=== PATIENT | male | born 1945 | race Caucasian/White ===

== ENCOUNTER 2016-06-15 10:40 | Inpatient (IN) | payer OTHER, MEDICARE ==
[~2016-06-15] VITALS: Ht 170.2 cm; Wt 95.6 kg
[~2016-06-15 10:40] MED LIST: ASPI81TA17 PO; IBUP600 PO; METO50 PO; OXYC5 PO; PROT40TA PO; SILD20TA PO
[2016-06-15 10:44] VITALS: BP 162/74; PULSE 88; RESP 20; TEMP 97.7; O2SAT 96
[2016-06-15 10:52] VITALS: BP 162/74; PULSE 88; RESP 20; TEMP 97.7; O2SAT 96
[2016-06-15] MEDS ORDERED: CEFEPIME INJ 2,000 MG in SODIUM CHLORIDE 0.9% INJ 100 ML IV STA (10:53)
[2016-06-15] MEDS ORDERED: VANCOMYCIN INJ 1,000 MG in SODIUM CHLOR 0.9% 250 ML INJ 250 ML IV STA (10:53)
[2016-06-15] MEDS ORDERED: FLUCONAZOLE 400 MG PREMIX BAG 200 ML IV ONE (11:00)
--- NOTE | 2016-06-15 11:08 | PD ---
HPI Chief Complaint: Fever Time Seen by Provider: 10:53 Travel History International Travel<30 days: No Contact w/Intl Traveler<30days: No Traveled to known affect area: No History of Present Illness HPI Patient is a unfortunate 71-year-old male who presents the emergency department for fever. Patient had a fairly recent diagnosis of myelodysplastic syndrome and has been neutropenic, severely with essentially 0 neutrophils for the better part of 6 weeks. He was seen at [facility] for potential bone marrow transplant, but because he has decompensated he "fell off the transplant list" per patient. Patient has been prophylaxed with Cipro, fluconazole given his severe neutropenia but states that over the last week he has felt poorly. Describes generalized body aches, feeling weak. Nausea but no vomiting. This morning he spiked a temp to 100.5. He was seen by Dr. Collins who sent him here for further workup and management of neutropenic fever. PFSH Past Medical History Depression: Yes Cardiac Catheterization: Yes (NO STENTS) High Cholesterol: Yes Chemotherapy: Yes Chest Pain: Yes Diminished Hearing: No Diverticulitis: Yes GERD: Yes Herniated Disk: Yes (L4-5) Hypertension: Yes Kidney Stones: Yes Psychiatric: Yes (PTSD) Past Surgical History Cholecystectomy: Yes Ear Surgery: Yes Social History Alcohol Use: Yes (RARE) Tobacco Use: No Substance Use: No Allergies-Medications (Allergen,Severity, Reaction): Coded Allergies: No Known Allergies (Unverified , 11/20/12) Reported Meds & Prescriptions Reported Meds & Active Scripts Active Reported Aspirin EC (Aspirin) 81 Mg Tabdr 81 Mg PO HS Percocet (Oxycodone-Acetaminophen) 5-325 mg Tab 1-2 Tab PO Q6-8HR PRN Pantoprazole (Pantoprazole Sodium) 40 Mg Tab 40 Mg PO BID Tamsulosin (Tamsulosin HCl) 0.4 Mg Cap 0.4 Mg PO HS Losartan (Losartan Potassium) 50 Mg Tab 50 Mg PO HS Wellbutrin Xl 24 HR (Bupropion HCl) 150 Mg Tab 150 Mg PO HS Questran (Cholestyramine) 4 Gm/Dose Powd 4 Gm PO BID PRN 1 level scoopful of powder contains 4 grams of cholestyramine. Cipro (Ciprofloxacin HCl) 250 Mg Tab 250 Mg PO DAILY Sucralfate 1 Gm Tab 1 Gm PO HS PRN on empty stomach Viagra (Sildenafil Citrate) 50 Mg Tab 50 Mg PO DAILY PRN Review of Systems Except as stated in HPI: all other systems reviewed are Neg Physical Exam Narrative GENERAL: obese male in no acute distress SKIN: Warm and dry. HEAD: Normocephalic. EYES: No scleral icterus. No injection or drainage. ENT: Mucous membranes pink and moist. NECK: Trsupple CARDIOVASCULAR: Regular rate and rhythm. No murmur appreciated. RESPIRATORY: No accessory muscle use. Clear to auscultation. Breath sounds equal bilaterally. GASTROINTESTINAL: Abdomen soft, non-tender, nondistended. MUSCULOSKELETAL: ecchymosis in the left antecubital from recent IV. No palpable cords. No erythema. Remainder the extremities unremarkable. NEUROLOGICAL: Awake and alert. Motor grossly within normal limits. Normal speech. PSYCHIATRIC: Appropriate mood and affect; insight and judgment normal. Data Data Last Documented VS Vital Signs Date Time Temp Pulse Resp B/P Pulse Ox O2 Delivery O2 Flow Rate FiO2 06/15/16 12:04 78 18 127/61 96 Room Air 06/15/16 10:52 97.7 Orders Electrocardiogram (06/15/16 10:53) Complete Blood Count With Diff (06/15/16 10:53) Comprehensive Metabolic Panel (06/15/16 10:53) Prothrombin Time / Inr (Pt) (06/15/16 10:53) Act Partial Throm Time (Ptt) (06/15/16 10:53) Lactic Acid Sepsis Protocol (06/15/16 10:53) Lipase (06/15/16 10:53) Urinalysis - C+S If Indicated (06/15/16 10:53) Influenzae A/B Antigen (06/15/16 10:53) Blood Culture (06/15/16 10:53) Chest, Single Ap (06/15/16 10:53) Ecg Monitoring (06/15/16 10:53) Iv Access Insert/Monitor (06/15/16 10:53) Oximetry (06/15/16 10:53) Cefepime Inj (Maxipime Inj) (06/15/16 10:53) Vancomycin Inj (Vancomycin Inj) (06/15/16 10:53) Fluconazole 400 Mg Premix Bag (Diflucan (06/15/16 11:00) Consult Infectious Disease (06/15/16 ) Consult Medical Oncology (06/15/16 ) Us Arm Venous Doppler (06/15/16 ) (Hub Use Only)Inp Phy Cons/Ref (06/15/16 ) (Hub Use Only)Inp Phy Cons/Ref (06/15/16 ) Admit Order (Ed Use Only) (06/15/16 13:14) Labs Laboratory Tests Test 06/15/16 06/15/16 11:50 11:54 Lactic Acid Level 1.3 mmol/L White Blood Count 2.8 TH/MM3 Red Blood Count 4.13 MIL/MM3 Hemoglobin 9.4 GM/DL Hematocrit 30.2 % Mean Corpuscular Volume 73.2 FL Mean Corpuscular Hemoglobin 22.8 PG Mean Corpuscular Hemoglobin 31.1 % Concent Red Cell Distribution Width 17.2 % Platelet Count 219 TH/MM3 Mean Platelet Volume 9.6 FL Neutrophils (%) (Auto) % Lymphocytes (%) (Auto) % Monocytes (%) (Auto) % Eosinophils (%) (Auto) % Basophils (%) (Auto) % Neutrophils # (Auto) TH/MM3 Lymphocytes # (Auto) TH/MM3 Monocytes # (Auto) TH/MM3 Eosinophils # (Auto) TH/MM3 Basophils # (Auto) TH/MM3 CBC Comment AUTO DIFF Prothrombin Time 12.1 SEC Prothromb Time International 1.1 RATIO Ratio Activated Partial 20.6 SEC Thromboplast Time Sodium Level 141 MEQ/L Potassium Level 4.1 MEQ/L Chloride Level 107 MEQ/L Carbon Dioxide Level 25.7 MEQ/L Anion Gap 8 MEQ/L Blood Urea Nitrogen 13 MG/DL Creatinine 1.04 MG/DL Estimat Glomerular Filtration 70 ML/MIN Rate Random Glucose 99 MG/DL Calcium Level 8.8 MG/DL Total Bilirubin 0.6 MG/DL Aspartate Amino Transf 19 U/L (AST/SGOT) Alanine Aminotransferase 24 U/L (ALT/SGPT) Alkaline Phosphatase 86 U/L Total Protein 7.3 GM/DL Albumin 3.9 GM/DL Lipase 81 U/L MDM Medical Decision Making Medical Screen Exam Complete: Yes Emergency Medical Condition: Yes Medical Record Reviewed: Yes Differential Diagnosis 71-year-old male with history of myelodysplastic syndrome here for neutropenic fever. Differential includes bacteremia, influenza, pneumonia, UTI, abdominal source, neutropenic fever, fungemia, left upper extremity superficial thrombophlebitis versus DVT. Narrative Course Patient placed on monitor, IV established and blood obtained. twelve-lead EKG shows sinus rhythm without notable ST abnormality is, normal intervals. Portal chest x-ray obtained that by my read is unremarkable.Patient was empirically treated with cefepime, vancomycin and fluconazole. CBC, CMP, lipase, lactate, coags, influenza, blood cultures were obtained and unremarkable. UA pending. Duplex ultrasound of the left upper extremity showed no evidence of DVT. Medical oncology and infectious disease were consulted and patient will be admitted for further management. Critical Care Narrative Aggregate critical care time was 35 minutes. Time to perform other separately billable procedures was not included in the critical care time. My time did not include minutes spent treating any other patients simultaneously or on activities that did not directly contribute to the patient's treatment. The services I provided to this patient were to treat and/or prevent clinically significant deterioration that could result in: cardiopulmonary decompensation , infectious decompensation,, disability I provided critical care services requiring my management, as noted below: Chart data review, documentation time, medication orders and management, vital sign assessments/reviewing monitor data, ordering and reviewing lab tests, ordering and interpreting/reviewing x-rays and diagnostic studies, care of the patient and discussion of the patient with the admitting physicians. Diagnosis Primary Impression: Neutropenic fever Admitting Information Admitting Physician Requests: Admit Angela Arrieta MD Jun 15, 2016 11:08
--- NOTE | 2016-06-15 11:36 | RADRPT ---
EXAM DATE/TIME: 06/15/2016 11:11 [facility] COMPARISON: No previous studies available for comparison. INDICATIONS : Fever, congestion. MEDICAL HISTORY : Leukemia. SURGICAL HISTORY : None. ENCOUNTER: Initial ACUITY: 1 day PAIN SCORE: 0/10 LOCATION: Bilateral chest FINDINGS: A single view of the chest demonstrates the lungs to be symmetrically aerated without evidence of mas s, infiltrate or effusion. The cardiomediastinal contours are unremarkable. Osseous structures are intact. CONCLUSION: No acute disease. Mejia Butler MD FACR on June 15, 2016 at 11:34 Board Certified Radiologist. This report was verified electronically.
[2016-06-15] MEDS ORDERED: SUCR1TAB PO (11:43)
[2016-06-15] MEDS ORDERED: VIAG50TA PO (11:43)
[2016-06-15] MEDS ORDERED: CIPR250T52 PO (11:46)
[2016-06-15] MEDS ORDERED: QUES4POW2 PO (11:46)
[2016-06-15] MEDS ORDERED: BUPR150XL PO (11:48)
[2016-06-15] MEDS ORDERED: LOSA50TA PO (11:50)
[2016-06-15] MEDS ORDERED: PANT40TA3 PO (11:50)
[2016-06-15] MEDS ORDERED: PERC5TAB12 PO (11:50)
[2016-06-15] MEDS ORDERED: ASPI81TA11 PO (11:50)
[2016-06-15] MEDS ORDERED: TAMS0.4C4 PO (11:50)
[2016-06-15 12:04] VITALS: BP 127/61; PULSE 78; RESP 18; O2SAT 96
[2016-06-15 12:31] LABS: HEMATOCRIT 30.2 % (39.0-51.0); MEAN CELL VOLUME 73.2 FL (80.0-100.0); MEAN CORPUSCULAR HEMOGLOBIN 22.8 PG (27.0-34.0); MEAN CORPUSCULAR HGB CONC 31.1 % (32.0-36.0); PLATELET COUNT 219 TH/MM3 (150-450); RED BLOOD COUNT 4.13 MIL/MM3 (4.50-5.90); RED CELL DISTRIBUTION WIDTH 17.2 % (11.6-17.2); WHITE BLOOD COUNT 2.8 TH/MM3 (4.0-11.0)
[2016-06-15 12:32] LABS: HEMO FLAGS AUTO DIFF
[2016-06-15 12:40] LABS: APTT (PATIENT) 20.6 SEC (24.3-30.1); INTERNATIONAL NORMALIZED RATIO 1.1 RATIO; PROTHROMBIN TIME - PATIENT 12.1 SEC (9.8-11.6)
[2016-06-15 12:41] LABS: ALT (GPT) 24 U/L (12-78); ANION GAP 8 MEQ/L (5-15); AST (GOT) 19 U/L (15-37); BICARBONATE 25.7 MEQ/L (21.0-32.0); BLOOD UREA NITROGEN 13 MG/DL (7-18); CHLORIDE 107 MEQ/L (98-107); GLOMERULAR FILTRATION RATE 70 ML/MIN (>89); POTASSIUM 4.1 MEQ/L (3.5-5.1); SODIUM (NA) 141 MEQ/L (136-145)
[2016-06-15 12:44] LABS: ALKALINE PHOSPHATASE 86 U/L (45-117); TOTAL BILIRUBIN ADULT 0.6 MG/DL (0.2-1.0)
--- NOTE | 2016-06-15 12:48 | RADRPT ---
EXAM DATE/TIME: 06/15/2016 12:12 [facility] COMPARISON: No previous studies available for comparison. INDICATIONS : Left arm pain. MEDICAL HISTORY : Hypertension. Gastroesophageal reflux disease. Diverticulitis. Kidney stones. SURGICAL HISTORY : Cholecystectomy. Ear surgery. Cardiac catheterization. Right elbow fracture repair. ENCOUNTER: Initial ACUITY: 1 day PAIN SCORE: 2/10 LOCATION: Left arm. FINDINGS: There is spontaneous flow documented in the brachial, basilic, cephalic, axillary, and subclavian vei ns. The vessels are compressible and augmentation response is documented. No filling defects are se en. The flow is phasic with respiration. Direction of flow in the jugular vein is caudal. CONCLUSION: No evidence of deep venous thrombosis within the left upper extremity. Luis Whitehead MD on June 15, 2016 at 12:46 Board Certified Radiologist. This report was verified electronically.
[2016-06-15 13:30] VITALS: BP 127/71; PULSE 80; RESP 18; O2SAT 96
[2016-06-15 13:39] LABS: POLYS (SEG NEUTROPHILS) 12 % (16-70); WBC DIFF SAMPLE 100
[2016-06-15 13:43] LABS: NEUTROPHIL # MANUAL DIFF 0.3 TH/MM3 (1.8-7.7); PLATELET ESTIMATE SMEAR NORMAL (NORMAL); SCAN/DIFF FINAL DIFF MANUAL
[2016-06-15 13:44] LABS: PLATELET MORPHOLOGY CLUMPED (NORMAL)
[2016-06-15 13:45] LABS: ACANTHOCYTES OCC (NORMAL); KERATOCYTES OCC (NORMAL); OVALOCYTES 1+ (NORMAL)
[2016-06-15] MEDS ORDERED: ONDANSETRON HCL 4 MG/2 ML VIAL IVP PRN (13:45)
[2016-06-15] MEDS ORDERED: MAGNESIUM HYDROXIDE SUSP 30 ML CUP PO PRN (13:45)
[2016-06-15] MEDS ORDERED: SODIUM CHLORIDE 0.9% FLUSH 5 ML FLUSH FLUSH PRN (13:45)
[2016-06-15] MEDS ORDERED: RESP: ALBUTEROL 2.5 MG/IPRATROPIUM 0.5 MG NEB (PRN) NEB (13:45)
[2016-06-15] MEDS ORDERED: ACETAMINOPHEN 325 MG TAB PO PRN ×2 (13:45)
[2016-06-15] MEDS ORDERED: ACETAMINOPHEN/HYDROcodone 325 MG/5 MG TAB PO PRN (13:45)
[2016-06-15] MEDS ORDERED: NALOXONE HCL 0.4 MG/ML AMP IV PRN (13:45)
[2016-06-15] MEDS ORDERED: ACETAMINOPHEN/HYDROcodone 325 MG/7.5 MG TAB PO PRN (13:45)
--- NOTE | 2016-06-15 13:47 | HHI.HP ---
[facility] Service [facility] Primary Care Physician Non-Staff Admission Diagnosis neutropenic fever Diagnoses: (1) Neutropenic fever Chief Complaint: febrile episode Travel History International Travel<30 Days: No Contact w/Intl Traveler <30 Da: No Traveled to Known Affected Are: No History of Present Illness 71-year-old male with recent diagnosis of acute leukemia/myelodysplastic syndrome with a history of neutropenic with essentially 0 neutrophils for the past 6 weeks came to the ED today for evaluation of febrile episode with a temp of 100.5 this morning and a one-week history of chills, generalized weakness and a feeling of tiredness however without any fever. Patient states for the past two and half months he has been taking a daily prophylactic dose of Cipro and was recently prescribed fluconazole daily 1 month. Patient has been followed by Dr. Collins medical oncology. He was recently seen at [facility] for potential bone marrow transplant however was not retained on a chest x-ray secondary to decompensation. Currently denies any GI bleed, bladder or bowel dysfunction. Review of Systems Other Other 12 systems reviewed and are negative except for the one mentioned in the history of present illness Past Family Social History Past Medical History Depression: Yes Cardiac Catheterization: Yes (NO STENTS) High Cholesterol: Yes Chemotherapy: Yes Chest Pain: Yes Diverticulitis: Yes GERD: Yes Herniated Disk: Yes (L4-5) Hypertension: Yes Kidney Stones: Yes Psychiatric: Yes (PTSD) Past Surgical History Cholecystectomy: Yes Ear Surgery: Yes Reported Medications Aspirin EC (Aspirin) 81 Mg Tabdr 81 Mg PO HS Percocet (Oxycodone-Acetaminophen) 5-325 mg Tab 1-2 Tab PO Q6-8HR PRN Pantoprazole (Pantoprazole Sodium) 40 Mg Tab 40 Mg PO BID Tamsulosin (Tamsulosin HCl) 0.4 Mg Cap 0.4 Mg PO HS Losartan (Losartan Potassium) 50 Mg Tab 50 Mg PO HS Wellbutrin Xl 24 HR (Bupropion HCl) 150 Mg Tab 150 Mg PO HS Questran (Cholestyramine) 4 Gm/Dose Powd 4 Gm PO BID PRN 1 level scoopful of powder contains 4 grams of cholestyramine. Cipro (Ciprofloxacin HCl) 250 Mg Tab 250 Mg PO DAILY Sucralfate 1 Gm Tab 1 Gm PO HS PRN on empty stomach Viagra (Sildenafil Citrate) 50 Mg Tab 50 Mg PO DAILY PRN Allergies: Coded Allergies: No Known Allergies (Unverified , 11/20/12) Family History Family history positive on his dad's side with lung cancer, throat cancer On his mom's side family history is positive for heart disease Social History Alcohol Use: Yes (RARE) Tobacco Use: No Substance Use: No Physical Exam Vital Signs Vital Signs Date Time Temp Pulse Resp B/P Pulse Ox O2 Delivery O2 Flow Rate FiO2 06/15/16 12:04 78 18 127/61 96 Room Air 06/15/16 10:55 88 20 96 Room Air 06/15/16 10:52 97.7 88 20 162/74 96 06/15/16 10:44 97.7 88 20 162/74 96 Room Air Physical Exam GENERAL: This is a well-nourished, well-developed patient, in no apparent distress. SKIN: No rashes, ecchymoses or lesions. Cool and dry. HEAD: Atraumatic. Normocephalic. No temporal or scalp tenderness. EYES: Pupils equal round and reactive. Extraocular motions intact. No scleral icterus. No injection or drainage. ENT: Nose without bleeding, purulent drainage or septal hematoma. Throat without erythema, tonsillar hypertrophy or exudate. Uvula midline. Airway patent. NECK: Trachea midline. No JVD or lymphadenopathy. Supple, nontender, no meningeal signs. CARDIOVASCULAR: Regular rate and rhythm without murmurs, gallops, or rubs. RESPIRATORY: Clear to auscultation. Breath sounds equal bilaterally. No wheezes , rales, or rhonchi. GASTROINTESTINAL: Abdomen soft, non-tender, nondistended. No hepato-splenomegaly , or palpable masses. No guarding. MUSCULOSKELETAL: Extremities without clubbing, cyanosis, or edema. No joint tenderness, effusion, or edema noted. No calf tenderness. Negative Homans sign bilaterally. NEUROLOGICAL: Awake and alert. Cranial nerves II through XII intact. Motor and sensory grossly within normal limits. Five out of 5 muscle strength in all muscle groups. Normal speech. Laboratory Laboratory Tests Test 06/15/16 06/15/16 11:50 11:54 Lactic Acid Level 1.3 White Blood Count 2.8 Red Blood Count 4.13 Hemoglobin 9.4 Hematocrit 30.2 Mean Corpuscular Volume 73.2 Mean Corpuscular Hemoglobin 22.8 Mean Corpuscular Hemoglobin 31.1 Concent Red Cell Distribution Width 17.2 Platelet Count 219 Mean Platelet Volume 9.6 Neutrophils (%) (Auto) Lymphocytes (%) (Auto) Monocytes (%) (Auto) Eosinophils (%) (Auto) Basophils (%) (Auto) Neutrophils # (Auto) Lymphocytes # (Auto) Monocytes # (Auto) Eosinophils # (Auto) Basophils # (Auto) CBC Comment AUTO DIFF Prothrombin Time 12.1 Prothromb Time International 1.1 Ratio Activated Partial 20.6 Thromboplast Time Sodium Level 141 Potassium Level 4.1 Chloride Level 107 Carbon Dioxide Level 25.7 Anion Gap 8 Blood Urea Nitrogen 13 Creatinine 1.04 Estimat Glomerular Filtration 70 Rate Random Glucose 99 Calcium Level 8.8 Total Bilirubin 0.6 Aspartate Amino Transf 19 (AST/SGOT) Alanine Aminotransferase 24 (ALT/SGPT) Alkaline Phosphatase 86 Total Protein 7.3 Albumin 3.9 Lipase 81 Date/Time Procedure Status Source Growth 06/15/16 12:10 Influenza Types A,B Antigen (KELLI) - Final Complete Nasal Washing NEGATIVE FOR FLU A AND B ANTIGEN.... 06/15/16 12:00 Aerobic Blood Culture Received Blood Peripheral Pending 06/15/16 12:00 Anaerobic Blood Culture Received Blood Peripheral Pending Result Diagram: 06/15/16 1154 06/15/16 1154 Imaging Last Impressions Chest X-Ray 06/15/16 1053 Signed Impressions: Service Date/Time: Wednesday, June 15, 2016 11:11 - CONCLUSION: No acute disease. Mejia Butler MD FACR Upper Extremity Ultrasound 06/15/16 0000 Signed Impressions: Service Date/Time: Wednesday, June 15, 2016 12:12 - CONCLUSION: No evidence of deep venous thrombosis within the left upper extremity. Luis Whitehead MD Assessment and Plan Problem List: (1) Neutropenic fever ICD Code: D70.9 Status: Acute Assessment and Plan 71-year-old male with 1-Neutropenic fever: Status post cefepime, vancomycin, fluconazole IV 1 in ED; continue cefepime 2 g IV every 8H, vancomycin IV as well as fluconazole daily pending further evaluation from infectious disease's consultation. Place neutropenic precaution Monitor cultures as UA pending. Negative flu A and B antigen 2-History of myelodysplastic syndrome/acute leukemia; medical oncology consultation pending 3-History of hypertension: Currently normotensive, resume outpatient medications 4-Left arm pain: Doppler upper left extremity noted and reviewed by me and negative for DVT, continue conservative treatments 5-Other chronic medical conditions: Resume outpatient medications DVT prophylaxis: Bilateral SCDs/Lovenox Code Status Full code Discussed Condition With Patient, partner, ED physician Physician Certification 2 Midnight Certification Type: Admission for Inpatient Services Order for Inpatient Services The services are ordered in accordance with Medicare regulations or non- Medicare payer requirements, as applicable. In the case of services not specified as inpatient-only, they are appropriately provided as inpatient services in accordance with the 2-midnight benchmark. Estimated LOS (days): 2 days is the estimated time the patient will need to remain in the hospital, assuming treatment plan goals are met and no additional complications. Post-Hospital Plan: Not yet determined Jn Hoyos MD Jun 15, 2016 13:47
[2016-06-15 13:52] LABS: BLOOD, URINE NEG (NEG); GLUCOSE,URINE NEG (NEG); KETONE, URINE NEG (NEG); NITRITE,URINE NEG (NEG); URINE COLOR YELLOW (YELLW/STRAW)
[2016-06-15 13:58] LABS: COMMENT (UR) CATH-CULT NOT IND; CULTURE IF INDICATED CATH CULTURE NOT IND
[2016-06-15] MEDS ORDERED: Vancomycin Consult Pharmacy 1 EA OTHER SCH (14:00)
[2016-06-15 18:56] VITALS: BP 128/64; PULSE 76; RESP 20; TEMP 97.2; O2SAT 98
[2016-06-15] MEDS: CEFEPIME INJ 2,000 MG in SODIUM CHLORIDE 0.9% INJ 100 ML IV SCH (19:00)
[2016-06-15] MEDS: SODIUM CHLORIDE 0.9% FLUSH 5 ML FLUSH FLUSH SCH (21:09)
[2016-06-15] MEDS: TAMSULOSIN HCL 0.4 MG CAP PO SCH (21:09)
[2016-06-15] MEDS: buPROPion HCL 150 MG SUSTAINED RELEASE TAB PO SCH (21:09)
[2016-06-15] MEDS: PANTOPRAZOLE SOD 40 MG DELAYED RELEASE TAB PO SCH (21:09)
[2016-06-15] MEDS: ASPIRIN EC 81 MG TABEC PO SCH (21:09)
[2016-06-15] MEDS: LOSARTAN 50 MG TAB PO SCH (21:09)
[2016-06-15 21:44] VITALS: BP 127/57; PULSE 85; RESP 16; TEMP 99.1; O2SAT 98
--- NOTE | 2016-06-15 22:10 | MB ---
cc: NICOLE MERCEDES MD,MARY Monet MD DATE OF CONSULTATION: 06/15/[address] Arrieta REASON FOR CONSULTATION Neutropenic fever. HISTORY OF PRESENT ILLNESS This is a 71-year-old white male who presented to the emergency department because of fever. The patient has myelodysplastic syndrome and he has been neutropenic for weeks. He has been on p.o. antibiotic treatment with ciprofloxacin and fluconazole. The patient noted that approximately a week ago he started feeling weak and was using his walker and then he started getting dizzy and he had an elevated temperature of 100.5 degrees and was told to come to the emergency department for evaluation. The patient reports that he had chemotherapy approximately [id number]-half weeks ago. He states that he has had some nausea but he denies abdominal pain, cough, shortness of breath. He has had a mild headache. No difficulty with vision. He has had no back pain. He states that he often gets some dysuria because he has a history of kidney stones and had multiple kidney stones in the past. His temperature in the emergency department is normal and the white blood cell count is 2.8. Blood cultures have been taken. Influenza test is negative. Chest x-ray has no acute disease. The patient had some bleeding from his left antecubital area after he had blood draws taken during the past week. He underwent ultrasound and there was no evidence of deep venous thrombosis of the left upper extremity. Urinalysis was unremarkable. The patient states that his appetite has been poor for the past week. He is due for followup at [facility] in [place] for additional chemotherapy and possibly bone marrow transplantation in the future. No exposure to unusual pets and no recent travel outside of [place]. The patient is originally from [place] PAST MEDICAL HISTORY 1. Hypertension. 2. Gastroesophageal reflux disease. 3. Diverticulitis. 4. Hypercholesteremia. 5. Depression. 6. History of herniated disc. 7. Post-traumatic stress disorder. 8. Cholecystectomy. 9. Myelodysplastic syndrome. ALLERGIES NO KNOWN DRUG ALLERGIES. MEDICATIONS 1. Vancomycin. 2. Cefepime. 3. Aspirin. 4. Wellbutrin. 5. Geraldine 7.5 p.r.n. SOCIAL HISTORY No tobacco. Rare alcohol. No illicit drugs. FAMILY HISTORY Significant for cancer on his dad's side and heart disease on his mom's side. REVIEW OF SYSTEMS Pertinents mentioned in the History of Present Illness. Otherwise negative. PHYSICAL EXAMINATION GENERAL: This is a well-developed slender male who is in no acute distress. He is awake and alert and oriented. VITAL SIGNS: Temperature 95.7, BP 127/71, respirations 18, heart rate 80. HEENT: Head atraumatic. Extraocular movements grossly intact. Pupils are reactive to light. No icterus. No conjunctival erythema. Oropharynx - no visible lesions. NECK: Supple without adenopathy. No neck swelling. LUNGS: Clear breath sounds. HEART: Regular rate and rhythm. ABDOMEN: Bowel sounds present, distended, soft, tympanic to percussion. No palpable mass. RECTAL: Not performed. EXTREMITIES: No clubbing or cyanosis or edema. No calf tenderness. No splinter hemorrhages of the nail beds. SKIN: No rash. NEUROLOGIC: Nonfocal. PSYCHIATRIC: The patient calm and cooperative. LABORATORY DATA WBC 2.8, platelet count 219, hemoglobin 9.4. Differential: 12% neutrophils and 87% lymphocytes. Creatinine 1.04, BUN 13, estimated GFR 70, sodium 141. Liver function tests normal. IMPRESSION Neutropenic fever in a patient with myelodysplastic syndrome who is status post chemotherapy and has had prolonged neutropenia. At this point there is no clear evidence of foci of infection in this patient. RECOMMENDATIONS 1. Continue Vancomycin. 2. Continue cefepime. 3. Monitor the temperature. 4. Monitor blood counts. 5. Monitor blood cultures. 6. Additional studies depending on the patient's clinical status and blood culture results. 7. Close monitoring for foci of infection. Thank you for this consultation. The patient's progress will be monitored and further recommendations will be made on followup if necessary. Nicole Mercedes MD FD/SHEILA /5:01 PM /9:41 PM
[2016-06-16] VITALS: BP 118/58; PULSE 74; RESP 16; TEMP 98.1; O2SAT 96
[2016-06-16] MEDS: VANCOMYCIN 1,500 MG/NS 500 ML IV SCH ×4 (01:04→18:03)
[2016-06-16] MEDS: TEMAZEPAM 15 MG CAP PO PRN ×2 (01:04→22:59)
[2016-06-16] MEDS: CEFEPIME INJ 2,000 MG in SODIUM CHLORIDE 0.9% INJ 100 ML IV SCH ×3 (03:00→21:13)
[2016-06-16 04:00] VITALS: BP 109/52; PULSE 72; RESP 16; TEMP 98.3; O2SAT 97
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
[2016-06-16 06:38] LABS: HEMATOCRIT 26.7 % (39.0-51.0); MEAN CELL VOLUME 73.5 FL (80.0-100.0); MEAN CORPUSCULAR HEMOGLOBIN 22.5 PG (27.0-34.0); MEAN CORPUSCULAR HGB CONC 30.6 % (32.0-36.0); PLATELET COUNT 162 TH/MM3 (150-450); RED BLOOD COUNT 3.63 MIL/MM3 (4.50-5.90); RED CELL DISTRIBUTION WIDTH 17.4 % (11.6-17.2)
[2016-06-16 07:10] LABS: ALKALINE PHOSPHATASE 75 U/L (45-117); ALT (GPT) 20 U/L (12-78); ANION GAP 8 MEQ/L (5-15); AST (GOT) 14 U/L (15-37); BICARBONATE 26.4 MEQ/L (21.0-32.0); BLOOD UREA NITROGEN 14 MG/DL (7-18); CHLORIDE 107 MEQ/L (98-107); GLOMERULAR FILTRATION RATE 67 ML/MIN (>89); POTASSIUM 4.2 MEQ/L (3.5-5.1); SODIUM (NA) 141 MEQ/L (136-145); TOTAL BILIRUBIN ADULT 0.9 MG/DL (0.2-1.0)
[2016-06-16 07:14] LABS: HEMO FLAGS AUTO DIFF
[2016-06-16] MEDS: SODIUM CHLORIDE 0.9% FLUSH 5 ML FLUSH FLUSH SCH ×2 (07:31→19:48)
[2016-06-16] MEDS: PANTOPRAZOLE SOD 40 MG DELAYED RELEASE TAB PO SCH ×2 (07:32→19:47)
[2016-06-16 08:00] VITALS: BP 116/56; PULSE 79; RESP 18; TEMP 97.6; O2SAT 96
[2016-06-16] MEDS ORDERED: VANCOMYCIN INJ 1,000 MG in SODIUM CHLOR 0.9% 250 ML INJ 250 ML IV SCH (09:00)
[2016-06-16 09:52] LABS: BANDS 3 % (0-6); CORRECTED NUCLEATED RBC 1 /100 WBC (0-0); NEUTROPHIL # MANUAL DIFF 0.1 TH/MM3 (1.8-7.7); OVALOCYTES 1+ (NORMAL); PLATELET ESTIMATE SMEAR NORMAL (NORMAL); POLYS (SEG NEUTROPHILS) 2 % (16-70); SCAN/DIFF FINAL DIFF MANUAL; WBC DIFF SAMPLE 100
[2016-06-16 09:53] LABS: KERATOCYTES OCC (NORMAL); PLATELET MORPHOLOGY CLUMPED (NORMAL)
[2016-06-16 12:00] VITALS: BP 107/56; PULSE 74; RESP 16; TEMP 97.5; O2SAT 96
--- NOTE | 2016-06-16 12:03 | PD.ONC.PN ---
Subjective Subjective Remarks Afebrile overnight. Patient feeling well today. He denies any rash or bleeding. Objective Data Date Time Temp Pulse Resp B/P Pulse Ox O2 Delivery O2 Flow Rate FiO2 06/16/16 08:00 97.6 79 18 116/56 96 06/16/16 04:00 98.3 72 16 109/52 97 06/16/16 00:00 98.1 74 16 118/58 96 06/15/16 21:44 99.1 85 16 127/57 98 06/15/16 18:56 97.2 76 20 128/64 98 06/15/16 13:30 80 18 127/71 96 Room Air 06/15/16 12:04 78 18 127/61 96 Room Air Result Diagram: 06/16/16 0554 06/16/16 0554 Laboratory Results Laboratory Tests Test 06/15/16 06/16/16 13:25 05:54 Urine Color YELLOW Urine Turbidity CLEAR Urine pH 6.0 Urine Specific Crane 1.016 Urine Protein NEG mg/dL Urine Glucose (UA) NEG mg/dL Urine Ketones NEG mg/dL Urine Occult Blood NEG Urine Nitrite NEG Urine Bilirubin NEG Urine Urobilinogen LESS THAN 2.0 MG/DL Urine Leukocyte Esterase NEG Urine RBC LESS THAN 1 /hpf Urine WBC 1 /hpf Microscopic Urinalysis Comment CATH-CULT NOT IND White Blood Count 1.0 TH/MM3 Red Blood Count 3.63 MIL/MM3 Hemoglobin 8.2 GM/DL Hematocrit 26.7 % Mean Corpuscular Volume 73.5 FL Mean Corpuscular Hemoglobin 22.5 PG Mean Corpuscular Hemoglobin 30.6 % Concent Red Cell Distribution Width 17.4 % Platelet Count 162 TH/MM3 Mean Platelet Volume 9.8 FL Neutrophils (%) (Auto) % Lymphocytes (%) (Auto) % Monocytes (%) (Auto) % Eosinophils (%) (Auto) % Basophils (%) (Auto) % Neutrophils # (Auto) TH/MM3 Lymphocytes # (Auto) TH/MM3 Monocytes # (Auto) TH/MM3 Eosinophils # (Auto) TH/MM3 Basophils # (Auto) TH/MM3 CBC Comment AUTO DIFF Differential Total Cells 100 Counted Neutrophils % (Manual) 2 % Band Neutrophils % 3 % Lymphocytes % 94 % Monocytes % 1 % Neutrophils # (Manual) 0.1 TH/MM3 Nucleated Red Blood Cells 1 /100 WBC Differential Comment FINAL DIFF MANUAL Platelet Estimate NORMAL Platelet Morphology Comment CLUMPED Ovalocytes 1+ Keratocytes OCC Sodium Level 141 MEQ/L Potassium Level 4.2 MEQ/L Chloride Level 107 MEQ/L Carbon Dioxide Level 26.4 MEQ/L Anion Gap 8 MEQ/L Blood Urea Nitrogen 14 MG/DL Creatinine 1.08 MG/DL Estimat Glomerular Filtration 67 ML/MIN Rate Random Glucose 92 MG/DL Calcium Level 8.1 MG/DL Total Bilirubin 0.9 MG/DL Aspartate Amino Transf 14 U/L (AST/SGOT) Alanine Aminotransferase 20 U/L (ALT/SGPT) Alkaline Phosphatase 75 U/L Total Protein 6.3 GM/DL Albumin 3.3 GM/DL Culture Results Microbiology Date/Time Procedure Status Source Growth 06/15/16 11:50 Aerobic Blood Culture - Preliminary Resulted Blood Peripheral Gram Positive Cocci 06/15/16 11:50 Anaerobic Blood Culture - Preliminary Resulted Gram Positive Cocci 06/15/16 12:00 Aerobic Blood Culture - Preliminary Resulted Blood Peripheral Gram Positive Cocci 06/15/16 12:00 Anaerobic Blood Culture - Preliminary Resulted Gram Positive Cocci 06/15/16 12:10 Influenza Types A,B Antigen (KELLI) - Final Complete Nasal Washing NEGATIVE FOR FLU A AND B ANTIGEN.... Administered Medications Medications (Trade) Dose Ordered Sig/Gene Route PRN Reason Start Time Stop Time Status Last Admin Dose Admin Aspirin (Ecotrin Ec) 81 mg HS PO 06/15/16 21:00 06/15/16 21:09 Bupropion HCl (Wellbutrin Sr) 150 mg HS PO 06/15/16 21:00 06/15/16 21:09 Losartan Potassium (Cozaar) 50 mg HS PO 06/15/16 21:00 06/15/16 21:09 Pantoprazole Sodium (Protonix) 40 mg BID PO 06/15/16 21:00 06/16/16 07:32 Tamsulosin HCl 0.4 mg 0.4 mg HS PO 06/15/16 21:00 06/15/16 21:09 Cefepime HCl/ Sodium Chloride (Maxipime Inj/NS Inj) 100 ml @ 200 mls/hr Q8H IV 06/15/16 19:00 06/16/16 11:15 IV Flush (NS Flush) 2 ml BID FLUSH 06/15/16 21:00 06/16/16 07:31 Temazepam 15 mg 15 mg HS PRN PO INSOMNIA 06/15/16 13:45 06/16/16 01:04 Vancomycin HCl/ Sodium Chloride (Vancomycin Inj/ NS 500 ml Inj) 515 ml @ 257.5 mls/ hr Q18H IV 06/16/16 00:00 06/16/16 01:04 Objective Remarks GENERAL: Elderly male, sitting up in chair next to window. He appears well and in nad. SKIN: Warm and dry. HEAD: Normocephalic. EYES: No injection or drainage. NECK: Supple, trachea midline. CARDIOVASCULAR: Regular rate and rhythm RESPIRATORY: Breath sounds equal bilaterally. No accessory muscle use. GASTROINTESTINAL: Abdomen soft, non-tender, nondistended. EXTREMITIES: No cyanosis NEUROLOGICAL: No obvious focal deficit. Awake, alert, and oriented x3. 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 Now BC +GPC Plan 1. Continue Cefepime + Vancomycin. Await specificities from blood cultures 2. monitor CBC. continue Haley Miranda Jun 16, 2016 12:03
--- NOTE | 2016-06-16 12:21 | HHI.PR ---
Subjective Remarks Follow-up neutropenic fever 06/16/16-patient seen and examined; currently afebrile and denies any chest pain or shortness of breath. Blood culture + GPC Objective Vitals Vital Signs Date Time Temp Pulse Resp B/P Pulse Ox O2 Delivery O2 Flow Rate FiO2 06/16/16 08:00 97.6 79 18 116/56 96 06/16/16 04:00 98.3 72 16 109/52 97 06/16/16 00:00 98.1 74 16 118/58 96 06/15/16 21:44 99.1 85 16 127/57 98 06/15/16 18:56 97.2 76 20 128/64 98 06/15/16 13:30 80 18 127/71 96 Room Air I/O 06/15/16 06/15/16 06/15/16 06/16/16 06/16/16 06/16/16 07:00 15:00 23:00 07:00 15:00 23:00 Intake Total 240 ml 480 ml Balance 240 ml 480 ml Intake Oral 240 ml 480 ml # Voids 2 Result Diagram: 06/16/16 0554 06/16/16 0554 Imaging Last Impressions Chest X-Ray 06/15/16 1053 Signed Impressions: Service Date/Time: Wednesday, June 15, 2016 11:11 - CONCLUSION: No acute disease. Mejia Butler MD FACR Upper Extremity Ultrasound 06/15/16 0000 Signed Impressions: Service Date/Time: Wednesday, June 15, 2016 12:12 - CONCLUSION: No evidence of deep venous thrombosis within the left upper extremity. Luis Whitehead MD Objective Remarks GENERAL: NAD SKIN: Warm and dry. HEAD: Normocephalic. EYES: No scleral icterus. No injection or drainage. NECK: Supple, trachea midline. No JVD or lymphadenopathy. CARDIOVASCULAR: Regular rate and rhythm without murmurs, gallops, or rubs. RESPIRATORY: Breath sounds equal bilaterally. No accessory muscle use. GASTROINTESTINAL: Abdomen soft, non-tender, nondistended. MUSCULOSKELETAL: No cyanosis, or edema. BACK: Nontender without obvious deformity. No CVA tenderness. A/P Problem List: (1) Neutropenic fever ICD Code: D70.9 Status: Acute Assessment and Plan 71-year-old male with 1-Neutropenic fever: Status post cefepime, vancomycin, fluconazole IV 1 in ED; continue cefepime 2 g IV every 8H, vancomycin IV per infectious disease specialist. Blood culture positive for GPC therefore will repeat BC today 06/16. Continue neutropenic precautions. Negative flu A and B antigen 2-History of myelodysplastic syndrome/acute leukemia; medical oncology consultation appreciated, continue with Neupogen. Daily CBC monitoring 3-History of hypertension: Currently normotensive, continue outpatient medications 4-Left arm pain: Doppler upper left extremity noted and reviewed by me and negative for DVT, continue conservative treatments 5-Other chronic medical conditions: Continue outpatient medications DVT prophylaxis: Bilateral SCDs/Lovelex Jn Hoyos MD Jun 16, 2016 12:21
[2016-06-16] MEDS: FILGRASTIM 300 MCG/ML VIAL SQ SCH (12:58)
--- NOTE | 2016-06-16 14:11 | EKG ---
Date Performed: 06/15/2016 Time Performed: 11:17:25 PTAGE: 71 years EKG: Sinus rhythm NORMAL ECG NO PREVIOUS TRACING DOCTOR: Meek Pickard Interpretating Date/Time 06/16/2016 14:10:01
[2016-06-16 16:00] VITALS: BP 111/58; PULSE 76; RESP 16; TEMP 98.3; O2SAT 97
[2016-06-16] MEDS: LOSARTAN 50 MG TAB PO SCH (19:47)
[2016-06-16] MEDS: buPROPion HCL 150 MG SUSTAINED RELEASE TAB PO SCH (19:47)
[2016-06-16] MEDS: TAMSULOSIN HCL 0.4 MG CAP PO SCH (19:47)
[2016-06-16] MEDS: ASPIRIN EC 81 MG TABEC PO SCH (19:47)
[2016-06-16 20:00] VITALS: BP 124/58; PULSE 78; RESP 18; TEMP 99; O2SAT 94
[2016-06-17] VITALS: BP 120/58; PULSE 80; RESP 16; TEMP 98.5; O2SAT 95
[2016-06-17] MEDS: CEFEPIME INJ 2,000 MG in SODIUM CHLORIDE 0.9% INJ 100 ML IV SCH ×3 (03:10→18:10)
[2016-06-17 04:08] VITALS: BP 100/54; PULSE 85; RESP 16; TEMP 97.1; O2SAT 94
[2016-06-17] MEDS: SODIUM CHLORIDE 0.9% FLUSH 5 ML FLUSH FLUSH SCH ×2 (07:36→19:27)
[2016-06-17] MEDS: PANTOPRAZOLE SOD 40 MG DELAYED RELEASE TAB PO SCH ×2 (07:36→19:27)
[2016-06-17 08:00] VITALS: BP 118/58; PULSE 80; RESP 20; TEMP 97.6; O2SAT 97
[2016-06-17 10:04] LABS: MEAN CORPUSCULAR HEMOGLOBIN 22.9 PG (27.0-34.0); MEAN CORPUSCULAR HGB CONC 31.4 % (32.0-36.0); PLATELET COUNT 202 TH/MM3 (150-450); RED BLOOD COUNT 3.56 MIL/MM3 (4.50-5.90); RED CELL DISTRIBUTION WIDTH 17.2 % (11.6-17.2); WHITE BLOOD COUNT 0.9 TH/MM3 (4.0-11.0)
[2016-06-17 10:06] LABS: HEMO FLAGS AUTO DIFF
[2016-06-17 10:35] LABS: BANDS 4 % (0-6); NEUTROPHIL # MANUAL DIFF 0.2 TH/MM3 (1.8-7.7); POLYS (SEG NEUTROPHILS) 13 % (16-70); WBC DIFF SAMPLE 100
[2016-06-17 10:36] LABS: OVALOCYTES 1+ (NORMAL); PLATELET ESTIMATE SMEAR NORMAL (NORMAL); PLATELET MORPHOLOGY NORMAL (NORMAL); SCAN/DIFF FINAL DIFF MANUAL
--- NOTE | 2016-06-17 11:30 | HHI.PR ---
Subjective Remarks Follow-up neutropenic fever 06/16/16-patient seen and examined; currently afebrile and denies any chest pain or shortness of breath. Blood culture + GPC 06/17/16-patient seen and examined. No acute event overnight. Repeat blood culture negative 1 day. Objective Vitals Vital Signs Date Time Temp Pulse Resp B/P Pulse Ox O2 Delivery O2 Flow Rate FiO2 06/17/16 08:00 97.6 80 20 118/58 97 06/17/16 04:08 97.1 85 16 100/54 94 06/17/16 00:00 98.5 80 16 120/58 95 06/16/16 20:00 99.0 78 18 124/58 94 06/16/16 16:00 98.3 76 16 111/58 97 06/16/16 12:00 97.5 74 16 107/56 96 I/O 06/16/16 06/16/16 06/16/16 06/17/16 06/17/16 06/17/16 07:00 15:00 23:00 07:00 15:00 23:00 Intake Total 480 ml 960 ml 1101 ml 133 ml Balance 480 ml 960 ml 1101 ml 133 ml Intake Oral 480 ml 960 ml 480 ml IV Total 621 ml 133 ml # Voids 2 1 # Bowel Movements 2 3 Result Diagram: 06/17/16 0949 06/16/16 0554 Objective Remarks GENERAL: NAD SKIN: Warm and dry. HEAD: Normocephalic. EYES: No scleral icterus. No injection or drainage. NECK: Supple, trachea midline. No JVD or lymphadenopathy. CARDIOVASCULAR: Regular rate and rhythm without murmurs, gallops, or rubs. RESPIRATORY: Breath sounds equal bilaterally. No accessory muscle use. GASTROINTESTINAL: Abdomen soft, non-tender, nondistended. MUSCULOSKELETAL: No cyanosis, or edema. BACK: Nontender without obvious deformity. No CVA tenderness. A/P Problem List: (1) Neutropenic fever ICD Code: D70.9 Status: Acute (2) Bacteremia ICD Code: R78.81 Status: Acute Assessment and Plan 71-year-old male with 1-Neutropenic fever: Status post cefepime, vancomycin, fluconazole IV 1 in ED; continue cefepime 2 g IV every 8H, vancomycin IV per infectious disease specialist. Continue neutropenic precautions. Negative flu A and B antigen 2-Bacteremia: Blood cultures on admission positive x 4 for Viridian strep; Repeat blood culture negative preliminary 1 day. Continue with current vancomycin and cefepime 3-History of myelodysplastic syndrome/acute leukemia; medical oncology consultation appreciated, continue with Neupogen. Daily CBC monitoring 4-History of hypertension: Currently normotensive, continue outpatient medications 5-Left arm pain: Doppler upper left extremity noted and reviewed by me and negative for DVT, continue conservative treatments 6-Other chronic medical conditions: Continue outpatient medications DVT prophylaxis: Bilateral SCDs/Jn Hurley MD Jun 17, 2016 11:30
--- NOTE | 2016-06-17 11:38 | PD.ONC.PN ---
Subjective Subjective Remarks Afebrile overnight. Patient feels well with no complaints, except that he is tired of being in the hospital. Tolerating antibiotics, eating meals okay. Objective Data Date Time Temp Pulse Resp B/P Pulse Ox O2 Delivery O2 Flow Rate FiO2 06/17/16 08:00 97.6 80 20 118/58 97 06/17/16 04:08 97.1 85 16 100/54 94 06/17/16 00:00 98.5 80 16 120/58 95 06/16/16 20:00 99.0 78 18 124/58 94 06/16/16 16:00 98.3 76 16 111/58 97 06/16/16 12:00 97.5 74 16 107/56 96 06/17/16 06/17/16 06/17/16 07:00 15:00 23:00 Intake Total 133 ml Balance 133 ml Result Diagram: 06/17/16 0949 06/16/16 0554 Laboratory Results Laboratory Tests Test 06/17/16 09:49 White Blood Count 0.9 TH/MM3 Red Blood Count 3.56 MIL/MM3 Hemoglobin 8.2 GM/DL Hematocrit 26.0 % Mean Corpuscular Volume 73.0 FL Mean Corpuscular Hemoglobin 22.9 PG Mean Corpuscular Hemoglobin 31.4 % Concent Red Cell Distribution Width 17.2 % Platelet Count 202 TH/MM3 Mean Platelet Volume 9.8 FL Neutrophils (%) (Auto) % Lymphocytes (%) (Auto) % Monocytes (%) (Auto) % Eosinophils (%) (Auto) % Basophils (%) (Auto) % Neutrophils # (Auto) TH/MM3 Lymphocytes # (Auto) TH/MM3 Monocytes # (Auto) TH/MM3 Eosinophils # (Auto) TH/MM3 Basophils # (Auto) TH/MM3 CBC Comment AUTO DIFF Differential Total Cells 100 Counted Neutrophils % (Manual) 13 % Band Neutrophils % 4 % Lymphocytes % 75 % Monocytes % 8 % Neutrophils # (Manual) 0.2 TH/MM3 Differential Comment FINAL DIFF MANUAL Platelet Estimate NORMAL Platelet Morphology Comment NORMAL Polychromasia 2.0 % Ovalocytes 1+ Culture Results Microbiology Date/Time Procedure Status Source Growth 06/15/16 11:50 Aerobic Blood Culture - Preliminary Resulted Blood Peripheral Viridans Streptococcus Grp 06/15/16 11:50 Anaerobic Blood Culture - Preliminary Resulted Viridans Streptococcus Grp 06/15/16 12:00 Aerobic Blood Culture - Preliminary Resulted Blood Peripheral Viridans Streptococcus Grp 06/15/16 12:00 Anaerobic Blood Culture - Preliminary Resulted Viridans Streptococcus Grp 06/15/16 12:10 Influenza Types A,B Antigen (KELLI) - Final Complete Nasal Washing NEGATIVE FOR FLU A AND B ANTIGEN.... 06/16/16 13:50 Aerobic Blood Culture - Preliminary Resulted Blood Peripheral NO GROWTH IN 1 DAY 06/16/16 13:50 Anaerobic Blood Culture - Preliminary Resulted Blood Peripheral NO GROWTH IN 1 DAY 06/16/16 14:02 Aerobic Blood Culture - Preliminary Resulted Blood Peripheral NO GROWTH IN 1 DAY 06/16/16 14:02 Anaerobic Blood Culture - Preliminary Resulted Blood Peripheral NO GROWTH IN 1 DAY Administered Medications Medications (Trade) Dose Ordered Sig/Gene Route PRN Reason Start Time Stop Time Status Last Admin Dose Admin Aspirin (Ecotrin Ec) 81 mg HS PO 06/15/16 21:00 06/16/16 19:47 Bupropion HCl (Wellbutrin Sr) 150 mg HS PO 06/15/16 21:00 06/16/16 19:47 Losartan Potassium (Cozaar) 50 mg HS PO 06/15/16 21:00 06/16/16 19:47 Pantoprazole Sodium (Protonix) 40 mg BID PO 06/15/16 21:00 06/17/16 07:36 Tamsulosin HCl 0.4 mg 0.4 mg HS PO 06/15/16 21:00 06/16/16 19:47 Cefepime HCl/ Sodium Chloride (Maxipime Inj/NS Inj) 100 ml @ 200 mls/hr Q8H IV 06/15/16 19:00 06/17/16 03:10 IV Flush (NS Flush) 2 ml BID FLUSH 06/15/16 21:00 06/17/16 07:36 Temazepam 15 mg 15 mg HS PRN PO INSOMNIA 06/15/16 13:45 06/16/16 22:59 Vancomycin HCl/ Sodium Chloride (Vancomycin Inj/ NS 500 ml Inj) 515 ml @ 257.5 mls/ hr Q18H IV 06/16/16 00:00 06/16/16 18:03 Filgrastim (Neupogen Inj) 300 mcg DAILY@14 SQ 06/16/16 14:00 06/16/16 12:58 Objective Remarks GENERAL: Elderly male, sitting up in bed in nad. SKIN: Warm and dry. HEAD: Normocephalic. EYES: No injection or drainage. NECK: Supple, trachea midline. CARDIOVASCULAR: Regular rate and rhythm RESPIRATORY: Breath sounds equal bilaterally. No accessory muscle use. GASTROINTESTINAL: Abdomen soft, non-tender, nondistended. EXTREMITIES: No cyanosis, no edema. NEUROLOGICAL: No obvious focal deficit. Awake, alert, and oriented x3. 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 Now BC +Viridans Strep. Plan 1. Await specificities from blood cultures. continue antibiotics. 2. monitor CBC. continue Elizabethpogen Haley Aldrich Jun 17, 2016 11:38
[2016-06-17 12:00] VITALS: BP 111/56; PULSE 77; RESP 20; TEMP 97.8; O2SAT 94
[2016-06-17] MEDS: FILGRASTIM 300 MCG/ML VIAL SQ SCH (13:00)
[2016-06-17] MEDS: VANCOMYCIN 1,500 MG/NS 500 ML IV SCH ×2 (13:01)
[2016-06-17] MEDS: ASPIRIN EC 81 MG TABEC PO SCH (19:27)
[2016-06-17] MEDS: buPROPion HCL 150 MG SUSTAINED RELEASE TAB PO SCH (19:27)
[2016-06-17] MEDS: TAMSULOSIN HCL 0.4 MG CAP PO SCH (19:27)
[2016-06-17] MEDS: LOSARTAN 50 MG TAB PO SCH (19:27)
[2016-06-17 19:30] VITALS: BP 112/55; PULSE 82; RESP 20; TEMP 97.7; O2SAT 95
[2016-06-17 20:00] VITALS: BP 109/63; PULSE 82; RESP 18; TEMP 97.3; O2SAT 95
[2016-06-18] VITALS: BP 127/61; PULSE 73; RESP 18; TEMP 97.3; O2SAT 95
[2016-06-18] MEDS: TEMAZEPAM 15 MG CAP PO PRN (00:59)
[2016-06-18] MEDS: CEFEPIME INJ 2,000 MG in SODIUM CHLORIDE 0.9% INJ 100 ML IV SCH ×3 (03:36→18:30)
[2016-06-18 04:00] VITALS: BP 103/68; PULSE 67; RESP 16; TEMP 97.1; O2SAT 96
[2016-06-18] MEDS: VANCOMYCIN 1,500 MG/NS 500 ML IV SCH ×2 (05:20)
[2016-06-18 07:13] LABS: AUTOMATED NEUTROPHIL # 0.3 TH/MM3 (1.8-7.7); BASOPHIL % 0.5 % (0.0-2.0); EOSINOPHIL % 0.1 % (0.0-4.0); HEMATOCRIT 27.2 % (39.0-51.0); LYMPH % 81.2 % (9.0-44.0); LYMPHOCYTE # 1.2 TH/MM3 (1.0-4.8); MEAN CELL VOLUME 73.5 FL (80.0-100.0); MEAN CORPUSCULAR HEMOGLOBIN 22.3 PG (27.0-34.0); MEAN CORPUSCULAR HGB CONC 30.3 % (32.0-36.0); MONO % 0.8 % (0.0-8.0); NEUT % 17.4 % (16.0-70.0); PLATELET COUNT 254 TH/MM3 (150-450); RED CELL DISTRIBUTION WIDTH 17.2 % (11.6-17.2); WHITE BLOOD COUNT 1.5 TH/MM3 (4.0-11.0)
[2016-06-18 07:28] LABS: BICARBONATE 24.8 MEQ/L (21.0-32.0); POTASSIUM 3.6 MEQ/L (3.5-5.1)
[2016-06-18 08:00] VITALS: BP 118/63; PULSE 76; RESP 20; TEMP 97; O2SAT 94
[2016-06-18 08:11] LABS: HEMO FLAGS AUTO DIFF
[2016-06-18 08:23] LABS: BANDS 4 % (0-6); NEUTROPHIL # MANUAL DIFF 0.2 TH/MM3 (1.8-7.7); PLATELET ESTIMATE SMEAR NORMAL (NORMAL); PLATELET MORPHOLOGY CLUMPED (NORMAL); POLYS (SEG NEUTROPHILS) 10 % (16-70); SCAN/DIFF FINAL DIFF MANUAL; WBC DIFF SAMPLE 100
[2016-06-18 08:24] LABS: KERATOCYTES OCC (NORMAL); OVALOCYTES 1+ (NORMAL)
[2016-06-18] MEDS: PANTOPRAZOLE SOD 40 MG DELAYED RELEASE TAB PO SCH ×2 (08:30→21:31)
[2016-06-18] MEDS: SODIUM CHLORIDE 0.9% FLUSH 5 ML FLUSH FLUSH SCH ×2 (08:31→21:31)
[2016-06-18 12:00] VITALS: BP 121/73; PULSE 89; RESP 20; TEMP 96.4; O2SAT 96
[2016-06-18] MEDS: FILGRASTIM 300 MCG/ML VIAL SQ SCH (12:41)
--- NOTE | 2016-06-18 12:51 | HHI.PR ---
Subjective Remarks Follow-up neutropenic fever 06/16/16-patient seen and examined; currently afebrile and denies any chest pain or shortness of breath. Blood culture + GPC 06/17/16-patient seen and examined. No acute event overnight. Repeat blood culture negative 1 day. 06/18/16-patient seen and examined. Afebrile and no complaint. Blood culture repeat, negative 2 days Objective Vitals Vital Signs Date Time Temp Pulse Resp B/P Pulse Ox O2 Delivery O2 Flow Rate FiO2 06/18/16 08:00 97.0 76 20 118/63 94 06/18/16 04:00 97.1 67 16 103/68 96 06/18/16 00:00 97.3 73 18 127/61 95 06/17/16 20:00 97.3 82 18 109/63 95 06/17/16 19:30 97.7 82 20 112/55 95 I/O 06/17/16 06/17/16 06/17/16 06/18/16 06/18/16 06/18/16 07:00 15:00 23:00 07:00 15:00 23:00 Intake Total 133 ml 942 ml 720 ml 960 ml 480 ml Balance 133 ml 942 ml 720 ml 960 ml 480 ml Intake Oral 942 ml 720 ml 960 ml 480 ml IV Total 133 ml # Voids 3 2 3 1 # Bowel Movements 3 1 Result Diagram: 06/18/16 0611 06/18/16 0611 Objective Remarks GENERAL: NAD SKIN: Warm and dry. HEAD: Normocephalic. EYES: No scleral icterus. No injection or drainage. NECK: Supple, trachea midline. No JVD or lymphadenopathy. CARDIOVASCULAR: Regular rate and rhythm without murmurs, gallops, or rubs. RESPIRATORY: Breath sounds equal bilaterally. No accessory muscle use. GASTROINTESTINAL: Abdomen soft, non-tender, nondistended. MUSCULOSKELETAL: No cyanosis, or edema. BACK: Nontender without obvious deformity. No CVA tenderness. A/P Problem List: (1) Neutropenic fever ICD Code: D70.9 Status: Acute (2) Bacteremia ICD Code: R78.81 Status: Acute Assessment and Plan 71-year-old male with 1-Neutropenic fever: Status post cefepime, vancomycin, fluconazole IV 1 in ED; continue cefepime 2 g IV every 8H, vancomycin IV per infectious disease specialist. Continue neutropenic precautions. Negative flu A and B antigen 2-Bacteremia: Blood cultures on admission positive x 4 for Viridian strep; Repeat blood culture negative preliminary 2 days. Continue with current vancomycin and cefepime also may de-escalate antibiotics if blood culture remained negative 3-History of myelodysplastic syndrome/acute leukemia; medical oncology consultation appreciated, continue with Neupogen. Daily CBC monitoring 4-History of hypertension: Currently normotensive, continue outpatient medications 5-Left arm pain: Doppler upper left extremity noted and reviewed by me and negative for DVT, continue conservative treatments 6-Other chronic medical conditions: Continue outpatient medications DVT prophylaxis: Bilateral SCDs/Lovelex Jn Hoyos MD Jun 18, 2016 12:51
--- NOTE | 2016-06-18 13:22 | PD.ONC.PN ---
Subjective Subjective Remarks feels well Objective Data Date Time Temp Pulse Resp B/P Pulse Ox O2 Delivery O2 Flow Rate FiO2 06/18/16 08:00 97.0 76 20 118/63 94 06/18/16 04:00 97.1 67 16 103/68 96 06/18/16 00:00 97.3 73 18 127/61 95 06/17/16 20:00 97.3 82 18 109/63 95 06/17/16 19:30 97.7 82 20 112/55 95 06/18/16 06/18/16 06/18/16 07:00 15:00 23:00 Intake Total 960 ml 480 ml Balance 960 ml 480 ml Result Diagram: 06/18/16 0611 06/18/16 0611 Laboratory Results Laboratory Tests Test 06/18/16 06:11 White Blood Count 1.5 TH/MM3 Red Blood Count 3.70 MIL/MM3 Hemoglobin 8.2 GM/DL Hematocrit 27.2 % Mean Corpuscular Volume 73.5 FL Mean Corpuscular Hemoglobin 22.3 PG Mean Corpuscular Hemoglobin 30.3 % Concent Red Cell Distribution Width 17.2 % Platelet Count 254 TH/MM3 Mean Platelet Volume 9.1 FL Neutrophils (%) (Auto) 17.4 % Lymphocytes (%) (Auto) 81.2 % Monocytes (%) (Auto) 0.8 % Eosinophils (%) (Auto) 0.1 % Basophils (%) (Auto) 0.5 % Neutrophils # (Auto) 0.3 TH/MM3 Lymphocytes # (Auto) 1.2 TH/MM3 Monocytes # (Auto) 0.0 TH/MM3 Eosinophils # (Auto) 0.0 TH/MM3 Basophils # (Auto) 0.0 TH/MM3 CBC Comment AUTO DIFF Differential Total Cells 100 Counted Neutrophils % (Manual) 10 % Band Neutrophils % 4 % Lymphocytes % 84 % Monocytes % 2 % Neutrophils # (Manual) 0.2 TH/MM3 Differential Comment FINAL DIFF MANUAL Platelet Estimate NORMAL Platelet Morphology Comment CLUMPED Basophilic Stippling FAINT Ovalocytes 1+ Keratocytes OCC Sodium Level 143 MEQ/L Potassium Level 3.6 MEQ/L Chloride Level 110 MEQ/L Carbon Dioxide Level 24.8 MEQ/L Anion Gap 8 MEQ/L Blood Urea Nitrogen 11 MG/DL Creatinine 0.99 MG/DL Estimat Glomerular Filtration 74 ML/MIN Rate Random Glucose 88 MG/DL Calcium Level 8.2 MG/DL Culture Results Microbiology Date/Time Procedure Status Source Growth 06/16/16 13:50 Aerobic Blood Culture - Preliminary Resulted Blood Peripheral NO GROWTH IN 2 DAYS 06/16/16 13:50 Anaerobic Blood Culture - Preliminary Resulted Blood Peripheral NO GROWTH IN 2 DAYS 06/16/16 14:02 Aerobic Blood Culture - Preliminary Resulted Blood Peripheral NO GROWTH IN 2 DAYS 06/16/16 14:02 Anaerobic Blood Culture - Preliminary Resulted Blood Peripheral NO GROWTH IN 2 DAYS Administered Medications Medications (Trade) Dose Ordered Sig/Gene Route PRN Reason Start Time Stop Time Status Last Admin Dose Admin Aspirin (Ecotrin Ec) 81 mg HS PO 06/15/16 21:00 06/17/16 19:27 Bupropion HCl (Wellbutrin Sr) 150 mg HS PO 06/15/16 21:00 06/17/16 19:27 Losartan Potassium (Cozaar) 50 mg HS PO 06/15/16 21:00 06/17/16 19:27 Pantoprazole Sodium (Protonix) 40 mg BID PO 06/15/16 21:00 06/18/16 08:30 Tamsulosin HCl 0.4 mg 0.4 mg HS PO 06/15/16 21:00 06/17/16 19:27 Cefepime HCl/ Sodium Chloride (Maxipime Inj/NS Inj) 100 ml @ 200 mls/hr Q8H IV 06/15/16 19:00 06/18/16 12:07 IV Flush (NS Flush) 2 ml BID FLUSH 06/15/16 21:00 06/17/16 19:27 Temazepam 15 mg 15 mg HS PRN PO INSOMNIA 06/15/16 13:45 06/18/16 00:59 Vancomycin HCl/ Sodium Chloride (Vancomycin Inj/ NS 500 ml Inj) 515 ml @ 257.5 mls/ hr Q18H IV 06/16/16 00:00 06/18/16 05:20 Filgrastim (Neupogen Inj) 300 mcg DAILY@14 SQ 06/16/16 14:00 06/18/16 12:41 Objective Remarks GENERAL: Well-nourished, well-developed patient. SKIN: Warm and dry. HEAD: Normocephalic. EYES: No scleral icterus. No injection or drainage. NECK: Supple, trachea midline. No JVD or lymphadenopathy. LYMPHATIC: No adenopathy. CARDIOVASCULAR: Regular rate and rhythm without murmurs. RESPIRATORY: Breath sounds equal bilaterally. No accessory muscle use. GASTROINTESTINAL: Abdomen soft, non-tender, nondistended. EXTREMITIES: No cyanosis, or edema. MUSCULOSKELETAL: Adequate muscle tone. NEUROLOGICAL: No obvious focal deficit. Awake, alert, and oriented x3. PSYCHIATRIC: Appropriate mood and affect; insight and judgment normal. 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 Now BC +Viridans Strep. He is afebrile and neutrophil count ranges from 100-300. I am hopeful that we can transition him to an outpatient regimen either oral or IV (?rocephin) which will allow for discharge in the next several days. This would also allow him to visit with Dr. Hernandez at [facility] regarding future plans for the tx of his RAEB or AML. I will ask ID to see as we are dealing with a complicated situation where his neutrophil count may never be above 500 and if this is the case it will complicate the duration of tx and possibly the choice of antibiotics both to tx his current sepsis and if possible to delay or prevent future episodes which are very likely. Prior to coming here he was taking Cipro and Diflucan with success until the current episode of sepsis. Plan 1. Await specificities from blood cultures. continue antibiotics. 2. monitor CBC. continue Jarrell Cruz MD Jun 18, 2016 13:22
--- NOTE | 2016-06-18 14:52 | HHI.IDPN ---
Note Infectious Disease Note Patient feels better. No complaints. No chills. feels stronger. Afebrile. Blood culture has strep viridans. Denies dental problems. Noted that he was noted to have heart murmur 3 months ago and 2D ECHO was done. This is a 71-year-old white male who presented to the emergency department because of fever. The patient has myelodysplastic syndrome and he has been neutropenic for weeks. He has been on p.o. antibiotic treatment with ciprofloxacin and fluconazole. The patient noted that approximately a week ago he started feeling weak and was using his walker and then he started getting dizzy and he had an elevated temperature of 100.5 degrees and presented for evaluation. PAST MEDICAL HISTORY 1. Hypertension. 2. Gastroesophageal reflux disease. 3. Diverticulitis. 4. Hypercholesteremia. 5. Depression. 6. History of herniated disc. 7. Post-traumatic stress disorder. 8. Cholecystectomy. 9. Myelodysplastic syndrome. ALLERGIES NO KNOWN DRUG ALLERGIES. MEDICATIONS Current Medications Medications (Trade) Dose Ordered Sig/Gene Route PRN Reason Start Time Stop Time Status Last Admin Dose Admin Aspirin (Ecotrin Ec) 81 mg HS PO 06/15/16 21:00 06/17/16 19:27 Bupropion HCl (Wellbutrin Sr) 150 mg HS PO 06/15/16 21:00 06/17/16 19:27 Losartan Potassium (Cozaar) 50 mg HS PO 06/15/16 21:00 06/17/16 19:27 Pantoprazole Sodium (Protonix) 40 mg BID PO 06/15/16 21:00 06/18/16 08:30 Tamsulosin HCl 0.4 mg 0.4 mg HS PO 06/15/16 21:00 06/17/16 19:27 Cefepime HCl/ Sodium Chloride (Maxipime Inj/NS Inj) 100 ml @ 200 mls/hr Q8H IV 06/15/16 19:00 06/18/16 12:07 IV Flush (NS Flush) 2 ml UNSCH PRN FLUSH FLUSH AFTER USING IV ACCESS 06/15/16 13:45 IV Flush (NS Flush) 2 ml BID FLUSH 06/15/16 21:00 06/17/16 19:27 Acetaminophen (Tylenol) 650 mg Q4H PRN PO TEMP > 100.4 06/15/16 13:45 Ondansetron HCl (Zofran Inj) 4 mg Q6H PRN IVP NAUSEA OR VOMITING 06/15/16 13:45 Magnesium Hydroxide (Milk Of Prateek Liq) 30 ml Q12H PRN PO CONSTIPATION 06/15/16 13:45 Temazepam (Restoril) 15 mg HS PRN PO INSOMNIA 06/15/16 13:45 06/18/16 00:59 Acetaminophen (Tylenol) 650 mg Q6H PRN PO PAIN SCALE 1 TO 2 06/15/16 13:45 Acetaminophen/ Hydrocodone Bitart ([place] 5-325 Mg) 1 tab Q4H PRN PO PAIN SCALE 3 TO 5 06/15/16 13:45 Acetaminophen/ Hydrocodone Bitart ([place] 7.5-325 Mg) 1 tab Q4H PRN PO PAIN SCALE 6 TO 10 06/15/16 13:45 Naloxone HCl 0.4 mg 0.4 mg UNSCH PRN IV SEE LABEL COMMENTS 06/15/16 13:45 Pharmacy Profile Note 0 ml @ 0 mls/hr UNSCH OTHER 06/15/16 14:00 Vancomycin HCl/ Sodium Chloride (Vancomycin Inj/ NS 500 ml Inj) 515 ml @ 257.5 mls/ hr Q18H IV 06/16/16 00:00 06/18/16 05:20 Miscellaneous Information SPECIFIC LAB TO BE DRAWN:VANCOMYCIN TROUGH DATE TO... ONCE ONCE XX 06/18/16 23:45 06/18/16 23:46 Filgrastim (Neupogen Inj) 300 mcg DAILY@14 SQ 06/16/16 14:00 06/18/16 12:41 SOCIAL HISTORY No tobacco. Rare alcohol. No illicit drugs. FAMILY HISTORY Significant for cancer on his dad's side and heart disease on his mom's side. OBJECTIVE: Vital Signs Date Time Temp Pulse Resp B/P Pulse Ox O2 Delivery O2 Flow Rate FiO2 06/18/16 12:00 96.4 89 20 121/73 96 06/18/16 08:00 97.0 76 20 118/63 94 06/18/16 04:00 97.1 67 16 103/68 96 06/18/16 00:00 97.3 73 18 127/61 95 06/17/16 20:00 97.3 82 18 109/63 95 06/17/16 19:30 97.7 82 20 112/55 95 06/17/16 06/17/16 06/18/16 15:00 23:00 07:00 Intake Total 942 ml 720 ml 960 ml Balance 942 ml 720 ml 960 ml Intake Oral 942 ml 720 ml 960 ml # Voids 3 2 3 # Bowel Movements 3 1 Laboratory Tests Test 06/17/16 06/18/16 09:49 06:11 White Blood Count 0.9 TH/MM3 1.5 TH/MM3 Red Blood Count 3.56 MIL/MM3 3.70 MIL/MM3 Hemoglobin 8.2 GM/DL 8.2 GM/DL Hematocrit 26.0 % 27.2 % Mean Corpuscular Volume 73.0 FL 73.5 FL Mean Corpuscular Hemoglobin 22.9 PG 22.3 PG Mean Corpuscular Hemoglobin 31.4 % 30.3 % Concent Red Cell Distribution Width 17.2 % 17.2 % Platelet Count 202 TH/MM3 254 TH/MM3 Mean Platelet Volume 9.8 FL 9.1 FL Neutrophils (%) (Auto) % 17.4 % Lymphocytes (%) (Auto) % 81.2 % Monocytes (%) (Auto) % 0.8 % Eosinophils (%) (Auto) % 0.1 % Basophils (%) (Auto) % 0.5 % Neutrophils # (Auto) TH/MM3 0.3 TH/MM3 Lymphocytes # (Auto) TH/MM3 1.2 TH/MM3 Monocytes # (Auto) TH/MM3 0.0 TH/MM3 Eosinophils # (Auto) TH/MM3 0.0 TH/MM3 Basophils # (Auto) TH/MM3 0.0 TH/MM3 CBC Comment AUTO DIFF AUTO DIFF Differential Total Cells 100 100 Counted Neutrophils % (Manual) 13 % 10 % Band Neutrophils % 4 % 4 % Lymphocytes % 75 % 84 % Monocytes % 8 % 2 % Neutrophils # (Manual) 0.2 TH/MM3 0.2 TH/MM3 Differential Comment FINAL DIFF FINAL DIFF MANUAL MANUAL Platelet Estimate NORMAL NORMAL Platelet Morphology Comment NORMAL CLUMPED Polychromasia 2.0 % Ovalocytes 1+ 1+ Basophilic Stippling FAINT Keratocytes OCC Laboratory Tests Test 06/18/16 06:11 Sodium Level 143 MEQ/L Potassium Level 3.6 MEQ/L Chloride Level 110 MEQ/L Carbon Dioxide Level 24.8 MEQ/L Anion Gap 8 MEQ/L Blood Urea Nitrogen 11 MG/DL Creatinine 0.99 MG/DL Estimat Glomerular Filtration 74 ML/MIN Rate Random Glucose 88 MG/DL Calcium Level 8.2 MG/DL Microbiology Date/Time Procedure Status Source Growth 06/16/16 13:50 Aerobic Blood Culture - Preliminary Resulted Blood Peripheral NO GROWTH IN 2 DAYS 06/16/16 13:50 Anaerobic Blood Culture - Preliminary Resulted Blood Peripheral NO GROWTH IN 2 DAYS 06/16/16 14:02 Aerobic Blood Culture - Preliminary Resulted Blood Peripheral NO GROWTH IN 2 DAYS 06/16/16 14:02 Anaerobic Blood Culture - Preliminary Resulted Blood Peripheral NO GROWTH IN 2 DAYS PHYSICAL EXAMINATION GENERAL: No acute distress. He is awake and alert and oriented. HEENT: Head atraumatic. Extraocular movements grossly intact. Pupils are reactive to light. No icterus. No conjunctival erythema. Oropharynx - no visible lesions. NECK: Supple without adenopathy. No neck swelling. LUNGS: Clear breath sounds. HEART: Regular rate and rhythm. ABDOMEN: Bowel sounds present, distended, soft, tympanic to percussion. No palpable mass. EXTREMITIES: No clubbing or cyanosis or edema. No calf tenderness. No splinter hemorrhages of the nail beds. SKIN: No rash. NEUROLOGIC: Nonfocal. PSYCHIATRIC: The patient calm and cooperative. IMPRESSION Sepsis - strep viridans. Fever in patient with myelodysplastic syndrome who is status post chemotherapy. Neutropenia. RECOMMENDATIONS 1. Start Ceftriaxone IV. 2. Stop Vancomycin. 2. Stop Cefepime. 3. Monitor the temperature. 4. Monitor blood counts. 5. 2D ECHO to evaluate the heart valves for vegetation. Plan on 10 days of IV Ceftriaxone. However will await the 2D ECHO and if it is positive he will need longer course of IV antibiotic and possibly CRYSTAL. After the 2D ECHO is read decision can be made about outpatient IV treatment. Luke Celaya MD Jun 18, 2016 14:52
[2016-06-18 16:00] VITALS: BP 107/62; PULSE 86; RESP 20; TEMP 97.1; O2SAT 97
[2016-06-18] MEDS: cefTRIAXone INJ 2,000 MG in SODIUM CHLORIDE 0.9% INJ 100 ML IV SCH (17:03)
[2016-06-18 20:00] VITALS: BP 126/59; PULSE 88; RESP 16; TEMP 97.5; O2SAT 98
[2016-06-18 21:09] LABS: MEAN CORPUSCULAR HGB CONC 29.7 % (32.0-36.0)
[2016-06-18] MEDS: buPROPion HCL 150 MG SUSTAINED RELEASE TAB PO SCH (21:31)
[2016-06-18] MEDS: TAMSULOSIN HCL 0.4 MG CAP PO SCH (21:31)
[2016-06-18] MEDS: ASPIRIN EC 81 MG TABEC PO SCH (21:31)
[2016-06-18] MEDS: LOSARTAN 50 MG TAB PO SCH (21:31)
[2016-06-18] MEDS ORDERED: PHARMACY ORDERED LAB XX ONE (23:45)
[2016-06-19] VITALS: BP 117/88; PULSE 82; RESP 16; TEMP 98.7; O2SAT 96
[2016-06-19] MEDS: VANCOMYCIN 1,500 MG/NS 500 ML IV SCH ×2 (01:01)
[2016-06-19] MEDS: TEMAZEPAM 15 MG CAP PO PRN ×2 (01:01→22:19)
[2016-06-19] MEDS: CEFEPIME INJ 2,000 MG in SODIUM CHLORIDE 0.9% INJ 100 ML IV SCH (03:00)
[2016-06-19 03:57] LABS: HEMATOCRIT 28.8 % (39.0-51.0); MEAN CELL VOLUME 73.3 FL (80.0-100.0); MEAN CORPUSCULAR HEMOGLOBIN 21.8 PG (27.0-34.0); PLATELET COUNT 328 TH/MM3 (150-450); RED BLOOD COUNT 3.93 MIL/MM3 (4.50-5.90); RED CELL DISTRIBUTION WIDTH 17.2 % (11.6-17.2)
[2016-06-19 04:40] LABS: HEMO FLAGS AUTO DIFF
[2016-06-19 05:00] VITALS: BP 102/54; PULSE 71; RESP 16; TEMP 97.1; O2SAT 96
[2016-06-19 05:46] LABS: BANDS 6 % (0-6); BLASTS 1 % (0-0); CORRECTED NUCLEATED RBC 2 /100 WBC (0-0); METAMYELOCYTES 2 % (0-1); MYELOCYTES 1 % (0-0); NEUTROPHIL # MANUAL DIFF 0.2 TH/MM3 (1.8-7.7); POLYS (SEG NEUTROPHILS) 3 % (16-70); WBC DIFF SAMPLE 100
[2016-06-19 05:47] LABS: SCAN/DIFF FINAL DIFF MANUAL
[2016-06-19 05:48] LABS: OVALOCYTES 1+ (NORMAL); PLATELET MORPHOLOGY CLUMPED (NORMAL)
[2016-06-19 05:49] LABS: ACANTHOCYTES OCC (NORMAL)
[2016-06-19 05:50] LABS: POLYCHROMASIA 3.7 % (0.0-1.9)
[2016-06-19 05:51] LABS: PLATELET ESTIMATE SMEAR NORMAL (NORMAL)
[2016-06-19 08:15] VITALS: BP 130/69; PULSE 76; RESP 18; TEMP 96.8; O2SAT 97
--- NOTE | 2016-06-19 09:24 | HHI.PR ---
Subjective Remarks Follow-up neutropenic fever 06/16/16-patient seen and examined; currently afebrile and denies any chest pain or shortness of breath. Blood culture + GPC 06/17/16-patient seen and examined. No acute event overnight. Repeat blood culture negative 1 day. 06/18/16-patient seen and examined. Afebrile and no complaint. Blood culture repeat, negative 2 days 06/19/16-patient seen and examined; afebrile and currently on Rocephin per ID. Plan for 2-D echo today . no acute event overnight. Objective Vitals Vital Signs Date Time Temp Pulse Resp B/P Pulse Ox O2 Delivery O2 Flow Rate FiO2 06/19/16 08:15 96.8 76 18 130/69 97 06/19/16 05:00 97.1 71 16 102/54 96 06/19/16 00:00 98.7 82 16 117/88 96 06/18/16 20:00 97.5 88 16 126/59 98 06/18/16 16:00 97.1 86 20 107/62 97 06/18/16 12:00 96.4 89 20 121/73 96 I/O 06/18/16 06/18/16 06/18/16 06/19/16 06/19/16 06/19/16 07:00 15:00 23:00 07:00 15:00 23:00 Intake Total 960 ml 1440 ml 720 ml Balance 960 ml 1440 ml 720 ml Intake Oral 960 ml 1440 ml 720 ml # Voids 3 2 3 # Bowel Movements 1 Result Diagram: 06/19/16 0035 06/18/16 0611 Imaging Last Impressions Chest X-Ray 06/15/16 1053 Signed Impressions: Service Date/Time: Wednesday, June 15, 2016 11:11 - CONCLUSION: No acute disease. Mejia Butler MD FACR Upper Extremity Ultrasound 06/15/16 0000 Signed Impressions: Service Date/Time: Wednesday, June 15, 2016 12:12 - CONCLUSION: No evidence of deep venous thrombosis within the left upper extremity. Luis Whitehead MD Objective Remarks GENERAL: NAD SKIN: Warm and dry. HEAD: Normocephalic. EYES: No scleral icterus. No injection or drainage. NECK: Supple, trachea midline. No JVD or lymphadenopathy. CARDIOVASCULAR: Regular rate and rhythm without murmurs, gallops, or rubs. RESPIRATORY: Breath sounds equal bilaterally. No accessory muscle use. GASTROINTESTINAL: Abdomen soft, non-tender, nondistended. MUSCULOSKELETAL: No cyanosis, or edema. BACK: Nontender without obvious deformity. No CVA tenderness. A/P Problem List: (1) Neutropenic fever ICD Code: D70.9 Status: Acute (2) Bacteremia ICD Code: R78.81 Status: Acute (3) Sepsis ICD Code: A41.9 Status: Acute Assessment and Plan 71-year-old male with 1-Neutropenic fever: Status post cefepime, vancomycin, fluconazole IV 1 in ED; s/p cefepime 2 g IV every 8H, vancomycin IV and now on Rocephin as of 06/18/16 per infectious disease specialist. Continue neutropenic precautions. Negative flu A and B antigen 2-Bacteremia: Blood cultures on admission positive x 4 for Viridian strep; Repeat blood culture negative preliminary 23 days. s/p vancomycin and cefepime ; currently on Rocephin IV pending 2-D echo. If abnormal, consider consult dictation to cardiology for CRYSTAL 3-Sepsis: From above infectious processes, currently on Rocephin pending 2-D echo today 4-History of myelodysplastic syndrome/acute leukemia; medical oncology consultation appreciated, continue with Neupogen. Daily CBC monitoring 5-History of hypertension: Currently normotensive, continue outpatient medications 6-Left arm pain: Doppler upper left extremity noted and reviewed by me and negative for DVT, continue conservative treatments 7-Other chronic medical conditions: Continue outpatient medications DVT prophylaxis: Bilateral SCDs/Jn Hurley MD Jun 19, 2016 09:24
[2016-06-19] MEDS: SODIUM CHLORIDE 0.9% FLUSH 5 ML FLUSH FLUSH SCH ×2 (10:41→22:11)
[2016-06-19] MEDS: PANTOPRAZOLE SOD 40 MG DELAYED RELEASE TAB PO SCH ×2 (10:41→22:12)
[2016-06-19 12:00] VITALS: BP 117/62; PULSE 78; RESP 20; TEMP 96.3; O2SAT 97
[2016-06-19] MEDS: FILGRASTIM 300 MCG/ML VIAL SQ SCH (14:20)
[2016-06-19 16:00] VITALS: BP 117/79; PULSE 80; RESP 18; TEMP 96.7; O2SAT 96
--- NOTE | 2016-06-19 16:36 | HHI.IDPN ---
Note Infectious Disease Note Patient feels better. No complaints. No chills. Afebrile. Noted that he was noted to have heart murmur 3 months ago and 2D ECHO was done. This is a 71-year-old white male who presented to the emergency department because of fever. The patient has myelodysplastic syndrome and he has been neutropenic for weeks. He has been on p.o. antibiotic treatment with ciprofloxacin and fluconazole. The patient noted that approximately a week ago he started feeling weak and was using his walker and then he started getting dizzy and he had an elevated temperature of 100.5 degrees and presented for evaluation. PAST MEDICAL HISTORY 1. Hypertension. 2. Gastroesophageal reflux disease. 3. Diverticulitis. 4. Hypercholesteremia. 5. Depression. 6. History of herniated disc. 7. Post-traumatic stress disorder. 8. Cholecystectomy. 9. Myelodysplastic syndrome. ALLERGIES NO KNOWN DRUG ALLERGIES. MEDICATIONS Current Medications Medications (Trade) Dose Ordered Sig/Gene Route PRN Reason Start Time Stop Time Status Last Admin Dose Admin Aspirin (Ecotrin Ec) 81 mg HS PO 06/15/16 21:00 06/18/16 21:31 Bupropion HCl (Wellbutrin Sr) 150 mg HS PO 06/15/16 21:00 06/18/16 21:31 Losartan Potassium (Cozaar) 50 mg HS PO 06/15/16 21:00 06/18/16 21:31 Pantoprazole Sodium (Protonix) 40 mg BID PO 06/15/16 21:00 06/19/16 10:41 Tamsulosin HCl (Flomax) 0.4 mg HS PO 06/15/16 21:00 06/18/16 21:31 IV Flush (NS Flush) 2 ml UNSCH PRN FLUSH FLUSH AFTER USING IV ACCESS 06/15/16 13:45 IV Flush (NS Flush) 2 ml BID FLUSH 06/15/16 21:00 06/19/16 10:41 Acetaminophen (Tylenol) 650 mg Q4H PRN PO TEMP > 100.4 06/15/16 13:45 Ondansetron HCl (Zofran Inj) 4 mg Q6H PRN IVP NAUSEA OR VOMITING 06/15/16 13:45 Magnesium Hydroxide (Milk Of Magnesia Liq) 30 ml Q12H PRN PO CONSTIPATION 06/15/16 13:45 Temazepam (Restoril) 15 mg HS PRN PO INSOMNIA 06/15/16 13:45 06/19/16 01:01 Acetaminophen (Tylenol) 650 mg Q6H PRN PO PAIN SCALE 1 TO 2 06/15/16 13:45 Acetaminophen/ Hydrocodone Bitart ([place] 5-325 Mg) 1 tab Q4H PRN PO PAIN SCALE 3 TO 5 06/15/16 13:45 Acetaminophen/ Hydrocodone Bitart ([place] 7.5-325 Mg) 1 tab Q4H PRN PO PAIN SCALE 6 TO 10 06/15/16 13:45 Naloxone HCl (Narcan Inj) 0.4 mg UNSCH PRN IV SEE LABEL COMMENTS 06/15/16 13:45 Filgrastim 300 mcg 300 mcg DAILY@14 SQ 06/16/16 14:00 06/19/16 14:20 Ceftriaxone Sodium/Sodium Chloride (Rocephin Inj/NS Inj) 100 ml @ 200 mls/hr Q24H IV 06/18/16 16:00 06/18/16 17:03 SOCIAL HISTORY No tobacco. Rare alcohol. No illicit drugs. FAMILY HISTORY Significant for cancer on his dad's side and heart disease on his mom's side. OBJECTIVE: Vital Signs Date Time Temp Pulse Resp B/P Pulse Ox O2 Delivery O2 Flow Rate FiO2 06/19/16 12:00 96.3 78 20 117/62 97 06/19/16 08:15 96.8 76 18 130/69 97 06/19/16 05:00 97.1 71 16 102/54 96 06/19/16 00:00 98.7 82 16 117/88 96 06/18/16 20:00 97.5 88 16 126/59 98 06/18/16 06/18/16 06/19/16 15:00 23:00 07:00 Intake Total 1440 ml 720 ml Balance 1440 ml 720 ml Intake Oral 1440 ml 720 ml # Voids 2 3 # Bowel Movements 1 Laboratory Tests Test 06/18/16 06/19/16 06:11 00:35 White Blood Count 1.5 TH/MM3 2.0 TH/MM3 Red Blood Count 3.70 MIL/MM3 3.93 MIL/MM3 Hemoglobin 8.2 GM/DL 8.6 GM/DL Hematocrit 27.2 % 28.8 % Mean Corpuscular Volume 73.5 FL 73.3 FL Mean Corpuscular Hemoglobin 22.3 PG 21.8 PG Mean Corpuscular Hemoglobin 30.3 % 29.7 % Concent Red Cell Distribution Width 17.2 % 17.2 % Platelet Count 254 TH/MM3 328 TH/MM3 Mean Platelet Volume 9.1 FL 10.3 FL Neutrophils (%) (Auto) 17.4 % % Lymphocytes (%) (Auto) 81.2 % % Monocytes (%) (Auto) 0.8 % % Eosinophils (%) (Auto) 0.1 % % Basophils (%) (Auto) 0.5 % % Neutrophils # (Auto) 0.3 TH/MM3 TH/MM3 Lymphocytes # (Auto) 1.2 TH/MM3 TH/MM3 Monocytes # (Auto) 0.0 TH/MM3 TH/MM3 Eosinophils # (Auto) 0.0 TH/MM3 TH/MM3 Basophils # (Auto) 0.0 TH/MM3 TH/MM3 CBC Comment AUTO DIFF AUTO DIFF Differential Total Cells 100 100 Counted Neutrophils % (Manual) 10 % 3 % Band Neutrophils % 4 % 6 % Lymphocytes % 84 % 82 % Monocytes % 2 % 5 % Neutrophils # (Manual) 0.2 TH/MM3 0.2 TH/MM3 Differential Comment FINAL DIFF FINAL DIFF MANUAL MANUAL Platelet Estimate NORMAL NORMAL Platelet Morphology Comment CLUMPED CLUMPED Basophilic Stippling [place]INT FAINT Ovalocytes 1+ 1+ Keratocytes OCC Metamyelocytes 2 % Myelocytes 1 % Nucleated Red Blood Cells 2 /100 WBC Blastocytes 1 % Polychromasia 3.7 % Acanthocytes OCC Laboratory Tests Test 06/18/16 06:11 Sodium Level 143 MEQ/L Potassium Level 3.6 MEQ/L Chloride Level 110 MEQ/L Carbon Dioxide Level 24.8 MEQ/L Anion Gap 8 MEQ/L Blood Urea Nitrogen 11 MG/DL Creatinine 0.99 MG/DL Estimat Glomerular Filtration 74 ML/MIN Rate Random Glucose 88 MG/DL Calcium Level 8.2 MG/DL Microbiology Date/Time Procedure Status Source Growth 06/16/16 13:50 Aerobic Blood Culture - Preliminary Resulted Blood Peripheral NO GROWTH IN 2 DAYS 06/16/16 13:50 Anaerobic Blood Culture - Preliminary Resulted Blood Peripheral NO GROWTH IN 2 DAYS 06/16/16 14:02 Aerobic Blood Culture - Preliminary Resulted Blood Peripheral NO GROWTH IN 2 DAYS 06/16/16 14:02 Anaerobic Blood Culture - Preliminary Resulted Blood Peripheral NO GROWTH IN 2 DAYS PHYSICAL EXAMINATION GENERAL: No acute distress. Awake and alert and oriented. HEENT: Head atraumatic. Extraocular movements grossly intact. Pupils are reactive to light. No icterus. No conjunctival erythema. Oropharynx - no visible lesions. NECK: Supple without adenopathy. No neck swelling. LUNGS: Clear breath sounds. HEART: Regular rate and rhythm. ABDOMEN: Bowel sounds present, distended, soft, non tender. EXTREMITIES: No clubbing or cyanosis or edema. No calf tenderness. No splinter hemorrhages of the nail beds. SKIN: No rash. NEUROLOGIC: Nonfocal. PSYCHIATRIC: The patient calm and cooperative. IMPRESSION Sepsis - strep viridans. Fever in patient with myelodysplastic syndrome who is status post chemotherapy. temp improved. Neutropenia. RECOMMENDATIONS 1. Continue Ceftriaxone IV. 2. Awaiting 2D ECHO to determine length of therapy. Luke Celaya MD Jun 19, 2016 16:36
--- NOTE | 2016-06-19 16:37 | HHI.FF ---
Infusion Therapy Location of Infusion Therapy: Home [facility] Care IV Infusion Order Patient Information Patient Weight 95.3 kg Diagnosis: (1) Sepsis (2) Bacteremia (3) Neutropenic fever Coded Allergies: No Known Allergies (Unverified , 11/20/12) Administer Medication Ceftriaxone 2 grams IV q 24 hours Stop Treatment: Jul 01, 2016 Additional Information Venous access: Other Additional Instructions [x] Peripheral flush and dressing changes per protocol [x] Implanted port and central portable track line marker: * Implanted port: 10 ml Normal Saline followed by 5 ml Heparin 100 units/ml Heparin flush after each use and monthly to maintain. [] May leave port accessed during therapy. [] May leave peripheral site accessed for duration of therapy. [x] If patient has SOB or respiratory distress, check oxygen saturation. If less than 90% or clinical signs of respiratory distress, administer oxygen at 2 L/min. via nasal cannula and notify physician. [x] Anaphylaxis/Reaction orders: * Stop infusion. * Keep IV line open with saline flush. * Notify physician. * Monitor vital signs every 15 minutes until symptoms resolve. * Check Oxygen saturation; Oxygen at 2 L/min. via nasal cannula if less than 90% or clinical signs of respiratory distress. * Administer diphenhydramine (Benadryl) 25 mg IV STAT, (unless patient has received as pre-med). May repeat once, if necessary. * Solu-Cortef 250 mg IVP over 30-60 seconds, use 100 mg vials for each dissolution. * Epinephrine (1mg/1 ml) 0.3 mg subcutaneously or IVP now with any signs of respiratory distress. * Check with physician for new additional pre-med orders if patient is re- challenged or re-treated. [x] May remove PICC line when treatment complete, after confirming with Physician. [x] If the patient is admitted to the hospital, the ED, or transferred via [facility] , complete transfer form including medication reconciliation order sheet. Luke Celaya MD Jun 19, 2016 16:37
[2016-06-19] MEDS: cefTRIAXone INJ 2,000 MG in SODIUM CHLORIDE 0.9% INJ 100 ML IV SCH (17:19)
--- NOTE | 2016-06-19 19:03 | EC ---
Study Study Date:06/19/2016 STUDY CONCLUSIONS SUMMARY - Left ventricle: The cavity size was normal. Wall thickness was normal. Systolic function was normal. The estimated ejection fraction was in the range of 60% to 65%. Wall motion was normal; there were no regional wall motion abnormalities. - Aortic valve: Valve area: 1.96cm^2(VTI). Valve area: 1.94cm^2 (Vmax). - Mitral valve: Mild regurgitation. - Tricuspid valve: Mild regurgitation. - Pulmonary arteries: PA peak pressure: 40mm Hg (S). Impressions: No evidence of endocarditis. If LV function is below 40, please consider prescribing an ACEI or ARB or document rationale for non-use. PROCEDURE DATA STUDY STATUS: Elective. Procedure: Transthoracic echocardiography. Image quality was good. Scanning was performed from the parasternal, apical, and subcostal acoustic windows. Study completion: The patient tolerated the procedure well. Transthoracic echocardiography. M-mode, complete 2D, complete spectral Doppler, and color Doppler. Patient status: Inpatient. CARDIAC ANATOMY LEFT VENTRICLE: The cavity size was normal. Wall thickness was normal. Systolic function was normal. The estimated ejection fraction was in the range of 60% to 65%. Wall motion was normal; there were no regional wall motion abnormalities. AORTIC VALVE: Trileaflet; normal thickness leaflets. Doppler: Transvalvular velocity was within the normal range. There was no stenosis. No regurgitation. Valve area: 1.96cm^2(VTI). Valve area: 1.94cm^2 (Vmax). Mean gradient: 7mm Hg (S). Peak gradient: 15mm Hg (S). AORTA: Aortic root: The aortic root was normal in size. MITRAL VALVE: Structurally normal valve. Doppler: Transvalvular velocity was within the normal range. There was no evidence for stenosis. Mild regurgitation. LEFT ATRIUM: The atrium was normal in size. RIGHT VENTRICLE: The cavity size was normal. Wall thickness was normal. PULMONIC VALVE: Doppler: Transvalvular velocity was within the normal range. There was no evidence for stenosis. No regurgitation. TRICUSPID VALVE: Structurally normal valve. Doppler: Transvalvular velocity was within the normal range. Mild regurgitation. PULMONARY ARTERY: The main pulmonary artery was normal-sized. Systolic pressure was within the normal range. RIGHT ATRIUM: The atrium was normal in size. PERICARDIUM: There was no pericardial effusion. SYSTEMIC VEINS: Inferior vena cava: The vessel was normal in size. BASIC MEASUREMENTS ADULT NORMAL Left ventricle LV internal dimension, ED, chordal level, 51.4 mm 43-52 PLAX LV internal dimension, ES, chordal level, 37.3 mm 23-38 PLAX Fractional shortening, chordal level, PLAX *27 % >29 LV posterior wall thickness, ED 9.3 mm IVS/LVPW ratio, ED 0.88 <1.3 Ventricular septum Septal thickness, ED 8.18 mm Aortic valve Leaflet separation 19 mm 15-26 Right ventricle RV internal dimension, ED, PLAX 35.8 mm 19-38 BASIC MEASUREMENTS ADULT NORMAL Aortic valve Leaflet separation 19 mm 15-26 Aorta Root diameter, ED 30 mm 20-37 Left atrium Anterior-posterior dimension, ES 33 mm 19-40 LA/aortic root ratio 1.1 DOPPLER MEASUREMENTS ADULT NORMAL Main pulmonary artery Pressure, S *40 mm Hg =30 Aortic valve Peak velocity, S 192 cm/s Mean velocity, S 116 cm/s VTI, S 40.8 cm Mean gradient, S 7 mm Hg Peak gradient, S 15 mm Hg Valve area, VTI 1.96 cm^2 Valve area, Vmax 1.94 cm^2 Tricuspid valve Regurgitant peak velocity 272 cm/s Peak RV-RA gradient, S 30 mm Hg Systemic veins Estimated CVP 10 mm Hg Right ventricle RV pressure, S *40 mm Hg <30 LEGEND: Mean values are shown as u=mean value. Asterisk (*) pettit values outside specified normal range. Prepared and signed by Aakash Day [id number]
[2016-06-19 20:00] VITALS: BP 160/77; PULSE 91; RESP 18; TEMP 97.2; O2SAT 97
[2016-06-19 21:08] LABS: MEAN CORPUSCULAR HGB CONC 29.9 % (32.0-36.0)
[2016-06-19] MEDS: buPROPion HCL 150 MG SUSTAINED RELEASE TAB PO SCH (22:11)
[2016-06-19] MEDS: TAMSULOSIN HCL 0.4 MG CAP PO SCH (22:11)
[2016-06-19] MEDS: ASPIRIN EC 81 MG TABEC PO SCH (22:11)
[2016-06-19] MEDS: LOSARTAN 50 MG TAB PO SCH (22:11)
--- NOTE | 2016-06-19 22:37 | PD.ONC.PN ---
Subjective Subjective Remarks feeling well Objective Data Date Time Temp Pulse Resp B/P Pulse Ox O2 Delivery O2 Flow Rate FiO2 06/19/16 20:00 97.2 91 18 160/77 97 06/19/16 16:00 96.7 80 18 117/79 96 06/19/16 12:00 96.3 78 20 117/62 97 06/19/16 08:15 96.8 76 18 130/69 97 06/19/16 05:00 97.1 71 16 102/54 96 06/19/16 00:00 98.7 82 16 117/88 96 06/19/16 06/19/16 06/19/16 07:00 15:00 23:00 Intake Total 720 ml 600 ml Balance 720 ml 600 ml Result Diagram: 06/19/16 0035 06/18/16 0611 Laboratory Results Laboratory Tests Test 06/19/16 00:35 White Blood Count 2.0 TH/MM3 Red Blood Count 3.93 MIL/MM3 Hemoglobin 8.6 GM/DL Hematocrit 28.8 % Mean Corpuscular Volume 73.3 FL Mean Corpuscular Hemoglobin 21.8 PG Mean Corpuscular Hemoglobin 29.7 % Concent Red Cell Distribution Width 17.2 % Platelet Count 328 TH/MM3 Mean Platelet Volume 10.3 FL Neutrophils (%) (Auto) % Lymphocytes (%) (Auto) % Monocytes (%) (Auto) % Eosinophils (%) (Auto) % Basophils (%) (Auto) % Neutrophils # (Auto) TH/MM3 Lymphocytes # (Auto) TH/MM3 Monocytes # (Auto) TH/MM3 Eosinophils # (Auto) TH/MM3 Basophils # (Auto) TH/MM3 CBC Comment AUTO DIFF Differential Total Cells 100 Counted Neutrophils % (Manual) 3 % Band Neutrophils % 6 % Lymphocytes % 82 % Monocytes % 5 % Neutrophils # (Manual) 0.2 TH/MM3 Metamyelocytes 2 % Myelocytes 1 % Nucleated Red Blood Cells 2 /100 WBC Differential Comment FINAL DIFF MANUAL Blastocytes 1 % Platelet Estimate NORMAL Platelet Morphology Comment CLUMPED Polychromasia 3.7 % Basophilic Stippling FAINT Ovalocytes 1+ Acanthocytes OCC Administered Medications Medications (Trade) Dose Ordered Sig/Gene Route PRN Reason Start Time Stop Time Status Last Admin Dose Admin Aspirin (Ecotrin Ec) 81 mg HS PO 06/15/16 21:00 06/19/16 22:11 Bupropion HCl (Wellbutrin Sr) 150 mg HS PO 06/15/16 21:00 06/19/16 22:11 Losartan Potassium (Cozaar) 50 mg HS PO 06/15/16 21:00 06/19/16 22:11 Pantoprazole Sodium (Protonix) 40 mg BID PO 06/15/16 21:00 06/19/16 22:12 Tamsulosin HCl (Flomax) 0.4 mg HS PO 06/15/16 21:00 06/19/16 22:11 IV Flush (NS Flush) 2 ml BID FLUSH 06/15/16 21:00 06/19/16 22:11 Temazepam (Restoril) 15 mg HS PRN PO INSOMNIA 06/15/16 13:45 06/19/16 22:19 Filgrastim 300 mcg 300 mcg DAILY@14 SQ 06/16/16 14:00 06/19/16 14:20 Ceftriaxone Sodium/Sodium Chloride (Rocephin Inj/NS Inj) 100 ml @ 200 mls/hr Q24H IV 06/18/16 16:00 06/19/16 17:19 Objective Remarks GENERAL: Well-nourished, well-developed patient. SKIN: Warm and dry. HEAD: Normocephalic. EYES: No scleral icterus. No injection or drainage. NECK: Supple, trachea midline. No JVD or lymphadenopathy. LYMPHATIC: No adenopathy. CARDIOVASCULAR: Regular rate and rhythm without murmurs. RESPIRATORY: Breath sounds equal bilaterally. No accessory muscle use. GASTROINTESTINAL: Abdomen soft, non-tender, nondistended. EXTREMITIES: No cyanosis, or edema. MUSCULOSKELETAL: Adequate muscle tone. NEUROLOGICAL: No obvious focal deficit. Awake, alert, and oriented x3. PSYCHIATRIC: Appropriate mood and affect; insight and judgment normal. 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 Now BC +Viridans Strep. He is afebrile and neutrophil count ranges from 100-300. I am hopeful that we can transition him to an outpatient regimen either oral or IV (?rocephin) which will allow for discharge in the next several days. This would also allow him to visit with Dr. Hernandez at [facility] regarding future plans for the tx of his RAEB or AML. echocardiogram negative and no evidence of bacterial endocarditis. will transition to outpatient rocephin when Dr. Villanueva feels it is appropriate. Will continue neupogen for present time but do not see any progress suggesting there is no maturation of white cells. Plan 1. Await specificities from blood cultures. continue antibiotics. 2. monitor CBC. continue Neupogen Jarrell Collins MD Jun 19, 2016 22:37
[2016-06-20] VITALS: BP 144/67; PULSE 85; RESP 18; TEMP 97.8; O2SAT 97
[2016-06-20 04:45] VITALS: BP 104/54; PULSE 79; RESP 18; TEMP 97; O2SAT 97
[2016-06-20 08:00] VITALS: BP 131/60; PULSE 75; RESP 18; TEMP 96.5; O2SAT 95
[2016-06-20 08:41] LABS: HEMATOCRIT 28.9 % (39.0-51.0); MEAN CELL VOLUME 74.3 FL (80.0-100.0); MEAN CORPUSCULAR HEMOGLOBIN 22.2 PG (27.0-34.0); PLATELET COUNT 383 TH/MM3 (150-450); RED BLOOD COUNT 3.89 MIL/MM3 (4.50-5.90); RED CELL DISTRIBUTION WIDTH 17.9 % (11.6-17.2); WHITE BLOOD COUNT 1.8 TH/MM3 (4.0-11.0)
[2016-06-20 09:00] LABS: HEMO FLAGS AUTO DIFF
[2016-06-20] MEDS: SODIUM CHLORIDE 0.9% FLUSH 5 ML FLUSH FLUSH SCH (09:03)
[2016-06-20] MEDS: PANTOPRAZOLE SOD 40 MG DELAYED RELEASE TAB PO SCH (09:03)
--- NOTE | 2016-06-20 09:16 | HHI.PR ---
Subjective Remarks Follow-up neutropenic fever 06/16/16-patient seen and examined; currently afebrile and denies any chest pain or shortness of breath. Blood culture + GPC 06/17/16-patient seen and examined. No acute event overnight. Repeat blood culture negative 1 day. 06/18/16-patient seen and examined. Afebrile and no complaint. Blood culture repeat, negative 2 days 06/19/16-patient seen and examined; afebrile and currently on Rocephin per ID. Plan for 2-D echo today . no acute event overnight. 06/20/16-patient seen and examined; 2-D echo without any evidence of endocarditis, patient currently afebrile, stable. Objective Vitals Vital Signs Date Time Temp Pulse Resp B/P Pulse Ox O2 Delivery O2 Flow Rate FiO2 06/20/16 04:45 97.0 79 18 104/54 97 06/20/16 00:00 97.8 85 18 144/67 97 06/19/16 20:00 97.2 91 18 160/77 97 06/19/16 16:00 96.7 80 18 117/79 96 06/19/16 12:00 96.3 78 20 117/62 97 I/O 06/19/16 06/19/16 06/19/16 06/20/16 06/20/16 06/20/16 07:00 15:00 23:00 07:00 15:00 23:00 Intake Total 720 ml 600 ml 480 ml 360 ml Balance 720 ml 600 ml 480 ml 360 ml Intake Oral 720 ml 600 ml 480 ml 360 ml # Voids 3 3 1 # Bowel Movements 1 Result Diagram: 06/20/16 0815 06/18/16 0611 Imaging Last Impressions Chest X-Ray 06/15/16 1053 Signed Impressions: Service Date/Time: Wednesday, June 15, 2016 11:11 - CONCLUSION: No acute disease. Mejia Butler MD FACR Upper Extremity Ultrasound 06/15/16 0000 Signed Impressions: Service Date/Time: Wednesday, June 15, 2016 12:12 - CONCLUSION: No evidence of deep venous thrombosis within the left upper extremity. Luis Whitehead MD Objective Remarks GENERAL: NAD SKIN: Warm and dry. HEAD: Normocephalic. EYES: No scleral icterus. No injection or drainage. NECK: Supple, trachea midline. No JVD or lymphadenopathy. CARDIOVASCULAR: Regular rate and rhythm without murmurs, gallops, or rubs. RESPIRATORY: Breath sounds equal bilaterally. No accessory muscle use. GASTROINTESTINAL: Abdomen soft, non-tender, nondistended. MUSCULOSKELETAL: No cyanosis, or edema. BACK: Nontender without obvious deformity. No CVA tenderness. A/P Problem List: (1) Neutropenic fever ICD Code: D70.9 Status: Acute (2) Bacteremia ICD Code: R78.81 Status: Acute (3) Sepsis ICD Code: A41.9 Status: Acute Assessment and Plan 71-year-old male with 1-Neutropenic fever: Status post cefepime, vancomycin, fluconazole IV 1 in ED; s/p cefepime 2 g IV every 8H, vancomycin IV and now on Rocephin as of 06/18/16 per infectious disease specialist. Continue neutropenic precautions. Negative flu A and B antigen 2-Bacteremia: Blood cultures on admission positive x 4 for Viridian strep; Repeat blood culture negative negative. s/p vancomycin and cefepime; currently on Rocephin IV every 24H. 2-D echo without any evidence of endocarditis. Duration of antibiotic to be determined by infectious disease specialist. 3-Sepsis: Resolved. From above infectious processes, currently on Rocephin 2 g IV daily. 2-D echo without any evidence of endocarditis 4-History of myelodysplastic syndrome/acute leukemia; medical oncology consultation appreciated, continue with Neupogen. Daily CBC monitoring 5-History of hypertension: Currently normotensive, continue outpatient medications 6-Left arm pain: Doppler upper left extremity noted and reviewed by me and negative for DVT, continue conservative treatments 7-Other chronic medical conditions: Continue outpatient medications DVT prophylaxis: Bilateral SCDs/Griseldax Jn Hoyos MD Jun 20, 2016 09:16
--- NOTE | 2016-06-20 09:39 | PD.ONC.PN ---
Subjective Subjective Remarks feels well and bored. Objective Data Date Time Temp Pulse Resp B/P Pulse Ox O2 Delivery O2 Flow Rate FiO2 06/20/16 04:45 97.0 79 18 104/54 97 06/20/16 00:00 97.8 85 18 144/67 97 06/19/16 20:00 97.2 91 18 160/77 97 06/19/16 16:00 96.7 80 18 117/79 96 06/19/16 12:00 96.3 78 20 117/62 97 06/20/16 06/20/16 06/20/16 07:00 15:00 23:00 Intake Total 360 ml Balance 360 ml Result Diagram: 06/20/16 0815 06/18/16 0611 Laboratory Results Laboratory Tests Test 06/20/16 08:15 White Blood Count 1.8 TH/MM3 Red Blood Count 3.89 MIL/MM3 Hemoglobin 8.6 GM/DL Hematocrit 28.9 % Mean Corpuscular Volume 74.3 FL Mean Corpuscular Hemoglobin 22.2 PG Mean Corpuscular Hemoglobin 29.9 % Concent Red Cell Distribution Width 17.9 % Platelet Count 383 TH/MM3 Mean Platelet Volume 8.7 FL Neutrophils (%) (Auto) % Lymphocytes (%) (Auto) % Monocytes (%) (Auto) % Eosinophils (%) (Auto) % Basophils (%) (Auto) % Neutrophils # (Auto) TH/MM3 Lymphocytes # (Auto) TH/MM3 Monocytes # (Auto) TH/MM3 Eosinophils # (Auto) TH/MM3 Basophils # (Auto) TH/MM3 CBC Comment AUTO DIFF Administered Medications Medications (Trade) Dose Ordered Sig/Gene Route PRN Reason Start Time Stop Time Status Last Admin Dose Admin Aspirin (Ecotrin Ec) 81 mg HS PO 06/15/16 21:00 06/19/16 22:11 Bupropion HCl (Wellbutrin Sr) 150 mg HS PO 06/15/16 21:00 06/19/16 22:11 Losartan Potassium (Cozaar) 50 mg HS PO 06/15/16 21:00 06/19/16 22:11 Pantoprazole Sodium (Protonix) 40 mg BID PO 06/15/16 21:00 06/20/16 09:03 Tamsulosin HCl (Flomax) 0.4 mg HS PO 06/15/16 21:00 06/19/16 22:11 IV Flush (NS Flush) 2 ml BID FLUSH 06/15/16 21:00 06/20/16 09:03 Temazepam (Restoril) 15 mg HS PRN PO INSOMNIA 06/15/16 13:45 06/19/16 22:19 Filgrastim 300 mcg 300 mcg DAILY@14 SQ 06/16/16 14:00 06/19/16 14:20 Ceftriaxone Sodium/Sodium Chloride (Rocephin Inj/NS Inj) 100 ml @ 200 mls/hr Q24H IV 06/18/16 16:00 06/19/16 17:19 Objective Remarks GENERAL: Well-nourished, well-developed patient. SKIN: Warm and dry. HEAD: Normocephalic. EYES: No scleral icterus. No injection or drainage. NECK: Supple, trachea midline. No JVD or lymphadenopathy. LYMPHATIC: No adenopathy. CARDIOVASCULAR: Regular rate and rhythm without murmurs. RESPIRATORY: Breath sounds equal bilaterally. No accessory muscle use. GASTROINTESTINAL: Abdomen soft, non-tender, nondistended. EXTREMITIES: No cyanosis, or edema. MUSCULOSKELETAL: Adequate muscle tone. NEUROLOGICAL: No obvious focal deficit. Awake, alert, and oriented x3. PSYCHIATRIC: Appropriate mood and affect; insight and judgment normal. 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 Now BC +Viridans Strep. He is afebrile and neutrophil count ranges from 100-300. I am hopeful that we can transition him to an outpatient regimen with IV rocephin which will allow for discharge. Following discharge he will visit with Dr. Hernandez at [facility] regarding future plans for the tx of his RAEB or AML. Plan 1: discharge home as soon as arrangements can be made for outpatient Rocephin. will not continue Neupogen as outpatient as I am not seeing a response to tx but will continue until discharge. Thanks. Jarrell Collins MD Jun 20, 2016 09:39
[2016-06-20 10:22] LABS: CORRECTED NUCLEATED RBC 1 /100 WBC (0-0); POLYS (SEG NEUTROPHILS) 8 % (16-70); WBC DIFF SAMPLE 100
[2016-06-20 10:24] LABS: NEUTROPHIL # MANUAL DIFF 0.1 TH/MM3 (1.8-7.7); PLATELET ESTIMATE SMEAR NORMAL (NORMAL); SCAN/DIFF FINAL DIFF MANUAL
[2016-06-20 10:25] LABS: KERATOCYTES 1+ (NORMAL); OVALOCYTES 1+ (NORMAL); PLATELET MORPHOLOGY CLUMPED (NORMAL); TEARDROP RBCS 1+ (NORMAL)
[2016-06-20 12:00] VITALS: BP 143/68; PULSE 90; RESP 16; TEMP 97.4; O2SAT 96
--- NOTE | 2016-06-20 12:47 | HHI.IDPN ---
Note Infectious Disease Note Patient feels better. No complaints. No chills. Afebrile. Just had midline placed for IV antibiotics. 2D ECHO without evidence of vegetation. This is a 71-year-old white male who presented to the emergency department because of fever. The patient has myelodysplastic syndrome and he has been neutropenic for weeks. He has been on p.o. antibiotic treatment with ciprofloxacin and fluconazole. The patient noted that approximately a week ago he started feeling weak and was using his walker and then he started getting dizzy and he had an elevated temperature of 100.5 degrees and presented for evaluation. PAST MEDICAL HISTORY 1. Hypertension. 2. Gastroesophageal reflux disease. 3. Diverticulitis. 4. Hypercholesteremia. 5. Depression. 6. History of herniated disc. 7. Post-traumatic stress disorder. 8. Cholecystectomy. 9. Myelodysplastic syndrome. ALLERGIES NO KNOWN DRUG ALLERGIES. MEDICATIONS Current Medications Medications (Trade) Dose Ordered Sig/Gene Route PRN Reason Start Time Stop Time Status Last Admin Dose Admin Aspirin (Ecotrin Ec) 81 mg HS PO 06/15/16 21:00 06/19/16 22:11 Bupropion HCl (Wellbutrin Sr) 150 mg HS PO 06/15/16 21:00 06/19/16 22:11 Losartan Potassium (Cozaar) 50 mg HS PO 06/15/16 21:00 06/19/16 22:11 Pantoprazole Sodium (Protonix) 40 mg BID PO 06/15/16 21:00 06/20/16 09:03 Tamsulosin HCl (Flomax) 0.4 mg HS PO 06/15/16 21:00 06/19/16 22:11 IV Flush (NS Flush) 2 ml UNSCH PRN FLUSH FLUSH AFTER USING IV ACCESS 06/15/16 13:45 IV Flush (NS Flush) 2 ml BID FLUSH 06/15/16 21:00 06/20/16 09:03 Acetaminophen (Tylenol) 650 mg Q4H PRN PO TEMP > 100.4 06/15/16 13:45 Ondansetron HCl (Zofran Inj) 4 mg Q6H PRN IVP NAUSEA OR VOMITING 06/15/16 13:45 Magnesium Hydroxide (Milk Of Magnesia Liq) 30 ml Q12H PRN PO CONSTIPATION 06/15/16 13:45 Temazepam (Restoril) 15 mg HS PRN PO INSOMNIA 06/15/16 13:45 06/19/16 22:19 Acetaminophen (Tylenol) 650 mg Q6H PRN PO PAIN SCALE 1 TO 2 06/15/16 13:45 Acetaminophen/ Hydrocodone Bitart ([place] 5-325 Mg) 1 tab Q4H PRN PO PAIN SCALE 3 TO 5 06/15/16 13:45 Acetaminophen/ Hydrocodone Bitart ([place] 7.5-325 Mg) 1 tab Q4H PRN PO PAIN SCALE 6 TO 10 06/15/16 13:45 Naloxone HCl (Narcan Inj) 0.4 mg UNSCH PRN IV SEE LABEL COMMENTS 06/15/16 13:45 Filgrastim 300 mcg 300 mcg DAILY@14 SQ 06/16/16 14:00 06/19/16 14:20 Ceftriaxone Sodium/Sodium Chloride (Rocephin Inj/NS Inj) 100 ml @ 200 mls/hr Q24H IV 06/18/16 16:00 06/19/16 17:19 SOCIAL HISTORY No tobacco. Rare alcohol. No illicit drugs. FAMILY HISTORY Significant for cancer on his dad's side and heart disease on his mom's side. OBJECTIVE: Vital Signs Date Time Temp Pulse Resp B/P Pulse Ox O2 Delivery O2 Flow Rate FiO2 06/20/16 08:00 96.5 75 18 131/60 95 06/20/16 04:45 97.0 79 18 104/54 97 06/20/16 00:00 97.8 85 18 144/67 97 06/19/16 20:00 97.2 91 18 160/77 97 06/19/16 16:00 96.7 80 18 117/79 96 06/19/16 06/19/16 06/20/16 15:00 23:00 07:00 Intake Total 600 ml 480 ml 360 ml Balance 600 ml 480 ml 360 ml Intake Oral 600 ml 480 ml 360 ml # Voids 3 1 Laboratory Tests Test 06/19/16 06/20/16 00:35 08:15 White Blood Count 2.0 TH/MM3 1.8 TH/MM3 Red Blood Count 3.93 MIL/MM3 3.89 MIL/MM3 Hemoglobin 8.6 GM/DL 8.6 GM/DL Hematocrit 28.8 % 28.9 % Mean Corpuscular Volume 73.3 FL 74.3 FL Mean Corpuscular Hemoglobin 21.8 PG 22.2 PG Mean Corpuscular Hemoglobin 29.7 % 29.9 % Concent Red Cell Distribution Width 17.2 % 17.9 % Platelet Count 328 TH/MM3 383 TH/MM3 Mean Platelet Volume 10.3 FL 8.7 FL Neutrophils (%) (Auto) % % Lymphocytes (%) (Auto) % % Monocytes (%) (Auto) % % Eosinophils (%) (Auto) % % Basophils (%) (Auto) % % Neutrophils # (Auto) TH/MM3 TH/MM3 Lymphocytes # (Auto) TH/MM3 TH/MM3 Monocytes # (Auto) TH/MM3 TH/MM3 Eosinophils # (Auto) TH/MM3 TH/MM3 Basophils # (Auto) TH/MM3 TH/MM3 CBC Comment AUTO DIFF AUTO DIFF Differential Total Cells 100 100 Counted Neutrophils % (Manual) 3 % 8 % Band Neutrophils % 6 % Lymphocytes % 82 % 75 % Monocytes % 5 % 17 % Neutrophils # (Manual) 0.2 TH/MM3 0.1 TH/MM3 Metamyelocytes 2 % Myelocytes 1 % Nucleated Red Blood Cells 2 /100 WBC 1 /100 WBC Differential Comment FINAL DIFF FINAL DIFF MANUAL MANUAL Blastocytes 1 % Platelet Estimate NORMAL NORMAL Platelet Morphology Comment CLUMPED CLUMPED Polychromasia 3.7 % Basophilic Stippling FAINT Ovalocytes 1+ 1+ Acanthocytes OCC Tear Drop Cells 1+ Keratocytes 1+ Microbiology Date/Time Procedure Status Source Growth 06/16/16 13:50 Aerobic Blood Culture - Preliminary Resulted Blood Peripheral NO GROWTH IN 2 DAYS 06/16/16 13:50 Anaerobic Blood Culture - Preliminary Resulted Blood Peripheral NO GROWTH IN 2 DAYS 06/16/16 14:02 Aerobic Blood Culture - Preliminary Resulted Blood Peripheral NO GROWTH IN 2 DAYS 06/16/16 14:02 Anaerobic Blood Culture - Preliminary Resulted Blood Peripheral NO GROWTH IN 2 DAYS PHYSICAL EXAMINATION GENERAL: No acute distress. Awake and alert. HEENT: Head atraumatic. Extraocular movements grossly intact. Pupils are reactive to light. No icterus. No conjunctival erythema. Oropharynx - no visible lesions. NECK: Supple without adenopathy. No neck swelling. LUNGS: Clear breath sounds. HEART: Regular rate and rhythm. ABDOMEN: Bowel sounds present, distended, soft, non tender. EXTREMITIES: No clubbing or cyanosis or edema. No calf tenderness. No splinter hemorrhages of the nail beds. SKIN: No rash. NEUROLOGIC: Nonfocal. PSYCHIATRIC: The patient calm and cooperative. IMPRESSION Sepsis - strep viridans. No vegetation on 2D ECHO. Stable. Fever in patient with myelodysplastic syndrome who is status post chemotherapy. temp improved. Neutropenia. Prolonged. RECOMMENDATIONS Continue Ceftriaxone IV until 07/01/16. Outpatient arrangement to be made by case management. can be discharged when arrangements are made. Luke Celaya MD Jun 20, 2016 12:47
[2016-06-20] MEDS: FILGRASTIM 300 MCG/ML VIAL SQ SCH (15:10)
[2016-06-20] MEDS: cefTRIAXone INJ 2,000 MG in SODIUM CHLORIDE 0.9% INJ 100 ML IV SCH (15:15)
[2016-06-20 16:00] VITALS: BP 122/57; PULSE 85; RESP 18; TEMP 96.6; O2SAT 96
--- NOTE | 2016-06-20 16:40 | HHI.DS ---
Discharge Summary Admission Date Jun 15, 2016 at 13:15 Discharge Date: Jun 20, 2016 Admitting Diagnosis neutropenic fever (1) Neutropenic fever ICD Code: D70.9 (2) Bacteremia ICD Code: R78.81 (3) Sepsis ICD Code: A41.9 Procedures None Brief History - From Admission 71-year-old male with recent diagnosis of acute leukemia/myelodysplastic syndrome with a history of neutropenic with essentially 0 neutrophils for the past 6 weeks came to the ED today for evaluation of febrile episode with a temp of 100.5 this morning and a one-week history of chills, generalized weakness and a feeling of tiredness however without any fever. Patient states for the past two and half months he has been taking a daily prophylactic dose of Cipro and was recently prescribed fluconazole daily 1 month. Patient has been followed by Dr. Collins medical oncology. He was recently seen at [facility] for potential bone marrow transplant however was not retained on a chest x-ray secondary to decompensation. Currently denies any GI bleed, bladder or bowel dysfunction. CBC/BMP: 06/20/16 0815 06/18/16 0611 Significant Findings Laboratory Tests Test 06/18/16 06/19/16 06/20/16 06:11 00:35 08:15 White Blood Count 1.5 TH/MM3 2.0 TH/MM3 1.8 TH/MM3 (4.0-11.0) (4.0-11.0) (4.0-11.0) Red Blood Count 3.70 MIL/MM3 3.93 MIL/MM3 3.89 MIL/MM3 (4.50-5.90) (4.50-5.90) (4.50-5.90) Hemoglobin 8.2 GM/DL 8.6 GM/DL 8.6 GM/DL (13.0-17.0) (13.0-17.0) (13.0-17.0) Hematocrit 27.2 % 28.8 % 28.9 % (39.0-51.0) (39.0-51.0) (39.0-51.0) Mean Corpuscular Volume 73.5 FL 73.3 FL 74.3 FL (80.0-100.0) (80.0-100.0) (80.0-100.0) Mean Corpuscular Hemoglobin 22.3 PG 21.8 PG 22.2 PG (27.0-34.0) (27.0-34.0) (27.0-34.0) Mean Corpuscular Hemoglobin 30.3 % 29.7 % 29.9 % Concent (32.0-36.0) (32.0-36.0) (32.0-36.0) Lymphocytes (%) (Auto) 81.2 % (9.0-44.0) Neutrophils # (Auto) 0.3 TH/MM3 (1.8-7.7) Neutrophils % (Manual) 10 % (16-70) 3 % (16-70) 8 % (16-70) Lymphocytes % 84 % (9-44) 82 % (9-44) 75 % (9-44) Neutrophils # (Manual) 0.2 TH/MM3 0.2 TH/MM3 0.1 TH/MM3 (1.8-7.7) (1.8-7.7) (1.8-7.7) Platelet Morphology Comment CLUMPED CLUMPED CLUMPED (NORMAL) (NORMAL) (NORMAL) Basophilic Stippling FAINT (NORMAL) FAINT (NORMAL) Ovalocytes 1+ (NORMAL) 1+ (NORMAL) 1+ (NORMAL) Chloride Level 110 MEQ/L (98-107) Estimat Glomerular Filtration 74 ML/MIN (>89) Rate Calcium Level 8.2 MG/DL (8.5-10.1) Metamyelocytes 2 % (0-1) Myelocytes 1 % (0-0) Nucleated Red Blood Cells 2 /100 WBC 1 /100 WBC (0-0) (0-0) Blastocytes 1 % (0-0) Polychromasia 3.7 % (0.0-1.9) Red Cell Distribution Width 17.9 % (11.6-17.2) Monocytes % 17 % (0-8) Tear Drop Cells 1+ (NORMAL) Keratocytes 1+ (NORMAL) Imaging Last Impressions Chest X-Ray 06/15/16 1053 Signed Impressions: Service Date/Time: Wednesday, June 15, 2016 11:11 - CONCLUSION: No acute disease. Mejia Butler MD FACR Upper Extremity Ultrasound 06/15/16 0000 Signed Impressions: Service Date/Time: Wednesday, June 15, 2016 12:12 - CONCLUSION: No evidence of deep venous thrombosis within the left upper extremity. Luis Whitehead MD PE at Discharge GENERAL: NAD SKIN: Warm and dry. HEAD: Normocephalic. EYES: No scleral icterus. No injection or drainage. NECK: Supple, trachea midline. No JVD or lymphadenopathy. CARDIOVASCULAR: Regular rate and rhythm without murmurs, gallops, or rubs. RESPIRATORY: Breath sounds equal bilaterally. No accessory muscle use. GASTROINTESTINAL: Abdomen soft, non-tender, nondistended. MUSCULOSKELETAL: No cyanosis, or edema. BACK: Nontender without obvious deformity. No CVA tenderness. Hospital Course He was admitted secondary to neutropenic fever for which he was started on IV antibiotics including cefepime and vancomycin with consultation to infectious disease specialist as well as medical oncology. Blood culture was monitored and patient was subsequently switched to Rocephin IV. He was placed on neutropenic precautions on admission, and his treatment for other chronic medical conditions will resumes. Secondary to a history of MDS patient was started on Neupogen. DVT and GI prophylaxis were provided. All electrolyte abnormalities were corrected accordingly. Vitals were monitor and patient remained afebrile prior to discharge. Pt Condition on Discharge: Stable Discharge Disposition: Discharge Home Discharge Time: <= 30 minutes Discharge Instructions DIET: Follow Instructions for: Heart Healthy Diet Activities you can perform: Regular-No Restrictions Follow up Referrals: Oncology - Next Day PCP Follow-up - 1 Week Continued Medications: Aspirin DR (Aspirin EC) 81 Mg Tabdr 81 MG PO HS Ref 0 TAB Bupropion HCl ER 24 HR (Wellbutrin Xl 24 HR) 150 Mg Tab 150 MG PO HS Control Depression Ref 0 TAB Cholestyramine (Questran) 4 Gm/Dose Powd 4 GM PO BID 1 level scoopful of powder contains 4 grams of cholestyramine. PRN DIARRHEA #1 Ref 0 CAN Losartan (Losartan) 50 Mg Tab 50 MG PO HS Blood Pressure Management #30 Ref 0 TAB Oxycodone-Acetaminophen (Percocet) 5-325 mg Tab 1-2 TAB PO Q6-8HR PRN BACK PAIN Ref 0 TAB Pantoprazole (Pantoprazole) 40 Mg Tab 40 MG PO BID Reflux #30 Ref 0 TAB Sildenafil (Viagra) 50 Mg Tab 50 MG PO DAILY PRN ERECTILE DYSFUNCTION Ref 0 TAB Sucralfate (Sucralfate) 1 Gm Tab 1 GM PO HS on empty stomach PRN DUODENAL ULCER #120 Ref 0 TAB Tamsulosin (Tamsulosin) 0.4 Mg Cap 0.4 MG PO HS Manage Prostate Problems #30 Ref 0 CAP Discontinued Medications: Ciprofloxacin (Cipro) 250 Mg Tab 250 MG PO DAILY PROPHYLAXIS Ref 0 TAB Jn Hoyos MD Jun 20, 2016 16:39
--- NOTE | 2016-06-25 15:22 | PQ ---
Physician Query Response Document PATIENT: DIOGENES ZHAO : 1945 ADMIT DATE: 06/15/2016 1:15 PM DISCH DATE: 06/20/2016 5:42 PM RESPONDING PROVIDER #: Alverto QUERY TEXT: Present On Admission It is unclear whether a diagnosis was present on admission. Your help is needed. Please clarify the POA status OF SEPSIS, Such as: -- Present on admission -- Not present on admission The patient's Clinical Indicators include: PER H ADMITTED WITH NEUTROPENIC FEVER History of Present Illness 71-year-old male with recent diagnosis of acute leukemia/myelodysplastic syndrome with a history of n eutropenic with essentially 0 neutrophils for the past 6 weeks came to the ED today for evaluation of febrile episode with a temp of 100.5 -BLOOD CULTURES ON ADMISSION WERE POSITIVE FOR VIRIDANS STREPTOCOCCUS GRP -THE FIRST DOCUMENTATION OF SEPSIS WAS ON 06/18/16 (DAY 3 OF ADMISSION) Query created by: Jenn Schumacher on 06/20/2016 12:11 PM RESPONSE TEXT: Sepsis not present on admission Electronically signed by: Jn Hoyos MD 06/25/2016 3:18 PM
== END 2016-06-20 17:42 | disposition home or self-care (01) | DRG 808 ==
LOC: NEPE 10:40 → NEDA 13:15 → HOCB 18:21
PROVIDERS: ADMIT Hospitalist; ATTEND Hospitalist
PROC: 05H633Z Insertion of Infusion Device into Left Subclavian Vein, Percutaneous Approach (ICD-10-PCS; principal; 2016-06-20)
PROC: B547ZZA Ultrasonography of Left Subclavian Vein, Guidance (ICD-10-PCS; 2016-06-20)
DX: D70.9 Neutropenia, unspecified (principal); A40.8 Other streptococcal sepsis; R50.81 Fever presenting with conditions classified elsewhere; D46.9 Myelodysplastic syndrome, unspecified; Z92.21 Personal history of antineoplastic chemotherapy; I10 Essential (primary) hypertension; M79.602 Pain in left arm; F32.9 Major depressive disorder, single episode, unspecified; E78.00 Pure hypercholesterolemia, unspecified; K21.9 Gastro-esophageal reflux disease without esophagitis; F43.10 Post-traumatic stress disorder, unspecified; Z87.442 Personal history of urinary calculi; N40.0 Benign prostatic hyperplasia without lower urinary tract symptoms; Z79.82 Long term (current) use of aspirin
CPT/HCPCS: 36569; 71010; 76937; 80048; 80053; 81001; 83605; 83690; 85007; 85027; 85610; 85730; 87040; 87804; 93005; 93306; 93971; 96365; J0692; J0696; J1442; J1450; J3370; J7040; J7050

== ENCOUNTER 2016-08-30 18:30 | Emergency (ER) | payer MEDICARE, OTHER ==
[~2016-08-30] VITALS: Ht 170.2 cm; Wt 90.0 kg
[~2016-08-30 18:30] MED LIST changes: +ASPI81TA11 PO; -ASPI81TA17 PO; +BUPR150XL PO; -IBUP600 PO; +LOSA50TA PO; -METO50 PO; -OXYC5 PO; +PANT40TA3 PO; +PERC5TAB12 PO; -PROT40TA PO; +QUES4POW2 PO; -SILD20TA PO; +SUCR1TAB PO; +TAMS0.4C4 PO; +VIAG50TA PO
[2016-08-30 18:31] VITALS: BP 141/79; PULSE 105; RESP 24; TEMP 98.1; O2SAT 96
[2016-08-30] MEDS ORDERED: SODIUM CHLOR 0.9% 1000 ML INJ 1,000 ML IV SCH (18:59)
--- NOTE | 2016-08-30 19:08 | PD ---
HPI Chief Complaint: GI Complaint Time Seen by Provider: 18:42 Travel History International Travel<30 days: No Contact w/Intl Traveler<30days: No Traveled to known affect area: No History of Present Illness HPI Patient 71-year-old male presents emergency Department with diarrhea some mild weakness as well as some nausea and vomiting for the past few days. Patient states been gradually worsening. Patient has a significant history of an acute leukemia for which she was hospitalized for several months for neutropenia and neutropenic fever. He was at [facility] where he had induction chemotherapy and is doing well with his counselor and. As a consequent to this chemotherapy he did develop a MRSA sore in his lower extremity which does have a wound VAC in place. He has been on extended period anabiotic's which he finished a few days ago. Patient states his been very liquidy diarrhea since then. He states she's also been having some mild epigastric pain particularly after he eats. Denies any fevers denies any easy bruising or easy bleeding denies any blood in the stool melanotic stools. PFSH Past Medical History Depression: Yes Cardiac Catheterization: Yes (NO STENTS) High Cholesterol: Yes Chemotherapy: Yes (HX) Chest Pain: Yes Diminished Hearing: No Diverticulitis: Yes GERD: Yes Herniated Disk: Yes (L4-5) Hypertension: Yes Kidney Stones: Yes Psychiatric: Yes (PTSD) Past Surgical History Cholecystectomy: Yes Ear Surgery: Yes Social History Alcohol Use: Yes (RARE) Tobacco Use: No Substance Use: No Allergies-Medications (Allergen,Severity, Reaction): Coded Allergies: No Known Allergies (Unverified , 09/03/16) Reported Meds & Prescriptions Reported Meds & Active Scripts Active Phenergan (Promethazine HCl) 25 Mg Tab 25 Mg PO Q6H PRN Flagyl (Metronidazole) 500 Mg Tab 500 Mg PO BID 14 Days Reported Trazodone (Trazodone HCl) 50 Mg Tab 50 Mg PO HS Omeprazole 40 Mg Cap 40 Mg PO DAILY Zofran (Ondansetron HCl) 4 Mg Tab 4 Mg PO Q6HR PRN Aspirin EC (Aspirin) 81 Mg Tabdr 81 Mg PO HS Tamsulosin (Tamsulosin HCl) 0.4 Mg Cap 0.4 Mg PO HS Losartan (Losartan Potassium) 50 Mg Tab 50 Mg PO HS Wellbutrin Xl 24 HR (Bupropion HCl) 150 Mg Tab 150 Mg PO HS Review of Systems Except as stated in HPI: all other systems reviewed are Neg Physical Exam Narrative GENERAL: Well-developed well-nourished, quite pleasant in no apparent distress.] SKIN: Focused skin assessment warm/dry. There is a wound VAC placed the left lower extremity, no surrounding cellulitis that I can see. The wound VAC is left in place and has a nurse that changes at daily. HEAD: Atraumatic. Normocephalic. EYES: Pupils equal and round. No scleral icterus. No injection or drainage. ENT: No nasal bleeding or discharge. Mucous membranes pink and moist. NECK: Trachea midline. No JVD. CARDIOVASCULAR: Regular rate and rhythm. No murmur appreciated. RESPIRATORY: No accessory muscle use. Clear to auscultation. Breath sounds equal bilaterally. GASTROINTESTINAL: Abdomen soft, non-tender, nondistended. Hepatic and splenic margins not palpable. MUSCULOSKELETAL: No obvious deformities. No clubbing. No cyanosis. No edema. NEUROLOGICAL: Awake and alert. No obvious cranial nerve deficits. Motor grossly within normal limits. Normal speech. PSYCHIATRIC: Appropriate mood and affect; insight and judgment normal. Data Data Last Documented VS Vital Signs Date Time Temp Pulse Resp B/P Pulse Ox O2 Delivery O2 Flow Rate FiO2 08/30/16 20:25 88 18 136/77 97 Room Air 08/30/16 18:31 98.1 Orders Isolation 08,20 (08/30/16 18:42) Complete Blood Count With Diff (08/30/16 18:59) Comprehensive Metabolic Panel (08/30/16 18:59) Lipase (08/30/16 18:59) Lactic Acid (08/30/16 18:59) Prothrombin Time / Inr (Pt) (08/30/16 18:59) Act Partial Throm Time (Ptt) (08/30/16 18:59) Ct Abd/Pel W Iv Contrast(Rout) (08/30/16 18:59) Iv Access Insert/Monitor (08/30/16 18:59) Ecg Monitoring (08/30/16 18:59) Oximetry (08/30/16 18:59) Sodium Chlor 0.9% 1000 Ml Inj (Ns 1000 M (08/30/16 18:59) Sodium Chloride 0.9% Flush (Ns Flush) (08/30/16 19:00) Electrocardiogram (08/30/16 18:59) C Diff Toxin Pcr (08/30/16 18:59) Vascular Access Team Consult PRN (08/30/16 19:40) Iohexol 350 Inj (Omnipaque 350 Inj) (08/30/16 21:38) Giardia Antigen (Stool) (08/30/16 22:39) Occult Blood (Hemoccult) Stool (08/30/16 22:39) Stool Ova And Parasite Screen (08/30/16 22:39) Enteric Path (Stool) (08/30/16 22:39) Promethazine (Phenergan) (08/30/16 22:45) Metronidazole (Flagyl) (08/30/16 23:00) Labs Laboratory Tests Test 08/30/16 08/30/16 08/30/16 20:35 20:37 22:30 White Blood Count 7.3 TH/MM3 Red Blood Count 3.81 MIL/MM3 Hemoglobin 11.5 GM/DL Hematocrit 34.7 % Mean Corpuscular Volume 91.1 FL Mean Corpuscular Hemoglobin 30.3 PG Mean Corpuscular Hemoglobin 33.2 % Concent Red Cell Distribution Width 23.7 % Platelet Count 70 TH/MM3 Mean Platelet Volume 9.4 FL Neutrophils (%) (Auto) 70.8 % Lymphocytes (%) (Auto) 14.3 % Monocytes (%) (Auto) 14.6 % Eosinophils (%) (Auto) 0.1 % Basophils (%) (Auto) 0.2 % Neutrophils # (Auto) 5.1 TH/MM3 Lymphocytes # (Auto) 1.0 TH/MM3 Monocytes # (Auto) 1.1 TH/MM3 Eosinophils # (Auto) 0.0 TH/MM3 Basophils # (Auto) 0.0 TH/MM3 CBC Comment AUTO DIFF Differential Total Cells 100 Counted Neutrophils % (Manual) 66 % Band Neutrophils % 8 % Lymphocytes % 14 % Monocytes % 11 % Neutrophils # (Manual) 5.5 TH/MM3 Myelocytes 1 % Differential Comment FINAL DIFF MANUAL Platelet Estimate LOW Platelet Morphology Comment NORMAL Prothrombin Time 11.8 SEC Prothromb Time International 1.1 RATIO Ratio Activated Partial 25.8 SEC Thromboplast Time Sodium Level 141 MEQ/L Potassium Level 3.5 MEQ/L Chloride Level 111 MEQ/L Carbon Dioxide Level 18.3 MEQ/L Anion Gap 12 MEQ/L Blood Urea Nitrogen 16 MG/DL Creatinine 1.34 MG/DL Estimat Glomerular Filtration 52 ML/MIN Rate Random Glucose 97 MG/DL Calcium Level 9.1 MG/DL Total Bilirubin 0.6 MG/DL Aspartate Amino Transf 24 U/L (AST/SGOT) Alanine Aminotransferase 24 U/L (ALT/SGPT) Alkaline Phosphatase 114 U/L Total Protein 7.8 GM/DL Albumin 3.9 GM/DL Lipase 80 U/L Lactic Acid Level 1.7 mmol/L Stool C. difficile Toxin (PCR) NEGATIVE Stl C. difficile Toxin PRESUMPTIVE Epiderm 027 NEGATIVE MDM Medical Decision Making Medical Screen Exam Complete: Yes Emergency Medical Condition: Yes Differential Diagnosis Dehydration, electro-light imbalance, neutropenia, femoral cytopenic, anemia, Clostridium difficile infection. Narrative Course Patient is a 71-year-old very pleasant man presents in no apparent distress. High suspicion for C. difficile given his history. His labs are quite reassuring. Patient is an related multiple times in the emergency department vital signs are stable. Discussed with him that we will send multiple stool studies for his primary care provider to follow up with who ordered mostly studies in an ambulatory basis but is daughter was unclear on how much stool needed to go in each sample cup. Patient will be started on him. Flagyl. He will follow with Dr. Azam Collins tomorrow. Discussed return to ED criteria. Last 24 hours Impressions Abdomen/Pelvis CT 08/30/16 9762 Signed Impressions: Service Date/Time: August 21:36 - CONCLUSION: 1. Uncomplicated colonic diverticulosis. 2. Enlarged prostate. 3. Mild diffuse urinary bladder wall thickening with small diverticulum anteriorly. 4. Tiny 2 mm calcified nonobstructing left renal calculi. 5. Small hiatal hernia. 6. Scattered stable bilateral renal cysts. 7. Degenerative changes involving the thoracolumbar spine. Luis Whitehead MD Diagnosis Primary Impression: Diarrhea Qualified Code: A09 - Diarrhea of presumed infectious origin Med/Other Pt SpecificInfo: Prescription(s) given Scripts Promethazine (Phenergan)25 Mg Tab25 Mg PO Q6H PRN (Nausea/Vomiting) #20 TAB Ref 0 Prov:Luis Prado MD 08/30/16 Metronidazole (Flagyl)500 Mg Sgn375 Mg PO BID 14 Days Ref 0 Prov:Luis Prado MD 08/30/16 Disposition: 01 DISCHARGE HOME Condition: Stable Luis Prado MD Aug 30, 2016 19:08
[2016-08-30] MEDS ORDERED: OMEP40CA2 PO (19:47)
[2016-08-30] MEDS ORDERED: TRAZ50TA12 PO (19:47)
[2016-08-30] MEDS ORDERED: ZOFR4TAB PO (19:47)
[2016-08-30 19:59] VITALS: RESP 18; O2SAT 97
[2016-08-30] MEDS: SODIUM CHLORIDE 0.9% FLUSH 10 ML FLUSH IV FLUSH PRN ×2 (20:17→23:00)
[2016-08-30 20:25] VITALS: BP 136/77; PULSE 88; RESP 18; O2SAT 97
[2016-08-30 21:15] LABS: AUTOMATED NEUTROPHIL # 5.1 TH/MM3 (1.8-7.7); BASOPHIL % 0.2 % (0.0-2.0); EOSINOPHIL % 0.1 % (0.0-4.0); HEMATOCRIT 34.7 % (39.0-51.0); LYMPH % 14.3 % (9.0-44.0); MEAN CELL VOLUME 91.1 FL (80.0-100.0); MEAN CORPUSCULAR HEMOGLOBIN 30.3 PG (27.0-34.0); MEAN CORPUSCULAR HGB CONC 33.2 % (32.0-36.0); MONO % 14.6 % (0.0-8.0); NEUT % 70.8 % (16.0-70.0); PLATELET COUNT 70 TH/MM3 (150-450); RED BLOOD COUNT 3.81 MIL/MM3 (4.50-5.90); RED CELL DISTRIBUTION WIDTH 23.7 % (11.6-17.2); WHITE BLOOD COUNT 7.3 TH/MM3 (4.0-11.0)
[2016-08-30 21:18] LABS: APTT (PATIENT) 25.8 SEC (24.3-30.1); INTERNATIONAL NORMALIZED RATIO 1.1 RATIO; PROTHROMBIN TIME - PATIENT 11.8 SEC (9.8-11.6)
[2016-08-30 21:19] LABS: HEMO FLAGS AUTO DIFF
[2016-08-30 21:21] LABS: ANION GAP 12 MEQ/L (5-15); AST (GOT) 24 U/L (15-37); BICARBONATE 18.3 MEQ/L (21.0-32.0); BLOOD UREA NITROGEN 16 MG/DL (7-18); CHLORIDE 111 MEQ/L (98-107); GLOMERULAR FILTRATION RATE 52 ML/MIN (>89); POTASSIUM 3.5 MEQ/L (3.5-5.1); SODIUM (NA) 141 MEQ/L (136-145)
[2016-08-30 21:25] LABS: ALKALINE PHOSPHATASE 114 U/L (45-117); ALT (GPT) 24 U/L (12-78); TOTAL BILIRUBIN ADULT 0.6 MG/DL (0.2-1.0)
[2016-08-30] MEDS ORDERED: IOHEXOL 350 MG/ML 10 ML VIAL (for RAD DIAG) IV ONE (21:38)
[2016-08-30 22:11] LABS: BANDS 8 % (0-6); MYELOCYTES 1 % (0-0); NEUTROPHIL # MANUAL DIFF 5.5 TH/MM3 (1.8-7.7); POLYS (SEG NEUTROPHILS) 66 % (16-70); WBC DIFF SAMPLE 100
--- NOTE | 2016-08-30 22:11 | RADRPT ---
EXAM DATE/TIME: 08/30/2016 21:36 [facility] COMPARISON: CT ABDOMEN & PELVIS W CONTRAST, November 20, 2012, 17:21. INDICATIONS : Abdominal pain with nausea, vomiting and diarrhea. IV CONTRAST: 100 cc Omnipaque 350 (iohexol) IV ORAL CONTRAST: No oral contrast ingested. RADIATION DOSE: 15.24 CTDIvol (mGy) MEDICAL HISTORY : Hypertension. Gastroesophageal reflux disease. Leukemia. SURGICAL HISTORY : Cholecystectomy. ENCOUNTER: Initial ACUITY: 1 day PAIN SCALE: 5/10 LOCATION: Bilateral lower quadrant TECHNIQUE: Volumetric scanning of the abdomen and pelvis was performed. Using automated exposure control and ad justment of the mA and/or kV according to patient size, radiation dose was kept as low as reasonably achievable to obtain optimal diagnostic quality images. FINDINGS: There are tiny 2 mm calcified nonobstructing left renal calculi. There are scattered stable bilatera l renal cysts. There is no acute obstructive uropathy. No solid renal mass is noted. The liver is s table in appearance compared to the previous examination. No focal mass is noted. The gallbladder h as been resected. The spleen is normal. A small hiatal hernia is noted. The pancreas is normal. The adrenal glands are normal bilaterally. The abdominal aorta is calcified but is not aneurysmally dila janay. The inferior vena cava is normal. There is no paraaortic, retroperitoneal or mesenteric lympha denopathy. Uncomplicated colonic diverticulosis is noted. There is no acute diverticulitis. No asc ites is noted. The prostate gland is enlarged. The urinary bladder is nondistended and its wall is diffusely thickened. There is a small urinary bladder wall diverticulum anteriorly. Degenerative ch anges are noted throughout the thoracolumbar spine. The visualized lung bases are clear. CONCLUSION: 1. Uncomplicated colonic diverticulosis. 2. Enlarged prostate. 3. Mild diffuse urinary bladder wall thickening with small diverticulum anteriorly. 4. Tiny 2 mm calcified nonobstructing left renal calculi. 5. Small hiatal hernia. 6. Scattered stable bilateral renal cysts. 7. Degenerative changes involving the thoracolumbar spine. Luis Whitehead MD on August 30, 2016 at 22:00 Board Certified Radiologist. This report was verified electronically.
[2016-08-30 22:12] LABS: PLATELET ESTIMATE SMEAR LOW (NORMAL); PLATELET MORPHOLOGY NORMAL (NORMAL); SCAN/DIFF FINAL DIFF MANUAL
[2016-08-30] MEDS ORDERED: PROM25TA5 PO (22:43)
[2016-08-30] MEDS ORDERED: METR-1 PO (22:43)
[2016-08-30] MEDS ORDERED: PROMETHAZINE HCL 25 MG TAB PO ONE (22:45)
[2016-08-30] MEDS ORDERED: metroNIDAZOLE 500 MG TAB PO ONE (23:00)
[2016-08-31 00:31] LABS: C. DIFF EPI 027 PRESUMPTIVE NEGATIVE (NEGATIVE); C. DIFF TOXIN PCR NEGATIVE (NEGATIVE)
--- NOTE | 2016-08-31 16:45 | EKG ---
Date Performed: 08/30/2016 Time Performed: 19:55:53 PTAGE: 71 years EKG: Sinus rhythm NONSPECIFIC T-WAVE ABNORMALITY BORDERLINE ECG Compared to prior tracing no significant change PREVIOUS TRACING : 06/15/2016 11.17 DOCTOR: Walt Perera Interpretating Date/Time 08/31/2016 16:43:45
== END 2016-08-30 23:36 | disposition home or self-care (01) ==
LOC: NEPA 18:30
DX: R19.7 Diarrhea, unspecified (principal); C92.Z1 Other myeloid leukemia, in remission
CPT/HCPCS: 74177; 80053; 82272; 83605; 83690; 85007; 85027; 85610; 85730; 87328; 87329; 87493; 87506; 93005; 99285; G0463; J7030; Q0169; Q9967; 99212; 99215

== ENCOUNTER 2016-09-03 14:25 | Observation (INO) | payer OTHER ==
[~2016-09-03] VITALS: Ht 170.2 cm; Wt 85.3 kg
[~2016-09-03 14:25] MED LIST changes: +METR-1 PO; +OMEP40CA2 PO; -PANT40TA3 PO; -PERC5TAB12 PO; +PROM25TA5 PO; -QUES4POW2 PO; -SUCR1TAB PO; +TRAZ50TA12 PO; -VIAG50TA PO; +ZOFR4TAB PO
[2016-09-03 14:28] VITALS: BP 161/85; PULSE 100; RESP 20; TEMP 97.2; O2SAT 99
--- NOTE | 2016-09-03 15:59 | PD ---
Physical Exam Date Seen by Provider: Sep 03, 2016 Time Seen by Provider: 15:54 Narrative 71 YOWM N/V/D SINCE SAT. EXTREMELY WEAK . SEEN IN ER ON . H/O AML PT OF DR ZHANG. FINISHED TX 3 WEEKS AGO CELLULITIS R LEG NO ABD PAIN VVS. AWAITING BED PLACEMENT Data Data Last Documented VS Vital Signs Date Time Temp Pulse Resp B/P Pulse Ox O2 Delivery O2 Flow Rate FiO2 09/03/16 14:28 97.2 100 20 161/85 99 Room Air [facility] Medical Record Reviewed: Yes Supervised Visit with EDUARD: Yes Tod Kaur Sep 03, 2016 15:59
[2016-09-03] MEDS ORDERED: SODIUM CHLORIDE 0.9% FLUSH 10 ML FLUSH IV FLUSH PRN ×2 (20:45→23:15)
[2016-09-03] MEDS ORDERED: SODIUM CHLOR 0.9% 1000 ML INJ 1,000 ML IV SCH (20:45)
--- NOTE | 2016-09-03 20:47 | PD ---
HPI Chief Complaint: GI Complaint Time Seen by Provider: 20:45 Travel History International Travel<30 days: No Contact w/Intl Traveler<30days: No Traveled to known affect area: No History of Present Illness HPI Patient is a 71-year-old male presents emergency department for the second time this week for concerns of nausea vomiting and diarrhea. Patient was seen by me approximate 4 days ago. He has a history of acute leukemia and was admitted for approximately 3 months to [facility] when he had chemotherapy which she responded well to. Patient was worked up by me 4 days ago including CAT scan of his abdomen multiple stool studies electrolytes all of which within normal limits. He has been on antibiotics for the wound to his lower extremity and is not currently on antibiotics anymore. Presumed C. difficile was treated with Flagyl as an outpatient as the patient wanted to go home. He returns today with family stating that he is unable to tolerate his by mouth medications at this time he continues to have some mild epigastric pain. She appears in good spirits denies any blood in the stool. States the pain is intermittently and cramping in the epigastric area vertically after he eats. PFSH Past Medical History Depression: Yes Cancer: Yes (leukemia in remission) Cardiac Catheterization: Yes (NO STENTS) High Cholesterol: Yes Chemotherapy: Yes (HX) Chest Pain: Yes Diminished Hearing: No Diverticulitis: Yes GERD: Yes Herniated Disk: Yes (L4-5) Hypertension: Yes Kidney Stones: Yes Psychiatric: Yes (PTSD) Past Surgical History Cholecystectomy: Yes Ear Surgery: Yes Other Surgery: Yes (abscess drainage) Social History Alcohol Use: Yes (RARE) Tobacco Use: No (never) Substance Use: No Allergies-Medications (Allergen,Severity, Reaction): Coded Allergies: No Known Allergies (Unverified , 09/03/16) Reported Meds & Prescriptions Reported Meds & Active Scripts Active Phenergan (Promethazine HCl) 25 Mg Tab 25 Mg PO Q6H PRN Reported Trazodone (Trazodone HCl) 50 Mg Tab 50 Mg PO HS Omeprazole 40 Mg Cap 40 Mg PO DAILY Zofran (Ondansetron HCl) 4 Mg Tab 4 Mg PO Q6HR PRN Aspirin EC (Aspirin) 81 Mg Tabdr 81 Mg PO HS Tamsulosin (Tamsulosin HCl) 0.4 Mg Cap 0.4 Mg PO HS Losartan (Losartan Potassium) 50 Mg Tab 50 Mg PO HS Wellbutrin Xl 24 HR (Bupropion HCl) 150 Mg Tab 150 Mg PO HS Review of Systems Except as stated in HPI: all other systems reviewed are Neg Physical Exam Narrative GENERAL: Well-developed well-nourished, quite pleasant in no apparent distress. SKIN: Focused skin assessment warm/dry. HEAD: Atraumatic. Normocephalic. EYES: Pupils equal and round. No scleral icterus. No injection or drainage. ENT: No nasal bleeding or discharge. Mucous membranes pink and moist. NECK: Trachea midline. No JVD. CARDIOVASCULAR: Regular rate and rhythm. No murmur appreciated. RESPIRATORY: No accessory muscle use. Clear to auscultation. Breath sounds equal bilaterally. GASTROINTESTINAL: Abdomen soft, non-tender, nondistended. Hepatic and splenic margins not palpable. MUSCULOSKELETAL: No obvious deformities. No clubbing. No cyanosis. No edema. NEUROLOGICAL: Awake and alert. No obvious cranial nerve deficits. Motor grossly within normal limits. Normal speech. PSYCHIATRIC: Appropriate mood and affect; insight and judgment normal. Data Data Last Documented VS Vital Signs Date Time Temp Pulse Resp B/P Pulse Ox O2 Delivery O2 Flow Rate FiO2 09/03/16 23:00 78 18 136/61 98 Room Air 09/03/16 14:28 97.2 Orders Complete Blood Count With Diff (09/03/16 20:45) Comprehensive Metabolic Panel (09/03/16 20:45) Lipase (09/03/16 20:45) Lactic Acid (09/03/16 20:45) Urinalysis - C+S If Indicated (09/03/16 20:45) Iv Access Insert/Monitor (09/03/16 20:45) Ecg Monitoring (09/03/16 20:45) Oximetry (09/03/16 20:45) Sodium Chlor 0.9% 1000 Ml Inj (Ns 1000 M (09/03/16 20:45) Sodium Chloride 0.9% Flush (Ns Flush) (09/03/16 20:45) Electrocardiogram (09/03/16 20:45) Consult Vascular Surgery (09/03/16 ) Ondansetron Inj (Zofran Inj) (09/03/16 21:45) (Hub Use Only)Inp Phy Cons/Ref (09/03/16 ) Place In Observation (09/03/16 ) Vital Signs (Adult) Q4H (09/03/16 23:11) Activity Oob With Assistance (09/03/16 23:11) Welder Fitter Helper / Telemetry .CONTINUOUS (09/03/16 23:11) Diet Npo (09/04/16 Breakfast) Sodium Chloride 0.9% Flush (Ns Flush) (09/03/16 23:15) Sodium Chloride 0.9% Flush (Ns Flush) (09/04/16 09:00) Ondansetron Inj (Zofran Inj) (09/03/16 23:15) Metoclopramide Inj (Reglan Inj) (09/03/16 23:15) Basic Metabolic Panel (Bmp) (09/04/16 06:00) Complete Blood Count With Diff (09/04/16 06:00) Pt Request For Service (09/03/16 23:11) Case Management Consult (09/03/16 23:11) Naloxone Inj (Narcan Inj) (09/03/16 23:15) Admit Order (Ed Use Only) (09/03/16 ) Potassium Chlor 20 Meq Premix (Kcl 20 Me (09/04/16 00:00) Labs Laboratory Tests Test 09/03/16 21:10 White Blood Count 6.2 TH/MM3 Red Blood Count 3.80 MIL/MM3 Hemoglobin 11.6 GM/DL Hematocrit 34.3 % Mean Corpuscular Volume 90.2 FL Mean Corpuscular Hemoglobin 30.5 PG Mean Corpuscular Hemoglobin 33.9 % Concent Red Cell Distribution Width 22.7 % Platelet Count 80 TH/MM3 Mean Platelet Volume 9.1 FL Neutrophils (%) (Auto) 49.6 % Lymphocytes (%) (Auto) 36.4 % Monocytes (%) (Auto) 13.7 % Eosinophils (%) (Auto) 0.2 % Basophils (%) (Auto) 0.1 % Neutrophils # (Auto) 3.1 TH/MM3 Lymphocytes # (Auto) 2.3 TH/MM3 Monocytes # (Auto) 0.9 TH/MM3 Eosinophils # (Auto) 0.0 TH/MM3 Basophils # (Auto) 0.0 TH/MM3 CBC Comment AUTO DIFF Differential Comment AUTO DIFF CONFIRMED Platelet Estimate LOW Platelet Morphology Comment NORMAL Sodium Level 143 MEQ/L Potassium Level 3.3 MEQ/L Chloride Level 111 MEQ/L Carbon Dioxide Level 21.1 MEQ/L Anion Gap 11 MEQ/L Blood Urea Nitrogen 14 MG/DL Creatinine 0.93 MG/DL Estimat Glomerular Filtration 80 ML/MIN Rate Random Glucose 96 MG/DL Lactic Acid Level 1.8 mmol/L Calcium Level 8.8 MG/DL Total Bilirubin 0.4 MG/DL Aspartate Amino Transf 42 U/L (AST/SGOT) Alanine Aminotransferase 61 U/L (ALT/SGPT) Alkaline Phosphatase 118 U/L Total Protein 7.0 GM/DL Albumin 3.6 GM/DL Lipase 100 U/L [facility] Medical Decision Making Medical Screen Exam Complete: Yes Emergency Medical Condition: Yes Interpretation(s) EKG shows normal sinus rhythm normal axis normal R-wave progression. No concerning ST-T changes. Intervals within normal limits. This normal EKG. Differential Diagnosis Intractable nausea and vomiting, C. difficile, infectious diarrhea, irritable bowel syndrome, chemotherapy reaction, enteritis. Narrative Course Patient was roomed emergency department, he did have some dry heaving in the emergency department he was given some Zofran by IV as well as a liter of normal saline. Patient did discuss with his oncologist Dr. Azam Collins was recommended that he come in emerged Department to be seen and evaluated and probably admitted. His counts remain within acceptable ranges. He does continue to have some moderate thrombocytopenia with 64,000 today. The blood cell count is within normal limits with a normal differential, mild anemia with hemoglobin 10.1. Chemistry shows no concerning abnormality. Patient was discussed with Dr. Phillips for admission and she is agreeable. Diagnosis Primary Impression: Intractable nausea and vomiting Qualified Code: R11.2 - Intractable vomiting with nausea, unspecified vomiting type Admitting Information Admitting Physician Requests: Observation Condition: Stable Luis Prado MD Sep 03, 2016 20:47
[2016-09-03 21:10] VITALS: BP 155/76; PULSE 86; RESP 18; O2SAT 99
[2016-09-03] MEDS ORDERED: ONDANSETRON HCL 4 MG/2 ML VIAL IV PUSH ONE (21:45)
[2016-09-03 21:51] LABS: AUTOMATED NEUTROPHIL # 3.1 TH/MM3 (1.8-7.7); BASOPHIL % 0.1 % (0.0-2.0); EOSINOPHIL % 0.2 % (0.0-4.0); HEMATOCRIT 34.3 % (39.0-51.0); LYMPH % 36.4 % (9.0-44.0); LYMPHOCYTE # 2.3 TH/MM3 (1.0-4.8); MEAN CELL VOLUME 90.2 FL (80.0-100.0); MEAN CORPUSCULAR HEMOGLOBIN 30.5 PG (27.0-34.0); MEAN CORPUSCULAR HGB CONC 33.9 % (32.0-36.0); MONO % 13.7 % (0.0-8.0); NEUT % 49.6 % (16.0-70.0); PLATELET COUNT 80 TH/MM3 (150-450); RED CELL DISTRIBUTION WIDTH 22.7 % (11.6-17.2); WHITE BLOOD COUNT 6.2 TH/MM3 (4.0-11.0)
[2016-09-03 21:56] LABS: HEMO FLAGS AUTO DIFF
[2016-09-03 22:09] LABS: ANION GAP 11 MEQ/L (5-15); AST (GOT) 42 U/L (15-37); BICARBONATE 21.1 MEQ/L (21.0-32.0); BLOOD UREA NITROGEN 14 MG/DL (7-18); CHLORIDE 111 MEQ/L (98-107); GLOMERULAR FILTRATION RATE 80 ML/MIN (>89); POTASSIUM 3.3 MEQ/L (3.5-5.1); SODIUM (NA) 143 MEQ/L (136-145)
[2016-09-03 22:13] LABS: ALKALINE PHOSPHATASE 118 U/L (45-117); ALT (GPT) 61 U/L (12-78); TOTAL BILIRUBIN ADULT 0.4 MG/DL (0.2-1.0)
[2016-09-03 22:14] LABS: PLATELET ESTIMATE SMEAR LOW (NORMAL); PLATELET MORPHOLOGY NORMAL (NORMAL); SCAN/DIFF AUTO DIFF CONFIRMED
[2016-09-03 23:00] VITALS: BP 136/61; PULSE 78; RESP 18; O2SAT 98
[2016-09-03] MEDS ORDERED: ONDANSETRON HCL 4 MG/2 ML VIAL IVP PRN (23:15)
[2016-09-03] MEDS ORDERED: NALOXONE HCL 0.4 MG/ML AMP IV PRN (23:15)
[2016-09-03] MEDS ORDERED: METOCLOPRAMIDE HCL 10 MG/2 ML VIAL IV PUSH PRN (23:15)
[2016-09-04] VITALS (8 sets, daily range): BP systolic 117–170; BP diastolic 60–79; PULSE 70–78; RESP 14–20; TEMP 97.5–98.1; O2SAT 96–100
[2016-09-04] MEDS: POTASSIUM CHLOR 20 MEQ PREMIX 100 ML IV SCH ×2 (00:17→01:57)
[2016-09-04 05:09] LABS: AUTOMATED NEUTROPHIL # 3.5 TH/MM3 (1.8-7.7); BASOPHIL % 0.2 % (0.0-2.0); EOSINOPHIL % 0.1 % (0.0-4.0); HEMATOCRIT 30.9 % (39.0-51.0); LYMPH % 32.3 % (9.0-44.0); MEAN CORPUSCULAR HEMOGLOBIN 29.7 PG (27.0-34.0); MEAN CORPUSCULAR HGB CONC 32.6 % (32.0-36.0); MONO % 10.2 % (0.0-8.0); NEUT % 57.2 % (16.0-70.0); PLATELET COUNT 64 TH/MM3 (150-450); RED CELL DISTRIBUTION WIDTH 21.9 % (11.6-17.2); WHITE BLOOD COUNT 6.1 TH/MM3 (4.0-11.0)
--- NOTE | 2016-09-04 05:09 | HHI.HP ---
[facility] Non-Staff Admission Diagnosis Intractible Nausea Diagnoses: (1) Intractable nausea and vomiting (2) Hypokalemia (3) Acute myelogenous leukemia Chief Complaint: Nausea, vomiting Travel History International Travel<30 Days: No Contact w/Intl Traveler <30 Da: No Traveled to Known Affected Are: No History of Present Illness Mr. 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 The patient was diagnosed by Dr. Collins, oncologist, with acute myelogenous leukemia in May 2016 and he was referred to the [facility] where he was admitted and underwent induction chemotherapy. According to my review of Dr. Díaz notes, the patient had chemotherapy starting in the first week of July with multiple complications including a right leg wound which required surgical drainage and cultured resulted with Escherichia Coli ESBL. He was treated with a prolonged course of antibiotics at [facility]. A bone marrow aspirate on 08/22/2016 showed no residual leukemia. He is supposed to have a stem cell transplant. He had a follow-up office visit with Dr. Collins on August 30, 2016 and was referred to the emergency room to be evaluated for C. difficile colitis as he was suffering from severe nausea, vomiting, and diarrhea of a 24-48 hour duration. Workup was negative for C. difficile colitis. The patient is seen in the CDU and he states he was at [facility] for 62 days - Acyclovir 7 - 14 days, off x 3-4 week for shingles on left leg Antibiotics for right leg cellulitis and has been off antibiotics for 3 - 4 weeks. Patient has been having some intermittent mild epigastric pain along with nausea and vomiting not relieved by anything. He has been unable to take his medications at home. His potassium level is 3.3. He denies fevers, black or red stools, hematuria, or dysuria. He states that he has been feeling better since being in the hospital and receiving IV hydration and Zofran. He had discussed his symptoms with Dr. Collins and he advised him to come in to the hospital. . Review of Systems Except as stated in HPI: all other systems reviewed are Neg Past Family Social History Past Medical History Refractory anemia with excess blasts diagnosed 02/22/16 received five cycles of Vidaza Acute myelogenous leukemia Right leg wound with ESBL Escherichia coli infection BPH Depression and anxiety since 16 y/o - states is stable Diverticulitis Hypertension Nephrolithiasis Hepatitis A 1979 L4 through 5 herniated disc GERD . Past Surgical History Cholecystectomy Right elbow repair Inner ear surgery Colonoscopy in 2010 Mastectomy 1976 Right leg abscess drainage . Reported Medications Reported Meds & Active Scripts Active Phenergan (Promethazine HCl) 25 Mg Tab 25 Mg PO Q6H PRN Reported Trazodone (Trazodone HCl) 50 Mg Tab 50 Mg PO HS Omeprazole 40 Mg Cap 40 Mg PO DAILY Zofran (Ondansetron HCl) 4 Mg Tab 4 Mg PO Q6HR PRN Aspirin EC (Aspirin) 81 Mg Tabdr 81 Mg PO HS Tamsulosin (Tamsulosin HCl) 0.4 Mg Cap 0.4 Mg PO HS Losartan (Losartan Potassium) 50 Mg Tab 50 Mg PO HS Wellbutrin Xl 24 HR (Bupropion HCl) 150 Mg Tab 150 Mg PO HS . Allergies: Coded Allergies: No Known Allergies (Unverified , 09/03/16) Active Ordered Medications Current Medications Sodium Chloride (NS 1000 ml Inj) 1,000 ml @ 1,000 mls/hr Q1H IV Last administered on 09/03/16 21:22; Start 09/03/16 at 20:45; Stop 09/03/16 at 21:44; Status DC Sodium Chloride (NS Flush) 2 ml UNSCH PRN IV FLUSH FLUSH AFTER USING IV ACCESS ; Start 09/03/16 at 20:45; Stop 09/03/16 at 23:13; Status DC Ondansetron HCl (Zofran Inj) 4 mg ONCE ONCE IV PUSH Last administered on 22:02; Start 09/03/16 at 21:45; Stop 09/03/16 at 21:46; Status DC Sodium Chloride (NS Flush) 2 ml UNSCH PRN IV FLUSH FLUSH AFTER USING IV ACCESS ; Start 09/03/16 at 23:15 Sodium Chloride (NS Flush) 2 ml BID IV FLUSH ; Start 09/04/16 at 09:00 Ondansetron HCl (Zofran Inj) 4 mg Q6H PRN IVP NAUSEA OR VOMITING; Start at 23:15 Metoclopramide HCl (Reglan Inj) 5 mg Q6H PRN IV PUSH NAUSEA OR VOMITING; Start 09/03/16 at 23:15 Naloxone HCl 0.4 mg 0.4 mg UNSCH PRN IV SEE LABEL COMMENTS; Start 09/03/16 at 23 :15 Potassium Chloride (KCl 20 Meq Premix Inj) 100 ml @ 50 mls/hr Q2H IV Last administered on 09/04/16t 01:57; Start 09/04/16 at 00:00; Stop 09/04/16 at 03:59; Status DC . Family History Brother with lung cancer Son with Crohns disease Mother with DE Father from [facility] . Social History Tobacco: Never smoked Alcohol: Rare Lives on his own, still drives . Physical Exam Vital Signs Vital Signs Date Time Temp Pulse Resp B/P Pulse Ox O2 Delivery O2 Flow Rate FiO2 09/04/16 03:54 97.8 70 20 140/64 98 09/04/16 01:29 97.9 75 20 170/79 99 09/04/16 01:00 78 18 125/60 98 Room Air 09/03/16 23:00 78 18 136/61 98 Room Air 09/03/16 21:10 86 18 155/76 99 Room Air 09/03/16 21:10 18 09/03/16 21:10 18 99 Room Air 09/03/16 14:28 97.2 100 20 161/85 99 Room Air Physical Exam GENERAL: This is a well-nourished, well-developed patient, in no apparent distress. SKIN: No rashes, ecchymoses or lesions. Cool and dry. HEAD: Atraumatic. Normocephalic. EYES: No scleral icterus. No injection or drainage. ENT: Nose without bleeding, purulent drainage. NECK: Trachea midline. No JVD or lymphadenopathy. CARDIOVASCULAR: Regular rate and rhythm without murmurs, gallops, or rubs. RESPIRATORY: Clear to auscultation. Breath sounds equal bilaterally. No wheezes , rales, or rhonchi. GASTROINTESTINAL: Abdomen soft, non-tender, nondistended. No guarding. MUSCULOSKELETAL: Extremities without clubbing or cyanosis. No calf tenderness. Right lower extremity with wound vac in place. NEUROLOGICAL: Awake and alert. Motor and sensory grossly within normal limits. Normal speech. . Laboratory Laboratory Tests Test 09/03/16 21:10 White Blood Count 6.2 Red Blood Count 3.80 Hemoglobin 11.6 Hematocrit 34.3 Mean Corpuscular Volume 90.2 Mean Corpuscular Hemoglobin 30.5 Mean Corpuscular Hemoglobin 33.9 Concent Red Cell Distribution Width 22.7 Platelet Count 80 Mean Platelet Volume 9.1 Neutrophils (%) (Auto) 49.6 Lymphocytes (%) (Auto) 36.4 Monocytes (%) (Auto) 13.7 Eosinophils (%) (Auto) 0.2 Basophils (%) (Auto) 0.1 Neutrophils # (Auto) 3.1 Lymphocytes # (Auto) 2.3 Monocytes # (Auto) 0.9 Eosinophils # (Auto) 0.0 Basophils # (Auto) 0.0 CBC Comment AUTO DIFF Differential Comment AUTO DIFF CONFIRMED Platelet Estimate LOW Platelet Morphology Comment NORMAL Sodium Level 143 Potassium Level 3.3 Chloride Level 111 Carbon Dioxide Level 21.1 Anion Gap 11 Blood Urea Nitrogen 14 Creatinine 0.93 Estimat Glomerular Filtration 80 Rate Random Glucose 96 Lactic Acid Level 1.8 Calcium Level 8.8 Total Bilirubin 0.4 Aspartate Amino Transf 42 (AST/SGOT) Alanine Aminotransferase 61 (ALT/SGPT) Alkaline Phosphatase 118 Total Protein 7.0 Albumin 3.6 Lipase 100 Result Diagram: 09/03/16210909/03/162109 Imaging CT of abdomen and pelvis with IV contrast 08/30/2016: Uncomplicated colonic diverticulosis, enlarged prostate, mild diffuse urinary bladder wall thickening with small diverticulum anteriorly, tiny 2 mm calcified nonobstructive left renal calculi, small hiatal hernia, scattered stable bilateral renal cysts, degenerative changes involving the thoracolumbar spine. . Assessment and Plan Problem List: (1) Intractable nausea and vomiting ICD Code: R11.2 Status: Acute (2) Hypokalemia ICD Code: E87.6 Status: Acute (3) Acute myelogenous leukemia ICD Code: C92.00 Status: Chronic Assessment and Plan Mr. 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 Intractable nausea, vomiting - CT of abdomen and pelvis with IV contrast 08/30/2016: Uncomplicated colonic diverticulosis - if symptoms persist, consider repeating study to rule out diverticulitis - Zofran 4 mg IV every 6 hours as needed for nausea and vomiting - Metoclopramide 5 mg IV push every 6 hours as needed for vomiting - Nothing by mouth Hypokalemia secondary to nausea, vomiting, diarrhea - Potassium 3.3 on admission - Potassium replaced IV - Recheck BMP in a.m. - Follow trends and potassium levels and replace as needed - Continuous cardiac telemetry to monitor for arrhythmias AML - consult Dr. Collins Thrombocytopenia - initial platelet count 80,000 - repeat in a.m. and follow trends - appears downward trending compared to previous labs DVT prophylaxis - SCD left lower extremity Written by Kyara Peck, acting as scribe for Dr. Gibson on 09/04/16 at 05:06. All or portions of this note were transcribed by scribe [ Kyara Peck]. I, Dr. Aster Gibson personally performed the history, physical exam, and medical decision making; and confirmed the accuracy of the information in the transcribed note. Authenticated by Dr. Aster Gibson on 09/04/16 at 05:06. Discussed Condition With Patient, ER physician, and RN . Problem Qualifiers (1) Intractable nausea and vomiting: Qualified Code: R11.2 - Intractable vomiting with nausea, unspecified vomiting type Kyara Peck Sep 04, 2016 05:09 Aster Gibson MD Sep 04, 2016 07:30
[2016-09-04 05:18] LABS: HEMO FLAGS AUTO DIFF
[2016-09-04 05:34] LABS: BICARBONATE 19.7 MEQ/L (21.0-32.0); POTASSIUM 3.6 MEQ/L (3.5-5.1)
[2016-09-04 07:41] LABS: BANDS 5 % (0-6); MYELOCYTES 1 % (0-0); POLYS (SEG NEUTROPHILS) 60 % (16-70); TOXIC GRANULATION 1+ (NORMAL); WBC DIFF SAMPLE 100
[2016-09-04 07:42] LABS: KERATOCYTES OCC (NORMAL); OVALOCYTES 1+ (NORMAL); PLATELET ESTIMATE SMEAR LOW (NORMAL)
[2016-09-04 07:43] LABS: PLATELET MORPHOLOGY NORMAL (NORMAL); SCAN/DIFF FINAL DIFF MANUAL
[2016-09-04] MEDS: SODIUM CHLORIDE 0.9% FLUSH 10 ML FLUSH IV FLUSH SCH ×2 (09:00→20:28)
--- NOTE | 2016-09-04 10:37 | EKG ---
Date Performed: 09/03/2016 Time Performed: 20:57:21 PTAGE: 71 years EKG: Sinus rhythm NORMAL ECG Compared to prior tracing no significant change PREVIOUS TRACING : 08/30/2016 19.55 DOCTOR: Charleen Chanel Interpretating Date/Time 09/04/2016 10:32:57
--- NOTE | 2016-09-04 11:32 | PD.CONS ---
HPI History of Present Illness This is a 71 year old male with a hx of acute myelogenous leukemia, s/p induction chemotherapy (Loni-C and Idarubicin) in May of 2016 at [facility]. In July, he developed an abscess (ESBL E Coli) involving his right leg for which he had to undergo surgical drainage and a prolonged course of antibiotics. Of note, he also had a bout of shingles at that time. He then underwent a bone marrow biopsy on 08/22/16 which revealed no residual leukemia. He was seen by Dr. Collins on August 30 for a routine follow up appointment, but was having nausea, vomiting, and diarrhea for the past 24-[address] Collins spoke to Dr. Melgar (oncology/ID) who felt that there was a high likelihood that he could have CDiff and he was referred to the ER for further evaluation. He was seen in the ER on 08/[address] scan abdomen and pelvis at that time revealed uncomplicated colonic diverticulosis, enlarged prostate, mild diffuse urinary bladder wall thickening with small diverticulum anteriorly, tiny 2 mm calcified nonobstructing left renal calculi, small hiatal hernia, scattered stable bilateral renal cysts, degenerative changes involving the thoracolumbar spine. He was started on Flagyl for suspected CDiff and discharged home. His stool came back negative for CDiff. He then returned to the ER on 09/03 for severe generalized weakness. He tells me that he had nausea/vomiting/diarrhea about a year ago and that he had an extensive workup with Dr. Soto- labs, imaging, and egd. He reports that his last colonoscopy was 5 years ago at the [place]. He states in the end, it was thought his symptoms were related to his undiagnosed cancer at the time. He has continued to have nausea/vomiting/ diarrhea sinc August 29. He also has odynophagia and dysphagia. This has been worse for the past week and seems to be in his mid esophageal area. This has progressively been getting worse to the point that he has not been able to take his pills since . He reports that solids and pills are getting caught in his mid esophageal area. Occasionally he'll have issues with liquids as well. He has not had any hematemesis. He takes Prilosec and reports that this controls his heartburn. He is not having any abdominal pain. He typically has 3-4 loose stools per day at his norm. Since his symptoms began he 's been having a 5-7 liquid to loose bowel movements per day with no blood or mucus. He has also lost about 30 pounds since he was diagnosed in May. [facility] Past Medical History Refractory anemia with excess blasts diagnosed 02/22/16 received five cycles of Vidaza Acute myelogenous leukemia Right leg wound with ESBL Escherichia coli infection BPH Depression and anxiety since 16 y/o - states is stable Diverticulitis Hypertension Nephrolithiasis Hepatitis A 1979 L4 through 5 herniated disc GERD Past Surgical History Cholecystectomy Right elbow repair Inner ear surgery Colonoscopy in 2010 Vasectomy Right leg abscess drainage Bone marrow biopsy Coded Allergies: No Known Allergies (Unverified , 09/03/16) Medications Allergies Coded Allergies Type Severity Reaction Last Updated Verified No Known Allergies 09/03/16 No Active Scripts Medications Dose Route/Sig Days Date Category Phenergan (Promethazine HCl) 25 Mg Tab 25 Mg PO Q6H PRN 08/30/16 Rx Trazodone (Trazodone HCl) 50 Mg Tab 50 Mg PO HS 08/30/16 Reported Omeprazole 40 Mg Cap 40 Mg PO DAILY 08/30/16 Reported Zofran (Ondansetron HCl) 4 Mg Tab 4 Mg PO Q6HR PRN 08/30/16 Reported Aspirin EC (Aspirin) 81 Mg Tabdr 81 Mg PO HS 06/15/16 Reported Tamsulosin (Tamsulosin HCl) 0.4 Mg Cap 0.4 Mg PO HS 06/15/16 Reported Losartan (Losartan Potassium) 50 Mg Tab 50 Mg PO HS 06/15/16 Reported Wellbutrin Xl 24 HR (Bupropion HCl) 150 Mg Tab 150 Mg PO HS 06/15/16 Reported Family History Brother with lung cancer Son with Crohns disease Mother with AL Father from [facility] Social History Tobacco: Never smoked Alcohol: Rare Review of Systems Constitutional: COMPLAINS OF: Fatigue, Weight loss, Chills, Change in appetite , DENIES: Diaphoretic episodes, Fever Respiratory: DENIES: Cough Cardiovascular: DENIES: Chest pain Gastrointestinal: COMPLAINS OF: Diarrhea, Nausea, Vomiting, Difficulty Swallowing, Odynophagia, Heartburn, DENIES: Abdominal pain, Black stools, Bloody stools, Constipation, Swelling of Abdomen, Hematemesis Hematologic/lymphatic: COMPLAINS OF: Bruising Psychiatric: DENIES: Confusion GI Exam Vitals I&O Vital Signs Date Time Temp Pulse Resp B/P Pulse Ox O2 Delivery O2 Flow Rate FiO2 09/04/16 07:38 98.0 74 14 117/62 96 09/04/16 03:54 97.8 70 20 140/64 98 09/04/16 03:54 73 09/04/16 01:29 97.9 75 20 170/79 99 09/04/16 01:00 78 18 125/60 98 Room Air 09/03/16 23:00 78 18 136/61 98 Room Air 09/03/16 21:10 86 18 155/76 99 Room Air 09/03/16 21:10 18 09/03/16 21:10 18 99 Room Air 09/03/16 14:28 97.2 100 20 161/85 99 Room Air Laboratory Test 09/03/16 09/04/16 21:10 04:21 White Blood Count 6.2 TH/MM3 6.1 TH/MM3 Red Blood Count 3.80 MIL/MM3 3.40 MIL/MM3 Hemoglobin 11.6 GM/DL 10.1 GM/DL Hematocrit 34.3 % 30.9 % Mean Corpuscular Volume 90.2 FL 91.0 FL Mean Corpuscular Hemoglobin 30.5 PG 29.7 PG Mean Corpuscular Hemoglobin 33.9 % 32.6 % Concent Red Cell Distribution Width 22.7 % 21.9 % Platelet Count 80 TH/MM3 64 TH/MM3 Mean Platelet Volume 9.1 FL 9.1 FL Neutrophils (%) (Auto) 49.6 % 57.2 % Lymphocytes (%) (Auto) 36.4 % 32.3 % Monocytes (%) (Auto) 13.7 % 10.2 % Eosinophils (%) (Auto) 0.2 % 0.1 % Basophils (%) (Auto) 0.1 % 0.2 % Neutrophils # (Auto) 3.1 TH/MM3 3.5 TH/MM3 Lymphocytes # (Auto) 2.3 TH/MM3 2.0 TH/MM3 Monocytes # (Auto) 0.9 TH/MM3 0.6 TH/MM3 Eosinophils # (Auto) 0.0 TH/MM3 0.0 TH/MM3 Basophils # (Auto) 0.0 TH/MM3 0.0 TH/MM3 CBC Comment AUTO DIFF AUTO DIFF Differential Comment AUTO DIFF FINAL DIFF CONFIRMED MANUAL Platelet Estimate LOW LOW Platelet Morphology Comment NORMAL NORMAL Sodium Level 143 MEQ/L 144 MEQ/L Potassium Level 3.3 MEQ/L 3.6 MEQ/L Chloride Level 111 MEQ/L 113 MEQ/L Carbon Dioxide Level 21.1 MEQ/L 19.7 MEQ/L Anion Gap 11 MEQ/L 11 MEQ/L Blood Urea Nitrogen 14 MG/DL 12 MG/DL Creatinine 0.93 MG/DL 0.76 MG/DL Estimat Glomerular Filtration 80 ML/MIN 101 ML/MIN Rate Random Glucose 96 MG/DL 100 MG/DL Lactic Acid Level 1.8 mmol/L Calcium Level 8.8 MG/DL 8.4 MG/DL Total Bilirubin 0.4 MG/DL Aspartate Amino Transf 42 U/L (AST/SGOT) Alanine Aminotransferase 61 U/L (ALT/SGPT) Alkaline Phosphatase 118 U/L Total Protein 7.0 GM/DL Albumin 3.6 GM/DL Lipase 100 U/L Differential Total Cells 100 Counted Neutrophils % (Manual) 60 % Band Neutrophils % 5 % Lymphocytes % 26 % Monocytes % 8 % Neutrophils # (Manual) 4.0 TH/MM3 Myelocytes 1 % Toxic Granulation 1+ Ovalocytes 1+ Keratocytes OCC Physical Examination HEENT: Normocephalic; atraumatic; no jaundice. CHEST: CTA CARDIAC: RRR. ABDOMEN: Soft, nondistended, nontender; no hepatosplenomegaly; bowel sounds are present in all four quadrants. EXTREMITIES: Drsg with wound vac to RLE SKIN: Generalized pallor TIE HACKER: No focal deficits; alert and oriented times three. Generalized weakness Assessment and Plan Plan ASSESSMENT: - N/V/D, since 08/29. Pt had similar symptoms 1 year ago and was worked up by Dr. Soto with EGD/labs/imaging. His last colonoscopy was 5 years ago at [place]. CDiff was suspected by Dr. Collins and Dr. Melgar at [facility] and he was started on Flagyl on 08/30- but did not have any improvement with this. CT scan abdomen and pelvis(08/30) revealed uncomplicated colonic diverticulosis, enlarged prostate, mild diffuse urinary bladder wall thickening with small diverticulum anteriorly, tiny 2 mm calcified nonobstructing left renal calculi, small hiatal hernia, scattered stable bilateral renal cysts, degenerative changes involving the thoracolumbar spine. CDiff was neg. on 08/30. - Dysphagia, Odynophagia. Worse since . Did have shingles following his chemo. ? jayashree vs viral/herpetic infection. - GERD. On Prilosec at home. - Abn. wt. loss 30 lbs since May. - Generalized weakness, ALIZE. IVF. - RLE wound. Wound vac. S/P I&D and prolonged abx for ESBL E. Coli infection. - Recent acute myelogenous leukemia, s/p induction chemotherapy (Loni-C and Idarubicin) in May of 2016 at [facility]. In July, he developed shingles and an abscess (ESBL E Coli) involving his right leg for which he had to undergo surgical drainage and a prolonged course of antibiotics. Rpt. bone marrow biopsy on 08/22/16 which revealed no residual leukemia. According to patient, the plan is for stem cell transplant once he recovers from his current issues. PLAN: - Plan for EGD with sigmoidoscopy in am - Obtain consents - NPO after MN - Stool for CDiff, C/S, O&P, Giardia, Cryptosporidia, Cyclospora - Cont. IVF - Add PPI - Add FLagyl for now - Monitor labs - Supportive care - Obtain records from Dr. Soto - Further recommendations to follow based on results of above - Pt seen and examined by Dr. Castillo and myself and this note is written on his behalf Anali Garcia Sep 04, 2016 11:32
[2016-09-04] MEDS: SODIUM CHLOR 0.9% 1000 ML INJ 1,000 ML IV SCH ×2 (11:53→22:11)
[2016-09-04] MEDS: PANTOPRAZOLE SODIUM 40 MG VIAL IV PUSH SCH (12:33)
[2016-09-04] MEDS: metroNIDAZOLE 500 MG INJ 100 ML IV SCH ×2 (12:34→20:25)
[2016-09-04] MEDS ORDERED: PEG (High)/E-LYTE SOLN 4000 ML BTL PO ONE (19:00)
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
[2016-09-04 23:44] LABS: BLOOD, URINE MOD (NEG); CALCIUM OXALATE CRYSTALS,URINE RARE /hpf; GLUCOSE,URINE NEG (NEG); HYALINE CAST, URINE 2 /lpf (RARE); KETONE, URINE TRACE mg/dL (NEG); MUCUS URINE FEW /lpf (OCC); NITRITE,URINE NEG (NEG); PH, URINE 5.5 (5.0-8.5); RENAL EPITHELIAL CELLS <1 /hpf; TRANSITIONAL EPI CELLS, URINE <1 /hpf; URINE COLOR YELLOW (YELLW/STRAW)
[2016-09-04 23:45] LABS: COMMENT (UR) CULT NOT INDICATED; CULTURE IF INDICATED CULT NOT INDICATED
[2016-09-04] MEDS ORDERED: SODIUM CHLORID 0.9% 500 ML IV PRN (23:45)
[2016-09-04] MEDS ORDERED: POVIDONE IODINE 5% (ANTISEPSIS KIT) 4 APPLICATIONS EACH NARE PRN (23:45)
[2016-09-04] MEDS ORDERED: LACTATED RINGER'S 1000 ML IV PRN (23:45)
[2016-09-04] MEDS ORDERED: CHLORHEXIDINE GLUCONATE 2 % 1 PACK (2 CLOTHS) TOPICAL PRN (23:45)
[2016-09-04] MEDS ORDERED: METOPROLOL TARTRATE 25 MG TAB PO PRN (23:45)
[2016-09-04] MEDS ORDERED: INSULIN HUMAN REGULAR 1,000 UNITS/10 ML VIAL SQ PRN (23:45)
[2016-09-05] VITALS (8 sets, daily range): BP systolic 126–145; BP diastolic 65–78; PULSE 67–81; RESP 16–18; TEMP 96.7–97.8; O2SAT 97–100
[2016-09-05 01:56] LABS: C. DIFF EPI 027 PRESUMPTIVE NEGATIVE (NEGATIVE); C. DIFF TOXIN PCR NEGATIVE (NEGATIVE)
[2016-09-05] MEDS: metroNIDAZOLE 500 MG INJ 100 ML IV SCH ×3 (05:24→21:15)
[2016-09-05 06:09] LABS: INTERNATIONAL NORMALIZED RATIO 1.1 RATIO; PROTHROMBIN TIME - PATIENT 12.4 SEC (9.8-11.6)
[2016-09-05] MEDS: SODIUM CHLORIDE 0.9% FLUSH 10 ML FLUSH IV FLUSH SCH ×2 (09:00→21:00)
[2016-09-05] MEDS ORDERED: PROPOFOL 200 MG/20 ML AMP IV ONE (11:48)
--- NOTE | 2016-09-05 12:12 | GIPROC ---
[facility] [address] [facility]. [facility], [address] COLONOSCOPY PROCEDURE REPORT EXAM DATE: 09/05/2016 PATIENT NAME: Jarrell Suh MR #: [id number] BIRTHDATE: 1945 ENDOSCOPIST: Maryjane Vasquez MD ORDER #: [id number] SURGICAL INSTRUMENT TECHNICIAN: Paty Benito RN STATUS: inpatient INDICATIONS: The patient is a 71 yr old male here for a colonoscopy due to chronic diarrhea PROCEDURE PERFORMED: Colonoscopy with biopsy MEDICATIONS: None and Per Anesthesia. PREP QUALITY: [employer] Bowel Prep Score was Right colon 2, Mid colon 2, and Left colon 2. Total = 6. PREP TYPE:GoLytely ESTIMATED BLOOD LOSS: None CONSENT: The patient understands the risks and benefits of the procedure and understands that these risks include, but are not limited to: sedation, allergic reaction, infection, perforation and/or bleeding. Alternative means of evaluation and treatment include, among others: physical exam, x-rays, and/or surgical intervention. The patient elects to proceed with this endoscopic procedure. medical equipment was checked for proper function. Hand hygiene and appropriate measures for infection prevention was taken. After the risks, benefits and alternatives of the procedure were thoroughly explained, Informed consent was verified, confirmed and timeout was successfully executed by the treatment team. A digital exam revealed external hemorrhoids The Pentax [id number] endoscope was introduced through the anus and advanced to the cecum, which was identified by both the appendix and ileocecal valve. The instrument was then slowly withdrawn as the colon was fully examined. COLON FINDINGS: Moderate diverticulosis was noted in the sigmoid colon. The colon mucosa was otherwise normal. Multiple random biopsies of the area were performed using cold forceps. Retroflexed views revealed internal hemorrhoids and Retroflexed views revealed small internal hemorrhoids The scope was then completely withdrawn from the patient and the procedure terminated. PROCEDURE WITHDRAWAL TIME:6minutes ADVERSE EVENTS: There were no complications. IMPRESSIONS: 1. Moderate diverticulosis was noted in the sigmoid colon 2. The colon mucosa was otherwise normal; multiple random biopsies of the area were performed using cold forceps 3. Retroflexed views revealed internal hemorrhoids 4. Retroflexed views revealed small internal hemorrhoids 5. Revealed external hemorrhoids RECOMMENDATIONS: 1. Await biopsy results. Biopsy results will not be ready for 7-10 days. If you don't hear from us in two weeks, call our office for results. 2. Continue surveillance 3. High fiber diet 4. No seeds, nuts and popcorn in diet 5. High fiber diet RECALL: Return 3 years Colonoscopy, pending biopsy results Maryjane Vasquez MD eSigned: Maryjane Vasquez MD 09/05/2016 12:12 PM cc:
[2016-09-05] MEDS: PANTOPRAZOLE SODIUM 40 MG VIAL IV PUSH SCH (16:00)
--- NOTE | 2016-09-05 16:05 | PD.ONC.PN ---
Subjective Subjective Remarks Afebrile overnight. Patient resting comfortably without complaint. Objective Data Date Time Temp Pulse Resp B/P Pulse Ox O2 Delivery O2 Flow Rate FiO2 09/05/16 12:16 72 16 145/63 97 09/05/16 12:16 71 16 131/69 97 09/05/16 12:06 98.3 69 16 127/59 98 09/05/16 12:00 97.0 71 18 145/72 99 09/05/16 11:23 97.8 74 16 139/78 98 09/05/16 08:00 97.8 74 16 139/78 98 09/05/16 04:06 97.1 67 16 137/65 100 09/05/16 00:00 96.7 67 16 126/70 97 09/04/16 20:26 74 09/04/16 20:00 97.5 78 16 133/69 100 09/05/16 09/05/16 09/05/16 07:00 15:00 23:00 Intake Total 620 ml 300 ml Output Total 250 ml Balance 370 ml 300 ml Result Diagram: 09/04/16 0421 09/04/16 0421 Laboratory Results Laboratory Tests Test 09/04/16 09/04/16 09/05/16 23:00 23:20 05:27 Stool C. difficile Toxin (PCR) NEGATIVE Stl C. difficile Toxin PRESUMPTIVE Epiderm 027 NEGATIVE Urine Color YELLOW Urine Turbidity CLEAR Urine pH 5.5 Urine Specific [place] 1.016 Urine Protein TRACE mg/dL Urine Glucose (UA) NEG mg/dL Urine Ketones TRACE mg/dL Urine Occult Blood MOD Urine Nitrite NEG Urine Bilirubin NEG Urine Urobilinogen LESS THAN 2.0 MG/DL Urine Leukocyte Esterase TRACE Urine RBC 25 /hpf Urine WBC 5 /hpf Urine Transitional Epithelial <1 /hpf Cells Urine Renal Epithelial Cells <1 /hpf Urine Calcium Oxalate Crystals RARE /hpf Urine Amorphous Sediment RARE Urine Hyaline Casts 2 /lpf Urine Mucus FEW /lpf Microscopic Urinalysis Comment CULT NOT INDICATED Prothrombin Time 12.4 SEC Prothromb Time International 1.1 RATIO Ratio Culture Results Microbiology Date/Time Procedure Status Source Growth 09/04/16 23:00 - Final Complete Stool Stool NO ENTERIC PATHOGENS DETECTED BY PCR... 09/04/16 23:00 Cyclospora Exam Resulted Stool Stool Pending 09/04/16 23:00 Cryptosporidium Exam Resulted Stool Stool Pending 09/04/16 23:00 Stool Pus (KELLI) - Final Resulted Stool Stool NO WBC'S SEEN 09/04/16 23:00 Giardia Antigen (KELLI) Resulted Stool Stool Pending 09/04/16 23:00 Rotavirus Antigen - Final Complete Stool Stool NEGATIVE - ROTAVIRUS ANTIGEN IS ABSEN... Administered Medications Medications (Trade) Dose Ordered Sig/Gene Route PRN Reason Start Time Stop Time Status Last Admin Dose Admin Sodium Chloride (NS Flush) 2 ml BID IV FLUSH 09/04/16 09:00 09/04/16 20:28 Ondansetron HCl (Zofran Inj) 4 mg Q6H PRN IVP NAUSEA OR VOMITING 09/03/16 23:15 09/04/16 17:30 Metoclopramide HCl 5 mg 5 mg Q6H PRN IV PUSH NAUSEA OR VOMITING 09/03/16 23:15 09/04/16 22:00 Sodium Chloride (NS 1000 ml Inj) 1,000 ml @ 84 mls/hr [id number] IV 09/04/16 11:15 09/04/16 22:11 Pantoprazole Sodium 40 mg 40 mg Q24H IV PUSH 09/04/16 13:00 09/04/16 12:33 Metronidazole (Flagyl 500 Mg Inj) 100 ml @ 100 mls/hr Q8H IV 09/04/16 13:00 09/05/16 05:24 Objective Remarks GENERAL: Elderly male, sitting up in bed in nad. SKIN: Warm and dry. HEAD: Normocephalic. EYES: No scleral icterus. No injection or drainage. MOUTH: +white coating on tongue NECK: Supple, trachea midline. CARDIOVASCULAR: Regular rate and rhythm RESPIRATORY: Breath sounds equal bilaterally. No accessory muscle use. GASTROINTESTINAL: Abdomen soft, non-tender, nondistended. EXTREMITIES: No cyanosis NEUROLOGICAL: No obvious focal deficit. Awake, alert, and oriented x3. Assessment/Plan Assessment 71y/o male with AML in CR, admitted with nausea vomiting and dysphagia. Plan 1. after EGD okay to resume normal diet 2. will await findings from EGD before starting on diflucan Attending Statement The exam, history, and the medical decision-making described in the above note were completed with the assistance of the mid-level provider. I reviewed and agree with the findings presented. I attest that I had a [id number] encounter with the patient on the same day, and personally performed and documented my assessment and findings in the medical record. he appears well and should resume po after the procedure. AML is currently not his problem and the issue is GI with vomiting and recent diarrhea which appears to have resolved. Haley Aldrich Sep 05, 2016 16:05 Jarrell Collins MD Sep 05, 2016 19:55
--- NOTE | 2016-09-05 16:07 | HHI.PR ---
Subjective Remarks Follow-up for nausea and vomiting, diarrhea. Patient seen after EGD and colonoscopy today. He denies any further nausea or vomiting. Has been tolerating ice chips. Diarrhea seems to have improved as well. Wound care is here dressing his wound VAC and chronic right lower showing the wound s/p recent I&D for abscess. Objective Vitals Vital Signs Date Time Temp Pulse Resp B/P Pulse Ox O2 Delivery O2 Flow Rate FiO2 09/05/16 12:16 72 16 145/63 97 09/05/16 12:16 71 16 131/69 97 09/05/16 12:06 98.3 69 16 127/59 98 09/05/16 12:00 97.0 71 18 145/72 99 09/05/16 11:23 97.8 74 16 139/78 98 09/05/16 08:00 97.8 74 16 139/78 98 09/05/16 04:06 97.1 67 16 137/65 100 09/05/16 00:00 96.7 67 16 126/70 97 09/04/16 20:26 74 09/04/16 20:00 97.5 78 16 133/69 100 I/O 09/04/16 09/04/16 09/04/16 09/05/16 09/05/16 09/05/16 07:00 15:00 23:00 07:00 15:00 23:00 Intake Total 600 ml 620 ml 300 ml Output Total 400 ml 100 ml 250 ml Balance -400 ml 500 ml 370 ml 300 ml Intake IV Total 600 ml 620 ml Other 300 ml Output Urine Total 400 ml 100 ml 250 ml # Bowel Movements 1 4 Result Diagram: 09/04/16 0421 09/04/16 0421 Objective Remarks GENERAL: Well-developed well-nourished. In no acute distress. SKIN: Warm and dry. Lateral right calf with wound with VAC in place and ulcer present. HEENT: Normocephalic. Pupils equal and round. Mucous membranes pink and moist. CARDIOVASCULAR: Regular rate and rhythm. No murmur appreciated. RESPIRATORY: No accessory muscle use. Clear to auscultation. Breath sounds equal bilaterally. GASTROINTESTINAL: Abdomen soft, non-tender, nondistended. Bowel sounds x4. MUSCULOSKELETAL: No obvious deformities. No clubbing or cyanosis. No edema. NEUROLOGICAL: Awake and alert. No focal neurological deficits. Moves upper and lower extremities spontaneously. Normal speech. PSYCHIATRIC: Appropriate mood and affect; insight and judgment normal. 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 Intractable nausea, vomiting - CT of abdomen and pelvis with IV contrast 08/30/2016: Uncomplicated colonic diverticulosis. - Antiemetics as needed - Gastroenterology consulted, performed EGD and colonoscopy - Colonoscopy showed diverticulosis and hemorrhoids - EGD report pending - Diet as tolerated - IVF - Continue PPI Hypokalemia secondary to nausea, vomiting, diarrhea - Potassium 3.3 on admission, replace IV - Repeat BMP shows potassium 3.6 - Follow up labs in the a.m. including magnesium AML - consulted Dr. Collins Thrombocytopenia Platelet count 80, 64 -Monitor CBC Right lower extremity wound, chronic with wound VAC in place - mechanic helper consulted Other chronic medical conditions include HTN, BPH, depression: Stable at this time and will continue home medications as indicated DVT prophylaxis - SCD left lower extremity Written by Cholo Win, acting as scribe for Dr. Mcknight on 09/05/16 at 16:02. All or portions of this note were transcribed by ELMER Huizar . I, Dr. Abdon Mcknight personally performed the history, physical exam, and medical decision making; and confirmed the accuracy of the information in the transcribed note. Authenticated by Dr. Abdon Mcknight on 09/05/16 at 17:08. Discharge Planning Hopefully discharge tomorrow if patient continues to improve. Problem Qualifiers (1) Intractable nausea and vomiting: Qualified Code: R11.2 - Intractable vomiting with nausea, unspecified vomiting type Cholo Win Sep 05, 2016 4:07 pm David Mcknight DO Sep 05, 2016 5:09 pm
[2016-09-05] MEDS: SODIUM CHLOR 0.9% 1000 ML INJ 1,000 ML IV SCH ×2 (18:27→21:18)
[2016-09-05] MEDS ORDERED: buPROPion HCL 150 MG EXTENDED RELEASE TAB PO SCH (21:00)
[2016-09-05] MEDS ORDERED: traZODone HCL 50 MG TAB PO SCH (21:00)
[2016-09-05] MEDS ORDERED: LOSARTAN 50 MG TAB PO SCH (21:00)
[2016-09-05] MEDS ORDERED: TAMSULOSIN HCL 0.4 MG CAP PO SCH (21:00)
[2016-09-05] MEDS ORDERED: buPROPion HCL 150 MG SUSTAINED RELEASE TAB PO SCH (21:00)
[2016-09-06] VITALS: BP 154/85; PULSE 76; RESP 16; TEMP 97.7; O2SAT 97
[2016-09-06 04:00] VITALS: BP 124/64; PULSE 77; RESP 16; TEMP 96.7; O2SAT 95
[2016-09-06 06:21] LABS: BASOPHIL % 0.6 % (0.0-2.0); EOSINOPHIL % 0.3 % (0.0-4.0); HEMATOCRIT 25.3 % (39.0-51.0); LYMPH % 28.5 % (9.0-44.0); MEAN CELL VOLUME 89.1 FL (80.0-100.0); MEAN CORPUSCULAR HGB CONC 34.7 % (32.0-36.0); MONO % 15.6 % (0.0-8.0); PLATELET COUNT 65 TH/MM3 (150-450); RED BLOOD COUNT 2.84 MIL/MM3 (4.50-5.90); RED CELL DISTRIBUTION WIDTH 21.6 % (11.6-17.2); WHITE BLOOD COUNT 3.6 TH/MM3 (4.0-11.0)
[2016-09-06] MEDS: metroNIDAZOLE 500 MG INJ 100 ML IV SCH ×2 (06:24→11:54)
[2016-09-06 06:41] LABS: HEMO FLAGS AUTO DIFF
[2016-09-06 06:52] LABS: ALKALINE PHOSPHATASE 82 U/L (45-117); ALT (GPT) 27 U/L (12-78); ANION GAP 12 MEQ/L (5-15); AST (GOT) 16 U/L (15-37); BICARBONATE 21.3 MEQ/L (21.0-32.0); BLOOD UREA NITROGEN 6 MG/DL (7-18); CHLORIDE 112 MEQ/L (98-107); GLOMERULAR FILTRATION RATE 118 ML/MIN (>89); MAGNESIUM 1.5 MG/DL (1.5-2.5); SODIUM (NA) 145 MEQ/L (136-145); TOTAL BILIRUBIN ADULT 0.4 MG/DL (0.2-1.0)
[2016-09-06 07:11] LABS: POTASSIUM 2.8 MEQ/L (3.5-5.1)
[2016-09-06 07:50] VITALS: BP 120/70; PULSE 67; RESP 20; TEMP 97.3; O2SAT 97
[2016-09-06 08:32] LABS: OVALOCYTES 1+ (NORMAL); PLATELET ESTIMATE SMEAR LOW (NORMAL); PLATELET MORPHOLOGY NORMAL (NORMAL)
[2016-09-06 08:33] LABS: SCAN/DIFF AUTO DIFF CONFIRMED
[2016-09-06] MEDS: SODIUM CHLORIDE 0.9% FLUSH 10 ML FLUSH IV FLUSH SCH (09:00)
[2016-09-06] MEDS: SODIUM CHLOR 0.9% 1000 ML INJ 1,000 ML IV SCH (09:19)
[2016-09-06] MEDS ORDERED: POTASSIUM CHLOR 20 MEQ PREMIX 100 ML IV SCH (09:30)
[2016-09-06] MEDS ORDERED: POTASSIUM CHLORIDE 10 MEQ CONTROLLED RELEASE TAB PO SCH (09:30)
[2016-09-06 11:50] VITALS: BP 137/77; PULSE 72; RESP 20; TEMP 98.2; O2SAT 98
[2016-09-06] MEDS: PANTOPRAZOLE SODIUM 40 MG VIAL IV PUSH SCH (11:52)
[2016-09-06] MEDS: MAGNESIUM SULFATE 1 GM PREMIX 100 ML IV SCH ×2 (12:35→16:40)
[2016-09-06] MEDS ORDERED: MAGNESIUM SULFATE 1 GM PREMIX 100 ML IV ONE (14:00)
--- NOTE | 2016-09-06 14:47 | HHI.GIFU ---
Subjective Remarks Resting in bed. Feeling better. No diarrhea. (Anali Garcia) Objective Vitals I&O Vital Signs Date Time Temp Pulse Resp B/P Pulse Ox O2 Delivery O2 Flow Rate FiO2 09/06/16 11:50 98.2 72 20 137/77 98 09/06/16 07:50 97.3 67 20 120/70 97 09/06/16 04:00 96.7 77 16 124/64 95 09/06/16 00:00 97.7 76 16 154/85 97 09/05/16 20:28 76 09/05/16 20:00 97.7 81 16 142/74 97 09/05/16 16:00 96.8 76 18 143/73 99 I/O 09/05/16 09/05/16 09/05/16 09/06/16 09/06/16 09/06/16 07:00 15:00 23:00 07:00 15:00 23:00 Intake Total 620 ml 900 ml 360 ml 250 ml Output Total 250 ml 300 ml 360 ml Balance 370 ml 900 ml 60 ml -110 ml Intake Oral 600 ml 360 ml 250 ml IV Total 620 ml Other 300 ml Output Urine Total 250 ml 300 ml 360 ml # Voids 4 # Bowel Movements 4 1 1 Laboratory Laboratory Tests Test 09/05/16 09/06/16 20:00 06:06 Nasal Screen MRSA (PCR) NEGATIVE White Blood Count 3.6 Red Blood Count 2.84 Hemoglobin 8.8 Hematocrit 25.3 Mean Corpuscular Volume 89.1 Mean Corpuscular Hemoglobin 31.0 Mean Corpuscular Hemoglobin 34.7 Concent Red Cell Distribution Width 21.6 Platelet Count 65 Mean Platelet Volume 8.8 Neutrophils (%) (Auto) 55.0 Lymphocytes (%) (Auto) 28.5 Monocytes (%) (Auto) 15.6 Eosinophils (%) (Auto) 0.3 Basophils (%) (Auto) 0.6 Neutrophils # (Auto) 2.0 Lymphocytes # (Auto) 1.0 Monocytes # (Auto) 0.6 Eosinophils # (Auto) 0.0 Basophils # (Auto) 0.0 CBC Comment AUTO DIFF Differential Comment AUTO DIFF CONFIRMED Platelet Estimate LOW Platelet Morphology Comment NORMAL Ovalocytes 1+ Sodium Level 145 Potassium Level 2.8 Chloride Level 112 Carbon Dioxide Level 21.3 Anion Gap 12 Blood Urea Nitrogen 6 Creatinine 0.66 Estimat Glomerular Filtration 118 Rate Random Glucose 98 Calcium Level 8.1 Magnesium Level 1.5 Total Bilirubin 0.4 Aspartate Amino Transf 16 (AST/SGOT) Alanine Aminotransferase 27 (ALT/SGPT) Alkaline Phosphatase 82 Total Protein 5.5 Albumin 2.8 Date/Time Procedure Status Source Growth 09/04/16 23:00 Rotavirus Antigen - Final Complete Stool Stool NEGATIVE - ROTAVIRUS ANTIGEN IS ABSEN... 09/04/16 23:00 Cyclospora Exam - Final Resulted Stool Stool NO CYCLOSPORA SEEN 09/04/16 23:00 Cryptosporidium Exam Resulted Stool Stool Pending 09/04/16 23:00 Stool Pus (KELLI) - Final Resulted Stool Stool NO WBC'S SEEN 09/04/16 23:00 Giardia Antigen (KELLI) Resulted Stool Stool Pending 09/04/16 23:00 - Final Complete Stool Stool NO ENTERIC PATHOGENS DETECTED BY PCR... Physical Exam HEENT: Normocephalic; atraumatic; no jaundice. CHEST: CTA CARDIAC: RRR ABDOMEN: Soft, nondistended, nontender; no hepatosplenomegaly; bowel sounds are present in all four quadrants. EXTREMITIES: No clubbing, cyanosis, or edema. SKIN: Normal; no rash; no jaundice. 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 (Anali GarciaP) Assessment and Plan Plan ASSESSMENT: - N/V/D, since 08/29. Pt had similar symptoms 1 year ago and was worked up by Dr. Soto with EGD/labs/imaging. His last colonoscopy was 5 years ago at [facility]. CDiff was suspected by Dr. Collins and Dr. Melgar at [facility] and he was started on Flagyl on 08/30- but did not have any improvement with this. CT scan abdomen and pelvis(08/30) revealed uncomplicated colonic diverticulosis, enlarged prostate, mild diffuse urinary bladder wall thickening with small diverticulum anteriorly, tiny 2 mm calcified nonobstructing left renal calculi, small hiatal hernia, scattered stable bilateral renal cysts, degenerative changes involving the thoracolumbar spine. CDiff was neg. on 08/30. S/P EGD (09/05/16)---> esophagitis, gastritis. Pathology pending. Symptoms have improved. No further diarrhea. CDiff negative. Giardia, cryptosporidium, no wbc, giardia pending. Tolerating diet. - Dysphagia, Odynophagia. Worse since . Did have shingles following his chemo. IMPROVED. - GERD. On Prilosec at home. - Abn. wt. loss 30 lbs since May. - Generalized weakness, ALIZE. IVF. - RLE wound. Wound vac. S/P I&D and prolonged abx for ESBL E. Coli infection. - Recent acute myelogenous leukemia, s/p induction chemotherapy (Loni-C and Idarubicin) in May of 2016 at [facility]. In July, he developed shingles and an abscess (ESBL E Coli) involving his right leg for which he had to undergo surgical drainage and a prolonged course of antibiotics. Rpt. bone marrow biopsy on 08/22/16 which revealed no residual leukemia. According to patient, the plan is for stem cell transplant once he recovers from his current issues. PLAN: - [place] - Await pathology - PPI - Supportive care - FU Dr. Soto as outpatient - Pt seen and examined by Dr. Vasquez and myself and this note is written on his behalf (Anali Garcia) Physician Comments Seen and examined with DEVIKA, feeling better today. Symptoms have resolved. s/p egd/colonoscopy. Fu with gi in 02 weeks upon dc. Will sign off. Thank you ( Maryjane Vasquez MD) Anali Garcia Sep 06, 2016 14:47 Maryjane Vasquez MD Sep 06, 2016 19:25
[2016-09-06] MEDS ORDERED: METR-1 PO (15:03)
--- NOTE | 2016-09-06 15:04 | HHI.DS ---
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 The patient was diagnosed by Dr. Collins, oncologist, with acute myelogenous leukemia in May 2016 and he was referred to the [facility] where he was admitted and underwent induction chemotherapy. According to my review of Dr. Díaz notes, the patient had chemotherapy starting in the first week of July with multiple complications including a right leg wound which required surgical drainage and cultured resulted with Escherichia Coli ESBL. He was treated with a prolonged course of antibiotics at [facility] [place]. A bone marrow aspirate on 08/22/2016 showed no residual leukemia. He is supposed to have a stem cell transplant. He had a follow-up office visit with Dr. Collins on August 30, 2016 and was referred to the emergency room to be evaluated for C. difficile colitis as he was suffering from severe nausea, vomiting, and diarrhea of a 24-48 hour duration. Workup was negative for C. difficile colitis. The patient is seen in the CDU and he states he was at [facility] for 62 days - Acyclovir 7 - 14 days, off x 3-4 week for shingles on left leg Antibiotics for right leg cellulitis and has been off antibiotics for 3 - 4 weeks. Patient has been having some intermittent mild epigastric pain along with nausea and vomiting not relieved by anything. He has been unable to take his medications at home. His potassium level is 3.3. He denies fevers, black or red stools, hematuria, or dysuria. He states that he has been feeling better since being in the hospital and receiving IV hydration and Zofran. He had discussed his symptoms with Dr. Collins and he advised him to come in to the hospital. . CBC/BMP: 09/06/16 0606 09/06/16 0606 Significant Findings Laboratory Tests Test 09/03/16 09/04/16 09/04/16 09/05/16 21:10 04:21 23:20 05:27 Red Blood Count 3.80 MIL/MM3 3.40 MIL/MM3 (4.50-5.90) (4.50-5.90) Hemoglobin 11.6 GM/DL 10.1 GM/DL (13.0-17.0) (13.0-17.0) Hematocrit 34.3 % 30.9 % (39.0-51.0) (39.0-51.0) Red Cell Distribution Width 22.7 % 21.9 % (11.6-17.2) (11.6-17.2) Platelet Count 80 TH/MM3 64 TH/MM3 (150-450) (150-450) Monocytes (%) (Auto) 13.7 % 10.2 % (0.0-8.0) (0.0-8.0) Platelet Estimate LOW (NORMAL) LOW (NORMAL) Potassium Level 3.3 MEQ/L (3.5-5.1) Chloride Level 111 MEQ/L 113 MEQ/L (98-107) (98-107) Estimat Glomerular Filtration 80 ML/MIN (>89) Rate Aspartate Amino Transf 42 U/L (15-37) (AST/SGOT) Alkaline Phosphatase 118 U/L (45-117) Myelocytes 1 % (0-0) Toxic Granulation 1+ (NORMAL) Ovalocytes 1+ (NORMAL) Carbon Dioxide Level 19.7 MEQ/L (21.0-32.0) Calcium Level 8.4 MG/DL (8.5-10.1) Urine Ketones TRACE mg/dL (NEG) Urine Occult Blood MOD (NEG) Urine Leukocyte Esterase TRACE (NEG) Urine RBC 25 /hpf (0-3) Urine Calcium Oxalate Crystals RARE /hpf (NONE) Urine Mucus FEW /lpf (OCC) Prothrombin Time 12.4 SEC (9.8-11.6) Test 09/06/16 06:06 White Blood Count 3.6 TH/MM3 (4.0-11.0) Red Blood Count 2.84 MIL/MM3 (4.50-5.90) Hemoglobin 8.8 GM/DL (13.0-17.0) Hematocrit 25.3 % (39.0-51.0) Red Cell Distribution Width 21.6 % (11.6-17.2) Platelet Count 65 TH/MM3 (150-450) Monocytes (%) (Auto) 15.6 % (0.0-8.0) Platelet Estimate LOW (NORMAL) Ovalocytes 1+ (NORMAL) Potassium Level 2.8 MEQ/L (3.5-5.1) Chloride Level 112 MEQ/L (98-107) Blood Urea Nitrogen 6 MG/DL (7-18) Calcium Level 8.1 MG/DL (8.5-10.1) Total Protein 5.5 GM/DL (6.4-8.2) Albumin 2.8 GM/DL (3.4-5.0) PE at Discharge GENERAL: Well-developed well-nourished. In no acute distress. SKIN: Warm and dry. Lateral right calf with wound with VAC in place and ulcer present. HEENT: Normocephalic. Pupils equal and round. Mucous membranes pink and moist. CARDIOVASCULAR: Regular rate and rhythm. No murmur appreciated. RESPIRATORY: No accessory muscle use. Clear to auscultation. Breath sounds equal bilaterally. GASTROINTESTINAL: Abdomen soft, non-tender, nondistended. Bowel sounds x4. MUSCULOSKELETAL: No obvious deformities. No clubbing or cyanosis. No edema. NEUROLOGICAL: Awake and alert. No focal neurological deficits. Moves upper and lower extremities spontaneously. Normal speech. PSYCHIATRIC: Appropriate mood and affect; insight and judgment normal. Pt update on day of discharge Patient seen with family at bedside. He is doing well today. He states that he tolerated liquid diet and pills overnight. He states he had a salad for lunch. No further nausea or vomiting. He had one soft stool earlier today. He worked with PT today using a walker. He has HHC at home already. He is excited about going home. Hospital Course Mr. 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 Intractable nausea, vomiting Diarrhea - CT of abdomen and pelvis with IV contrast 08/30/2016: Uncomplicated colonic diverticulosis. - Antiemetics as needed - Gastroenterology consulted, performed EGD and colonoscopy - Colonoscopy showed diverticulosis and hemorrhoids - EGD showed esophagitis and gastritis - Diet as tolerated - Continue PPI - Course of Flagyl Hypokalemia/hypomagnesemia - secondary to nausea, vomiting, diarrhea - Potassium was 2.8 earlier today, replaced IV and by mouth - Magnesium 1.5, replace IV AML - Continue outpatient follow-up oncology with Dr. Collins Thrombocytopenia Platelet count 80, 64, 65 -Stable, continue oncology follow-up Right lower extremity wound, chronic with wound VAC in place - consulting utility forester consulted - Continue outpatient [facility] wound care Other chronic medical conditions include HTN, BPH, depression: Stable at this time and will continue home medications as indicated [facility] PT as outpatient. Pt Condition on Discharge: Stable Discharge Disposition: Disch w/ Home Health Serv Discharge Time: > 30 minutes Discharge Instructions DIET: Follow Instructions for: As Tolerated, No Restrictions Activities you can perform: Regular-No Restrictions Follow up Referrals: Oncology - 10 Days with Sea Alas MD PCP Follow-up - 1 Week New Medications: Metronidazole (Flagyl) 500 Mg Tab 500 MG PO TID Infection #15 Ref 0 TAB Continued Medications: Aspirin DR (Aspirin EC) 81 Mg Tabdr 81 MG PO HS Ref 0 TAB Bupropion HCl ER 24 HR (Wellbutrin Xl 24 HR) 150 Mg Tab 150 MG PO HS Control Depression Ref 0 TAB Losartan (Losartan) 50 Mg Tab 50 MG PO HS Blood Pressure Management #30 Ref 0 TAB Omeprazole (Omeprazole) 40 Mg Cap 40 MG PO DAILY #30 Ref 0 CAP Ondansetron (Zofran) 4 Mg Tab 4 MG PO Q6HR PRN NAUSEA OR VOMITING Ref 0 TAB Promethazine (Phenergan) 25 Mg Tab 25 MG PO Q6H PRN Nausea/Vomiting #20 Ref 0 TAB Tamsulosin (Tamsulosin) 0.4 Mg Cap 0.4 MG PO HS Manage Prostate Problems #30 Ref 0 CAP Trazodone (Trazodone) 50 Mg Tab 50 MG PO HS Control Depression #30 Ref 0 TAB Additional Information Written by Cholo Win, acting as scribe for Dr. Mcknight on 09/06/16 at 15:05. All or portions of this note were transcribed by ELMER Huizar. I, Dr. Abdon Mcknight personally performed the history, physical exam, and medical decision making; and confirmed the accuracy of the information in the transcribed note. Authenticated by Dr. Abdon Mcknight on 09/06/16 at 23:47. Cholo Win Sep 06, 2016 15:04 David Mcknight DO Sep 06, 2016 23:47
--- NOTE | 2016-09-06 15:05 | HHI.FF ---
Face to Face Verification Diagnosis: (1) Intractable nausea and vomiting (2) AML (acute myelogenous leukemia) (3) Diarrhea Physical Therapy Order: Evaluate and Treat, Improve ambulation, Strength and gait training Home Health Nursing Order: Medical education Signs/symptoms of disease process Medication education-adverse effect Nursing assessment with vital signs I have seen patient Jarrell Suh on 09/06/16. My clinical findings support the need for the requested home health care services because: Deconditioned w/ increased weakness Limited ability to care for self Need for psychosocial assistance Impaired cognition/judgement High risk of falls Infection w/ risk of complications I certify that my clinical findings support that this patient is homebound because: Impaired cognitive ability/safety Unsteady gait/balance Unsafe to leave home unassisted Need for psychosocial assistance Unable to use public transportation David Mcknight DO Sep 06, 2016 3:05 pm
[2016-09-06 15:50] VITALS: BP 139/72; PULSE 71; RESP 20; TEMP 97.2; O2SAT 98
== END 2016-09-06 18:09 | disposition home or self-care (01) ==
LOC: NEPE 14:25 → NEDA 23:13 → NEPGCP 09-04 01:21 → HOCB 09-04 16:56
PROVIDERS: ADMIT Hospitalist; ATTEND Hospitalist
DX: K29.70 Gastritis, unspecified, without bleeding (principal); K57.30 Diverticulosis of large intestine without perforation or abscess without bleeding; K29.80 Duodenitis without bleeding; K21.0 Gastro-esophageal reflux disease with esophagitis; K52.9 Noninfective gastroenteritis and colitis, unspecified; K64.8 Other hemorrhoids; K64.4 Residual hemorrhoidal skin tags; N40.0 Benign prostatic hyperplasia without lower urinary tract symptoms; F41.9 Anxiety disorder, unspecified; I10 Essential (primary) hypertension; K21.9 Gastro-esophageal reflux disease without esophagitis; E87.6 Hypokalemia; C92.00 Acute myeloblastic leukemia, not having achieved remission; D69.6 Thrombocytopenia, unspecified; E78.00 Pure hypercholesterolemia, unspecified; F43.10 Post-traumatic stress disorder, unspecified; R63.4 Abnormal weight loss; R13.10 Dysphagia, unspecified; N17.9 Acute kidney failure, unspecified; E83.42 Hypomagnesemia; Z90.10 Acquired absence of unspecified breast and nipple; Z79.82 Long term (current) use of aspirin; Z92.21 Personal history of antineoplastic chemotherapy
CPT/HCPCS: 00810; 43239; 45380; 76937; 80048; 80053; 81001; 83605; 83690; 83735; 85007; 85025; 85027; 85610; 87205; 87207; 87328; 87425; 87493; 87506; 87641; 88305; 88312; 93005; 96361; 96374; 97110; 97116; 97162; 99285; C9113; G0378; G8987; G8988; J2405; J2765; J3475; J3480; J7030; 87329

== ENCOUNTER 2017-03-22 06:10 | Day surgery (SDC) | payer OTHER ==
[~2017-03-22] VITALS: Ht 170.2 cm; Wt 102.3 kg
[2017-03-22 06:40] VITALS: BP 156/85; PULSE 75; RESP 20; TEMP 98.5; O2SAT 97
[2017-03-22 07:06] LABS: AUTOMATED NEUTROPHIL # 0.5 TH/MM3 (1.8-7.7); BASOPHIL % 0.1 % (0.0-2.0); EOSINOPHIL % 0.5 % (0.0-4.0); HEMATOCRIT 32.3 % (39.0-51.0); LYMPH % 72.2 % (9.0-44.0); LYMPHOCYTE # 1.4 TH/MM3 (1.0-4.8); MEAN CELL VOLUME 94.4 FL (80.0-100.0); MEAN CORPUSCULAR HEMOGLOBIN 32.1 PG (27.0-34.0); MONO % 0.3 % (0.0-8.0); NEUT % 26.9 % (16.0-70.0); PLATELET COUNT 35 TH/MM3 (150-450); RED BLOOD COUNT 3.43 MIL/MM3 (4.50-5.90); RED CELL DISTRIBUTION WIDTH 16.9 % (11.6-17.2); WHITE BLOOD COUNT 1.9 TH/MM3 (4.0-11.0)
[2017-03-22 07:15] LABS: HEMO FLAGS AUTO DIFF
[2017-03-22 07:17] LABS: APTT (PATIENT) 22.1 SEC (24.3-30.1); PROTHROMBIN TIME - PATIENT 11.1 SEC (9.8-11.6)
[2017-03-22] MEDS ORDERED: CHLORHEXIDINE GLUCONATE 2 % 1 PACK (2 CLOTHS) TOPICAL SCH (07:30)
[2017-03-22] MEDS ORDERED: POVIDONE IODINE 5% (ANTISEPSIS KIT) 4 APPLICATIONS EACH NARE SCH (07:30)
[2017-03-22] MEDS ORDERED: ceFAZolin 2 GM PREMIX 50 ML - implanted port/tunneled catheter insertion IV SCH (07:30)
[2017-03-22] MEDS ORDERED: VANCOMYCIN 1000 MG/NS 250 ML - implanted port/tunneled catheter IV SCH ×2 (07:30)
[2017-03-22] MEDS ORDERED: SODIUM CHLORIDE 0.9% 1000 ML IV SCH (07:30)
[2017-03-22] MEDS ORDERED: ACETAMINOPHEN 325 MG TAB PO ONE (08:00)
[2017-03-22 08:14] LABS: BANDS 3 % (0-6); BLASTS 12 % (0-0); NEUTROPHIL # MANUAL DIFF 0.7 TH/MM3 (1.8-7.7); PLATELET ESTIMATE SMEAR LOW (NORMAL); PLATELET MORPHOLOGY NORMAL (NORMAL); POLYS (SEG NEUTROPHILS) 32 % (16-70); SCAN/DIFF FINAL DIFF MANUAL; WBC DIFF SAMPLE 100
[2017-03-22] MEDS ORDERED: diphenhydrAMINE HCL 50 MG CAP PO ONE (08:15)
[2017-03-22] MEDS ORDERED: MIDAZOLAM HCL 5 MG/5 ML VIAL ONE (09:07)
[2017-03-22] MEDS ORDERED: LIDOCAINE 1%/EPINEPHrine 1:100,000 SOLN 20 ML VIAL I-DERMAL ONE (09:46)
[2017-03-22] MEDS ORDERED: SODIUM CHLORIDE 0.9% FLUSH 10 ML FLUSH IVF PRN (10:15)
--- NOTE | 2017-03-22 10:17 | PD.RAD ---
Post Procedure Progress Note Pre Procedure Diagnosis: (1) Acute myelogenous leukemia (2) AML (acute myelogenous leukemia) Post Procedure Diagnosis: (1) Acute myelogenous leukemia (2) AML (acute myelogenous leukemia) Procedure Date: Mar 22, 2017 Supervising Radiologist: Michael Valadez Proceduralist/Assist: Ian Mccarthy, RT(R), Magdiel Kinney RT(R)() Anesthesia: Local, Analgesia, Conscious Sedation Plan of Activity Patient to Unit: ROPU Patient Condition: Good See PACS Report for procedural detail/treatment Central Venous Access Device Procedure 1 Right Internal Jugular Infusaport Placement single lumen Romansh: 8 Findings: Prominent venous bleeder when creating port pocket. Hemostasis with 2-0 Prolene ligature and cautery. Michael Valadez MD Mar 22, 2017 10:17
[2017-03-22 10:25] VITALS: BP 146/72; PULSE 73; RESP 18; TEMP 97.9; O2SAT 94
[2017-03-22 10:40] VITALS: BP 146/72; PULSE 81; RESP 18; O2SAT 97
[2017-03-22 11:10] VITALS: BP 135/62; PULSE 76; RESP 18; O2SAT 96
[2017-03-22 11:40] VITALS: BP 124/64; PULSE 77; RESP 18; O2SAT 97
[2017-03-22 12:10] VITALS: BP 125/53; PULSE 75; RESP 18; O2SAT 97
--- NOTE | 2017-03-22 13:24 | RADRPT ---
EXAM DATE/TIME: 03/22/2017 09:06 [place] COMPARISON: No previous studies available for comparison. INDICATIONS : Patient with history of acute myelogenous leukemia in need of port placement. MEDICAL HISTORY : 1.Myelogenous leukemia 2.HTN 3.Kidney stones 4.HDL 5.GERD 6.PTSD 7.Diverticulitis 8. SURGICAL HISTORY : 1.Cardiac cath 2.Cholecystectomy 3.Vasectomy ENCOUNTER: Initial ACUITY: 4-6 months PAIN SCORE: 0/10 FLUORO TIME: 0.7 minutes IMAGE SERIES: 1 SEDATION TIME: 60 minutes ACCESS: Right internal jugular vein SEDATION: 1.) 2.5 mg midazolam (Versed) IV 2.) 50 mcg fentanyl (Sublimaze) IV Prophylactic antibiotics were administered with appropriate pre-procedure timing. Vancomycin within 2 hours of procedure, Ancef (or alternative) within 1 hour of procedure. DEVICE: 1. 8 Greek single lumen Angiodynamics smart power port PROCEDURE : 1. Continuous pulse oximetry and EKG monitoring. 2. Intravenous conscious sedation. 3. Ultrasound guidance for venous access. 4. Fluoroscopic guided implantable central venous port placement. The patient was placed supine. The neck was prepped in sterile fashion. Full sterile technique was u sed, including cap, mask, sterile gloves and gown, and a large sterile sheet. Hand hygiene and 2% ch lorhexidine Betadine was utilized per protocol for cutaneous antisepsis with appropriate dry time for site. Sterile gel and sterile probe cover were utilized for ultrasound guidance. The skin and sub cutaneous tissues were infiltrated with local anesthetic solution. Under direct ultrasound guidance, central venous access was accomplished in the targeted vessel. The ultrasound images depicting access guidance were stored and saved to PACS for permanent record. A s ubcutaneous pocket was created using blunt dissection. A brisk bleeding vein was identified during p ort pocket creation. Hemostasis was obtained with a 2-0 Prolene ligature and cautery. The port was in troduced to the pocket. The catheter tubing was fed through a subcutaneous tunnel to the venotomy si te. The catheter tubing was cut to a suitable length and then was introduced through a valved Peel-A way sheath and positioned with catheter tubing tip at the cavo-atrial junction level. The pocket inc ision was closed with subcuticular Vicryl suture. Steri-Strips were applied. The port was flushed a nd locked with heparin solution per protocol. Sterile dressing was applied to the site. The patient tolerated the procedure well. Conscious sedation was performed with the prescribed dosages and duration as above in the presence of an independent trained radiology nurse to assist in the monitoring of the patient. EKG and oximetry remained stable throughout the procedure. The patient tolerated the procedure well and there were no complications. The patient was sent to post anesthesia recovery in stable condition. CONCLUSION: Uncomplicated ultrasound and fluoroscopic guided implanted central venous port catheter placement as described in detail above. An 8 Greek Power port was placed. Michael Valadez MD on March 22, 2017 at 13:21 Board Certified Radiologist. This report was verified electronically.
== END 2017-03-22 12:40 | disposition home or self-care (01) ==
LOC: HROP 06:10 → HRIP 06:11 → HROP 12:40
PROVIDERS: ATTEND Internal Medicine Hematology & Oncology
DX: Z45.2 Encounter for adjustment and management of vascular access device (principal); C92.00 Acute myeloblastic leukemia, not having achieved remission; I10 Essential (primary) hypertension; K21.9 Gastro-esophageal reflux disease without esophagitis; F43.10 Post-traumatic stress disorder, unspecified; Z87.442 Personal history of urinary calculi
CPT/HCPCS: 36430; 36561; 76937; 77001; 85007; 85027; 85610; 85730; 99152; 99153; C1788; J0690; J1642; J2250; J3010; J3370; J7030; J7050; P9035; Q0163

== ENCOUNTER 2017-05-01 12:34 | Inpatient (IN) | payer OTHER, MEDICARE ==
[~2017-05-01] VITALS: Ht 170.2 cm; Wt 104.1 kg
[2017-05-01] VITALS (7 sets, daily range): BP systolic 101–138; BP diastolic 56–66; PULSE 75–105; RESP 17–26; TEMP 98–102; O2SAT 95–98
[~2017-05-01 12:34] MED LIST changes: -ASPI81TA11 PO; -METR-1 PO; -PROM25TA5 PO; -ZOFR4TAB PO
--- NOTE | 2017-05-01 13:07 | PD ---
HPI Chief Complaint: General Weakness Time Seen by Provider: 13:06 Travel History International Travel<30 days: No Contact w/Intl Traveler<30days: No Traveled to known affect area: No History of Present Illness HPI 72-year-old male came to the emergency room with history of chills, difficulty breathing in the middle of transfusion today at his oncologist office. Patient was brought in by EMS. Patient has history of AML and poor prognosis. He has been neutropenic and thrombocytopenic for some time now. His oncologist Dr. Collins has been trying to take care of this as an outpatient with by mouth Levaquin, by mouth fluconazole and platelet and PRBC transfusion. Patient says he hasn't been feeling well and has a cough for past few days. Today especially he was feeling worse and in the middle of the transfusion he started developing shortness of breath. There was also some blood in his mouth that was noticed at the doctor's office. EMS was called and patient was transported here after he received IV Solu-Medrol, IV Benadryl. Patient had received IV cefepime 2 g at the oncologist office. Patient was having some difficulty answering questions and seemed a little confused. His rectal temperature was 102.5. PFSH Past Medical History Narrative Medical List of his past medical, surgical, social and family history is reviewed from the nursing note. Blood Disorders: No Anxiety: No Depression: Yes Heart Rhythm Problems: No Cancer: Yes Cardiac Catheterization: Yes Cardiovascular Problems: Yes High Cholesterol: Yes Chemotherapy: Yes (AML in remission) Chest Pain: No Congestive Heart Failure: No Diabetes: No Diminished Hearing: No Diverticulitis: Yes Endocrine: No GERD: Yes Genitourinary: No Herniated Disk: Yes (L4-5) Hypertension: Yes Immune Disorder: No Kidney Stones: Yes Neurologic: No Psychiatric: Yes (PTSD) Reproductive: No Respiratory: No Radiation Therapy: No Thyroid Disease: No Past Surgical History Cholecystectomy: Yes Ear Surgery: Yes Other Surgery: Yes (abscess drainage) Social History Alcohol Use: Yes Tobacco Use: No Substance Use: No Allergies-Medications (Allergen,Severity, Reaction): Coded Allergies: *MDRO Multi-Drug Resistant Organism (Verified Allergy, Unknown, 09/04/16) Hx of MRSA 08/2016 in [facility] Comments List of his allergies reviewed from the nursing note. Reported Meds & Prescriptions Reported Meds & Active Scripts Active Reported Trazodone (Trazodone HCl) 50 Mg Tab 50 Mg PO HS Omeprazole 40 Mg Cap 40 Mg PO DAILY Tamsulosin (Tamsulosin HCl) 0.4 Mg Cap 0.4 Mg PO HS Losartan (Losartan Potassium) 50 Mg Tab 50 Mg PO HS Wellbutrin Xl 24 HR (Bupropion HCl) 150 Mg Tab 150 Mg PO HS Narrative Medication List of his home medications reviewed from the nursing note. Review of Systems Except as stated in HPI: all other systems reviewed are Neg General / Constitutional: Positive: Chills Respiratory: Positive: Shortness of Breath Physical Exam Narrative GENERAL: Confused, lethargic, moderate distress, rigors SKIN: Focused skin assessment warm/dry. HEAD: Atraumatic. Normocephalic. EYES: Pupils equal and round. No scleral icterus. No injection or drainage. ENT: No nasal bleeding or discharge. Mucous membranes pink and moist. NECK: Trachea midline. No JVD. CARDIOVASCULAR: Regular rate and rhythm. No murmur appreciated. RESPIRATORY: No accessory muscle use. Clear to auscultation. Breath sounds equal bilaterally. GASTROINTESTINAL: Abdomen soft, non-tender, nondistended. Hepatic and splenic margins not palpable. MUSCULOSKELETAL: No obvious deformities. No clubbing. No cyanosis. No edema. NEUROLOGICAL: Lethargic and confused. No obvious cranial nerve deficits. Motor grossly within normal limits. Normal speech. PSYCHIATRIC: Appropriate mood and affect; insight and judgment normal. Data Data Last Documented VS Orders Orders Sepsis Workup Initiated (05/01/17 ) Electrocardiogram (05/01/17 13:17) Complete Blood Count With Diff (05/01/17 13:17) Comprehensive Metabolic Panel (05/01/17 13:17) Lactic Acid Sepsis Protocol (05/01/17 13:17) Troponin I (05/01/17 13:17) Urinalysis - C+S If Indicated (05/01/17 13:17) Blood Culture (05/01/17 13:17) Chest, Single Ap (05/01/17 13:17) Blood Glucose (05/01/17 13:17) Ecg Monitoring (05/01/17 13:17) Iv Access Insert/Monitor (05/01/17 13:17) Oximetry (05/01/17 13:17) Oxygen Administration (05/01/17 13:17) Acetaminophen (Tylenol) (05/01/17 13:30) Vancomycin Inj (Vancomycin Inj) (05/01/17 14:30) Sodium Chlor 0.9% 1000 Ml Inj (Ns 1000 M (05/01/17 14:30) Red Blood Cells (Rbc) (05/01/17 14:20) Blood Product Administration (05/01/17 14:20) Sodium Chlor 0.9% 250 Ml Inj (Ns 250 Ml (05/01/17 14:30) Admit Order (Ed Use Only) (05/01/17 14:36) Red Blood Cells (Rbc) (04/30/17 11:05) Type And Screen (04/30/17 11:05) Labs Laboratory Tests Test 05/01/17 13:30 White Blood Count 0.1 TH/MM3 Red Blood Count 2.79 MIL/MM3 Hemoglobin 8.2 GM/DL Hematocrit 23.7 % Mean Corpuscular Volume 84.9 FL Mean Corpuscular Hemoglobin 29.4 PG Mean Corpuscular Hemoglobin Concent 34.6 % Red Cell Distribution Width 18.2 % Platelet Count 13 TH/MM3 Mean Platelet Volume 13.8 FL CBC Comment AUTO DIFF Differential Total Cells Counted 10 Lymphocytes % 80 % Monocytes % 10 % Neutrophils # (Manual) 0.0 TH/MM3 Differential Comment FINAL DIFF MANUAL Blastocytes 10 % Platelet Estimate RARE Platelet Morphology Comment NORMAL Ovalocytes 1+ Haptoglobin 177 MG/DL Blood Urea Nitrogen 18 MG/DL Creatinine 1.24 MG/DL Random Glucose 117 MG/DL Total Protein 7.3 GM/DL Albumin 3.6 GM/DL Calcium Level 8.7 MG/DL Alkaline Phosphatase 89 U/L Aspartate Amino Transf (AST/SGOT) 13 U/L Alanine Aminotransferase (ALT/SGPT) 20 U/L Total Bilirubin 1.2 MG/DL Sodium Level 136 MEQ/L Potassium Level 3.6 MEQ/L Chloride Level 104 MEQ/L Carbon Dioxide Level 21.1 MEQ/L Anion Gap 11 MEQ/L Estimat Glomerular Filtration Rate 57 ML/MIN Lactic Acid Level 3.1 mmol/L Lactate Dehydrogenase 136 U/L Troponin I 0.24 NG/ML [facility] Medical Decision Making Medical Screen Exam Complete: Yes Emergency Medical Condition: Yes Medical Record Reviewed: Yes Interpretation(s) Twelve-lead EKG was reviewed by me. Normal sinus rhythm, normal axis, nonspecific ST-T wave changes. Heart rate of 95 bpm. Differential Diagnosis Neutropenic fever, sepsis, UTI, pneumonia Narrative Course 2:44 PM most of his past history and recent oncology history was obtained from Dr. Collins when I spoke with him on the phone. He told me that he had given the patient 2 g of cefepime IV at 9 AM. His concern is for sepsis but also concern for possible reaction to the blood transfusion. He wanted to continue cefepime every 8 hourly. He was okay with the vancomycin that I was ordering. He also wanted voriconazole to be added. He also wanted one unit of PRBC transfusion slowly. He is concerned about the patient and things that his condition is guarded with high chance of mortality. He did not want any platelet transfusion at this point unless patient has massive bleeding. I've discussed the case with the hospitalist and conveyed Dr. Collins's recommendations. Patient has been admitted to the oncology floor. Patient's troponin is elevated which is probably from the sepsis. Critical Care Narrative Aggregate critical care time was 45 minutes. Time to perform other separately billable procedures was not included in the critical care time. My time did not include minutes spent treating any other patients simultaneously or on activities that did not directly contribute to the patient's treatment. The services I provided to this patient were to treat and/or prevent clinically significant deterioration that could result in: Neutropenic fever, sepsis, sepsis protocol I provided critical care services requiring my management, as noted below: Chart data review, documentation time, medication orders and management, vital sign assessments/reviewing monitor data, ordering and reviewing lab tests, ordering and interpreting/reviewing x-rays and diagnostic studies, care of the patient and discussion of the patient with the admitting physicians. Procedures EKG Prior to Arrival: No Sepsis Criteria SIRS Criteria (2 or more): Temp > 100.9 or < 96.8, Heart rate over 90, WBC > 52260, < 4000 or > 10% bands Severe Sepsis (+one): Lactate >[address] Physician [address] Collins Diagnosis Primary Impression: Neutropenic fever Additional Impressions: Sepsis Qualified Codes: A41.9 - Sepsis, unspecified organism Thrombocytopenia Elevated troponin I level AML (acute myeloblastic leukemia) Qualified Codes: C92.00 - Acute myeloblastic leukemia, not having achieved remission Admitting Information Admitting Physician Requests: Sigifredo Marino MD May 01, 2017 13:07
[2017-05-01] MEDS ORDERED: ACETAMINOPHEN 325 MG TAB PO ONE (13:30)
[2017-05-01 13:55] LABS: HEMATOCRIT 23.7 % (39.0-51.0); MEAN CELL VOLUME 84.9 FL (80.0-100.0); MEAN CORPUSCULAR HEMOGLOBIN 29.4 PG (27.0-34.0); MEAN CORPUSCULAR HGB CONC 34.6 % (32.0-36.0); RED BLOOD COUNT 2.79 MIL/MM3 (4.50-5.90); RED CELL DISTRIBUTION WIDTH 18.2 % (11.6-17.2); WHITE BLOOD COUNT 0.1 TH/MM3 (4.0-11.0)
[2017-05-01 14:01] LABS: HEMO FLAGS AUTO DIFF; PLATELET COUNT 13 TH/MM3 (150-450)
[2017-05-01 14:11] LABS: ALT (GPT) 20 U/L (12-78); ANION GAP 11 MEQ/L (5-15); AST (GOT) 13 U/L (15-37); BICARBONATE 21.1 MEQ/L (21.0-32.0); BLOOD UREA NITROGEN 18 MG/DL (7-18); CHLORIDE 104 MEQ/L (98-107); GLOMERULAR FILTRATION RATE 57 ML/MIN (>89); POTASSIUM 3.6 MEQ/L (3.5-5.1); SODIUM (NA) 136 MEQ/L (136-145)
[2017-05-01 14:16] LABS: ALKALINE PHOSPHATASE 89 U/L (45-117); TOTAL BILIRUBIN ADULT 1.2 MG/DL (0.2-1.0)
[2017-05-01] MEDS ORDERED: SODIUM CHLOR 0.9% IV ONE (14:30)
[2017-05-01] MEDS ORDERED: VANCOMYCIN INJ 1,000 MG in SODIUM CHLOR 0.9% 250 ML INJ 250 ML IV ONE (14:30)
[2017-05-01] MEDS ORDERED: VORICONAZOLE IV ONE (14:30)
[2017-05-01] MEDS ORDERED: SODIUM CHLOR 0.9% 1000 ML INJ 1,000 ML IV ONE (14:30)
[2017-05-01] MEDS ORDERED: SODIUM CHLOR 0.9% 250 ML INJ 250 ML IV ONE (14:30)
--- NOTE | 2017-05-01 14:30 | RADRPT ---
EXAM DATE/TIME: 05/01/2017 13:31 [place] COMPARISON: CHEST SINGLE AP, June 15, 2016, 11:11. INDICATIONS : Short of breath. Patient complains of weakness and vomiting after his blood transfusion. Patient also states he has had a recent cough. MEDICAL HISTORY : Leukemia. Hypertension. Gastroesophageal reflux disease SURGICAL HISTORY : Cholecystectomy. Port. ENCOUNTER: Initial ACUITY: 1 day PAIN SCORE: 0/10 LOCATION: Bilateral chest FINDINGS: The lungs are clear. The heart is minimally enlarged. The pulmonary vascularity is normal. There is n o evidence for infiltrate or failure. [id number] in good position The portion of the bony skeleton visualized is unremarkable. CONCLUSION: Compensated cardiomegaly otherwise negative . Mejia Butler MD FACR on May 01, 2017 at 14:27 Board Certified Radiologist. This report was verified electronically.
[2017-05-01 14:53] LABS: BLASTS 10 % (0-0); PLATELET ESTIMATE SMEAR RARE (NORMAL); WBC DIFF SAMPLE 10
[2017-05-01 14:54] LABS: OVALOCYTES 1+ (NORMAL); PLATELET MORPHOLOGY NORMAL (NORMAL); SCAN/DIFF FINAL DIFF MANUAL
[2017-05-01 14:59] LABS: BLOOD, URINE MOD (NEG); GLUCOSE,URINE NEG (NEG); KETONE, URINE NEG (NEG); MUCUS URINE FEW /lpf (OCC); NITRITE,URINE NEG (NEG); SQUAMOUS EPITHELIAL CELL URINE <1 /hpf (0-5); URINE COLOR LIGHT-YELLOW (YELLW/STRAW)
[2017-05-01 15:01] LABS: COMMENT (UR) CATH-CULT NOT IND; CULTURE IF INDICATED CATH CULTURE NOT IND
[2017-05-01 15:46] LABS: LACTIC ACID GHOST NOT REPORTABLE
--- NOTE | 2017-05-01 16:54 | HHI.HP ---
[facility] Service [facility] [place] [facility] Primary Care Physician Unknown Admission Diagnosis sepsis, neutropenic fever, AML, thrombocytopenia Diagnoses: (1) Neutropenic fever Diagnosis: Principal Chief Complaint: ' I was shaking while I was receiving blood'. Travel History International Travel<30 Days: No Contact w/Intl Traveler <30 Da: No Traveled to Known Affected Are: No History of Present Illness patient is a 72 y/o male with history of AML,under ' care, on chemotherapy who was sent from the clinic. he says that he was receiving blood transfusion earlier today when he started to feel shaky, with some sob and noticed that he had ' some blood in his mouth'. he says that he had some on and off low grade fever over the past couple of days. he was started on diflucan and levaquin by . he has some occasional cough. he denies any abdominal pain, nausea, vomiting, abdominal pain or urinary complaints.he wasn't in acute distress at the time of my evaluation. Review of Systems Constitutional: COMPLAINS OF: Fever, DENIES: Weight loss, Chills, Night Sweats Eyes: DENIES: Blurred vision, Diplopia, Vision loss, Double Vision Ears, nose, mouth, throat: DENIES: Tinnitus, Vertigo, Throat pain, Epistaxis Respiratory: COMPLAINS OF: Cough, DENIES: Apneas, Snoring, Wheezing, Hemoptysis , Sputum production, Shortness of breath Cardiovascular: DENIES: Chest pain, Palpitations, Syncope, Dyspnea on Exertion , PND, Lower Extremity Edema, Orthopnea, Claudication Gastrointestinal: DENIES: Abdominal pain, Black stools, Bloody stools, Constipation, Diarrhea, Nausea, Vomiting, Difficulty Swallowing, Anorexia Genitourinary: DENIES: Urinary frequency, Urgency, Hematuria, Dysuria Musculoskeletal: DENIES: Joint pain, Muscle aches, Stiffness, Joint Swelling Integumentary: DENIES: Rash Neurologic: DENIES: Abnormal gait, Headache, Localized weakness, Paresthesias, Seizures, Speech Problems, Tremor, Poor Balance Psychiatric: DENIES: Anxiety, Confusion, Mood changes, Depression, Hallucinations, Agitation, Suicidal Ideation, Homicidal Ideation, Delusions Past Family Social History Past Medical History AML hypertension Past Surgical History cholecystectomy Reported Medications Trazodone (Trazodone HCl) 50 Mg Tab 50 Mg PO HS Omeprazole 40 Mg Cap 40 Mg PO DAILY Tamsulosin (Tamsulosin HCl) 0.4 Mg Cap 0.4 Mg PO HS Losartan (Losartan Potassium) 50 Mg Tab 50 Mg PO HS Wellbutrin Xl 24 HR (Bupropion HCl) 150 Mg Tab 150 Mg PO HS Allergies: Coded Allergies: *MDRO Multi-Drug Resistant Organism (Verified Allergy, Unknown, 09/04/16) Hx of MRSA 08/2016 in LLE Active Ordered Medications Current Medications Acetaminophen (Tylenol) 650 mg ONCE ONCE PO Last administered on 05/01/17 14 :01; Start 05/01/17 at 13:30; Stop 05/01/17 at 13:31; Status DC Vancomycin HCl 1000 mg/Sodium Chloride 250 ml @ 250 mls/hr ONCE ONCE IV Last administered on 05/01/17 14:51; Start 05/01/17 at 14:30; Stop 05/01/17 at 15 :29; Status DC Sodium Chloride 1,000 ml @ 999 mls/hr BOLUS ONCE IV Last administered on 14:48; Start 05/01/17 at 14:30; Stop 05/01/17 at 15:30; Status DC Voriconazole / Sodium Chloride 250 ml @ 125 mls/hr ONCE ONCE IV ; Start 05/01 at 14:30; Stop 05/01/17 at 16:29; Status UNV Sodium Chloride 250 ml @ 15 mls/hr ONCE ONCE IV ; Start 05/01/17 at 14:30; Stop 05/02/17 at 07:09 Acetaminophen (Tylenol) 650 mg Q4H PRN PO FEVER/ PAIN 1-10; Start 05/01/17 at 14:45 Ondansetron HCl (Zofran Inj) 4 mg Q8HR PRN IV PUSH NAUSEA; Start 05/01/17 at 14:45 Cefepime HCl 2000 mg/Sodium Chloride 100 ml @ 200 mls/hr Q8H IV ; Start at 16:00 Bupropion HCl (Wellbutrin Sr) 150 mg HS PO ; Start 05/01/17 at 21:00 Tamsulosin HCl (Flomax) 0.4 mg HS PO ; Start 05/01/17 at 21:00 Trazodone HCl (Desyrel) 50 mg HS PO ; Start 05/01/17 at 21:00 Pantoprazole Sodium (Protonix) 40 mg DAILY PO ; Start 05/02/17 at 09:00 Social History no smoking or drinking. Physical Exam Vital Signs Vital Signs Date Time Temp Pulse Resp B/P (MAP) Pulse Ox O2 Delivery O2 Flow Rate FiO2 05/01/17 16:35 99.3 77 18 120/61 98 05/01/17 16:19 99.8 77 18 101/57 98 05/01/17 16:14 99.8 77 18 109/58 98 05/01/17 13:28 104 24 98 2.00 05/01/17 13:27 102.0 05/01/17 13:26 98 Nasal Cannula 2.00 05/01/17 13:13 105 26 138/66 (90) 95 Physical Exam GENERAL: This is a well-nourished, well-developed patient, in no apparent distress. SKIN: No rashes, ecchymoses or lesions. Cool and dry. HEAD: Atraumatic. Normocephalic. No temporal or scalp tenderness. EYES: Pupils equal round and reactive. Extraocular motions intact. No scleral icterus. No injection or drainage. ENT: Nose without bleeding, purulent drainage or septal hematoma. Throat without erythema, tonsillar hypertrophy or exudate. Uvula midline. Airway patent. NECK: Trachea midline. No JVD or lymphadenopathy. Supple, nontender, no meningeal signs. CARDIOVASCULAR: Regular rate and rhythm without murmurs, gallops, or rubs. RESPIRATORY: Clear to auscultation. Breath sounds equal bilaterally. No wheezes , rales, or rhonchi. GASTROINTESTINAL: Abdomen soft, non-tender, nondistended. No hepato-splenomegaly , or palpable masses. No guarding. MUSCULOSKELETAL: Extremities without clubbing, cyanosis, or edema. No joint tenderness, effusion, or edema noted. No calf tenderness. Negative Homans sign bilaterally. NEUROLOGICAL: Awake and alert. Cranial nerves II through XII intact. Motor and sensory grossly within normal limits. Five out of 5 muscle strength in all muscle groups. Normal speech. Laboratory Laboratory Tests Test 05/01/17 13:30 05/01/17 14:40 05/01/17 16:18 White Blood Count 0.1 Red Blood Count 2.79 Hemoglobin 8.2 Hematocrit 23.7 Mean Corpuscular Volume 84.9 Mean Corpuscular Hemoglobin 29.4 Mean Corpuscular Hemoglobin Concent 34.6 Red Cell Distribution Width 18.2 Platelet Count 13 Mean Platelet Volume 13.8 CBC Comment AUTO DIFF Differential Total Cells Counted 10 Lymphocytes % 80 Monocytes % 10 Neutrophils # (Manual) 0.0 Differential Comment FINAL DIFF MANUAL Blastocytes 10 Platelet Estimate RARE Platelet Morphology Comment NORMAL Ovalocytes 1+ Blood Urea Nitrogen 18 Creatinine 1.24 Random Glucose 117 Total Protein 7.3 Albumin 3.6 Calcium Level 8.7 Alkaline Phosphatase 89 Aspartate Amino Transf (AST/SGOT) 13 Alanine Aminotransferase (ALT/SGPT) 20 Total Bilirubin 1.2 Sodium Level 136 Potassium Level 3.6 Chloride Level 104 Carbon Dioxide Level 21.1 Anion Gap 11 Estimat Glomerular Filtration Rate 57 Lactic Acid Level 3.1 Lactate Dehydrogenase 136 Troponin I 0.24 Urine Color LIGHT-YELLOW Urine Turbidity CLEAR Urine pH 5.0 Urine Specific Pyatt 1.008 Urine Protein NEG Urine Glucose (UA) NEG Urine Ketones NEG Urine Occult Blood MOD Urine Nitrite NEG Urine Bilirubin NEG Urine Urobilinogen LESS THAN 2.0 Urine Leukocyte Esterase NEG Urine RBC 10 Urine WBC 1 Urine Squamous Epithelial Cells <1 Urine Mucus FEW Microscopic Urinalysis Comment CATH-CULT NOT IND Date/Time Source Procedure Growth Status 05/01/17 13:40 Blood Peripheral Aerobic Blood Culture Pending Received 05/01/17 13:40 Blood Peripheral Anaerobic Blood Culture Pending Received Result Diagram: 05/01/17 1330 05/01/17 1330 Imaging Last Impressions Chest X-Ray 05/01/17 1317 Signed Impressions: Service Date/Time: Saturday, May 01, 2017 13:31 - CONCLUSION: Compensated cardiomegaly otherwise negative . Mejia Butler MD FACR Caprini VTE Risk Assessment Caprini VTE Risk Assessment: Mod/High Risk (score >= 2) Caprini Risk Assessment Model Point Value = 1 Point Value = 2 Point Value = 3 Point Value = 5 Age 41-60 Minor surgery BMI > 25 kg/m2 Swollen legs Varicose veins or History of unexplained or recurrent spontaneous Oral contraceptives or hormone replacement Sepsis (< 1 month) Serious lung disease, including pneumonia (< 1 month) Abnormal pulmonary function Acute myocardial infarction Congestive heart failure (< 1 month) History of inflammatory bowel disease Medical patient at bed rest Age 61-74 Arthroscopic surgery Major open surgery (> 45 min) Laparoscopic surgery (> 45 min) Malignancy Confined to bed (> 72 hours) Immobilizing plaster cast Central venous access Age >= 75 History of VTE Family history of VTE Factor V Leiden Prothrombin [id number] Lupus anticoagulant Anticardiolipin antibodies Elevated serum homocysteine Heparin-induced thrombocytopenia Other congenital or acquired thrombophilia Stroke (< 1 month) Elective arthroplasty Hip, pelvis, or leg fracture Acute spinal cord injury (< 1 month) Prophylaxis Regimen Total Risk Factor Score Risk Level Prophylaxis Regimen 0-1 Low Early ambulation 2 Moderate Order ONE of the following: *Sequential Compression Device (SCD) *Heparin 5000 units SQ BID 3-4 Higher Order ONE of the following medications: *Heparin 5000 units SQ TID *Enoxaparin/Lovenox 40 mg SQ daily (WT < 150 kg, CrCl > 30 mL/min) *Enoxaparin/Lovenox 30 mg SQ daily (WT < 150 kg, CrCl > 10-29 mL/min) *Enoxaparin/Lovenox 30 mg SQ BID (WT < 150 kg, CrCl > 30 mL/min) AND/OR *Sequential Compression Device (SCD) 5 or more Highest Order ONE of the following medications: *Heparin 5000 units SQ TID (Preferred with Epidurals) *Enoxaparin/Lovenox 40 mg SQ daily (WT < 150 kg, CrCl > 30 mL/min) *Enoxaparin/Lovenox 30 mg SQ daily (WT < 150 kg, CrCl > 10-29 mL/min) *Enoxaparin/Lovenox 30 mg SQ BID (WT < 150 kg, CrCl > 30 mL/min) AND *Sequential Compression Device (SCD) Assessment and Plan Assessment and Plan A/P -neutropenic fever start on IV Cefepime- antipyretics as needed- follow the cultures- consult Oncology and ID. -AML on chemotherapy with anemia/thrombocytopenia- PRBC transfusion ordered- will monitor the CBC- oncology evaluation as noted above. -hypertension; BP stable- hold BP meds for now and continue to monitor. -elevated troponin- with no chest pain and with normal EKG- trend the cardiac enzymes. -DVT prophylaxis with SCD's- no chemical prophylaxis due to thrombocytopenia -consult PT. Discussed Condition With ER physician and the patient. Physician Certification 2 Midnight Certification Type: Admission for Inpatient Services Order for Inpatient Services The services are ordered in accordance with Medicare regulations or non- Medicare payer requirements, as applicable. In the case of services not specified as inpatient-only, they are appropriately provided as inpatient services in accordance with the 2-midnight benchmark. Estimated LOS (days): 2 days is the estimated time the patient will need to remain in the hospital, assuming treatment plan goals are met and no additional complications. Post-Hospital Plan: Not yet determined Tomeka Apple MD May 01, 2017 16:54
[2017-05-01] MEDS ORDERED: Vancomycin Consult Pharmacy 1 EA OTHER SCH (18:15)
[2017-05-01] MEDS: CEFEPIME INJ 2,000 MG in SODIUM CHLORIDE 0.9% INJ 100 ML IV SCH ×2 (18:15→23:58)
--- NOTE | 2017-05-01 18:17 | PD.CONS ---
History of Present Illness Service Infectious disease Consult Requested By Dr Apple Reason for Consult Evaluate patient with fever and neutropenia Primary Care Physician Unknown Diagnoses: History of Present Illness Patient seen and examined. Records reviewed. Patient is a 72-year-old male presented to the hospital complaining of chills and shortness of breath. He was apparently in the oncology's office and receive a transfusion when he developed the symptoms of chills and shortness of breath. Patient states that he has never had shortness of breath before. He denies any chest pain. 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 He has been on prophylactic fluconazole and Levaquin. Patient apparently has not been feeling well and has had some cough. He has had some nausea for several weeks, and had one episode of vomiting enroute to the ED. any nausea or vomiting. He has had this sore on the left side of his time and his oncologist gave him some prescription to apply topically. He denies having bitten his tongue. He denies any swallowing difficulty. Denies any diarrhea or any urinary complaints. He has not had any back pain. His temperature in the ED was 102.5. On presentation he was neutropenic with a WBC of 0.1. Infectious disease consultation has been requested to evaluate the patient. Review of Systems Constitutional: COMPLAINS OF: Fever, Chills, Change in appetite Eyes: DENIES: Eye pain Ears, nose, mouth, throat: COMPLAINS OF: Oral lesions, DENIES: Nasal discharge , Throat pain, Ear Pain, Sinus Pain Respiratory: COMPLAINS OF: Cough, Shortness of breath Cardiovascular: DENIES: Chest pain, Palpitations, Syncope Gastrointestinal: COMPLAINS OF: Nausea, Vomiting, DENIES: Abdominal pain, Diarrhea, Difficulty Swallowing Genitourinary: DENIES: Urgency, Hematuria, Dysuria, Testicular Pain Musculoskeletal: DENIES: Back pain, Neck pain Integumentary: DENIES: Pruritus, Rash Neurologic: DENIES: Headache, Localized weakness Psychiatric: DENIES: Hallucinations Past Family Social History Allergies: Coded Allergies: *MDRO Multi-Drug Resistant Organism (Verified Allergy, Unknown, 09/04/16) Hx of MRSA 08/2016 in [facility] Past Medical History 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 Reported Meds & Active Scripts Active Reported Trazodone (Trazodone HCl) 50 Mg Tab 50 Mg PO HS Omeprazole 40 Mg Cap 40 Mg PO DAILY Tamsulosin (Tamsulosin HCl) 0.4 Mg Cap 0.4 Mg PO HS Losartan (Losartan Potassium) 50 Mg Tab 50 Mg PO HS Wellbutrin Xl 24 HR (Bupropion HCl) 150 Mg Tab 150 Mg PO HS Active Ordered Medications Current Medications Medications (Trade) Dose Ordered Sig/Gene Route Start Time Stop Time Status Last Admin Sodium Chloride 250 ml @ 15 mls/hr ONCE ONCE IV 05/01/17 14:30 05/02/17 07:09 (Tylenol) 650 mg Q4H PRN PO 05/01/17 14:45 (Zofran Inj) 4 mg Q8HR PRN IV PUSH 05/01/17 14:45 Cefepime HCl 2000 mg/Sodium Chloride 100 ml @ 200 mls/hr Q8H IV 05/01/17 16:00 (Wellbutrin Sr) 150 mg HS PO 05/01/17 21:00 (Flomax) 0.4 mg HS PO 05/01/17 21:00 (Desyrel) 50 mg HS PO 05/01/17 21:00 (Protonix) 40 mg DAILY PO 05/02/17 09:00 Voriconazole 600 mg/Sodium Chloride 250 ml @ 125 mls/hr Q12H IV 05/01/17 18:00 05/02/17 07:59 Voriconazole 400 mg/Sodium Chloride 250 ml @ 125 mls/hr Q12H IV 05/02/17 18:00 Family History History of lung cancer and Crohn's disease Social History no smoking Has used alcohol No drugs Physical Exam Vital Signs Vital Signs Date Time Temp Pulse Resp B/P (MAP) Pulse Ox O2 Delivery O2 Flow Rate FiO2 05/01/17 16:35 99.3 77 18 120/61 98 05/01/17 16:19 99.8 77 18 101/57 98 05/01/17 16:14 99.8 77 18 109/58 98 05/01/17 13:28 104 24 98 2.00 05/01/17 13:27 102.0 05/01/17 13:26 98 Nasal Cannula 2.00 05/01/17 13:13 105 26 138/66 (90) 95 Physical Exam GENERAL: Patient is a well-nourished, well-developed patient, awake and alert , not in respiratory distress. SKIN: Warm and dry. No generalized rash, no ecchymoses and no evidence of embolic lesions. HEAD: Atraumatic. Normocephalic. No temporal wasting, or tenderness. EYES: [place] conjunctiva. No petechia or hemorrhage. Pupils equal, round and reactive to light. Extraocular movements full and intact. No scleral icterus. No injection or drainage. EARS, NOSE AND THROAT: Nose without bleeding or purulent nasal discharge. No sinus tenderness. Mucous membranes pink and moist. He has a purplish lesion somewhat nodular on left lateral tongue. No oral thrush. NECK: Trachea midline. Supple and not tender, no meningeal signs CARDIOVASCULAR: Regular rate and rhythm. No murmurs, rubs or gallops heard RESPIRATORY: Clear to auscultation. Breath sounds equal bilaterally. No rales , wheezing or rhonchi ABDOMEN: Globular and protuberant, slightly distended, not tender, bowel sounds present and normoactive. No guarding. No rebound. EXTREMITIES: No clubbing, cyanosis, or edema.No joint effusion, has good ROM. No calf tenderness. Well perfused and warm. NEUROLOGICAL: Awake and alert. Cranial nerves grossly intact. Motor grossly within normal limits. PSYCHIATRIC: Normal affect, calm and cooperative. LINE: [place] in right upper chest with no evidence of infection Laboratory Laboratory Tests Test 05/01/17 13:30 05/01/17 14:40 05/01/17 16:18 White Blood Count 0.1 Red Blood Count 2.79 Hemoglobin 8.2 Hematocrit 23.7 Mean Corpuscular Volume 84.9 Mean Corpuscular Hemoglobin 29.4 Mean Corpuscular Hemoglobin Concent 34.6 Red Cell Distribution Width 18.2 Platelet Count 13 Mean Platelet Volume 13.8 CBC Comment AUTO DIFF Differential Total Cells Counted 10 Lymphocytes % 80 Monocytes % 10 Neutrophils # (Manual) 0.0 Differential Comment FINAL DIFF MANUAL Blastocytes 10 Platelet Estimate RARE Platelet Morphology Comment NORMAL Ovalocytes 1+ Haptoglobin 177 Blood Urea Nitrogen 18 Creatinine 1.24 Random Glucose 117 Total Protein 7.3 Albumin 3.6 Calcium Level 8.7 Alkaline Phosphatase 89 Aspartate Amino Transf (AST/SGOT) 13 Alanine Aminotransferase (ALT/SGPT) 20 Total Bilirubin 1.2 Sodium Level 136 Potassium Level 3.6 Chloride Level 104 Carbon Dioxide Level 21.1 Anion Gap 11 Estimat Glomerular Filtration Rate 57 Lactic Acid Level 3.1 1.2 Lactate Dehydrogenase 136 Troponin I 0.24 Urine Color LIGHT-YELLOW Urine Turbidity CLEAR Urine pH 5.0 Urine Specific [place] 1.008 Urine Protein NEG Urine Glucose (UA) NEG Urine Ketones NEG Urine Occult Blood MOD Urine Nitrite NEG Urine Bilirubin NEG Urine Urobilinogen LESS THAN 2.0 Urine Leukocyte Esterase NEG Urine RBC 10 Urine WBC 1 Urine Squamous Epithelial Cells <1 Urine Mucus FEW Microscopic Urinalysis Comment CATH-CULT NOT IND Date/Time Source Procedure Growth Status 05/01/17 13:40 Blood Peripheral Aerobic Blood Culture Pending Received 05/01/17 13:40 Blood Peripheral Anaerobic Blood Culture Pending Received Result Diagram: 05/01/17 1330 05/01/17 1330 Imaging RADIOLOGY STUDIES/FILMS REVIEWED Chest X-Ray 05/01/17 1317 Signed Impressions: Service Date/Time: Saturday, May 01, 2017 13:31 - CONCLUSION: Compensated cardiomegaly otherwise negative . Mejia Butler MD FACR Assessment and Plan Assessment and Plan IMPRESSION Neutropenic sepsis, patient receiving chemo for relapse AML - has cough, CXR ok - had SOB during transfusion - UA ok, no complaints - has had nausea and one episode of vomiting Lesion Lateral L tongue Relapse AML RECOMMENDATION Continue cefepime Continue voriconazole Add vancomycin Get sputum Gram stain and culture Repeat chest x-ray tomorrow Check Legionella and pneumococcal antigen Follow culture Monitor temps Will adjust antibiotic once cultures are available and pending on his clinical course I will follow along with you Thank you for this consultation Discussed Condition With Explained plan to the patient Judy Leal MD May 01, 2017 18:17
[2017-05-01] MEDS: traZODone HCL 50 MG TAB PO SCH (20:45)
[2017-05-01] MEDS: TAMSULOSIN HCL 0.4 MG CAP PO SCH (20:45)
[2017-05-01] MEDS: buPROPion HCL 150 MG SUSTAINED RELEASE TAB PO SCH (20:45)
[2017-05-01] MEDS: VORICONAZOLE IV SCH (20:45)
[2017-05-01] MEDS: SODIUM CHLOR 0.9% IV SCH (20:45)
--- NOTE | 2017-05-01 21:48 | MB ---
cc: DIOGENES BENJAMIN DATE OF CONSULTATION 05/01/17 REASON FOR CONSULTATION 1. 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 2. Fever, chills, possible sepsis, possible transfusion reaction. PATIENT PROFILE The patient is a 72-year-old male. He has two children from a previous marriage. 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 He was born in [place]. He has lived in [place] for the past 5 years. He is retired. 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 HISTORY OF PRESENT ILLNESS The patient is a 72-year-old male whose history dates back to October of 2015 when he was found to have mild cytopenias. These were progressive and on 02/22/2016 he had a bone marrow aspirate biopsy and was found to have refractory anemia with excess blasts. He was treated with Vidaza unsuccessfully. He was subsequently diagnosed with acute myelogenous leukemia in May of 2016. He was hospitalized at the [facility] and received induction chemotherapy with WOOD-C and Idarubicin in early July of 2016. He had a very difficult course and almost of complications. He entered remission but unfortunately relapsed recently and was given two options, one option was supportive care, the other was Decitabine. He underwent treatment with Decitabine and received either 9 or 10 days of Decitabine with the last dose on April 19. He has had severe cytopenias. He has been transfusion dependent. He has had severe thrombocytopenia with platelet counts less than 10,000. He has had a neutrophil count less than 300 for the past month and most recently zero. The patient arrived at the office today for a blood transfusion. On 03/29 he had a hemoglobin of 8.3, white count 0.6, platelets 18,000 and no neutrophils and 8% blasts. He was receiving his first unit of blood and developed shaking chills with rigors and respiratory distress. He was given Lasix, albuterol, oxygen and the blood was discontinued. was called. He also had two blood cultures drawn and was started on cefepime 2 grams IV in the office. He was taken to the emergency room. The emergency room contacted me and I asked them to begin cefepime, vancomycin, and Voriconazole. As an outpatient he was taking Levaquin and Diflucan. I am now seeing. He is presently feeling better. The respiratory distress has resolved. He had a transient elevation of the temperature to 102 rectally at 1:27 p.m. today. His temperature is now 99.3. He feels better, the shortness of breath has gone. He is tired and weak. PAST SURGICAL HISTORY 1. Cholecystectomy. 2. Operation of left elbow. 3. Removal of bone inner ear at [facility]. 4. Vasectomy. 5. Placement of a central venous port catheter. PAST MEDICAL HISTORY 1. Myelodysplasia evolving into acute myelogenous leukemia. 2. History of cellulitis and abscess right leg. 3. Depression, anxiety disorder. 4. History of diverticulitis. 5. History of elevated cholesterol. 6. Hypertension. 7. Renal stones. 8. Benign prostatic hypertrophy. MEDICATIONS Prior to admission: 1. Wellbutrin. 2. Losartan. 3. Omeprazole. 4. Flomax. 5. Trazodone. Current medicines in the hospital: 1. Cefepime 2000 milligrams IV q. 8 hours. 2. Zofran. 3. Trazodone. 4. Protonix. 5. Voriconazole. 6. Vancomycin. ALLERGIES No known allergies. FAMILY HISTORY Noncontributory. REVIEW OF SYSTEMS Notable for weakness, fatigue, low-grade fevers for 24-48 hours. Occasional achiness in the hips. Small amount of blood in the mouth. He has also had tenderness on the left lateral aspect of the tongue. PHYSICAL EXAMINATION GENERAL: Reveals a gentleman who presently appears well. When he was in the clinic he was in respiratory distress with rigors. VITAL SIGNS: Blood pressure 120/60, respiratory rate 18, pulse 80, temperature 99.3, O2 sat 97%. HEENT: Head is normocephalic. Sclera and conjunctivae are normal. Oropharynx has a red area over the left lateral tongue, over about a centimeter which is overall. LYMPH NODE SURVEY: There is no cervical, supraclavicular, axillary or inguinal adenopathy. HEART: Regular rhythm. LUNGS: Clear. ABDOMEN: Soft. No hepatosplenomegaly or masses. EXTREMITIES: Trace edema. MUSCULOSKELETAL: No bone pain. NEUROLOGIC: No weakness. Cognition normal, affect normal. SKIN: Unremarkable. ASSESSMENT 1. The patient has acute myelogenous leukemia. He has received Decitabine. He has a poor prognosis. He has severe pancytopenia and has no neutrophils. He presents with fever related either to a reaction to the blood or to sepsis or to both. RECOMMENDATIONS 1. He has been given 1 unit of packed cells. Will probably order additional blood tomorrow. 2. He is on appropriate antibiotics and infectious disease has been consulted and he has been seen by Dr. Judy Leal. 3. Regarding the leukemia there is no further immediate treatment. The Decitabine is administered every 4 weeks. It is not clear that his cytopenias will resolve. Will check CBC and platelet count tomorrow. MD ZHANNA Roberson/ANANTH /8:44 PM /9:02 PM MTDTanya
[2017-05-02] VITALS (14 sets, daily range): BP systolic 93–119; BP diastolic 50–65; PULSE 66–76; RESP 15–20; TEMP 97.8–99.4; O2SAT 95–99
[2017-05-02] MEDS: VANCOMYCIN INJ 1,600 MG in SODIUM CHLORID 0.9% 500 ML INJ 500 ML IV SCH ×2 (01:33→21:18)
[2017-05-02] MEDS: SODIUM CHLOR 0.9% IV SCH ×2 (06:02→17:33)
[2017-05-02] MEDS: VORICONAZOLE IV SCH ×2 (06:02→17:33)
[2017-05-02 06:59] LABS: MEAN CELL VOLUME 83.6 FL (80.0-100.0); MEAN CORPUSCULAR HEMOGLOBIN 29.3 PG (27.0-34.0); RED BLOOD COUNT 2.46 MIL/MM3 (4.50-5.90); RED CELL DISTRIBUTION WIDTH 17.5 % (11.6-17.2); WHITE BLOOD COUNT 0.3 TH/MM3 (4.0-11.0)
[2017-05-02 07:20] LABS: HEMO FLAGS AUTO DIFF
[2017-05-02 07:24] LABS: HEMATOCRIT 20.6 % (39.0-51.0); PLATELET COUNT 11 TH/MM3 (150-450)
[2017-05-02 07:25] LABS: INDIRECT BILIRUBIN 0.4 MG/DL (0.0-0.8); TOTAL BILIRUBIN ADULT 0.7 MG/DL (0.2-1.0)
--- NOTE | 2017-05-02 07:27 | RADRPT ---
EXAM DATE/TIME: 05/02/2017 06:24 [facility] COMPARISON: CHEST SINGLE AP, May 01, 2017, 13:31. INDICATIONS : Cough, short of breath MEDICAL HISTORY : Leukemia. Hypertension Gastroesophageal reflux disease. SURGICAL HISTORY : Cholecystectomy. infusaport ENCOUNTER: Subsequent ACUITY: 2 days PAIN SCORE: 0/10 LOCATION: Bilateral chest FINDINGS: The heart is minimally enlarged but stable. The pulmonary vascular pattern is normal. Minimal fibroti c scarring and/or atelectasis is noted within the left lung base. A right internal jugular Infuse-a-P ort has its tip in the superior vena cava. There is no pneumothorax. Degenerative changes are noted t hroughout the thoracic spine. CONCLUSION: 1. Stable minimal cardiomegaly. 2. Left basilar atelectasis and/or fibrotic scarring. 3. No acute focal pulmonary infiltrate or pulmonary vascular congestion. 4. Degenerative changes throughout the thoracic spine. Luis Whitehead MD on May 02, 2017 at 7:23 Board Certified Radiologist. This report was verified electronically.
[2017-05-02] MEDS: CEFEPIME INJ 2,000 MG in SODIUM CHLORIDE 0.9% INJ 100 ML IV SCH ×2 (07:51→16:07)
[2017-05-02] MEDS: PANTOPRAZOLE SOD 40 MG DELAYED RELEASE TAB PO SCH (07:55)
[2017-05-02 09:04] LABS: BANDS 4 % (0-6); WBC DIFF SAMPLE 25
[2017-05-02 09:05] LABS: OVALOCYTES 1+ (NORMAL); PLATELET ESTIMATE SMEAR RARE (NORMAL); PLATELET MORPHOLOGY NORMAL (NORMAL)
[2017-05-02 09:06] LABS: SCAN/DIFF FINAL DIFF MANUAL
[2017-05-02] MEDS ORDERED: diphenhydrAMINE HCL 25 MG CAP PO PRN (09:45)
[2017-05-02] MEDS ORDERED: SODIUM CHLOR 0.9% 250 ML INJ 250 ML IV ONE (09:45)
[2017-05-02] MEDS ORDERED: FUROSEMIDE 20 MG/2 ML VIAL IV PUSH ONE (09:45)
[2017-05-02] MEDS ORDERED: ACETAMINOPHEN 325 MG TAB PO PRN (09:45)
--- NOTE | 2017-05-02 10:34 | HHI.PR ---
Subjective Remarks Patient reports feeling very fatigued. No new bleeding episode but hgb trending down. Objective Vitals Vital Signs Date Time Temp Pulse Resp B/P (MAP) Pulse Ox O2 Delivery O2 Flow Rate FiO2 05/02/17 10:17 67 05/02/17 08:00 98.1 66 20 103/51 (68) 95 05/02/17 05:00 98.8 66 17 93/50 (64) 98 05/02/17 00:30 97.8 67 17 116/56 (76) 99 05/01/17 20:30 98.0 75 17 113/56 (75) 95 05/01/17 18:35 99.3 77 18 120/61 (80) 97 05/01/17 16:35 99.3 77 18 120/61 98 05/01/17 16:19 99.8 77 18 101/57 98 05/01/17 16:14 99.8 77 18 109/58 98 05/01/17 13:28 104 24 98 2.00 05/01/17 13:27 102.0 05/01/17 13:26 98 Nasal Cannula 2.00 05/01/17 13:13 105 26 138/66 (90) 95 I/O 05/01/17 05/01/17 05/01/17 05/02/17 05/02/17 05/02/17 07:00 15:00 23:00 07:00 15:00 23:00 Intake Total 740 ml 120 ml 1216 ml Output Total 400 ml 450 ml Balance 340 ml -330 ml 1216 ml Intake Oral 240 ml 120 ml IV Total 1216 ml Packed Cells 400 ml Blood Product IV Normal Saline Flush 100 ml Output Urine Total 400 ml 450 ml Result Diagram: 05/02/17 0620 05/01/17 1330 Imaging Last Impressions Chest X-Ray 05/02/17 0000 Signed Impressions: Service Date/Time: April 06:24 - CONCLUSION: 1. Stable minimal cardiomegaly. 2. Left basilar atelectasis and/or fibrotic scarring. 3. No acute focal pulmonary infiltrate or pulmonary vascular congestion. 4. Degenerative changes throughout the thoracic spine. Luis Whiethead MD Objective Remarks GENERAL: This is a well-nourished, well-developed patient, in no apparent distress. ENT: Left lateral side of the tongue there is an erythematous lesion. Not bleeding currently. Very poor dentition with tooth decay CARDIOVASCULAR: Normal rate and regular rhythm without murmurs, gallops, or rubs. RESPIRATORY: Good respiratory efforts. Breath sounds equal and clear to auscultation bilaterally. GASTROINTESTINAL: Abdomen soft, non-tender, non-distended. Normal active bowel sounds MUSCULOSKELETAL: Extremities without cyanosis, or edema. NEURO: Alert & Oriented x4 to person, place, time, situation. Moves all ext x4 PSYCH: Appropriate mood and affect. A/P Problem List: (1) Neutropenic fever ICD Code: D70.9 - Neutropenia, unspecified; R50.81 - Fever presenting with conditions classified elsewhere Status: Acute Assessment and Plan 72-year-old male with: Neutropenic sepsis in the chemotherapy patient: Fever on presentation. Patient has a lesion on his tongue and have very poor dentition. No other focus of infection identified yet - Appreciate infectious disease following. Continue vancomycin, cefepime, and voriconazole. - Follow blood cultures. Urine Legionella and strep negative. AML undergone chemotherapy, currently pancytopenic with bleeding episodes: - H&H trending down. Patient is to be transfused today again per hematology. Follow-up CBC - We'll request that the patient be premedicated prior to blood transfusion as he appeared to have had a reaction to transfusion previously Hypertension; BP stable- hold BP meds for now and continue to monitor. Elevated troponin- with no chest pain and with normal EKG- Cardiac enzymes essentially flat/trending down DVT prophylaxis with SCD's- no chemical prophylaxis due to anemia/ thrombocytopenia Discharge Planning Continue inpatient treatment. Should be able to return home when ready medically. Chepe Lemos MD May 02, 2017 10:34
--- NOTE | 2017-05-02 13:21 | HHI.IDPN ---
Subjective Subjective Remarks Patient is a 72-year-old male presented to the hospital complaining of chills and shortness of breath. He was apparently in the oncology's office and receive a transfusion when he developed the symptoms of chills and shortness of breath. Patient states that he has never had shortness of breath before. He denies any chest pain. 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 He has been on prophylactic fluconazole and Levaquin. Patient apparently has not been feeling well and has had some cough. He has had some nausea for several weeks, and had one episode of vomiting enroute to the ED. any nausea or vomiting. He has had this sore on the left side of his time and his oncologist gave him some prescription to apply topically. He denies having bitten his tongue. He denies any swallowing difficulty. Denies any diarrhea or any urinary complaints. He has not had any back pain. His temperature in the ED was 102.5. On presentation he was neutropenic with a WBC of 0.1. Infectious disease consultation has been requested to evaluate the patient. Notes reviewed Temps better SOB better C/O sneezing and tearing both eyes Min cough Repeat CXR ok [place] and pneumo negative Antibiotics Current Medications Cefepime Voriconazole Vancomycin Medications (Trade) Dose Ordered Sig/Gene Route Start Time Stop Time Status Last Admin (Tylenol) 650 mg Q4H PRN PO 05/01/17 14:45 (Zofran Inj) 4 mg Q8HR PRN IV PUSH 05/01/17 14:45 Cefepime HCl 2000 mg/Sodium Chloride 100 ml @ 200 mls/hr Q8H IV 05/01/17 16:00 05/02/17 07:51 (Wellbutrin Sr) 150 mg HS PO 05/01/17 21:00 05/01/17 20:45 (Flomax) 0.4 mg HS PO 05/01/17 21:00 05/01/17 20:45 (Desyrel) 50 mg HS PO 05/01/17 21:00 05/01/17 20:45 (Protonix) 40 mg DAILY PO 05/02/17 09:00 05/02/17 07:55 Voriconazole 400 mg/Sodium Chloride 250 ml @ 125 mls/hr Q12H IV 05/02/17 18:00 Pharmacy Profile Note 0 ml @ 0 mls/hr UNSCH OTHER 05/01/17 18:15 Vancomycin HCl 1600 mg/Sodium Chloride 516 ml @ 250 mls/hr Q18H IV 05/02/17 02:00 05/02/17 01:33 Miscellaneous Information SPECIFIC LAB TO BE DRAWN:VANCO TROUGH DATE TO BE DR... 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 Vital Signs Date Time Temp Pulse Resp B/P (MAP) Pulse Ox O2 Delivery O2 Flow Rate FiO2 05/02/17 12:52 76 05/02/17 12:00 97.9 74 20 119/56 (77) 96 05/02/17 10:17 67 05/02/17 08:00 98.1 66 20 103/51 (68) 95 05/02/17 05:00 98.8 66 17 93/50 (64) 98 05/02/17 00:30 97.8 67 17 116/56 (76) 99 05/01/17 20:30 98.0 75 17 113/56 (75) 95 05/01/17 18:35 99.3 77 18 120/61 (80) 97 05/01/17 16:35 99.3 77 18 120/61 98 05/01/17 16:19 99.8 77 18 101/57 98 05/01/17 16:14 99.8 77 18 109/58 98 05/01/17 13:28 104 24 98 2.00 05/01/17 13:27 102.0 05/01/17 13:26 98 Nasal Cannula 2.00 05/02/17 05/02/17 05/03/17 15:00 23:00 07:00 Intake Total 1216 ml Balance 1216 ml IV Total 1216 ml . Laboratory Tests Test 05/01/17 13:30 05/02/17 06:20 White Blood Count 0.1 TH/MM3 0.3 TH/MM3 Red Blood Count 2.79 MIL/MM3 2.46 MIL/MM3 Hemoglobin 8.2 GM/DL 7.2 GM/DL Hematocrit 23.7 % 20.6 % Mean Corpuscular Volume 84.9 FL 83.6 FL Mean Corpuscular Hemoglobin 29.4 PG 29.3 PG Mean Corpuscular Hemoglobin Concent 34.6 % 35.0 % Red Cell Distribution Width 18.2 % 17.5 % Platelet Count 13 TH/MM3 11 TH/MM3 Mean Platelet Volume 13.8 FL 13.0 FL CBC Comment AUTO DIFF AUTO DIFF Differential Total Cells Counted 10 25 Lymphocytes % 80 % 96 % Monocytes % 10 % Neutrophils # (Manual) 0.0 TH/MM3 0.0 TH/MM3 Differential Comment FINAL DIFF MANUAL FINAL DIFF MANUAL Blastocytes 10 % Platelet Estimate RARE RARE Platelet Morphology Comment NORMAL NORMAL Ovalocytes 1+ 1+ Haptoglobin 177 MG/DL Band Neutrophils % 4 % Laboratory Tests Test 05/01/17 13:30 05/01/17 16:18 05/02/17 06:20 Blood Urea Nitrogen 18 MG/DL Creatinine 1.24 MG/DL Random Glucose 117 MG/DL Total Protein 7.3 GM/DL 5.9 GM/DL Albumin 3.6 GM/DL 2.8 GM/DL Calcium Level 8.7 MG/DL Alkaline Phosphatase 89 U/L 70 U/L Aspartate Amino Transf (AST/SGOT) 13 U/L 15 U/L Alanine Aminotransferase (ALT/SGPT) 20 U/L 17 U/L Total Bilirubin 1.2 MG/DL 0.7 MG/DL Sodium Level 136 MEQ/L Potassium Level 3.6 MEQ/L Chloride Level 104 MEQ/L Carbon Dioxide Level 21.1 MEQ/L Anion Gap 11 MEQ/L Estimat Glomerular Filtration Rate 57 ML/MIN Lactic Acid Level 3.1 mmol/L 1.2 mmol/L 0.7 mmol/L Lactate Dehydrogenase 136 U/L Troponin I 0.24 NG/ML 0.21 NG/ML Direct Bilirubin 0.3 MG/DL Indirect Bilirubin 0.4 MG/DL Microbiology Date/Time Source Procedure Growth Status 05/01/17 13:40 Blood Peripheral Aerobic Blood Culture - Preliminary NO GROWTH IN 1 DAY Resulted 05/01/17 13:40 Blood Peripheral Anaerobic Blood Culture - Preliminary NO GROWTH IN 1 DAY Resulted 05/01/17 13:30 Blood Peripheral Aerobic Blood Culture - Preliminary NO GROWTH IN 1 DAY Resulted 05/01/17 13:30 Blood Peripheral Anaerobic Blood Culture - Preliminary NO GROWTH IN 1 DAY Resulted 05/01/17 14:40 Urine Clean Catch Legionella Antigen - Final PRESUMPTIVE NEGATIVE FOR LEGIONELLA P... Complete 05/01/17 14:40 Urine Clean Catch Streptococcus pneumoniae Antigen (M - Final PRESUMPTIVE NEGATIVE FOR STREPTOCOCCU... Complete Imaging Last 72 hours Impressions Chest X-Ray 05/02/17 0000 Signed Impressions: Service Date/Time: April 06:24 - CONCLUSION: 1. Stable minimal cardiomegaly. 2. Left basilar atelectasis and/or fibrotic scarring. 3. No acute focal pulmonary infiltrate or pulmonary vascular congestion. 4. Degenerative changes throughout the thoracic spine. Luis Whitehead MD Chest X-Ray 05/01/17 1317 Signed Impressions: Service Date/Time: Monday, May 01, 2017 13:31 - CONCLUSION: Compensated cardiomegaly otherwise negative . Mejia Butler MD FACR Physical Exam GENERAL: awake and alert, not in respiratory distress. SKIN: Warm and dry. No generalized rash, no ecchymoses and no evidence of embolic lesions. HEAD: Atraumatic. Normocephalic. No temporal wasting, or tenderness. EYES: [place] conjunctiva. No petechia or hemorrhage. Pupils equal, round and reactive to light. Extraocular movements full and intact. No scleral icterus. No injection or drainage. EARS, NOSE AND THROAT: Nose without bleeding or purulent nasal discharge. No sinus tenderness. Mucous membranes pink and moist. He has a purplish lesion somewhat nodular on left lateral tongue. No oral thrush. NECK: Trachea midline. Supple and not tender, no meningeal signs CARDIOVASCULAR: Regular rate and rhythm. No murmurs, rubs or gallops heard RESPIRATORY: Clear to auscultation. Breath sounds equal bilaterally. No rales , wheezing or rhonchi ABDOMEN: Globular and protuberant, softer and less distended, not tender, bowel sounds present and normoactive. No guarding. No rebound. EXTREMITIES: No clubbing, cyanosis, or edema.No joint effusion, has good ROM. No calf tenderness. Well perfused and warm. NEUROLOGICAL: Awake and alert. Cranial nerves grossly intact. Motor grossly within normal limits. PSYCHIATRIC: Normal affect, calm and cooperative. LINE: Port in right upper chest with no evidence of infection Assessment & Plan Remarks IMPRESSION Neutropenic sepsis, patient receiving chemo for relapse AML - has cough, CXR ok - had SOB during transfusion - UA ok, no complaints - has had nausea and one episode of vomiting SOB, etiology? CXR clear, resolved, ?due to fever, ?transfusion reaction Lesion Lateral L tongue Relapse AML RECOMMENDATION Continue cefepime Continue voriconazole Continue vancomycin Follow C/S Monitor temps Monitor progress Judy Leal MD May 02, 2017 13:21
--- NOTE | 2017-05-02 14:35 | PD.ONC.PN ---
Subjective Subjective Remarks Afebrile No obvious bleeding Reports he "feels much better" Asking when blood transfusion will happen No other acute complaints Objective Data Date Time Temp Pulse Resp B/P (MAP) Pulse Ox O2 Delivery O2 Flow Rate FiO2 05/02/17 12:52 76 05/02/17 12:00 97.9 74 20 119/56 (77) 96 05/02/17 10:17 67 05/02/17 08:00 98.1 66 20 103/51 (68) 95 05/02/17 05:00 98.8 66 17 93/50 (64) 98 05/02/17 00:30 97.8 67 17 116/56 (76) 99 05/01/17 20:30 98.0 75 17 113/56 (75) 95 05/01/17 18:35 99.3 77 18 120/61 (80) 97 05/01/17 16:35 99.3 77 18 120/61 98 05/01/17 16:19 99.8 77 18 101/57 98 05/01/17 16:14 99.8 77 18 109/58 98 05/02/17 05/02/17 05/02/17 07:00 15:00 23:00 Intake Total 120 ml 1216 ml Output Total 450 ml Balance -330 ml 1216 ml Result Diagram: 05/02/17 0620 05/01/17 1330 Laboratory Results Laboratory Tests Test 05/01/17 14:40 05/01/17 16:18 05/02/17 06:20 Urine Color LIGHT-YELLOW Urine Turbidity CLEAR Urine pH 5.0 Urine Specific [place] 1.008 Urine Protein NEG mg/dL Urine Glucose (UA) NEG mg/dL Urine Ketones NEG mg/dL Urine Occult Blood MOD Urine Nitrite NEG Urine Bilirubin NEG Urine Urobilinogen LESS THAN 2.0 MG/DL Urine Leukocyte Esterase NEG Urine RBC 10 /hpf Urine WBC 1 /hpf Urine Squamous Epithelial Cells <1 /hpf Urine Mucus FEW /lpf Microscopic Urinalysis Comment CATH-CULT NOT IND Lactic Acid Level 1.2 mmol/L 0.7 mmol/L White Blood Count 0.3 TH/MM3 Red Blood Count 2.46 MIL/MM3 Hemoglobin 7.2 GM/DL Hematocrit 20.6 % Mean Corpuscular Volume 83.6 FL Mean Corpuscular Hemoglobin 29.3 PG Mean Corpuscular Hemoglobin Concent 35.0 % Red Cell Distribution Width 17.5 % Platelet Count 11 TH/MM3 Mean Platelet Volume 13.0 FL CBC Comment AUTO DIFF Differential Total Cells Counted 25 Band Neutrophils % 4 % Lymphocytes % 96 % Neutrophils # (Manual) 0.0 TH/MM3 Differential Comment FINAL DIFF MANUAL Platelet Estimate RARE Platelet Morphology Comment NORMAL Ovalocytes 1+ Total Bilirubin 0.7 MG/DL Direct Bilirubin 0.3 MG/DL Indirect Bilirubin 0.4 MG/DL Aspartate Amino Transf (AST/SGOT) 15 U/L Alanine Aminotransferase (ALT/SGPT) 17 U/L Alkaline Phosphatase 70 U/L Troponin I 0.21 NG/ML Total Protein 5.9 GM/DL Albumin 2.8 GM/DL Culture Results Microbiology Date/Time Source Procedure Growth Status 05/01/17 13:40 Blood Peripheral Aerobic Blood Culture - Preliminary NO GROWTH IN 1 DAY Resulted 05/01/17 13:40 Blood Peripheral Anaerobic Blood Culture - Preliminary NO GROWTH IN 1 DAY Resulted 05/01/17 13:30 Blood Peripheral Aerobic Blood Culture - Preliminary NO GROWTH IN 1 DAY Resulted 05/01/17 13:30 Blood Peripheral Anaerobic Blood Culture - Preliminary NO GROWTH IN 1 DAY Resulted 05/01/17 14:40 Urine Clean Catch Legionella Antigen - Final PRESUMPTIVE NEGATIVE FOR LEGIONELLA P... Complete 05/01/17 14:40 Urine Clean Catch Streptococcus pneumoniae Antigen (M - Final PRESUMPTIVE NEGATIVE FOR STREPTOCOCCU... Complete Imaging Studies Last 24 hours Impressions Chest X-Ray 05/02/17 0000 Signed Impressions: Service Date/Time: , May 02, 2017 06:24 - CONCLUSION: 1. Stable minimal cardiomegaly. 2. Left basilar atelectasis and/or fibrotic scarring. 3. No acute focal pulmonary infiltrate or pulmonary vascular congestion. 4. Degenerative changes throughout the thoracic spine. Luis Whitehead MD Administered Medications Medications (Trade) Dose Ordered Sig/Gene Route PRN Reason Start Time Stop Time Status Last Admin Dose Admin Cefepime HCl 2000 mg/Sodium Chloride 100 ml @ 200 mls/hr Q8H IV 05/01/17 16:00 05/02/17 07:51 Bupropion HCl (Wellbutrin Sr) 150 mg HS PO 05/01/17 21:00 05/01/17 20:45 Tamsulosin HCl (Flomax) 0.4 mg HS PO 05/01/17 21:00 05/01/17 20:45 Trazodone HCl (Desyrel) 50 mg HS PO 05/01/17 21:00 05/01/17 20:45 Pantoprazole Sodium (Protonix) 40 mg DAILY PO 05/02/17 09:00 05/02/17 07:55 Vancomycin HCl 1600 mg/Sodium Chloride 516 ml @ 250 mls/hr Q18H IV 05/02/17 02:00 05/02/17 01:33 Objective Remarks GENERAL: Older male, resting in bed with female visitor at bedside. He appears comfortable and speaks with easy conversation. SKIN: Warm and dry. No oozing from lines. HEAD: Normocephalic. EYES: No injection or drainage. NECK: Supple, trachea midline. CARDIOVASCULAR: Regular rate and rhythm without murmurs. RESPIRATORY: Clear anteriorly. Breathing unlabored at rest. GASTROINTESTINAL: Abdomen protuberant but soft. Non tender. +BS. EXTREMITIES: SCD's to BLE. MUSCULOSKELETAL: Adequate muscle tone. NEUROLOGICAL: No obvious focal deficit. Awake, alert, and oriented x3. Assessment/Plan Assessment 72 y/o male with relapsed AML recently Dacogen- admitted after he had a transfusion reaction with packed red blood cells in the outpatient clinic Plan 1. Mr Suh is a very pleasant but unfortunate man with relapsed AML. Most recently he has been treated with Dacogen in the outpatient center but this has been on hold for persistent neutropenia. 2. Today reports feeling overall better, however his Hgb was noted to be 7.2 this am and 2 units have been ordered. 3. Platelets will be ordered for level less than 10k or for any bleeding which he currently does not have. 4. He has remained afebrile since his initial fever of 102 on admission. Blood cultures are negative and ID is following. He is on coverage with cefepime, voriconazole and vancomycin. 5. CBC in am. Attending Statement The exam, history, and the medical decision-making described in the above note were completed with the assistance of the mid-level provider. I reviewed and agree with the findings presented. I attest that I had a [id number] encounter with the patient on the same day, and personally performed and documented my assessment and findings in the medical record. feeling better and cultures negative. prognosis poor and I do not know if counts will recover. for blood and platelets today. have order viscous Xylocaine for tongue. 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 Jewels Mina May 02, 2017 14:35 Jarrell Collins MD May 02, 2017 20:19
--- NOTE | 2017-05-02 16:01 | EKG ---
Date Performed: 05/01/2017 Time Performed: 13:49:12 PTAGE: 72 years EKG: Sinus rhythm NORMAL ECG Since PREVIOUS TRACING , no significant change noted PREVIOUS TRACIN09/03/2016 20.57 DOCTOR: Walt Perera Interpretating Date/Time 05/02/2017 15:59:23
[2017-05-02] MEDS ORDERED: LIDOCAINE VISCOUS 2% SOLN 15 ML UDC PO PRN (20:15)
[2017-05-02] MEDS: traZODone HCL 50 MG TAB PO SCH (20:21)
[2017-05-02] MEDS: buPROPion HCL 150 MG SUSTAINED RELEASE TAB PO SCH (20:21)
[2017-05-02] MEDS: TAMSULOSIN HCL 0.4 MG CAP PO SCH (20:21)
[2017-05-03] VITALS (8 sets, daily range): BP systolic 118–151; BP diastolic 58–78; PULSE 69–78; RESP 14–16; TEMP 98.2–99.2; O2SAT 95–96
[2017-05-03] MEDS: CEFEPIME INJ 2,000 MG in SODIUM CHLORIDE 0.9% INJ 100 ML IV SCH ×3 (00:03→16:58)
[2017-05-03] MEDS: SODIUM CHLOR 0.9% IV SCH ×2 (05:01→18:06)
[2017-05-03] MEDS: VORICONAZOLE IV SCH ×2 (05:01→18:06)
[2017-05-03 05:19] LABS: HEMATOCRIT 26.5 % (39.0-51.0); MEAN CELL VOLUME 86.1 FL (80.0-100.0); MEAN CORPUSCULAR HEMOGLOBIN 29.5 PG (27.0-34.0); MEAN CORPUSCULAR HGB CONC 34.3 % (32.0-36.0); RED BLOOD COUNT 3.07 MIL/MM3 (4.50-5.90); RED CELL DISTRIBUTION WIDTH 17.1 % (11.6-17.2)
[2017-05-03 05:26] LABS: HEMO FLAGS AUTO DIFF
[2017-05-03 05:31] LABS: PLATELET COUNT 9 TH/MM3 (150-450)
[2017-05-03 05:32] LABS: WHITE BLOOD COUNT 0.5 TH/MM3 (4.0-11.0)
[2017-05-03 06:10] LABS: BANDS 3 % (0-6); SCAN/DIFF FINAL DIFF MANUAL; WBC DIFF SAMPLE 100
[2017-05-03] MEDS ORDERED: diphenhydrAMINE HCL 25 MG CAP PO PRN (09:30)
[2017-05-03] MEDS ORDERED: ACETAMINOPHEN 325 MG TAB PO PRN (09:30)
[2017-05-03] MEDS ORDERED: SODIUM CHLOR 0.9% 250 ML INJ 250 ML IV ONE (09:30)
[2017-05-03] MEDS: PANTOPRAZOLE SOD 40 MG DELAYED RELEASE TAB PO SCH (09:38)
--- NOTE | 2017-05-03 09:42 | PD.ONC.PN ---
Subjective Subjective Remarks Afebrile Feeling much better after getting blood yesterday Discussed with pt that we would be starting Neupogen today Objective Data Date Time Temp Pulse Resp B/P (MAP) Pulse Ox O2 Delivery O2 Flow Rate FiO2 05/03/17 04:00 98.4 70 16 126/64 (84) 95 05/03/17 00:02 98.5 71 16 118/58 (78) 95 05/02/17 21:16 98.4 70 16 115/65 98 05/02/17 21:05 73 05/02/17 20:16 99.4 70 16 113/60 96 05/02/17 18:41 98.4 73 20 111/55 97 05/02/17 17:18 75 05/02/17 16:15 98.2 69 15 111/54 97 05/02/17 16:00 97.9 72 20 102/55 (71) 98 05/02/17 15:55 98.9 72 16 116/57 98 05/02/17 12:52 76 05/02/17 12:00 97.9 74 20 119/56 (77) 96 05/02/17 10:17 67 05/03/17 05/03/17 05/03/17 07:00 15:00 23:00 Intake Total 616 ml Output Total 375 ml Balance 241 ml Result Diagram: 05/03/17 0500 05/03/17 0500 Laboratory Results Laboratory Tests Test 05/03/17 05:00 White Blood Count 0.5 TH/MM3 Red Blood Count 3.07 MIL/MM3 Hemoglobin 9.1 GM/DL Hematocrit 26.5 % Mean Corpuscular Volume 86.1 FL Mean Corpuscular Hemoglobin 29.5 PG Mean Corpuscular Hemoglobin Concent 34.3 % Red Cell Distribution Width 17.1 % Platelet Count 9 TH/MM3 Mean Platelet Volume 13.7 FL CBC Comment AUTO DIFF Differential Total Cells Counted 100 Band Neutrophils % 3 % Lymphocytes % 96 % Monocytes % 1 % Neutrophils # (Manual) 0.0 TH/MM3 Differential Comment FINAL DIFF MANUAL Creatinine 0.94 MG/DL Estimat Glomerular Filtration Rate 78 ML/MIN Culture Results Microbiology Date/Time Source Procedure Growth Status 05/01/17 13:40 Blood Peripheral Aerobic Blood Culture - Preliminary NO GROWTH IN 1 DAY Resulted 05/01/17 13:40 Blood Peripheral Anaerobic Blood Culture - Preliminary NO GROWTH IN 1 DAY Resulted 05/01/17 13:30 Blood Peripheral Aerobic Blood Culture - Preliminary NO GROWTH IN 1 DAY Resulted 05/01/17 13:30 Blood Peripheral Anaerobic Blood Culture - Preliminary NO GROWTH IN 1 DAY Resulted 05/01/17 14:40 Urine Clean Catch Legionella Antigen - Final PRESUMPTIVE NEGATIVE FOR LEGIONELLA P... Complete 05/01/17 14:40 Urine Clean Catch Streptococcus pneumoniae Antigen (M - Final PRESUMPTIVE NEGATIVE FOR STREPTOCOCCU... Complete Administered Medications Medications (Trade) Dose Ordered Sig/Gene Route PRN Reason Start Time Stop Time Status Last Admin Dose Admin Cefepime HCl 2000 mg/Sodium Chloride 100 ml @ 200 mls/hr Q8H IV 05/01/17 16:00 05/03/17 00:03 Bupropion HCl (Wellbutrin Sr) 150 mg HS PO 05/01/17 21:00 05/02/17 20:21 Tamsulosin HCl (Flomax) 0.4 mg HS PO 05/01/17 21:00 05/02/17 20:21 Trazodone HCl (Desyrel) 50 mg HS PO 05/01/17 21:00 05/02/17 20:21 Pantoprazole Sodium (Protonix) 40 mg DAILY PO 05/02/17 09:00 05/02/17 07:55 Voriconazole 400 mg/Sodium Chloride 250 ml @ 125 mls/hr Q12H IV 05/02/17 18:00 05/03/17 05:01 Vancomycin HCl 1600 mg/Sodium Chloride 516 ml @ 250 mls/hr Q18H IV 05/02/17 02:00 05/02/17 21:18 Diphenhydramine HCl (Benadryl) 25 mg Q4H PRN PO SEE LABEL COMMENTS 05/02/17 09:45 05/02/17 15:05 Lidocaine HCl (Xylocaine 2% Viscous) 10 ml Q4H PRN PO ORAL PAIN SCALE 1 TO 10 05/02/17 20:15 05/02/17 21:18 Objective Remarks GENERAL: Older male, resting in bed in no acute distress. SKIN: Warm and dry. No oozing from lines. HEAD: Normocephalic. EYES: No injection or drainage. NECK: Supple, trachea midline. CARDIOVASCULAR: Regular rate and rhythm without murmurs. RESPIRATORY: Clear anteriorly. Breathing unlabored at rest. GASTROINTESTINAL: Abdomen protuberant but soft. Non tender. +BS. EXTREMITIES: SCD's to BLE. MUSCULOSKELETAL: Adequate muscle tone. NEUROLOGICAL: No obvious focal deficit. Awake, alert, and oriented x3. Assessment/Plan Assessment 72 y/o male with relapsed AML recently Dacogen- admitted after he had a transfusion reaction with packed red blood cells in the outpatient clinic Plan 1. We discussed the patient will be starting on Neupogen today. Normally this is not standard in a patient with AML; however he has had minimal neutrophils for weeks. While his prognosis is already poor, the zero neutrophil level will only hasten dying. 2. We'll give 1 unit platelets today for platelet level of 9000. The patient clinically has no oozing or obvious bleeding. 3. We discussed CODE STATUS and the patient reports that he does not wish to have CPR or any other life-saving measures. Will make him DNR. 4. Blood cultures remain negative thus far. Attending Statement The exam, history, and the medical decision-making described in the above note were completed with the assistance of the mid-level provider. I reviewed and agree with the findings presented. I attest that I had a [id number] encounter with the patient on the same day, and personally performed and documented my assessment and findings in the medical record. patient feels better and if cultures negative and afebrile for several days may send home but not at this point. I am hopeful that Neupogen may increase neurophil count. Unfortunately he has few options and the outcome is not likely to be favorable. In the meantime will continue antibiotics, blood and platelets and begin Neupogen. Jewels Mina May 03, 2017 09:42 Jarrell Collins MD May 03, 2017 18:53
--- NOTE | 2017-05-03 13:06 | HHI.PR ---
Subjective Remarks Patient reports he is feeling better today. No issues with bleeding. Patient seen and discussed with Dr. Collins and nurse practitioner Jewels. Objective Vitals Vital Signs Date Time Temp Pulse Resp B/P (MAP) Pulse Ox O2 Delivery O2 Flow Rate FiO2 05/03/17 09:47 99.2 78 14 132/67 (88) 95 05/03/17 08:00 69 05/03/17 04:00 98.4 70 16 126/64 (84) 95 05/03/17 00:02 98.5 71 16 118/58 (78) 95 05/02/17 21:16 98.4 70 16 115/65 98 05/02/17 21:05 73 05/02/17 20:16 99.4 70 16 113/60 96 05/02/17 18:41 98.4 73 20 111/55 97 05/02/17 17:18 75 05/02/17 16:15 98.2 69 15 111/54 97 05/02/17 16:00 97.9 72 20 102/55 (71) 98 05/02/17 15:55 98.9 72 16 116/57 98 I/O 05/02/17 05/02/17 05/02/17 05/03/17 05/03/17 05/03/17 07:00 15:00 23:00 07:00 15:00 23:00 Intake Total 120 ml 1216 ml 1218 ml 616 ml Output Total 450 ml 450 ml 700 ml 375 ml Balance -330 ml 766 ml 518 ml 241 ml Intake Oral 120 ml IV Total 1216 ml 268 ml 616 ml Packed Cells 800 ml Blood Product IV Normal Saline Flush 150 ml Output Urine Total 450 ml 450 ml 700 ml 375 ml Result Diagram: 05/03/17 0500 05/03/17 0500 Objective Remarks GENERAL: This is a well-nourished, well-developed patient, in no apparent distress. ENT: Left lateral side of the tongue there is an erythematous lesion. Not bleeding currently. Very poor dentition with tooth decay CARDIOVASCULAR: Normal rate and regular rhythm without murmurs, gallops, or rubs. RESPIRATORY: Good respiratory efforts. Breath sounds equal and clear to auscultation bilaterally. GASTROINTESTINAL: Abdomen soft, non-tender, non-distended. Normal active bowel sounds MUSCULOSKELETAL: Extremities without cyanosis, or edema. NEURO: Alert & Oriented x4 to person, place, time, situation. Moves all ext x4 PSYCH: Appropriate mood and affect. A/P Problem List: (1) Neutropenic fever ICD Code: D70.9 - Neutropenia, unspecified; R50.81 - Fever presenting with conditions classified elsewhere Status: Acute Assessment and Plan 72-year-old male with: Neutropenic sepsis in the chemotherapy patient: Fever on presentation. Patient has a lesion on his tongue and have very poor dentition. No other focus of infection identified yet.? If fever was secondary to transfusion reaction. - Appreciate infectious disease following. Continue vancomycin, cefepime, and voriconazole. - Follow blood cultures. Urine Legionella and strep negative. AML undergone chemotherapy, currently pancytopenic with bleeding episodes: -Status post PRBC transfusion. Patient is to be transfused platelets today per hematology. Follow-up CBC - Long discussion with oncologist Dr. Collins about the patient. The patient agreed to try Neupogen in order to help with neutropenia and anemia. He does understand the risk of stimulating blast cells. - Follow-up CBC Hypertension; BP stable- hold BP meds for now and continue to monitor. Elevated troponin- with no chest pain and with normal EKG- Cardiac enzymes essentially flat/trending down DVT prophylaxis with SCD's- no chemical prophylaxis due to anemia/ thrombocytopenia Discharge Planning Continue inpatient treatment. Patient will be year for 3-4 days to monitor his progress and hopefully he may be able to return home Chepe Lemos MD May 03, 2017 13:06
[2017-05-03] MEDS: FILGRASTIM 300 MCG/ML VIAL SQ SCH (13:26)
[2017-05-03] MEDS ORDERED: PHARMACY ORDERED LAB ONE (13:45)
[2017-05-03] MEDS: VANCOMYCIN INJ 1,600 MG in SODIUM CHLORID 0.9% 500 ML INJ 500 ML IV SCH (15:00)
--- NOTE | 2017-05-03 15:55 | HHI.IDPN ---
Subjective Subjective Remarks Patient is a 72-year-old male presented to the hospital complaining of chills and shortness of breath. He was apparently in the oncology's office and receive a transfusion when he developed the symptoms of chills and shortness of breath. Patient states that he has never had shortness of breath before. He denies any chest pain. 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 He has been on prophylactic fluconazole and Levaquin. Patient apparently has not been feeling well and has had some cough. He has had some nausea for several weeks, and had one episode of vomiting enroute to the ED. any nausea or vomiting. He has had this sore on the left side of his time and his oncologist gave him some prescription to apply topically. He denies having bitten his tongue. He denies any swallowing difficulty. Denies any diarrhea or any urinary complaints. He has not had any back pain. His temperature in the ED was 102.5. On presentation he was neutropenic with a WBC of 0.1. Infectious disease consultation has been requested to evaluate the patient. Notes reviewed Temps better Feeling better WBC up to 0.5, platelets very low No bleeding C/S negative Min cough Repeat CXR ok [place] and pneumo negative Antibiotics Current Medications Cefepime Voriconazole Vancomycin Medications (Trade) Dose Ordered Sig/Gene Route Start Time Stop Time Status Last Admin (Tylenol) 650 mg Q4H PRN PO 05/01/17 14:45 (Zofran Inj) 4 mg Q8HR PRN IV PUSH 05/01/17 14:45 Cefepime HCl 2000 mg/Sodium Chloride 100 ml @ 200 mls/hr Q8H IV 05/01/17 16:00 05/03/17 09:38 (Wellbutrin Sr) 150 mg HS PO 05/01/17 21:00 05/02/17 20:21 (Flomax) 0.4 mg HS PO 05/01/17 21:00 05/02/17 20:21 (Desyrel) 50 mg HS PO 05/01/17 21:00 05/02/17 20:21 (Protonix) 40 mg DAILY PO 05/02/17 09:00 05/03/17 09:38 Voriconazole 400 mg/Sodium Chloride 250 ml @ 125 mls/hr Q12H IV 05/02/17 18:00 05/03/17 05:01 Pharmacy Profile Note 0 ml @ 0 mls/hr UNSCH OTHER 05/01/17 18:15 (Tylenol) 650 mg Q4H PRN PO 05/02/17 09:45 (Benadryl) 25 mg Q4H PRN PO 05/02/17 09:45 05/02/17 15:05 (Xylocaine 2% Viscous) 10 ml Q4H PRN PO 05/02/17 20:15 05/02/17 21:18 Sodium Chloride 250 ml @ 15 mls/hr ONCE ONCE IV 05/03/17 09:30 05/04/17 02:09 05/03/17 13:26 (Tylenol) 650 mg Q4H PRN PO 05/03/17 09:30 05/03/17 13:24 (Benadryl) 25 mg Q4H PRN PO 05/03/17 09:30 05/03/17 13:24 (Neupogen Inj) 300 mcg DAILY@14 SQ 05/03/17 14:00 05/03/17 13:26 Vancomycin HCl 1250 mg/Sodium Chloride 262.5 ml @ 250 mls/hr Q12H IV 05/03/17 16:00 Miscellaneous Information SPECIFIC LAB TO BE ... 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 Vital Signs Date Time Temp Pulse Resp B/P (MAP) Pulse Ox O2 Delivery O2 Flow Rate FiO2 05/03/17 14:44 98.8 75 14 146/67 95 05/03/17 09:47 99.2 78 14 132/67 (88) 95 05/03/17 08:00 69 05/03/17 04:00 98.4 70 16 126/64 (84) 95 05/03/17 00:02 98.5 71 16 118/58 (78) 95 05/02/17 21:16 98.4 70 16 115/65 98 05/02/17 21:05 73 05/02/17 20:16 99.4 70 16 113/60 96 05/02/17 18:41 98.4 73 20 111/55 97 05/02/17 17:18 75 05/02/17 16:15 98.2 69 15 111/54 97 05/02/17 16:00 97.9 72 20 102/55 (71) 98 05/02/17 15:55 98.9 72 16 116/57 98 05/03/17 05/03/17 05/04/17 15:00 23:00 07:00 Intake Total 10 ml Balance 10 ml Blood Product IV Normal Saline Flush 10 ml . Laboratory Tests Test 05/02/17 06:20 05/03/17 05:00 White Blood Count 0.3 TH/MM3 0.5 TH/MM3 Red Blood Count 2.46 MIL/MM3 3.07 MIL/MM3 Hemoglobin 7.2 GM/DL 9.1 GM/DL Hematocrit 20.6 % 26.5 % Mean Corpuscular Volume 83.6 FL 86.1 FL Mean Corpuscular Hemoglobin 29.3 PG 29.5 PG Mean Corpuscular Hemoglobin Concent 35.0 % 34.3 % Red Cell Distribution Width 17.5 % 17.1 % Platelet Count 11 TH/MM3 9 TH/MM3 Mean Platelet Volume 13.0 FL 13.7 FL CBC Comment AUTO DIFF AUTO DIFF Differential Total Cells Counted 25 100 Band Neutrophils % 4 % 3 % Lymphocytes % 96 % 96 % Neutrophils # (Manual) 0.0 TH/MM3 0.0 TH/MM3 Differential Comment FINAL DIFF MANUAL FINAL DIFF MANUAL Platelet Estimate RARE Platelet Morphology Comment NORMAL Ovalocytes 1+ Monocytes % 1 % Laboratory Tests Test 05/01/17 16:18 05/02/17 06:20 05/03/17 05:00 Lactic Acid Level 1.2 mmol/L 0.7 mmol/L Total Bilirubin 0.7 MG/DL Direct Bilirubin 0.3 MG/DL Indirect Bilirubin 0.4 MG/DL Aspartate Amino Transf (AST/SGOT) 15 U/L Alanine Aminotransferase (ALT/SGPT) 17 U/L Alkaline Phosphatase 70 U/L Troponin I 0.21 NG/ML Total Protein 5.9 GM/DL Albumin 2.8 GM/DL Creatinine 0.94 MG/DL Estimat Glomerular Filtration Rate 78 ML/MIN Microbiology Date/Time Source Procedure Growth Status 05/01/17 13:40 Blood Peripheral Aerobic Blood Culture - Preliminary NO GROWTH IN 2 DAYS Resulted 05/01/17 13:40 Blood Peripheral Anaerobic Blood Culture - Preliminary NO GROWTH IN 2 DAYS Resulted 05/01/17 13:30 Blood Peripheral Aerobic Blood Culture - Preliminary NO GROWTH IN 2 DAYS Resulted 05/01/17 13:30 Blood Peripheral Anaerobic Blood Culture - Preliminary NO GROWTH IN 2 DAYS Resulted 05/01/17 14:40 Urine Clean Catch Legionella Antigen - Final PRESUMPTIVE NEGATIVE FOR LEGIONELLA P... Complete 05/01/17 14:40 Urine Clean Catch Streptococcus pneumoniae Antigen (M - Final PRESUMPTIVE NEGATIVE FOR STREPTOCOCCU... Complete Imaging Last 72 hours Impressions Chest X-Ray 05/02/17 0000 Signed Impressions: Service Date/Time: April 06:24 - CONCLUSION: 1. Stable minimal cardiomegaly. 2. Left basilar atelectasis and/or fibrotic scarring. 3. No acute focal pulmonary infiltrate or pulmonary vascular congestion. 4. Degenerative changes throughout the thoracic spine. Luis Whitehead MD Chest X-Ray 05/01/17 1317 Signed Impressions: Service Date/Time: Monday, May 01, 2017 13:31 - CONCLUSION: Compensated cardiomegaly otherwise negative . Mejia Butler MD FACR Physical Exam GENERAL: awake and alert, NAD. SKIN: Warm and dry. No generalized rash, no ecchymoses and no evidence of embolic lesions. HEAD: Atraumatic. Normocephalic. No temporal wasting, or tenderness. EYES: [place] conjunctiva. No petechia or hemorrhage. Pupils equal, round and reactive to light. Extraocular movements full and intact. No scleral icterus. No injection or drainage. EARS, NOSE AND THROAT: Nose without bleeding or purulent nasal discharge. No sinus tenderness. Mucous membranes pink and moist. He has a purplish lesion somewhat nodular on left lateral tongue. No oral thrush. NECK: Trachea midline. Supple and not tender, no meningeal signs CARDIOVASCULAR: Regular rate and rhythm. No murmurs, rubs or gallops heard RESPIRATORY: Clear to auscultation. Breath sounds equal bilaterally. No rales , wheezing or rhonchi ABDOMEN: Globular and protuberant, softer and less distended, not tender, bowel sounds present and normoactive. No guarding. No rebound. EXTREMITIES: No clubbing, cyanosis, or edema. No calf tenderness. Well perfused and warm. NEUROLOGICAL: Non-focal. PSYCHIATRIC: Normal affect, calm and cooperative. LINE: Port in right upper chest with no evidence of infection Assessment & Plan Remarks IMPRESSION Neutropenic sepsis, patient receiving chemo for relapse AML - has cough, CXR ok - had SOB during transfusion - UA ok, no complaints - has had nausea and one episode of vomiting SOB, etiology? CXR clear, resolved, ?due to fever, ?transfusion reaction Lesion Lateral L tongue Relapse AML RECOMMENDATION Continue cefepime Continue voriconazole Continue vancomycin Follow C/S Monitor temps Follow counts Monitor progress Dr Mak available if needed this weekend Judy Leal MD May 03, 2017 15:55
[2017-05-03] MEDS: VANCOMYCIN INJ 1,250 MG in SODIUM CHLOR 0.9% 250 ML INJ 250 ML IV SCH (16:00)
[2017-05-03] MEDS: traZODone HCL 50 MG TAB PO SCH (21:56)
[2017-05-03] MEDS: TAMSULOSIN HCL 0.4 MG CAP PO SCH (21:56)
[2017-05-03] MEDS: buPROPion HCL 150 MG SUSTAINED RELEASE TAB PO SCH (21:56)
[2017-05-04] VITALS (10 sets, daily range): BP systolic 122–129; BP diastolic 59–71; PULSE 66–79; RESP 14–16; TEMP 99–102.2; O2SAT 92–99
[2017-05-04] MEDS: CEFEPIME INJ 2,000 MG in SODIUM CHLORIDE 0.9% INJ 100 ML IV SCH ×3 (00:17→15:07)
[2017-05-04] MEDS: VORICONAZOLE IV SCH ×2 (04:00→19:01)
[2017-05-04] MEDS: SODIUM CHLOR 0.9% IV SCH ×2 (04:00→19:01)
[2017-05-04 06:00] LABS: MEAN CELL VOLUME 85.9 FL (80.0-100.0); MEAN CORPUSCULAR HEMOGLOBIN 30.1 PG (27.0-34.0); MEAN CORPUSCULAR HGB CONC 35.1 % (32.0-36.0); PLATELET COUNT 21 TH/MM3 (150-450); RED BLOOD COUNT 2.79 MIL/MM3 (4.50-5.90); WHITE BLOOD COUNT 0.5 TH/MM3 (4.0-11.0)
[2017-05-04] MEDS: VANCOMYCIN INJ 1,250 MG in SODIUM CHLOR 0.9% 250 ML INJ 250 ML IV SCH ×2 (06:00→17:49)
[2017-05-04 06:08] LABS: HEMO FLAGS AUTO DIFF
--- NOTE | 2017-05-04 08:29 | PD.ONC.PN ---
Subjective Subjective Remarks MAXIMUM TEMPERATURE 99.6 overnight Patient reports he feels great Denies any side effects to Neupogen injection yesterday Asking when he can go home Objective Data Date Time Temp Pulse Resp B/P (MAP) Pulse Ox O2 Delivery O2 Flow Rate FiO2 05/04/17 04:54 99.0 70 16 125/71 (89) 92 05/04/17 04:05 72 05/04/17 00:05 78 05/04/17 00:00 99.6 79 16 129/70 (89) 94 05/03/17 20:07 76 05/03/17 20:00 99.2 78 16 148/78 (101) 95 05/03/17 16:54 98.2 75 14 151/78 (102) 96 05/03/17 14:44 98.8 75 14 146/67 95 05/03/17 09:47 99.2 78 14 132/67 (88) 95 05/04/17 05/04/17 05/04/17 07:00 15:00 23:00 Output Total 775 ml Balance -775 ml Result Diagram: 05/04/17 0449 05/03/17 0500 Laboratory Results Laboratory Tests Test 05/03/17 13:48 05/04/17 04:49 Vancomycin Level Trough 12.5 MCG/ML White Blood Count 0.5 TH/MM3 Red Blood Count 2.79 MIL/MM3 Hemoglobin 8.4 GM/DL Hematocrit 24.0 % Mean Corpuscular Volume 85.9 FL Mean Corpuscular Hemoglobin 30.1 PG Mean Corpuscular Hemoglobin Concent 35.1 % Red Cell Distribution Width 17.0 % Platelet Count 21 TH/MM3 Mean Platelet Volume 8.8 FL CBC Comment AUTO DIFF Culture Results Microbiology Date/Time Source Procedure Growth Status 05/01/17 13:40 Blood Peripheral Aerobic Blood Culture - Preliminary NO GROWTH IN 2 DAYS Resulted 05/01/17 13:40 Blood Peripheral Anaerobic Blood Culture - Preliminary NO GROWTH IN 2 DAYS Resulted 05/01/17 13:30 Blood Peripheral Aerobic Blood Culture - Preliminary NO GROWTH IN 2 DAYS Resulted 05/01/17 13:30 Blood Peripheral Anaerobic Blood Culture - Preliminary NO GROWTH IN 2 DAYS Resulted 05/01/17 14:40 Urine Clean Catch Legionella Antigen - Final PRESUMPTIVE NEGATIVE FOR LEGIONELLA P... Complete 05/01/17 14:40 Urine Clean Catch Streptococcus pneumoniae Antigen (M - Final PRESUMPTIVE NEGATIVE FOR STREPTOCOCCU... Complete Administered Medications Medications (Trade) Dose Ordered Sig/Gene Route PRN Reason Start Time Stop Time Status Last Admin Dose Admin Cefepime HCl 2000 mg/Sodium Chloride 100 ml @ 200 mls/hr Q8H IV 05/01/17 16:00 05/04/17 00:17 Bupropion HCl (Wellbutrin Sr) 150 mg HS PO 05/01/17 21:00 05/03/17 21:56 Tamsulosin HCl (Flomax) 0.4 mg HS PO 05/01/17 21:00 05/03/17 21:56 Trazodone HCl (Desyrel) 50 mg HS PO 05/01/17 21:00 05/03/17 21:56 Pantoprazole Sodium (Protonix) 40 mg DAILY PO 05/02/17 09:00 05/03/17 09:38 Voriconazole 400 mg/Sodium Chloride 250 ml @ 125 mls/hr Q12H IV 05/02/17 18:00 05/04/17 04:00 Diphenhydramine HCl (Benadryl) 25 mg Q4H PRN PO SEE LABEL COMMENTS 05/02/17 09:45 05/02/17 15:05 Lidocaine HCl (Xylocaine 2% Viscous) 10 ml Q4H PRN PO ORAL PAIN SCALE 1 TO 10 05/02/17 20:15 05/02/17 21:18 Acetaminophen (Tylenol) 650 mg Q4H PRN PO SEE LABEL COMMENTS 05/03/17 09:30 05/03/17 13:24 Diphenhydramine HCl (Benadryl) 25 mg Q4H PRN PO SEE LABEL COMMENTS 05/03/17 09:30 05/03/17 13:24 Filgrastim (Neupogen Inj) 300 mcg DAILY@14 SQ 05/03/17 14:00 05/03/17 13:26 Vancomycin HCl 1250 mg/Sodium Chloride 262.5 ml @ 250 mls/hr Q12H IV 05/03/17 16:00 05/04/17 06:00 Objective Remarks GENERAL: Older male, resting in bed in no acute distress. SKIN: Warm and dry. No oozing from lines. HEAD: Normocephalic. EYES: No injection or drainage. NECK: Supple, trachea midline. CARDIOVASCULAR: Regular rate and rhythm without murmurs. RESPIRATORY: Clear anteriorly. Breathing unlabored at rest. GASTROINTESTINAL: Abdomen protuberant but soft. Non tender. +BS. EXTREMITIES: Right lower extremity has chronic discoloration. No edema MUSCULOSKELETAL: Adequate muscle tone. NEUROLOGICAL: No obvious focal deficit. Awake, alert, and oriented x3. Assessment/Plan Assessment 72 y/o male with relapsed AML recently on Dacogen- admitted after he had a transfusion reaction with packed red blood cells in the outpatient clinic Plan 1. Continue Neupogen to attempt to stimulate neutrophils. Differential pending today 2. No transfusion today 3. Continue to monitor for fevers as well as to see if micro-grows any organisms on the cultures 4. Continue antibiotics per infectious disease 5. He may possibly be able to go home early next week if cultures remain negative and he remains afebrile Attending Statement The exam, history, and the medical decision-making described in the above note were completed with the assistance of the mid-level provider. I reviewed and agree with the findings presented. I attest that I had a [id number] encounter with the patient on the same day, and personally performed and documented my assessment and findings in the medical record. Remains afebrile. No bleeding. Still has severe pancytopenia. Continue neupogen and prophylactic abx. Monitor CBC. Jewels Mina May 04, 2017 08:29 Darren Robbins MD May 04, 2017 15:08
[2017-05-04 09:06] LABS: CORRECTED NUCLEATED RBC 2 /100 WBC (0-0); PLASMA CELLS 2 % (0-0); WBC DIFF SAMPLE 50
[2017-05-04] MEDS: PANTOPRAZOLE SOD 40 MG DELAYED RELEASE TAB PO SCH (09:10)
[2017-05-04 09:14] LABS: OVALOCYTES 1+ (NORMAL); PLATELET ESTIMATE SMEAR LOW (NORMAL); PLATELET MORPHOLOGY NORMAL (NORMAL); SCAN/DIFF FINAL DIFF MANUAL
--- NOTE | 2017-05-04 14:14 | HHI.PR ---
Subjective Remarks Patient reports is feeling well today. Platelets better since transfusion. H&H stable. Objective Vitals Vital Signs Date Time Temp Pulse Resp B/P (MAP) Pulse Ox O2 Delivery O2 Flow Rate FiO2 05/04/17 09:07 99.6 67 14 122/71 (88) 99 05/04/17 08:00 66 05/04/17 04:54 99.0 70 16 125/71 (89) 92 05/04/17 04:05 72 05/04/17 00:05 78 05/04/17 00:00 99.6 79 16 129/70 (89) 94 05/03/17 20:07 76 05/03/17 20:00 99.2 78 16 148/78 (101) 95 05/03/17 16:54 98.2 75 14 151/78 (102) 96 05/03/17 14:44 98.8 75 14 146/67 95 I/O 05/03/17 05/03/17 05/03/17 05/04/17 05/04/17 05/04/17 07:00 15:00 23:00 07:00 15:00 23:00 Intake Total 616 ml 10 ml 2430 ml Output Total 375 ml 1200 ml 775 ml Balance 241 ml 10 ml 1230 ml -775 ml Intake Oral 1440 ml IV Total 616 ml 700 ml Platelets 290 ml Blood Product IV Normal Saline Flush 10 ml Output Urine Total 375 ml 1200 ml 775 ml # Voids 2 # Bowel Movements 2 1 Result Diagram: 05/04/17 0449 05/03/17 0500 Objective Remarks GENERAL: This is a well-nourished, well-developed patient, in no apparent distress. ENT: Left lateral side of the tongue there is an erythematous lesion. Not bleeding currently. Very poor dentition with tooth decay CARDIOVASCULAR: Normal rate and regular rhythm without murmurs, gallops, or rubs. RESPIRATORY: Good respiratory efforts. Breath sounds equal and clear to auscultation bilaterally. GASTROINTESTINAL: Abdomen soft, non-tender, non-distended. Normal active bowel sounds MUSCULOSKELETAL: Extremities without cyanosis, or edema. NEURO: Alert & Oriented x4 to person, place, time, situation. Moves all ext x4 PSYCH: Appropriate mood and affect. A/P Problem List: (1) Neutropenic fever ICD Code: D70.9 - Neutropenia, unspecified; R50.81 - Fever presenting with conditions classified elsewhere Status: Acute Assessment and Plan 72-year-old male with: Neutropenic sepsis in the chemotherapy patient: Fever on presentation. Patient has a lesion on his tongue and have very poor dentition. No other focus of infection identified yet. ? If fever was secondary to transfusion reaction. - Appreciate infectious disease following. Continue vancomycin, cefepime, and voriconazole. - Follow blood cultures. So far negative. Urine Legionella and strep negative. AML undergone chemotherapy, currently pancytopenic with bleeding episodes: -Status post PRBC transfusion. Patient is to be transfused platelets today per hematology. Follow-up CBC - Long discussion with oncologist Dr. Collins about the patient. Trial of Neupogen. He does understand the risk of stimulating blast cells. - Follow-up CBC Hypertension; BP stable- hold BP meds for now and continue to monitor. Elevated troponin- with no chest pain and with normal EKG- Cardiac enzymes essentially flat/trending down DVT prophylaxis with SCD's- no chemical prophylaxis due to anemia/ thrombocytopenia Discharge Planning Continue inpatient treatment. Possible DC home early next week. Continue to monitor response. Chepe Lemos MD May 04, 2017 14:14
[2017-05-04] MEDS: FILGRASTIM 300 MCG/ML VIAL SQ SCH (15:07)
[2017-05-04] MEDS: ONDANSETRON HCL 4 MG/2 ML VIAL IV PUSH PRN (17:48)
[2017-05-04] MEDS: ACETAMINOPHEN 325 MG TAB PO PRN (18:01)
[2017-05-04] MEDS: traZODone HCL 50 MG TAB PO SCH (21:53)
[2017-05-04] MEDS: TAMSULOSIN HCL 0.4 MG CAP PO SCH (21:53)
[2017-05-04] MEDS: buPROPion HCL 150 MG SUSTAINED RELEASE TAB PO SCH (21:53)
[2017-05-04 22:53] LABS: BLOOD, URINE SMALL (NEG); COMMENT (UR) CULT NOT INDICATED; CULTURE IF INDICATED CULT NOT INDICATED; GLUCOSE,URINE NEG (NEG); KETONE, URINE NEG (NEG); MUCUS URINE FEW /lpf (OCC); NITRITE,URINE NEG (NEG); SQUAMOUS EPITHELIAL CELL URINE <1 /hpf (0-5); URINE COLOR YELLOW (YELLW/STRAW)
[2017-05-05] VITALS (10 sets, daily range): BP systolic 120–157; BP diastolic 56–86; PULSE 66–75; RESP 14–16; TEMP 97.6–101.5; O2SAT 94–96
[2017-05-05] MEDS: CEFEPIME INJ 2,000 MG in SODIUM CHLORIDE 0.9% INJ 100 ML IV SCH ×4 (01:30→23:52)
[2017-05-05] MEDS: ACETAMINOPHEN 325 MG TAB PO PRN ×3 (01:39→23:48)
[2017-05-05] MEDS ORDERED: PHARMACY ORDERED LAB ONE (03:45)
[2017-05-05 04:53] LABS: HEMATOCRIT 22.8 % (39.0-51.0); MEAN CELL VOLUME 85.5 FL (80.0-100.0); MEAN CORPUSCULAR HEMOGLOBIN 30.1 PG (27.0-34.0); MEAN CORPUSCULAR HGB CONC 35.2 % (32.0-36.0); RED BLOOD COUNT 2.67 MIL/MM3 (4.50-5.90); RED CELL DISTRIBUTION WIDTH 17.3 % (11.6-17.2); WHITE BLOOD COUNT 0.5 TH/MM3 (4.0-11.0)
[2017-05-05 04:55] LABS: HEMO FLAGS AUTO DIFF
[2017-05-05 04:59] LABS: PLATELET COUNT 17 TH/MM3 (150-450)
[2017-05-05 05:38] LABS: SCAN/DIFF FINAL DIFF MANUAL; WBC DIFF SAMPLE 100
[2017-05-05] MEDS: VANCOMYCIN INJ 1,250 MG in SODIUM CHLOR 0.9% 250 ML INJ 250 ML IV SCH ×2 (06:10→19:15)
--- NOTE | 2017-05-05 08:23 | PD.ONC.PN ---
Subjective Subjective Remarks MAXIMUM TEMPERATURE 102.2 last night Reports he had no chills with the fever Has some mild pain with urination No other acute complaints Objective Data Date Time Temp Pulse Resp B/P (MAP) Pulse Ox O2 Delivery O2 Flow Rate FiO2 05/05/17 00:53 101.1 05/05/17 00:10 71 05/04/17 21:53 100.2 74 16 129/70 (89) 94 05/04/17 20:04 71 05/04/17 18:03 102.2 75 16 124/59 (80) 94 05/04/17 15:14 99.0 67 124/59 (80) 96 05/04/17 09:07 99.6 67 14 122/71 (88) 99 05/05/17 05/05/17 05/05/17 07:00 15:00 23:00 Output Total 1400 ml Balance -1400 ml Result Diagram: 05/05/17 0425 05/05/17 0425 Laboratory Results Laboratory Tests Test 05/04/17 21:40 05/05/17 04:23 05/05/17 04:25 Urine Color YELLOW Urine Turbidity HAZY Urine pH 6.0 Urine Specific [place] 1.032 Urine Protein 30 mg/dL Urine Glucose (UA) NEG mg/dL Urine Ketones NEG mg/dL Urine Occult Blood SMALL Urine Nitrite NEG Urine Bilirubin NEG Urine Urobilinogen LESS THAN 2.0 MG/DL Urine Leukocyte Esterase NEG Urine RBC 46 /hpf Urine WBC 1 /hpf Urine Squamous Epithelial Cells <1 /hpf Urine Mucus FEW /lpf Microscopic Urinalysis Comment CULT NOT INDICATED Vancomycin Level Trough 14.6 MCG/ML White Blood Count 0.5 TH/MM3 Red Blood Count 2.67 MIL/MM3 Hemoglobin 8.0 GM/DL Hematocrit 22.8 % Mean Corpuscular Volume 85.5 FL Mean Corpuscular Hemoglobin 30.1 PG Mean Corpuscular Hemoglobin Concent 35.2 % Red Cell Distribution Width 17.3 % Platelet Count 17 TH/MM3 Mean Platelet Volume 9.4 FL CBC Comment AUTO DIFF Differential Total Cells Counted 100 Lymphocytes % 96 % Monocytes % 4 % Differential Comment FINAL DIFF MANUAL Creatinine 0.90 MG/DL Estimat Glomerular Filtration Rate 82 ML/MIN Culture Results Microbiology Date/Time Source Procedure Growth Status 05/04/17 21:35 Blood Line Aerobic Blood Culture Pending Received 05/04/17 21:35 Blood Line Anaerobic Blood Culture Pending Received 05/04/17 20:40 Blood Peripheral Aerobic Blood Culture Pending Received 05/04/17 20:40 Blood Peripheral Anaerobic Blood Culture Pending Received Administered Medications Medications (Trade) Dose Ordered Sig/Gene Route PRN Reason Start Time Stop Time Status Last Admin Dose Admin Acetaminophen (Tylenol) 650 mg Q4H PRN PO FEVER/ PAIN 1-10 05/01/17 14:45 05/05/17 01:39 Ondansetron HCl (Zofran Inj) 4 mg Q8HR PRN IV PUSH NAUSEA 05/01/17 14:45 05/04/17 17:48 Cefepime HCl 2000 mg/Sodium Chloride 100 ml @ 200 mls/hr Q8H IV 05/01/17 16:00 05/05/17 01:30 Bupropion HCl (Wellbutrin Sr) 150 mg HS PO 05/01/17 21:00 05/04/17 21:53 Tamsulosin HCl (Flomax) 0.4 mg HS PO 05/01/17 21:00 05/04/17 21:53 Trazodone HCl (Desyrel) 50 mg HS PO 05/01/17 21:00 05/04/17 21:53 Pantoprazole Sodium (Protonix) 40 mg DAILY PO 05/02/17 09:00 05/04/17 09:10 Voriconazole 400 mg/Sodium Chloride 250 ml @ 125 mls/hr Q12H IV 05/02/17 18:00 05/04/17 19:01 Diphenhydramine HCl (Benadryl) 25 mg Q4H PRN PO SEE LABEL COMMENTS 05/02/17 09:45 05/02/17 15:05 Lidocaine HCl (Xylocaine 2% Viscous) 10 ml Q4H PRN PO ORAL PAIN SCALE 1 TO 10 05/02/17 20:15 05/02/17 21:18 Acetaminophen (Tylenol) 650 mg Q4H PRN PO SEE LABEL COMMENTS 05/03/17 09:30 05/03/17 13:24 Diphenhydramine HCl (Benadryl) 25 mg Q4H PRN PO SEE LABEL COMMENTS 05/03/17 09:30 05/03/17 13:24 Filgrastim (Neupogen Inj) 300 mcg DAILY@14 SQ 05/03/17 14:00 05/04/17 15:07 Vancomycin HCl 1250 mg/Sodium Chloride 262.5 ml @ 250 mls/hr Q12H IV 05/03/17 16:00 05/05/17 06:10 Objective Remarks GENERAL: Older male, resting in bed in no acute distress. SKIN: Warm and dry. No oozing from lines. HEAD: Normocephalic. EYES: No injection or drainage. NECK: Supple, trachea midline. CARDIOVASCULAR: Regular rate and rhythm without murmurs. RESPIRATORY: Clear anteriorly. Breathing unlabored at rest. GASTROINTESTINAL: Abdomen protuberant but soft. Non tender. +BS. EXTREMITIES: Right lower extremity has chronic discoloration. No edema MUSCULOSKELETAL: Adequate muscle tone. NEUROLOGICAL: No obvious focal deficit. Awake, alert, and oriented x3. Assessment/Plan Assessment 72 y/o male with relapsed AML recently on Dacogen- admitted after he had a transfusion reaction with packed red blood cells in the outpatient clinic Plan 1. Repeat blood cultures pending from fever of 102 last night. 2. Blood cultures from 05/01 showed no growth 3 days 3. Continue Neupogen 4. Will discuss with ID for antibiotic recommendations. Attending Statement The exam, history, and the medical decision-making described in the above note were completed with the assistance of the mid-level provider. I reviewed and agree with the findings presented. I attest that I had a [id number] encounter with the patient on the same day, and personally performed and documented my assessment and findings in the medical record. Nurse call me last night to report fever of 102. BCX and U/A ordered and negative. Afebrile this am. Continue prophylactic antibiotics. Monitor culture. Sever pancytopenia but no need for transfusion today. Continue supportive care. Jewels Mina May 05, 2017 08:23 Darrne Robbins MD May 05, 2017 13:21
[2017-05-05] MEDS: SODIUM CHLOR 0.9% IV SCH ×2 (08:26→20:41)
[2017-05-05] MEDS: VORICONAZOLE IV SCH ×2 (08:26→20:41)
[2017-05-05] MEDS: PANTOPRAZOLE SOD 40 MG DELAYED RELEASE TAB PO SCH (08:34)
--- NOTE | 2017-05-05 12:53 | HHI.PR ---
Subjective Remarks Fever overnight up to 102 Patient just had an episode of nosebleed. Seems to have stopped currently. Reports he is doing well otherwise. Objective Vitals Vital Signs Date Time Temp Pulse Resp B/P (MAP) Pulse Ox O2 Delivery O2 Flow Rate FiO2 05/05/17 08:24 97.6 68 14 120/56 (77) 94 05/05/17 08:00 66 05/05/17 00:53 101.1 05/05/17 00:10 71 05/04/17 21:53 100.2 74 16 129/70 (89) 94 05/04/17 20:04 71 05/04/17 18:03 102.2 75 16 124/59 (80) 94 05/04/17 15:14 99.0 67 124/59 (80) 96 I/O 05/04/17 05/04/17 05/04/17 05/05/17 05/05/17 05/05/17 07:00 15:00 23:00 07:00 15:00 23:00 Intake Total 1440 ml Output Total 775 ml 450 ml 1400 ml Balance -775 ml 990 ml -1400 ml Intake Oral 1440 ml Output Urine Total 775 ml 450 ml 1400 ml # Voids 4 # Bowel Movements 1 Result Diagram: 05/05/17 0425 05/05/17 042 Objective Remarks GENERAL: This is a well-nourished, well-developed patient, in no apparent distress. ENT: Left lateral side of the tongue there is an erythematous lesion. Not bleeding currently. Nose appear dry, some dried blood but no bleeding currently. Very poor dentition with tooth decay CARDIOVASCULAR: Normal rate and regular rhythm without murmurs, gallops, or rubs. RESPIRATORY: Good respiratory efforts. Breath sounds equal and clear to auscultation bilaterally. GASTROINTESTINAL: Abdomen soft, non-tender, non-distended. Normal active bowel sounds MUSCULOSKELETAL: Extremities without cyanosis, or edema. NEURO: Alert & Oriented x4 to person, place, time, situation. Moves all ext x4 PSYCH: Appropriate mood and affect. A/P Problem List: (1) Neutropenic fever ICD Code: D70.9 - Neutropenia, unspecified; R50.81 - Fever presenting with conditions classified elsewhere Status: Acute Assessment and Plan 72-year-old male with: Neutropenic sepsis in the chemotherapy patient: Fever on presentation. Recurrent fevers 05/05/17. Patient has a lesion on his tongue and have very poor dentition. No other focus of infection identified yet. - Appreciate infectious disease following. Continue vancomycin, cefepime, and voriconazole. - Repeat blood cultures, UA. Urine Legionella and strep negative. AML undergone chemotherapy, currently pancytopenic with bleeding episodes: -Status post PRBC transfusion. Patient is to be transfused platelets today per hematology. Follow-up CBC - Long discussion with oncologist Dr. Collins about the patient. Trial of Neupogen. He does understand the risk of stimulating blast cells. - H&H trending down. Will likely need transfusion tomorrow. - One nosebleed episode today. Advised RN to call me if it happens again. Will DW Hematology about whether or not he needs platelets today Hypertension; BP stable- hold BP meds for now and continue to monitor. Elevated troponin- with no chest pain and with normal EKG- Cardiac enzymes essentially flat/trending down DVT prophylaxis with SCD's- no chemical prophylaxis due to anemia/ thrombocytopenia Discharge Planning Continue inpatient treatment. Possible DC home next week. Continue to monitor response. Chepe Lemos MD May 05, 2017 12:52
[2017-05-05] MEDS ORDERED: ACETAMINOPHEN 325 MG TAB PO PRN (13:15)
[2017-05-05] MEDS ORDERED: SODIUM CHLOR 0.9% 250 ML INJ 250 ML IV ONE (13:15)
[2017-05-05] MEDS ORDERED: diphenhydrAMINE HCL 25 MG CAP PO PRN (13:15)
--- NOTE | 2017-05-05 17:43 | HHI.IDPN ---
Subjective Subjective Remarks X cover for Tanya Leal Chart reviewed Patient is a 72-year-old male presented to the hospital complaining of chills and shortness of breath. He was apparently in the oncology's office and receive a transfusion when he developed the symptoms of chills and shortness of breath. Patient states that he has never had shortness of breath before. He denies any chest pain. 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 He has been on prophylactic fluconazole and Levaquin. Patient apparently has not been feeling well and has had some cough. He has had some nausea for several weeks, and had one episode of vomiting enroute to the ED. any nausea or vomiting. He has had this sore on the left side of his time and his oncologist gave him some prescription to apply topically. He denies having bitten his tongue. He denies any swallowing difficulty. Denies any diarrhea or any urinary complaints. He has not had any back pain. His temperature in the ED was 102.5. On presentation he was neutropenic with a WBC of 0.1. Infectious disease consultation has been requested to evaluate the patient. Notes reviewed; jaden RN pt spiked a fever up to 102 last night No fever today Denies nausea, vomiting, diarrhea Repeat BC no growth @ 1 day Antibiotics Current Medications Cefepime Voriconazole Vancomycin Medications (Trade) Dose Ordered Sig/Gene Route Start Time Stop Time Status Last Admin (Tylenol) 650 mg Q4H PRN PO 05/01/17 14:45 (Zofran Inj) 4 mg Q8HR PRN IV PUSH 05/01/17 14:45 Cefepime HCl 2000 mg/Sodium Chloride 100 ml @ 200 mls/hr Q8H IV 05/01/17 16:00 05/03/17 09:38 (Wellbutrin Sr) 150 mg HS PO 05/01/17 21:00 05/02/17 20:21 (Flomax) 0.4 mg HS PO 05/01/17 21:00 05/02/17 20:21 (Desyrel) 50 mg HS PO 05/01/17 21:00 05/02/17 20:21 (Protonix) 40 mg DAILY PO 05/02/17 09:00 05/03/17 09:38 Voriconazole 400 mg/Sodium Chloride 250 ml @ 125 mls/hr Q12H IV 05/02/17 18:00 05/03/17 05:01 Pharmacy Profile Note 0 ml @ 0 mls/hr UNSCH OTHER 05/01/17 18:15 (Tylenol) 650 mg Q4H PRN PO 05/02/17 09:45 (Benadryl) 25 mg Q4H PRN PO 05/02/17 09:45 05/02/17 15:05 (Xylocaine 2% Viscous) 10 ml Q4H PRN PO 05/02/17 20:15 05/02/17 21:18 Sodium Chloride 250 ml @ 15 mls/hr ONCE ONCE IV 05/03/17 09:30 05/04/17 02:09 05/03/17 13:26 (Tylenol) 650 mg Q4H PRN PO 05/03/17 09:30 05/03/17 13:24 (Benadryl) 25 mg Q4H PRN PO 05/03/17 09:30 05/03/17 13:24 (Neupogen Inj) 300 mcg DAILY@14 SQ 05/03/17 14:00 05/03/17 13:26 Vancomycin HCl 1250 mg/Sodium Chloride 262.5 ml @ 250 mls/hr Q12H IV 05/03/17 16:00 Miscellaneous Information SPECIFIC LAB TO BE [facility]... 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 Vital Signs Date Time Temp Pulse Resp B/P (MAP) Pulse Ox O2 Delivery O2 Flow Rate FiO2 05/05/17 16:14 99.0 75 14 131/58 94 05/05/17 13:16 98.3 70 14 149/72 (97) 05/05/17 08:24 97.6 68 14 120/56 (77) 94 05/05/17 08:00 66 05/05/17 00:53 101.1 05/05/17 00:10 71 05/04/17 21:53 100.2 74 16 129/70 (89) 94 05/04/17 20:04 71 05/04/17 18:03 102.2 75 16 124/59 (80) 94 05/05/17 05/05/17 05/06/17 15:00 23:00 07:00 Intake Total 480 ml 10 ml Balance 480 ml 10 ml Intake Oral 480 ml Blood Product IV Normal Saline Flush 10 ml # Voids 3 # Bowel Movements 0 . Laboratory Tests Test 05/04/17 04:49 05/05/17 04:25 White Blood Count 0.5 TH/MM3 0.5 TH/MM3 Red Blood Count 2.79 MIL/MM3 2.67 MIL/MM3 Hemoglobin 8.4 GM/DL 8.0 GM/DL Hematocrit 24.0 % 22.8 % Mean Corpuscular Volume 85.9 FL 85.5 FL Mean Corpuscular Hemoglobin 30.1 PG 30.1 PG Mean Corpuscular Hemoglobin Concent 35.1 % 35.2 % Red Cell Distribution Width 17.0 % 17.3 % Platelet Count 21 TH/MM3 17 TH/MM3 Mean Platelet Volume 8.8 FL 9.4 FL CBC Comment AUTO DIFF AUTO DIFF Differential Total Cells Counted 50 100 Lymphocytes % 92 % 96 % Monocytes % 6 % 4 % Neutrophils # (Manual) 0.0 TH/MM3 Nucleated Red Blood Cells 2 /100 WBC Differential Comment FINAL DIFF MANUAL FINAL DIFF MANUAL Plasma Cells 2 % Platelet Estimate LOW Platelet Morphology Comment NORMAL Ovalocytes 1+ Laboratory Tests Test 05/05/17 04:25 Creatinine 0.90 MG/DL Estimat Glomerular Filtration Rate 82 ML/MIN Microbiology Date/Time Source Procedure Growth Status 05/04/17 21:35 Blood Line Aerobic Blood Culture - Preliminary NO GROWTH IN 1 DAY Resulted 05/04/17 21:35 Blood Line Anaerobic Blood Culture - Preliminary NO GROWTH IN 1 DAY Resulted 05/04/17 20:40 Blood Peripheral Aerobic Blood Culture - Preliminary NO GROWTH IN 1 DAY Resulted 05/04/17 20:40 Blood Peripheral Anaerobic Blood Culture - Preliminary NO GROWTH IN 1 DAY Resulted Imaging Last Impressions Chest X-Ray 05/02/17 0000 Signed Impressions: Service Date/Time: April 06:24 - CONCLUSION: 1. Stable minimal cardiomegaly. 2. Left basilar atelectasis and/or fibrotic scarring. 3. No acute focal pulmonary infiltrate or pulmonary vascular congestion. 4. Degenerative changes throughout the thoracic spine. Luis Whitehead MD Physical Exam GENERAL: awake and alert, NAD. SKIN: Warm and dry. No generalized rash, no ecchymoses and no evidence of embolic lesions. HEAD: Atraumatic. Normocephalic. No temporal wasting, or tenderness. EYES: [place] conjunctiva. No petechia or hemorrhage. No scleral icterus. No injection or drainage. EARS, NOSE AND THROAT: Nose without bleeding or purulent nasal discharge. No sinus tenderness. Mucositis + ; shallow ulceration on left lateral tongue. No oral thrush. NECK: Trachea midline. Supple and not tender, no meningeal signs CARDIOVASCULAR: Regular rate and rhythm. No murmurs, rubs or gallops heard RESPIRATORY: Clear to auscultation. Breath sounds equal bilaterally. No rales , wheezing or rhonchi ABDOMEN: Globular and protuberant, softer and less distended, not tender, bowel sounds present and normoactive. No guarding. No rebound. EXTREMITIES: No clubbing, cyanosis, or edema. No calf tenderness. Well perfused and warm. NEUROLOGICAL: Fully awake, alert Non-focal. PSYCHIATRIC: Normal affect, calm and cooperative. LINE: Port in right upper chest with no evidence of infection Assessment & Plan Remarks IMPRESSION Neutropenic sepsis, patient receiving chemo for relapse AML - has cough, CXR ok - had SOB during transfusion - UA ok, no complaints - has had nausea and one episode of vomiting SOB, etiology? CXR clear, resolved, ?due to fever, ?transfusion reaction Lesion Lateral L tongue Relapse AML New fever, clx P RECOMMENDATION Continue cefepime Continue voriconazole Continue vancomycin Follow new blood clx Monitor temps Monitor progress chk CXR chk UA/C+S Kelly Mak MD May 05, 2017 17:42
--- NOTE | 2017-05-05 18:28 | RADRPT ---
EXAM DATE/TIME: 05/05/2017 18:01 [facility] COMPARISON: CHEST SINGLE AP, May 02, 2017, 6:24. INDICATIONS : Fever. MEDICAL HISTORY : Leukemia. Hypertension Gastroesophageal reflux disease. SURGICAL HISTORY : Cholecystectomy. [id number] ENCOUNTER: Subsequent ACUITY: 1 week PAIN SCORE: 0/10 LOCATION: Bilateral chest FINDINGS: Right IJ [id number] in place. Stable linear opacities in the left lung base. No new focal pleural or parenchymal opacities. Cardiomediastinal contours are within normal limits. Bony thorax is intact. CONCLUSION: 1. Stable left lung base atelectasis/scarring. 2. No acute abnormality or significant interval change. Jayson Queen MD on May 05, 2017 at 18:24 Board Certified Radiologist. This report was verified electronically.
[2017-05-05] MEDS: FILGRASTIM 300 MCG/ML VIAL SQ SCH (18:41)
[2017-05-05] MEDS: traZODone HCL 50 MG TAB PO SCH (21:59)
[2017-05-05] MEDS: buPROPion HCL 150 MG SUSTAINED RELEASE TAB PO SCH (21:59)
[2017-05-05] MEDS: TAMSULOSIN HCL 0.4 MG CAP PO SCH (21:59)
[2017-05-06] VITALS (12 sets, daily range): BP systolic 137–148; BP diastolic 68–84; PULSE 73–81; RESP 16–20; TEMP 98.8–102.5; O2SAT 93–96
[2017-05-06] MEDS: VANCOMYCIN INJ 1,250 MG in SODIUM CHLOR 0.9% 250 ML INJ 250 ML IV SCH ×2 (05:21→17:45)
[2017-05-06 06:32] LABS: HEMATOCRIT 23.1 % (39.0-51.0); MEAN CORPUSCULAR HEMOGLOBIN 29.9 PG (27.0-34.0); MEAN CORPUSCULAR HGB CONC 35.2 % (32.0-36.0); PLATELET COUNT 28 TH/MM3 (150-450); RED BLOOD COUNT 2.72 MIL/MM3 (4.50-5.90); WHITE BLOOD COUNT 0.6 TH/MM3 (4.0-11.0)
[2017-05-06] MEDS: VORICONAZOLE IV SCH ×2 (06:47→18:57)
[2017-05-06] MEDS: SODIUM CHLOR 0.9% IV SCH ×2 (06:47→18:57)
[2017-05-06 06:50] LABS: HEMO FLAGS AUTO DIFF
[2017-05-06 07:03] LABS: BICARBONATE 23.3 MEQ/L (21.0-32.0)
[2017-05-06 07:07] LABS: POTASSIUM 2.9 MEQ/L (3.5-5.1)
[2017-05-06] MEDS: PANTOPRAZOLE SOD 40 MG DELAYED RELEASE TAB PO SCH (07:55)
[2017-05-06] MEDS: CEFEPIME INJ 2,000 MG in SODIUM CHLORIDE 0.9% INJ 100 ML IV SCH (07:56)
[2017-05-06 07:59] LABS: BLASTS 4 % (0-0); METAMYELOCYTES 4 % (0-1); WBC DIFF SAMPLE 25
[2017-05-06 08:00] LABS: OVALOCYTES 1+ (NORMAL); PLATELET ESTIMATE SMEAR LOW (NORMAL); PLATELET MORPHOLOGY NORMAL (NORMAL); SCAN/DIFF FINAL DIFF MANUAL
--- NOTE | 2017-05-06 08:43 | HHI.PR ---
Subjective Remarks Patient reports he is doing ok today. No further nose bleed. Still having fevers but clear course of infection K is low. Objective Vitals Vital Signs Date Time Temp Pulse Resp B/P (MAP) Pulse Ox O2 Delivery O2 Flow Rate FiO2 05/06/17 07:52 98.8 74 18 137/68 (91) 94 05/06/17 04:37 99.1 73 16 141/68 (92) 95 05/06/17 04:03 77 05/06/17 00:11 100.1 73 16 140/71 (94) 94 05/06/17 00:11 74 05/05/17 21:58 101.5 05/05/17 20:36 99.9 72 16 131/64 (86) 96 05/05/17 20:11 72 05/05/17 18:15 99.9 75 14 157/86 96 05/05/17 16:14 99.0 75 14 131/58 94 05/05/17 13:16 98.3 70 14 149/72 (97) I/O 05/05/17 05/05/17 05/05/17 05/06/17 05/06/17 05/06/17 06:59 14:59 22:59 06:59 14:59 22:59 Intake Total 480 ml 613 ml 485 ml Output Total 1400 ml 600 ml 300 ml 150 ml Balance -1400 ml 480 ml 13 ml 185 ml -150 ml Intake Oral 480 ml 120 ml IV Total 260 ml 365 ml Platelets 333 ml Blood Product IV Normal Saline Flush 20 ml Output Urine Total 1400 ml 600 ml 300 ml 150 ml # Voids 3 # Bowel Movements 0 Result Diagram: 05/06/17 0552 05/06/17 0552 Objective Remarks GENERAL: This is a well-nourished, well-developed patient, in no apparent distress. ENT: Left lateral side of the tongue there is small lesion that is healing compared to previous exam. Nose appear dry. Very poor dentition with tooth decay CARDIOVASCULAR: Normal rate and regular rhythm without murmurs, gallops, or rubs. RESPIRATORY: Good respiratory efforts. Breath sounds equal and clear to auscultation bilaterally. GASTROINTESTINAL: Abdomen soft, non-tender, non-distended. Normal active bowel sounds MUSCULOSKELETAL: Extremities without cyanosis, or edema. NEURO: Alert & Oriented x4 to person, place, time, situation. Moves all ext x4 PSYCH: Appropriate mood and affect. A/P Problem List: (1) Neutropenic fever ICD Code: D70.9 - Neutropenia, unspecified; R50.81 - Fever presenting with conditions classified elsewhere Status: Acute Assessment and Plan 72-year-old male with AML admitted with neutropenic fever, pancytopenia, and bleeding: Neutropenic sepsis in the chemotherapy patient: Fever on presentation. Recurrent fevers 05/05/17, 05/06/17. No clear source of infection. He has a healing lesion on the lateral side of his tongue. Poor dentition. Otherwise no clear focus of infection. - Appreciate infectious disease following. Continue vancomycin, cefepime, and voriconazole. - Repeat blood cultures. Urine Legionella and strep negative. AML, undergoing chemotherapy, currently pancytopenic with bleeding episodes: - Status post PRBC and platelet transfusion. - Management per Hematology/Oncology - Long discussion with oncologist Dr. Collins about the patient. Trial of Neupogen. He does understand the risk of stimulating blast cells. - H&H and platelets stable today. Continue to monitor Hypertension; BP stable- hold BP meds for now and continue to monitor. Elevated troponin- with no chest pain and with normal EKG- Cardiac enzymes essentially flat/trending down DVT prophylaxis with SCD's- no chemical prophylaxis due to anemia/ thrombocytopenia Discharge Planning Continue inpatient treatment. Chepe Lemos MD May 06, 2017 08:43
[2017-05-06] MEDS ORDERED: POTASSIUM CHLOR 20 MEQ PREMIX 100 ML IV ONE ×2 (08:45→14:15)
[2017-05-06] MEDS: POTASSIUM CHLORIDE 20 MEQ CONTROLLED RELEASE TAB PO ONE ×2 (08:45→11:27)
[2017-05-06] MEDS ORDERED: PETROLEUM/SHARK LIVER OIL/PHENYLEPHRINE 60 GM TUBE RECTAL PRN (09:15)
[2017-05-06 10:14] LABS: MAGNESIUM 1.5 MG/DL (1.5-2.5)
--- NOTE | 2017-05-06 11:03 | PD.ONC.PN ---
Subjective Subjective Remarks Tmax 101.5 overnight. Patient slept well overnight. Complaining of some pain at the beginning of urination. Gave urine sample last night. No other symptoms. Per nurse, they have been unable to draw blood from port since this morning. Objective Data Date Time Temp Pulse Resp B/P (MAP) Pulse Ox O2 Delivery O2 Flow Rate FiO2 05/06/17 08:00 78 05/06/17 07:52 98.8 74 18 137/68 (91) 94 05/06/17 04:37 99.1 73 16 141/68 (92) 95 05/06/17 04:03 77 05/06/17 00:11 100.1 73 16 140/71 (94) 94 05/06/17 00:11 74 05/05/17 21:58 101.5 05/05/17 20:36 99.9 72 16 131/64 (86) 96 05/05/17 20:11 72 05/05/17 18:15 99.9 75 14 157/86 96 05/05/17 16:14 99.0 75 14 131/58 94 05/05/17 13:16 98.3 70 14 149/72 (97) 05/06/17 05/06/17 05/06/17 07:00 15:00 23:00 Intake Total 485 ml Output Total 300 ml 150 ml Balance 185 ml -150 ml Result Diagram: 05/06/17 0552 05/06/17 0552 Laboratory Results Laboratory Tests Test 05/06/17 05:52 White Blood Count 0.6 TH/MM3 Red Blood Count 2.72 MIL/MM3 Hemoglobin 8.1 GM/DL Hematocrit 23.1 % Mean Corpuscular Volume 85.0 FL Mean Corpuscular Hemoglobin 29.9 PG Mean Corpuscular Hemoglobin Concent 35.2 % Red Cell Distribution Width 17.0 % Platelet Count 28 TH/MM3 Mean Platelet Volume 7.8 FL CBC Comment AUTO DIFF Differential Total Cells Counted 25 Lymphocytes % 92 % Neutrophils # (Manual) 0.0 TH/MM3 Metamyelocytes 4 % Differential Comment FINAL DIFF MANUAL Blastocytes 4 % Platelet Estimate LOW Platelet Morphology Comment NORMAL Ovalocytes 1+ Blood Urea Nitrogen 9 MG/DL Creatinine 0.90 MG/DL Random Glucose 100 MG/DL Calcium Level 7.7 MG/DL Magnesium Level 1.5 MG/DL Sodium Level 145 MEQ/L Potassium Level 2.9 MEQ/L Chloride Level 110 MEQ/L Carbon Dioxide Level 23.3 MEQ/L Anion Gap 12 MEQ/L Estimat Glomerular Filtration Rate 82 ML/MIN Culture Results Microbiology Date/Time Source Procedure Growth Status 05/06/17 00:12 Blood Peripheral Aerobic Blood Culture Pending Received 05/06/17 00:12 Blood Peripheral Anaerobic Blood Culture Pending Received 05/06/17 00:10 Blood Line Aerobic Blood Culture Pending Received 05/06/17 00:10 Blood Line Anaerobic Blood Culture Pending Received 05/04/17 21:35 Blood Line Aerobic Blood Culture - Preliminary Gram Negative Ruben Resulted 05/04/17 21:35 Blood Line Anaerobic Blood Culture - Preliminary NO GROWTH IN 1 DAY Resulted 05/04/17 20:40 Blood Peripheral Aerobic Blood Culture - Preliminary NO GROWTH IN 1 DAY Resulted 05/04/17 20:40 Anaerobic Blood Culture - Preliminary Gram Negative Ruben Resulted 05/05/17 22:15 Urine Clean Catch Urine Culture Pending Received Administered Medications Medications (Trade) Dose Ordered Sig/Gene Route PRN Reason Start Time Stop Time Status Last Admin Dose Admin Acetaminophen (Tylenol) 650 mg Q4H PRN PO FEVER/ PAIN 1-10 05/01/17 14:45 05/05/17 23:48 Ondansetron HCl (Zofran Inj) 4 mg Q8HR PRN IV PUSH NAUSEA 05/01/17 14:45 05/04/17 17:48 Cefepime HCl 2000 mg/Sodium Chloride 100 ml @ 200 mls/hr Q8H IV 05/01/17 16:00 05/06/17 07:56 Bupropion HCl (Wellbutrin Sr) 150 mg HS PO 05/01/17 21:00 05/05/17 21:59 Tamsulosin HCl (Flomax) 0.4 mg HS PO 05/01/17 21:00 05/05/17 21:59 Trazodone HCl (Desyrel) 50 mg HS PO 05/01/17 21:00 05/05/17 21:59 Pantoprazole Sodium (Protonix) 40 mg DAILY PO 05/02/17 09:00 05/06/17 07:55 Voriconazole 400 mg/Sodium Chloride 250 ml @ 125 mls/hr Q12H IV 05/02/17 18:00 05/06/17 06:47 Lidocaine HCl (Xylocaine 2% Viscous) 10 ml Q4H PRN PO ORAL PAIN SCALE 1 TO 10 05/02/17 20:15 05/02/17 21:18 Filgrastim (Neupogen Inj) 300 mcg DAILY@14 SQ 05/03/17 14:00 05/05/17 18:41 Vancomycin HCl 1250 mg/Sodium Chloride 262.5 ml @ 250 mls/hr Q12H IV 05/03/17 16:00 05/06/17 05:21 Objective Remarks GENERAL: Elderly male sitting up in bed in nad. SKIN: Warm and dry. port in place, IVF running in. HEAD: Normocephalic. EYES: No injection or drainage. NECK: Supple, trachea midline. CARDIOVASCULAR: Regular rate and rhythm RESPIRATORY: Breath sounds equal bilaterally. No accessory muscle use. GASTROINTESTINAL: Abdomen soft, non-tender, nondistended. EXTREMITIES: No cyanosis NEUROLOGICAL: awake and alert, normal speech. Assessment/Plan Assessment 72 y/o male with relapsed AML, admitted after transfusion reaction in clinic with pRBC. --started on Dacogen outpatient recently Plan 1. neutropenic fever: BC, 2/2 + GNR. awaiting blood cultures from 05/06. continue antibiotics. continue Neupogen. appreciate ID assistance. 2. non-functioning port: will ask nurse to dwell port with heparin. if this is unsuccessful, will use cath-kate and/or dye study if needed he feels well but has gram negative sepsis as a result of AML. Will continue supportive care. I am hopeful Neupogen will transiently restore neutrophil count to > 500 but this may not happen. Haley Aldrich May 06, 2017 11:03 Jarrell Collins MD May 06, 2017 17:43
[2017-05-06] MEDS: DOCUSATE SODIUM 50 MG/SENNA 8.6 MG TAB PO SCH ×2 (11:26→21:33)
[2017-05-06] MEDS: FILGRASTIM 300 MCG/ML VIAL SQ SCH (14:14)
[2017-05-06] MEDS ORDERED: MISCELLANEOUS PHARMACY INFORMATION XX PRN (14:30)
[2017-05-06] MEDS ORDERED: ASP: Documented ESBL, MDR A baumannii or P. aeruginosa PRN (14:30)
--- NOTE | 2017-05-06 15:04 | HHI.IDPN ---
Subjective Subjective Remarks Patient is a 72-year-old male presented to the hospital complaining of chills and shortness of breath. He was apparently in the oncology's office and receive a transfusion when he developed the symptoms of chills and shortness of breath. Patient states that he has never had shortness of breath before. He denies any chest pain. 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 He has been on prophylactic fluconazole and Levaquin. Patient apparently has not been feeling well and has had some cough. He has had some nausea for several weeks, and had one episode of vomiting enroute to the ED. any nausea or vomiting. He has had this sore on the left side of his time and his oncologist gave him some prescription to apply topically. He denies having bitten his tongue. He denies any swallowing difficulty. Denies any diarrhea or any urinary complaints. He has not had any back pain. His temperature in the ED was 102.5. On presentation he was neutropenic with a WBC of 0.1. Infectious disease consultation has been requested to evaluate the patient. Notes reviewed Febrile this weekend BC from 05/04 now with GNR, (+) ESBL No new complaint No N/V No swallowing trouble No complaints Had some constipation, better Temps better today Tongue lesion feels better Remains neutropenic Problem drawing blood from the port; no problem with infusion Antibiotics Current Medications Cefepime Voriconazole Vancomycin Medications (Trade) Dose Ordered Sig/Gene Route Start Time Stop Time Status Last Admin (Tylenol) 650 mg Q4H PRN PO 05/01/17 14:45 05/05/17 23:48 (Zofran Inj) 4 mg Q8HR PRN IV PUSH 05/01/17 14:45 05/04/17 17:48 (Wellbutrin Sr) 150 mg HS PO 05/01/17 21:00 05/05/17 21:59 (Flomax) 0.4 mg HS PO 05/01/17 21:00 05/05/17 21:59 (Desyrel) 50 mg HS PO 05/01/17 21:00 05/05/17 21:59 (Protonix) 40 mg DAILY PO 05/02/17 09:00 05/06/17 07:55 Voriconazole 400 mg/Sodium Chloride 250 ml @ 125 mls/hr Q12H IV 05/02/17 18:00 05/06/17 06:47 Pharmacy Profile Note 0 ml @ 0 mls/hr UNSCH OTHER 05/01/17 18:15 (Xylocaine 2% Viscous) 10 ml Q4H PRN PO 05/02/17 20:15 05/02/17 21:18 (Neupogen Inj) 300 mcg DAILY@14 SQ 05/03/17 14:00 05/06/17 14:14 Vancomycin HCl 1250 mg/Sodium Chloride 262.5 ml @ 250 mls/hr Q12H IV 05/03/17 16:00 05/06/17 05:21 Miscellaneous Information SPECIFIC LAB TO BE [facility]... ONCE ONCE .XX 05/07/17 03:45 05/07/17 03:46 (Flaac-Colace) 1 tab BID PO 05/06/17 09:15 05/06/17 11:26 (Preparation H Oint) 1 applic Q6H PRN RECTAL 05/06/17 09:15 05/06/17 14:25 Potassium Chloride 100 ml @ 50 mls/hr ONCE ONCE IV 05/06/17 14:15 05/06/17 16:14 05/06/17 14:13 (NS Flush) 5 ml UNSCH PRN IV FLUSH 05/06/17 14:15 (Heparin Central Flush) 250 units UNSCH PRN IV FLUSH 05/06/17 14:15 (Heparin Central Flush) 500 units UNSCH IV FLUSH 05/06/17 14:15 (ASP Crit: Doc ESBL, MDR A baumannii or P aer) 1 UNSCH X1 PRN .XX 05/06/17 14:30 05/07/17 14:29 ([facility]) 1 UNSCH X1 PRN XX 05/06/17 14:30 05/07/17 14:29 Meropenem 2000 mg/ Sodium Chloride 100 ml @ 200 mls/hr Q8H IV 05/06/17 15:00 Lines Port R chest Past Medical History 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 Vital Signs Date Time Temp Pulse Resp B/P (MAP) Pulse Ox O2 Delivery O2 Flow Rate FiO2 05/06/17 11:35 98.9 74 20 148/84 (105) 96 05/06/17 08:00 78 05/06/17 07:52 98.8 74 18 137/68 (91) 94 05/06/17 04:37 99.1 73 16 141/68 (92) 95 05/06/17 04:03 77 05/06/17 00:11 100.1 73 16 140/71 (94) 94 05/06/17 00:11 74 05/05/17 21:58 101.5 05/05/17 20:36 99.9 72 16 131/64 (86) 96 05/05/17 20:11 72 05/05/17 18:15 99.9 75 14 157/86 96 05/05/17 16:14 99.0 75 14 131/58 94 05/06/17 05/06/17 05/07/17 15:00 23:00 07:00 Output Total 350 ml Balance -350 ml Output Urine Total 350 ml . Laboratory Tests Test 05/05/17 04:25 05/06/17 05:52 White Blood Count 0.5 TH/MM3 0.6 TH/MM3 Red Blood Count 2.67 MIL/MM3 2.72 MIL/MM3 Hemoglobin 8.0 GM/DL 8.1 GM/DL Hematocrit 22.8 % 23.1 % Mean Corpuscular Volume 85.5 FL 85.0 FL Mean Corpuscular Hemoglobin 30.1 PG 29.9 PG Mean Corpuscular Hemoglobin Concent 35.2 % 35.2 % Red Cell Distribution Width 17.3 % 17.0 % Platelet Count 17 TH/MM3 28 TH/MM3 Mean Platelet Volume 9.4 FL 7.8 FL CBC Comment AUTO DIFF AUTO DIFF Differential Total Cells Counted 100 25 Lymphocytes % 96 % 92 % Monocytes % 4 % Differential Comment FINAL DIFF MANUAL FINAL DIFF MANUAL Neutrophils # (Manual) 0.0 TH/MM3 Metamyelocytes 4 % Blastocytes 4 % Platelet Estimate LOW Platelet Morphology Comment NORMAL Ovalocytes 1+ Laboratory Tests Test 05/05/17 04:25 05/06/17 05:52 Creatinine 0.90 MG/DL 0.90 MG/DL Estimat Glomerular Filtration Rate 82 ML/MIN 82 ML/MIN Blood Urea Nitrogen 9 MG/DL Random Glucose 100 MG/DL Calcium Level 7.7 MG/DL Magnesium Level 1.5 MG/DL Sodium Level 145 MEQ/L Potassium Level 2.9 MEQ/L Chloride Level 110 MEQ/L Carbon Dioxide Level 23.3 MEQ/L Anion Gap 12 MEQ/L Microbiology Date/Time Source Procedure Growth Status 05/06/17 00:12 Blood Peripheral Aerobic Blood Culture Pending Received 05/06/17 00:12 Blood Peripheral Anaerobic Blood Culture Pending Received 05/06/17 00:10 Blood Line Aerobic Blood Culture Pending Received 05/06/17 00:10 Blood Line Anaerobic Blood Culture Pending Received 05/04/17 21:35 Blood Line Aerobic Blood Culture - Preliminary Escherichia Coli Resulted 05/04/17 21:35 Blood Line Anaerobic Blood Culture - Preliminary NO GROWTH IN 2 DAYS Resulted 05/04/17 20:40 Blood Peripheral Aerobic Blood Culture - Preliminary NO GROWTH IN 2 DAYS Resulted 05/04/17 20:40 Anaerobic Blood Culture - Preliminary Gram Negative Ruben Resulted 05/05/17 22:15 Urine Clean Catch Urine Culture - Preliminary NO GROWTH IN 24 HOURS. Resulted Imaging Last Impressions Chest X-Ray 05/02/17 0000 Signed Impressions: Service Date/Time: April 06:24 - CONCLUSION: 1. Stable minimal cardiomegaly. 2. Left basilar atelectasis and/or fibrotic scarring. 3. No acute focal pulmonary infiltrate or pulmonary vascular congestion. 4. Degenerative changes throughout the thoracic spine. Luis Whitehead MD Physical Exam GENERAL: awake and alert, NAD. SKIN: Warm and dry. No generalized rash, no ecchymoses and no evidence of embolic lesions. HEAD: Atraumatic. Normocephalic. No temporal wasting, or tenderness. EYES: [place] conjunctiva. No petechia or hemorrhage. No scleral icterus. No injection or drainage. EARS, NOSE AND THROAT: Nose without bleeding or purulent nasal discharge. No sinus tenderness. Lesion on lateral tongue much smaller. No oral thrush. NECK: Trachea midline. Supple and not tender, no meningeal signs CARDIOVASCULAR: Regular rate and rhythm. No murmurs, rubs or gallops heard RESPIRATORY: Clear to auscultation. Breath sounds equal bilaterally. No rales , wheezing or rhonchi ABDOMEN: Globular and protuberant, softer and less distended, not tender, bowel sounds present and normoactive. No guarding. No rebound. EXTREMITIES: No clubbing, cyanosis, or edema. No calf tenderness. Well perfused and warm. NEUROLOGICAL: Fully awake, alert Non-focal. PSYCHIATRIC: Normal affect, calm and cooperative. LINE: Port in right upper chest with no evidence of infection Assessment & Plan Remarks IMPRESSION Neutropenic sepsis, has E coli sepsis - patient receiving chemo for relapse AML - has cough, CXR ok - had SOB during transfusion - UA ok, no complaints - has had nausea and one episode of vomiting SOB, etiology? CXR clear, resolved, ?due to fever, ?transfusion reaction Lesion Lateral L tongue, improving Relapse AML RECOMMENDATION Change cefepime to Meropenem to cover ESBL+ Continue voriconazole Continue vancomycin Follow new blood clx Monitor temps Monitor progress Explained plan to patient Judy Leal MD May 06, 2017 15:04
[2017-05-06] MEDS: MEROPENEM INJ 2,000 MG in SODIUM CHLORIDE 0.9% INJ 100 ML IV SCH ×2 (17:06→23:27)
[2017-05-06] MEDS: ACETAMINOPHEN 325 MG TAB PO PRN (17:17)
[2017-05-06] MEDS: buPROPion HCL 150 MG SUSTAINED RELEASE TAB PO SCH (21:32)
[2017-05-06] MEDS: TAMSULOSIN HCL 0.4 MG CAP PO SCH (21:33)
[2017-05-06] MEDS: traZODone HCL 50 MG TAB PO SCH (21:33)
[2017-05-06] MEDS: SODIUM CHLORIDE 0.9% FLUSH 10 ML FLUSH IV FLUSH PRN (21:45)
[2017-05-06] MEDS: ONDANSETRON HCL 4 MG/2 ML VIAL IV PUSH PRN (21:46)
[2017-05-07] VITALS (14 sets, daily range): BP systolic 117–156; BP diastolic 62–77; PULSE 68–87; RESP 18–20; TEMP 98–102.8; O2SAT 92–98
[2017-05-07] MEDS: SODIUM CHLORIDE 0.9% FLUSH 10 ML FLUSH IV FLUSH PRN (00:32)
[2017-05-07] MEDS: ACETAMINOPHEN 325 MG TAB PO PRN ×3 (00:32→21:31)
[2017-05-07 01:50] LABS: BLOOD, URINE SMALL (NEG); GLUCOSE,URINE NEG (NEG); KETONE, URINE TRACE mg/dL (NEG); MUCUS URINE FEW /lpf (OCC); NITRITE,URINE NEG (NEG); URINE COLOR YELLOW (YELLW/STRAW)
[2017-05-07] MEDS ORDERED: PHARMACY ORDERED LAB ONE (03:45)
[2017-05-07 04:23] LABS: HEMATOCRIT 21.8 % (39.0-51.0); MEAN CELL VOLUME 85.6 FL (80.0-100.0); MEAN CORPUSCULAR HEMOGLOBIN 29.9 PG (27.0-34.0); MEAN CORPUSCULAR HGB CONC 34.9 % (32.0-36.0); PLATELET COUNT 25 TH/MM3 (150-450); RED BLOOD COUNT 2.55 MIL/MM3 (4.50-5.90); RED CELL DISTRIBUTION WIDTH 17.4 % (11.6-17.2); WHITE BLOOD COUNT 0.6 TH/MM3 (4.0-11.0)
[2017-05-07 04:30] LABS: HEMO FLAGS AUTO DIFF
[2017-05-07] MEDS: VANCOMYCIN INJ 1,250 MG in SODIUM CHLOR 0.9% 250 ML INJ 250 ML IV SCH ×2 (04:34→15:24)
[2017-05-07 04:48] LABS: BICARBONATE 25.5 MEQ/L (21.0-32.0)
[2017-05-07 04:51] LABS: VANCOMYCIN TROUGH 16.7 MCG/ML (5.0-10.0)
[2017-05-07 05:23] LABS: CORRECTED NUCLEATED RBC 4 /100 WBC (0-0); POLYS (SEG NEUTROPHILS) 8 % (16-70); WBC DIFF SAMPLE 25
[2017-05-07 05:24] LABS: OVALOCYTES 1+ (NORMAL); PLATELET ESTIMATE SMEAR LOW (NORMAL); PLATELET MORPHOLOGY NORMAL (NORMAL); SCAN/DIFF FINAL DIFF MANUAL
[2017-05-07] MEDS: VORICONAZOLE IV SCH ×2 (06:16→18:00)
[2017-05-07] MEDS: SODIUM CHLOR 0.9% IV SCH ×2 (06:16→18:00)
[2017-05-07] MEDS: MEROPENEM INJ 2,000 MG in SODIUM CHLORIDE 0.9% INJ 100 ML IV SCH ×3 (06:52→23:32)
[2017-05-07] MEDS: DOCUSATE SODIUM 50 MG/SENNA 8.6 MG TAB PO SCH ×2 (07:45→21:00)
[2017-05-07] MEDS: PANTOPRAZOLE SOD 40 MG DELAYED RELEASE TAB PO SCH (07:45)
[2017-05-07] MEDS ORDERED: SODIUM CHLOR 0.9% 250 ML INJ 250 ML IV ONE (08:30)
[2017-05-07] MEDS ORDERED: ALTEPLASE RECOMBINANT 2 MG VIAL INTRACATH PRN (08:30)
--- NOTE | 2017-05-07 08:43 | HHI.PR ---
Subjective Remarks Fever overnight up to 102.8 No bleeding Objective Vitals Vital Signs Date Time Temp Pulse Resp B/P (MAP) Pulse Ox O2 Delivery O2 Flow Rate FiO2 05/07/17 04:11 68 05/07/17 03:55 99.6 72 18 117/62 (80) 95 05/07/17 00:31 102.8 05/07/17 00:04 80 05/06/17 23:29 102.5 81 18 142/69 (93) 93 05/06/17 21:56 100.2 05/06/17 21:32 100.5 05/06/17 20:50 100.1 76 16 146/70 (95) 96 05/06/17 20:07 73 05/06/17 17:13 100.1 79 20 138/72 (94) 96 05/06/17 11:35 98.9 74 20 148/84 (105) 96 I/O 05/06/17 05/06/17 05/06/17 05/07/17 05/07/17 05/07/17 07:00 15:00 23:00 07:00 15:00 23:00 Intake Total 485 ml 205 ml 1115 ml Output Total 300 ml 350 ml 750 ml Balance 185 ml -145 ml 365 ml Intake Oral 120 ml 650 ml IV Total 365 ml 205 ml 465 ml Output Urine Total 300 ml 350 ml 750 ml # Bowel Movements 1 Result Diagram: 05/07/17 0350 05/07/17 0350 Objective Remarks GENERAL: This is a well-nourished, well-developed patient, in no apparent distress. ENT: Left lateral side of the tongue there is small lesion that is healing compared to previous exam. Nose appear dry. Very poor dentition with tooth decay CARDIOVASCULAR: Normal rate and regular rhythm without murmurs, gallops, or rubs. RESPIRATORY: Good respiratory efforts. Breath sounds equal and clear to auscultation bilaterally. GASTROINTESTINAL: Abdomen soft, non-tender, non-distended. Normal active bowel sounds MUSCULOSKELETAL: Extremities without cyanosis, or edema. NEURO: Alert & Oriented x4 to person, place, time, situation. Moves all ext x4 PSYCH: Appropriate mood and affect. A/P Problem List: (1) Neutropenic fever ICD Code: D70.9 - Neutropenia, unspecified; R50.81 - Fever presenting with conditions classified elsewhere Status: Acute Assessment and Plan In summary this is a 72-year-old male with AML being treated for sepsis secondary to ESBL E coli bacteremia. Patient presented with neutropenic fever, pancytopenia, and bleeding: Neutropenic sepsis, ESBL E coli bacteremia in the chemotherapy patient: Fever on presentation. Recurrent fevers. - Appreciate infectious disease following. Continue vancomycin,and voriconazole. Cefepime changed to Meropenem to cover ESBL - Repeat blood cultures pending. Urine Legionella and strep negative. AML, undergoing chemotherapy, currently pancytopenic with bleeding episodes: - Status post PRBC and platelet transfusion. - Management per Hematology/Oncology - Long discussion with oncologist Dr. Collins about the patient. Trial of Neupogen. He does understand the risk of stimulating blast cells. - Transfusion today per Oncology. Continue to monitor Hypertension; BP stable- hold BP meds for now and continue to monitor. Elevated troponin- with no chest pain and with normal EKG- Cardiac enzymes essentially flat/trending down DVT prophylaxis with SCD's- no chemical prophylaxis due to anemia/ thrombocytopenia Discharge Planning Continue inpatient treatment. Chepe Lemos MD May 07, 2017 08:43
--- NOTE | 2017-05-07 10:34 | PD.ONC.PN ---
Subjective Subjective Remarks Tmax 102.8 overnight. Patient resting in bed. States he slept ok last night. Port still not drawing blood, despite heparin yesterday. Objective Data Date Time Temp Pulse Resp B/P (MAP) Pulse Ox O2 Delivery O2 Flow Rate FiO2 05/07/17 08:00 98.0 77 18 119/65 (83) 96 05/07/17 08:00 74 05/07/17 04:11 68 05/07/17 03:55 99.6 72 18 117/62 (80) 95 05/07/17 00:31 102.8 05/07/17 00:04 80 05/06/17 23:29 102.5 81 18 142/69 (93) 93 05/06/17 21:56 100.2 05/06/17 21:32 100.5 05/06/17 20:50 100.1 76 16 146/70 (95) 96 05/06/17 20:07 73 05/06/17 17:13 100.1 79 20 138/72 (94) 96 05/06/17 11:35 98.9 74 20 148/84 (105) 96 Result Diagram: 05/07/17 0350 05/07/17 0350 Laboratory Results Laboratory Tests Test 05/07/17 00:20 05/07/17 03:50 Urine Color YELLOW Urine Turbidity CLEAR Urine pH 6.0 Urine Specific [place] 1.024 Urine Protein 30 mg/dL Urine Glucose (UA) NEG mg/dL Urine Ketones TRACE mg/dL Urine Occult Blood SMALL Urine Nitrite NEG Urine Bilirubin NEG Urine Urobilinogen 2.0 MG/DL Urine Leukocyte Esterase NEG Urine RBC 21 /hpf Urine WBC 1 /hpf Urine Mucus FEW /lpf White Blood Count 0.6 TH/MM3 Red Blood Count 2.55 MIL/MM3 Hemoglobin 7.6 GM/DL Hematocrit 21.8 % Mean Corpuscular Volume 85.6 FL Mean Corpuscular Hemoglobin 29.9 PG Mean Corpuscular Hemoglobin Concent 34.9 % Red Cell Distribution Width 17.4 % Platelet Count 25 TH/MM3 Mean Platelet Volume 8.5 FL CBC Comment AUTO DIFF Differential Total Cells Counted 25 Neutrophils % (Manual) 8 % Lymphocytes % 84 % Monocytes % 8 % Neutrophils # (Manual) 0.0 TH/MM3 Nucleated Red Blood Cells 4 /100 WBC Differential Comment FINAL DIFF MANUAL Platelet Estimate LOW Platelet Morphology Comment NORMAL Ovalocytes 1+ Blood Urea Nitrogen 10 MG/DL Creatinine 0.96 MG/DL Random Glucose 126 MG/DL Calcium Level 7.5 MG/DL Sodium Level 145 MEQ/L Potassium Level 3.0 MEQ/L Chloride Level 110 MEQ/L Carbon Dioxide Level 25.5 MEQ/L Anion Gap 10 MEQ/L Estimat Glomerular Filtration Rate 77 ML/MIN Vancomycin Level Trough 16.7 MCG/ML Culture Results Microbiology Date/Time Source Procedure Growth Status 05/07/17 00:15 Blood Peripheral Aerobic Blood Culture Pending Received 05/07/17 00:15 Blood Peripheral Anaerobic Blood Culture Pending Received 05/07/17 00:10 Blood Peripheral Aerobic Blood Culture Pending Received 05/07/17 00:10 Blood Peripheral Anaerobic Blood Culture Pending Received 05/06/17 00:12 Blood Peripheral Aerobic Blood Culture Pending Received 05/06/17 00:12 Blood Peripheral Anaerobic Blood Culture Pending Received 05/06/17 00:10 Blood Line Aerobic Blood Culture Pending Received 05/06/17 00:10 Blood Line Anaerobic Blood Culture Pending Received 05/04/17 21:35 Blood Line Aerobic Blood Culture - Preliminary Escherichia Coli Resulted 05/04/17 21:35 Blood Line Anaerobic Blood Culture - Preliminary NO GROWTH IN 2 DAYS Resulted 05/04/17 20:40 Blood Peripheral Aerobic Blood Culture - Preliminary NO GROWTH IN 2 DAYS Resulted 05/04/17 20:40 Anaerobic Blood Culture - Preliminary Escherichia Coli Esbl Positive Resulted 05/07/17 00:20 Urine Clean Catch Urine Culture Pending Received 05/05/17 22:15 Urine Clean Catch Urine Culture - Final NO GROWTH IN 48 HOURS. Complete Administered Medications Medications (Trade) Dose Ordered Sig/Gene Route PRN Reason Start Time Stop Time Status Last Admin Dose Admin Acetaminophen (Tylenol) 650 mg Q4H PRN PO FEVER/ PAIN 1-10 05/01/17 14:45 05/07/17 00:32 Ondansetron HCl (Zofran Inj) 4 mg Q8HR PRN IV PUSH NAUSEA 05/01/17 14:45 05/06/17 21:46 Bupropion HCl (Wellbutrin Sr) 150 mg HS PO 05/01/17 21:00 05/06/17 21:32 Tamsulosin HCl (Flomax) 0.4 mg HS PO 05/01/17 21:00 05/06/17 21:33 Trazodone HCl (Desyrel) 50 mg HS PO 05/01/17 21:00 05/06/17 21:33 Pantoprazole Sodium (Protonix) 40 mg DAILY PO 05/02/17 09:00 05/07/17 07:45 Voriconazole 400 mg/Sodium Chloride 250 ml @ 125 mls/hr Q12H IV 05/02/17 18:00 05/07/17 06:16 Lidocaine HCl (Xylocaine 2% Viscous) 10 ml Q4H PRN PO ORAL PAIN SCALE 1 TO 10 05/02/17 20:15 05/02/17 21:18 Filgrastim (Neupogen Inj) 300 mcg DAILY@14 SQ 05/03/17 14:00 05/06/17 14:14 Vancomycin HCl 1250 mg/Sodium Chloride 262.5 ml @ 250 mls/hr Q12H IV 05/03/17 16:00 05/07/17 04:34 Senna/Docusate Sodium (Flaca-Colace) 1 tab BID PO 05/06/17 09:15 05/07/17 07:45 Shark Liver Oil (Preparation H Oint) 1 applic Q6H PRN RECTAL HEMORRHOIDS 05/06/17 09:15 05/06/17 14:25 Sodium Chloride (NS Flush) 5 ml UNSCH PRN IV FLUSH SEE PROTOCOL TABLE 05/06/17 14:15 05/07/17 00:32 Heparin Sodium (Porcine) (Heparin Central Flush) 250 units UNSCH PRN IV FLUSH SEE PROTOCOL TABLE 05/06/17 14:15 05/07/17 00:32 Meropenem 2000 mg/ Sodium Chloride 100 ml @ 200 mls/hr Q8H IV 05/06/17 15:00 05/07/17 06:52 Alteplase, Recombinant (Cathflo Activase Inj) 2 mg Q2H PRN INTRACATH CLOTTED PORT 05/07/17 08:30 05/07/17 09:18 Objective Remarks GENERAL: Elderly male sitting up in room. SKIN: Warm and dry. HEAD: Normocephalic. EYES: No injection or drainage. NECK: Supple, trachea midline. CARDIOVASCULAR: Regular rate and rhythm RESPIRATORY: Breath sounds equal bilaterally. No accessory muscle use. GASTROINTESTINAL: Abdomen soft, non-tender, nondistended. EXTREMITIES: No cyanosis NEUROLOGICAL: awake and alert, normal speech. moving all extremities. Assessment/Plan Assessment 72 y/o male with relapsed AML, admitted with sepsis. --started on Dacogen outpatient recently Plan 1. neutropenic sepsis: BC, 2/2 ESBL+ Ecoli. continue Neupogen. continue Meropenem, Voriconazole and Vancomycin per ID. appreciate ID assistance. 2. non-functioning port: cath-kate today. if this is ineffective will consult IR for dye study. 3. Anemia: give 1 unit pRBC. Attending Statement The exam, history, and the medical decision-making described in the above note were completed with the assistance of the mid-level provider. I reviewed and agree with the findings presented. I attest that I had a [id number] encounter with the patient on the same day, and personally performed and documented my assessment and findings in the medical record. temperature now normal and he appears well. appreciate all the help. The outcome will be determined by his ability to recover an adequate neutrophil count. will continue neupogen for the time being and follow cbc plat . He is not a candidate for induction chemotherapy. Haley Aldrich May 07, 2017 10:34 Jarrell Collins MD May 07, 2017 19:19
--- NOTE | 2017-05-07 13:39 | HHI.IDPN ---
Subjective Subjective Remarks Patient is a 72-year-old male presented to the hospital complaining of chills and shortness of breath. He was apparently in the oncology's office and receive a transfusion when he developed the symptoms of chills and shortness of breath. Patient states that he has never had shortness of breath before. He denies any chest pain. 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 He has been on prophylactic fluconazole and Levaquin. Patient apparently has not been feeling well and has had some cough. He has had some nausea for several weeks, and had one episode of vomiting enroute to the ED. any nausea or vomiting. He has had this sore on the left side of his time and his oncologist gave him some prescription to apply topically. He denies having bitten his tongue. He denies any swallowing difficulty. Denies any diarrhea or any urinary complaints. He has not had any back pain. His temperature in the ED was 102.5. On presentation he was neutropenic with a WBC of 0.1. Infectious disease consultation has been requested to evaluate the patient. Notes reviewed Temps better overnight. (+) BC from 05/04 Repeat BC negative so far No new complaint No N/V No swallowing trouble No complaints Tongue lesion feels better Remains neutropenic Problem drawing blood from the port; no problem with infusion Antibiotics Current Medications Meropenem Voriconazole Vancomycin Medications (Trade) Dose Ordered Sig/Gene Route Start Time Stop Time Status Last Admin (Tylenol) 650 mg Q4H PRN PO 05/01/17 14:45 05/07/17 11:10 (Zofran Inj) 4 mg Q8HR PRN IV PUSH 05/01/17 14:45 05/06/17 21:46 (Wellbutrin Sr) 150 mg HS PO 05/01/17 21:00 05/06/17 21:32 (Flomax) 0.4 mg HS PO 05/01/17 21:00 05/06/17 21:33 (Desyrel) 50 mg HS PO 05/01/17 21:00 05/06/17 21:33 (Protonix) 40 mg DAILY PO 05/02/17 09:00 05/07/17 07:45 Voriconazole 400 mg/Sodium Chloride 250 ml @ 125 mls/hr Q12H IV 05/02/17 18:00 12/5/17 06:16 Pharmacy Profile Note 0 ml @ 0 mls/hr UNSCH OTHER 05/01/17 18:15 (Xylocaine 2% Viscous) 10 ml Q4H PRN PO 05/02/17 20:15 05/02/17 21:18 (Neupogen Inj) 300 mcg DAILY@14 SQ 05/03/17 14:00 05/06/17 14:14 Vancomycin HCl 1250 mg/Sodium Chloride 262.5 ml @ 250 mls/hr Q12H IV 05/03/17 16:00 05/07/17 04:34 (Flaca-Colace) 1 tab BID PO 05/06/17 09:15 05/07/17 07:45 (Preparation H Oint) 1 applic Q6H PRN RECTAL 05/06/17 09:15 05/06/17 14:25 (NS Flush) 5 ml UNSCH PRN IV FLUSH 05/06/17 14:15 05/07/17 00:32 (Heparin Central Flush) 250 units UNSCH PRN IV FLUSH 05/06/17 14:15 05/07/17 00:32 (Heparin Central Flush) 500 units UNSCH IV FLUSH 05/06/17 14:15 (ASP Crit: Doc ESBL, MDR A baumannii or P aer) 1 UNSCH X1 PRN .XX 05/06/17 14:30 05/07/17 14:29 ([facility]) 1 UNSCH X1 PRN XX 05/06/17 14:30 05/07/17 14:29 Meropenem 2000 mg/ Sodium Chloride 100 ml @ 200 mls/hr Q8H IV 05/06/17 15:00 05/07/17 06:52 (Cathflo Activase Inj) 2 mg Q2H PRN INTRACATH 05/07/17 08:30 05/07/17 09:18 Sodium Chloride 250 ml @ 15 mls/hr ONCE ONCE IV 05/07/17 08:30 05/08/17 01:09 05/07/17 13:00 Lines Port R chest Past Medical History 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 Vital Signs Date Time Temp Pulse Resp B/P (MAP) Pulse Ox O2 Delivery O2 Flow Rate FiO2 05/07/17 13:34 98.3 72 20 120/63 92 05/07/17 13:24 20 05/07/17 13:16 98.2 71 20 129/62 95 05/07/17 12:50 99.2 69 20 129/62 94 05/07/17 12:00 99.7 80 18 151/77 (101) 95 05/07/17 12:00 80 05/07/17 08:00 98.0 77 18 119/65 (83) 96 05/07/17 08:00 74 05/07/17 04:11 68 05/07/17 03:55 99.6 72 18 117/62 (80) 95 05/07/17 00:31 102.8 05/07/17 00:04 80 05/06/17 23:29 102.5 81 18 142/69 (93) 93 05/06/17 21:56 100.2 05/06/17 21:32 100.5 05/06/17 20:50 100.1 76 16 146/70 (95) 96 05/06/17 20:07 73 05/06/17 17:13 100.1 79 20 138/72 (94) 96 05/07/17 05/07/17 05/08/17 15:00 23:00 07:00 Intake Total 25 ml Balance 25 ml Blood Product IV Normal Saline Flush 25 ml . Laboratory Tests Test 05/06/17 05:52 05/07/17 03:50 White Blood Count 0.6 TH/MM3 0.6 TH/MM3 Red Blood Count 2.72 MIL/MM3 2.55 MIL/MM3 Hemoglobin 8.1 GM/DL 7.6 GM/DL Hematocrit 23.1 % 21.8 % Mean Corpuscular Volume 85.0 FL 85.6 FL Mean Corpuscular Hemoglobin 29.9 PG 29.9 PG Mean Corpuscular Hemoglobin Concent 35.2 % 34.9 % Red Cell Distribution Width 17.0 % 17.4 % Platelet Count 28 TH/MM3 25 TH/MM3 Mean Platelet Volume 7.8 FL 8.5 FL CBC Comment AUTO DIFF AUTO DIFF Differential Total Cells Counted 25 25 Lymphocytes % 92 % 84 % Neutrophils # (Manual) 0.0 TH/MM3 0.0 TH/MM3 Metamyelocytes 4 % Differential Comment FINAL DIFF MANUAL FINAL DIFF MANUAL Blastocytes 4 % Platelet Estimate LOW LOW Platelet Morphology Comment NORMAL NORMAL Ovalocytes 1+ 1+ Neutrophils % (Manual) 8 % Monocytes % 8 % Nucleated Red Blood Cells 4 /100 WBC Laboratory Tests Test 05/06/17 05:52 05/07/17 03:50 Blood Urea Nitrogen 9 MG/DL 10 MG/DL Creatinine 0.90 MG/DL 0.96 MG/DL Random Glucose 100 MG/DL 126 MG/DL Calcium Level 7.7 MG/DL 7.5 MG/DL Magnesium Level 1.5 MG/DL Sodium Level 145 MEQ/L 145 MEQ/L Potassium Level 2.9 MEQ/L 3.0 MEQ/L Chloride Level 110 MEQ/L 110 MEQ/L Carbon Dioxide Level 23.3 MEQ/L 25.5 MEQ/L Anion Gap 12 MEQ/L 10 MEQ/L Estimat Glomerular Filtration Rate 82 ML/MIN 77 ML/MIN Microbiology Date/Time Source Procedure Growth Status 05/07/17 00:15 Blood Peripheral Aerobic Blood Culture Pending Received 05/07/17 00:15 Blood Peripheral Anaerobic Blood Culture Pending Received 05/07/17 00:10 Blood Peripheral Aerobic Blood Culture Pending Received 05/07/17 00:10 Blood Peripheral Anaerobic Blood Culture Pending Received 05/06/17 00:12 Blood Peripheral Aerobic Blood Culture - Preliminary NO GROWTH IN 1 DAY Resulted 05/06/17 00:12 Blood Peripheral Anaerobic Blood Culture - Preliminary NO GROWTH IN 1 DAY Resulted 05/06/17 00:10 Blood Line Aerobic Blood Culture - Preliminary NO GROWTH IN 1 DAY Resulted 05/06/17 00:10 Blood Line Anaerobic Blood Culture - Preliminary NO GROWTH IN 1 DAY Resulted 05/04/17 21:35 Blood Line Aerobic Blood Culture - Preliminary Escherichia Coli Resulted 05/04/17 21:35 Blood Line Anaerobic Blood Culture - Preliminary NO GROWTH IN 3 DAYS Resulted 05/04/17 20:40 Blood Peripheral Aerobic Blood Culture - Preliminary NO GROWTH IN 3 DAYS Resulted 05/04/17 20:40 Anaerobic Blood Culture - Preliminary Escherichia Coli Esbl Positive Resulted 05/07/17 00:20 Urine Clean Catch Urine Culture Pending Received 05/05/17 22:15 Urine Clean Catch Urine Culture - Final NO GROWTH IN 48 HOURS. Complete Imaging Last Impressions Chest X-Ray 05/02/17 0000 Signed Impressions: Service Date/Time: April 06:24 - CONCLUSION: 1. Stable minimal cardiomegaly. 2. Left basilar atelectasis and/or fibrotic scarring. 3. No acute focal pulmonary infiltrate or pulmonary vascular congestion. 4. Degenerative changes throughout the thoracic spine. Luis Whitehead MD Physical Exam GENERAL: awake and alert, NAD. SKIN: Warm and dry. No generalized rash, no ecchymoses and no evidence of embolic lesions. HEAD: Atraumatic. Normocephalic. No temporal wasting, or tenderness. EYES: Ginger Blue conjunctiva. No petechia or hemorrhage. No scleral icterus. No injection or drainage. EARS, NOSE AND THROAT: Nose without bleeding or purulent nasal discharge. No sinus tenderness. Lesion on lateral tongue much smaller. No oral thrush. NECK: Trachea midline. Supple and not tender, no meningeal signs CARDIOVASCULAR: Regular rate and rhythm. No murmurs, rubs or gallops heard RESPIRATORY: Clear to auscultation. Breath sounds equal bilaterally. No rales , wheezing or rhonchi ABDOMEN: Globular and protuberant, softer and less distended, not tender, bowel sounds present and normoactive. No guarding. No rebound. EXTREMITIES: No clubbing, cyanosis, or edema. No calf tenderness. Well perfused and warm. NEUROLOGICAL: Fully awake, alert Non-focal. PSYCHIATRIC: Normal affect, calm and cooperative. LINE: Port in right upper chest with no evidence of infection Assessment & Plan Remarks IMPRESSION Neutropenic sepsis, has E coli sepsis - patient receiving chemo for relapse AML - has cough, CXR ok - had SOB during transfusion - UA ok, no complaints - has had nausea and one episode of vomiting SOB, etiology? CXR clear, resolved, ?due to fever, ?transfusion reaction Lesion Lateral L tongue, improving Relapse AML RECOMMENDATION Continue Meropenem to cover ESBL+ Continue voriconazole Continue vancomycin Follow new blood clx Monitor temps Monitor progress Judy Leal MD May 07, 2017 13:39
[2017-05-07] MEDS: FILGRASTIM 300 MCG/ML VIAL SQ SCH (15:22)
[2017-05-07] MEDS: traZODone HCL 50 MG TAB PO SCH (21:31)
[2017-05-07] MEDS: buPROPion HCL 150 MG SUSTAINED RELEASE TAB PO SCH (21:31)
[2017-05-07] MEDS: TAMSULOSIN HCL 0.4 MG CAP PO SCH (21:31)
[2017-05-07] MEDS: ONDANSETRON HCL 4 MG/2 ML VIAL IV PUSH PRN (21:44)
[2017-05-08] VITALS (8 sets, daily range): BP systolic 138–151; BP diastolic 67–90; PULSE 71–79; RESP 16–20; TEMP 98.8–101; O2SAT 92–98
[2017-05-08] MEDS: SODIUM CHLORIDE 0.9% FLUSH 10 ML FLUSH IV FLUSH PRN ×2 (00:56→04:56)
[2017-05-08] MEDS: VANCOMYCIN INJ 1,250 MG in SODIUM CHLOR 0.9% 250 ML INJ 250 ML IV SCH ×2 (04:52→16:20)
[2017-05-08] MEDS: SODIUM CHLOR 0.9% IV SCH ×2 (06:27→17:21)
[2017-05-08] MEDS: VORICONAZOLE IV SCH ×2 (06:27→17:21)
[2017-05-08] MEDS: MEROPENEM INJ 2,000 MG in SODIUM CHLORIDE 0.9% INJ 100 ML IV SCH ×2 (06:30→13:30)
--- NOTE | 2017-05-08 09:20 | PD.ONC.PN ---
Subjective Subjective Remarks Tmax 101 this am Frustrated that he keeps having fevers Hoping to be home by [place] Was having constipation but this has been resolved Objective Data Date Time Temp Pulse Resp B/P (MAP) Pulse Ox O2 Delivery O2 Flow Rate FiO2 05/08/17 04:48 101.0 75 18 140/71 (94) 92 05/08/17 04:06 71 05/08/17 00:05 74 05/07/17 23:35 99.6 80 18 139/68 (91) 93 05/07/17 20:16 101.6 80 20 123/67 (85) 98 05/07/17 19:58 87 05/07/17 16:00 98.4 75 20 156/76 (102) 94 05/07/17 16:00 75 05/07/17 15:19 98.4 75 20 156/76 (102) 94 05/07/17 13:34 98.3 72 20 120/63 92 05/07/17 13:24 20 05/07/17 13:16 98.2 71 20 129/62 95 05/07/17 12:50 99.2 69 20 129/62 94 05/07/17 12:00 99.7 80 18 151/77 (101) 95 05/07/17 12:00 80 05/08/17 05/08/17 05/08/17 07:00 15:00 23:00 Intake Total 360 ml Output Total 400 ml Balance -40 ml Result Diagram: 05/07/17 0350 05/07/17 0350 Culture Results Microbiology Date/Time Source Procedure Growth Status 05/07/17 00:15 Blood Peripheral Aerobic Blood Culture Pending Received 05/07/17 00:15 Blood Peripheral Anaerobic Blood Culture Pending Received 05/07/17 00:10 Blood Peripheral Aerobic Blood Culture Pending Received 05/07/17 00:10 Blood Peripheral Anaerobic Blood Culture Pending Received 05/06/17 00:12 Blood Peripheral Aerobic Blood Culture - Preliminary NO GROWTH IN 1 DAY Resulted 05/06/17 00:12 Blood Peripheral Anaerobic Blood Culture - Preliminary NO GROWTH IN 1 DAY Resulted 05/06/17 00:10 Blood Line Aerobic Blood Culture - Preliminary NO GROWTH IN 1 DAY Resulted 05/06/17 00:10 Blood Line Anaerobic Blood Culture - Preliminary NO GROWTH IN 1 DAY Resulted 05/07/17 00:20 Urine Clean Catch Urine Culture Pending Received 05/05/17 22:15 Urine Clean Catch Urine Culture - Final NO GROWTH IN 48 HOURS. Complete Administered Medications Medications (Trade) Dose Ordered Sig/Gene Route PRN Reason Start Time Stop Time Status Last Admin Dose Admin Acetaminophen (Tylenol) 650 mg Q4H PRN PO FEVER/ PAIN 1-10 05/01/17 14:45 05/07/17 21:31 Ondansetron HCl (Zofran Inj) 4 mg Q8HR PRN IV PUSH NAUSEA 05/01/17 14:45 05/07/17 21:44 Bupropion HCl (Wellbutrin Sr) 150 mg HS PO 05/01/17 21:00 05/07/17 21:31 Tamsulosin HCl (Flomax) 0.4 mg HS PO 05/01/17 21:00 05/07/17 21:31 Trazodone HCl (Desyrel) 50 mg HS PO 05/01/17 21:00 05/07/17 21:31 Pantoprazole Sodium (Protonix) 40 mg DAILY PO 05/02/17 09:00 05/07/17 07:45 Voriconazole 400 mg/Sodium Chloride 250 ml @ 125 mls/hr Q12H IV 05/02/17 18:00 05/08/17 06:27 Lidocaine HCl (Xylocaine 2% Viscous) 10 ml Q4H PRN PO ORAL PAIN SCALE 1 TO 10 05/02/17 20:15 05/02/17 21:18 Filgrastim (Neupogen Inj) 300 mcg DAILY@14 SQ 05/03/17 14:00 05/07/17 15:22 Vancomycin HCl 1250 mg/Sodium Chloride 262.5 ml @ 250 mls/hr Q12H IV 05/03/17 16:00 05/08/17 04:52 Senna/Docusate Sodium (Flaca-Colace) 1 tab BID PO 05/06/17 09:15 05/07/17 07:45 Shark Liver Oil (Preparation H Oint) 1 applic Q6H PRN RECTAL HEMORRHOIDS 05/06/17 09:15 05/06/17 14:25 Sodium Chloride (NS Flush) 5 ml UNSCH PRN IV FLUSH SEE PROTOCOL TABLE 05/06/17 14:15 05/08/17 04:56 Heparin Sodium (Porcine) (Heparin Central Flush) 250 units UNSCH PRN IV FLUSH SEE PROTOCOL TABLE 05/06/17 14:15 05/08/17 00:56 Meropenem 2000 mg/ Sodium Chloride 100 ml @ 200 mls/hr Q8H IV 05/06/17 15:00 05/08/17 06:30 Alteplase, Recombinant (Cathflo Activase Inj) 2 mg Q2H PRN INTRACATH CLOTTED PORT 05/07/17 08:30 05/07/17 09:18 Objective Remarks GENERAL: Elderly male resting in bed in no acute distress. SKIN: Warm and dry. HEAD: Normocephalic. EYES: No injection or drainage. NECK: Supple, trachea midline. CARDIOVASCULAR: Regular rate and rhythm RESPIRATORY: Breath sounds equal bilaterally. No accessory muscle use. GASTROINTESTINAL: Abdomen soft, non-tender, nondistended. EXTREMITIES: No cyanosis NEUROLOGICAL: awake and alert, normal speech. moving all extremities. Assessment/Plan Assessment 72 y/o male with relapsed AML, admitted with sepsis. --started on Dacogen outpatient recently Plan 1. New BC, urine cultures drawn after new fever this am. Will defer to ID for antibiotic coverage. CBC ordered for today; pt rec'd 1 unit PRBC's yesterday. 2. Discussed with pt that we are watching and waiting. One could do another bone marrow biopsy however, this will not change current treatment. Will continue Neupogen for now in hopes of getting a response with increase in neutrophils. 3. Pt can be discharged home once fevers are under control. Attending Statement The exam, history, and the medical decision-making described in the above note were completed with the assistance of the mid-level provider. I reviewed and agree with the findings presented. I attest that I had a [id number] encounter with the patient on the same day, and personally performed and documented my assessment and findings in the medical record. no change in exam and outcome remains dependent on recovery of neutrophil count. will continue support and hopefully he will become afebrile for a period of time allowing him to return home. He understands the gravity of the situation. Jewels Mina May 08, 2017 09:20 Jarrell Collins MD May 08, 2017 18:49
[2017-05-08] MEDS: DOCUSATE SODIUM 50 MG/SENNA 8.6 MG TAB PO SCH ×2 (09:57→20:31)
[2017-05-08] MEDS: PANTOPRAZOLE SOD 40 MG DELAYED RELEASE TAB PO SCH (09:58)
[2017-05-08 11:27] LABS: AUTOMATED NEUTROPHIL # 0.4 TH/MM3 (1.8-7.7); BASOPHIL % 0.1 % (0.0-2.0); EOSINOPHIL % 0.7 % (0.0-4.0); HEMATOCRIT 23.4 % (39.0-51.0); LYMPH % 54.1 % (9.0-44.0); LYMPHOCYTE # 0.5 TH/MM3 (1.0-4.8); MEAN CELL VOLUME 84.9 FL (80.0-100.0); MEAN CORPUSCULAR HEMOGLOBIN 29.2 PG (27.0-34.0); MEAN CORPUSCULAR HGB CONC 34.3 % (32.0-36.0); MONO % 2.1 % (0.0-8.0); RED BLOOD COUNT 2.76 MIL/MM3 (4.50-5.90); RED CELL DISTRIBUTION WIDTH 16.8 % (11.6-17.2); WHITE BLOOD COUNT 0.8 TH/MM3 (4.0-11.0)
[2017-05-08 11:28] LABS: HEMO FLAGS AUTO DIFF
[2017-05-08 11:30] LABS: PLATELET COUNT 19 TH/MM3 (150-450)
[2017-05-08 11:57] LABS: BICARBONATE 26.3 MEQ/L (21.0-32.0)
[2017-05-08 12:02] LABS: POTASSIUM 2.9 MEQ/L (3.5-5.1)
[2017-05-08] MEDS: FILGRASTIM 300 MCG/ML VIAL SQ SCH (13:00)
[2017-05-08] MEDS ORDERED: POTASSIUM CHLOR 40 MEQ PREMIX 100 ML IV ONE (13:00)
[2017-05-08 13:45] LABS: BANDS 3 % (0-6); BLASTS 13 % (0-0); CORRECTED NUCLEATED RBC 1 /100 WBC (0-0); PLASMA CELLS 10 % (0-0); POLYS (SEG NEUTROPHILS) 6 % (16-70); WBC DIFF SAMPLE 100
--- NOTE | 2017-05-08 13:45 | HHI.PR ---
Subjective Remarks Mr. Suh denies pain cough or shortness of breath. He did have a fever this morning. Patient endorses feeling tired. No bleeding episodes. Objective Vitals Vital Signs Date Time Temp Pulse Resp B/P (MAP) Pulse Ox O2 Delivery O2 Flow Rate FiO2 05/08/17 13:04 98.8 75 20 138/77 (97) 97 05/08/17 09:56 99.4 77 20 151/67 (95) 92 05/08/17 08:00 75 05/08/17 04:48 101.0 75 18 140/71 (94) 92 05/08/17 04:06 71 05/08/17 00:05 74 05/07/17 23:35 99.6 80 18 139/68 (91) 93 05/07/17 20:16 101.6 80 20 123/67 (85) 98 05/07/17 19:58 87 05/07/17 16:00 98.4 75 20 156/76 (102) 94 05/07/17 16:00 75 05/07/17 15:19 98.4 75 20 156/76 (102) 94 I/O 05/07/17 05/07/17 05/07/17 05/08/17 05/08/17 05/08/17 06:59 14:59 22:59 06:59 14:59 22:59 Intake Total 25 ml 3309 ml 360 ml Output Total 1750 ml 400 ml Balance 25 ml 1559 ml -40 ml Intake Oral 2100 ml IV Total 409 ml 360 ml Packed Cells 400 ml Blood Product IV Normal Saline Flush 25 ml 400 ml Output Urine Total 1750 ml 400 ml # Bowel Movements 1 1 Result Diagram: 05/08/17 1020 05/08/17 1020 Objective Remarks GENERAL: Well-nourished, well-developed pleasant elderly male patient. SKIN: Warm and dry. HEAD: Normocephalic. EYES: No scleral icterus. No injection or drainage. NECK: Supple, trachea midline. No JVD or lymphadenopathy. CARDIOVASCULAR: Regular rate and rhythm without murmurs, gallops, or rubs. RESPIRATORY: Breath sounds equal and clear to auscultation bilaterally. No accessory muscle use. GASTROINTESTINAL: Abdomen soft, non-tender, nondistended. EXTREMITIES: No pedal edema. NEUROLOGICAL: Awake, alert, and oriented x 3. Non-focal. 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 Patient presented with neutropenic fever, pancytopenia, and bleeding : Neutropenic sepsis, ESBL E coli bacteremia in the chemotherapy patient: Fever on presentation. Recurrent fevers. - Appreciate infectious disease following. Continue vancomycin,and voriconazole. Cefepime changed to Meropenem to cover ESBL - Repeat blood cultures from 05/06 and 05/07 are negative. Urine culture 05/07 no growth to date. Urine Legionella and strep negative. AML, undergoing chemotherapy, currently pancytopenic with bleeding episodes: - Status post PRBC and platelet transfusion. - Management per Hematology/Oncology - Trial of Neupogen. Patient has previously been counseled on the risk of stimulating blast cells. - Transfusion parameters per oncology Hypokalemia -Receiving 40 mEq IV potassium. Will repeat BMP in the morning. Hypertension; BP stable- hold BP meds for now and continue to monitor. Elevated troponin- with no chest pain and with normal EKG- Cardiac enzymes essentially flat/trending down DVT prophylaxis with SCD's- no chemical prophylaxis due to anemia/ thrombocytopenia Catarina Dove MD May 08, 2017 13:45
[2017-05-08 13:48] LABS: NEUTROPHIL # MANUAL DIFF 0.1 TH/MM3 (1.8-7.7); OVALOCYTES 1+ (NORMAL); PLATELET ESTIMATE SMEAR RARE (NORMAL); PLATELET MORPHOLOGY NORMAL (NORMAL); SCAN/DIFF FINAL DIFF MANUAL
[2017-05-08] MEDS: buPROPion HCL 150 MG SUSTAINED RELEASE TAB PO SCH (20:31)
[2017-05-08] MEDS: traZODone HCL 50 MG TAB PO SCH (20:31)
[2017-05-08] MEDS: TAMSULOSIN HCL 0.4 MG CAP PO SCH (20:31)
[2017-05-08] MEDS: ONDANSETRON HCL 4 MG/2 ML VIAL IV PUSH PRN (20:44)
[2017-05-09] VITALS (7 sets, daily range): BP systolic 123–156; BP diastolic 56–80; PULSE 70–84; RESP 16–18; TEMP 98.5–100.3; O2SAT 94–96
[2017-05-09] MEDS: MEROPENEM INJ 2,000 MG in SODIUM CHLORIDE 0.9% INJ 100 ML IV SCH ×4 (00:15→23:48)
[2017-05-09] MEDS: ACETAMINOPHEN 325 MG TAB PO PRN (05:10)
[2017-05-09] MEDS: VANCOMYCIN INJ 1,250 MG in SODIUM CHLOR 0.9% 250 ML INJ 250 ML IV SCH ×2 (05:11→16:15)
[2017-05-09 07:06] LABS: HEMATOCRIT 23.1 % (39.0-51.0); MEAN CELL VOLUME 85.2 FL (80.0-100.0); MEAN CORPUSCULAR HEMOGLOBIN 29.2 PG (27.0-34.0); MEAN CORPUSCULAR HGB CONC 34.2 % (32.0-36.0); RED BLOOD COUNT 2.71 MIL/MM3 (4.50-5.90); RED CELL DISTRIBUTION WIDTH 17.2 % (11.6-17.2); WHITE BLOOD COUNT 0.9 TH/MM3 (4.0-11.0)
[2017-05-09 07:14] LABS: HEMO FLAGS AUTO DIFF
[2017-05-09 07:19] LABS: BICARBONATE 26.7 MEQ/L (21.0-32.0); PLATELET COUNT 12 TH/MM3 (150-450); POTASSIUM 3.2 MEQ/L (3.5-5.1)
[2017-05-09] MEDS: SODIUM CHLOR 0.9% IV SCH ×2 (07:28→17:45)
[2017-05-09] MEDS: VORICONAZOLE IV SCH ×2 (07:28→17:45)
[2017-05-09 08:09] LABS: BANDS 7 % (0-6); BLASTS 12 % (0-0); CORRECTED NUCLEATED RBC 1 /100 WBC (0-0); NEUTROPHIL # MANUAL DIFF 0.2 TH/MM3 (1.8-7.7); PLASMA CELLS 1 % (0-0); POLYS (SEG NEUTROPHILS) 10 % (16-70); WBC DIFF SAMPLE 100
[2017-05-09 08:11] LABS: OVALOCYTES 1+ (NORMAL); PLATELET ESTIMATE SMEAR RARE (NORMAL); PLATELET MORPHOLOGY NORMAL (NORMAL); SCAN/DIFF FINAL DIFF MANUAL
[2017-05-09] MEDS: DOCUSATE SODIUM 50 MG/SENNA 8.6 MG TAB PO SCH ×2 (08:16→21:21)
[2017-05-09] MEDS: PANTOPRAZOLE SOD 40 MG DELAYED RELEASE TAB PO SCH (08:16)
[2017-05-09] MEDS ORDERED: POTASSIUM CHLOR 40 MEQ PREMIX 100 ML IV ONE (09:15)
--- NOTE | 2017-05-09 09:43 | PD.ONC.PN ---
Subjective Subjective Remarks MAXIMUM TEMPERATURE 100.3 overnight Patient reports he feels overall quite well Complaining of discomfort from hemorrhoids Reports he is having regular bowel movements No bleeding Objective Data Date Time Temp Pulse Resp B/P (MAP) Pulse Ox O2 Delivery O2 Flow Rate FiO2 05/09/17 08:21 98.7 70 18 133/67 (89) 94 05/09/17 07:24 16 05/09/17 05:05 100.3 05/09/17 00:08 99.4 80 16 140/73 (95) 96 05/08/17 20:25 99.2 77 16 144/74 (97) 98 05/08/17 16:23 99.3 79 20 147/90 (109) 96 05/08/17 13:04 98.8 75 20 138/77 (97) 97 05/08/17 09:56 99.4 77 20 151/67 (95) 92 05/09/17 05/09/17 05/09/17 07:00 15:00 23:00 Intake Total 463 ml Output Total 200 ml Balance -200 ml 463 ml Result Diagram: 05/09/1725 05/09/1725 Laboratory Results Laboratory Tests Test 05/08/17 10:20 05/09/17 05:25 White Blood Count 0.8 TH/MM3 0.9 TH/MM3 Red Blood Count 2.76 MIL/MM3 2.71 MIL/MM3 Hemoglobin 8.0 GM/DL 7.9 GM/DL Hematocrit 23.4 % 23.1 % Mean Corpuscular Volume 84.9 FL 85.2 FL Mean Corpuscular Hemoglobin 29.2 PG 29.2 PG Mean Corpuscular Hemoglobin Concent 34.3 % 34.2 % Red Cell Distribution Width 16.8 % 17.2 % Platelet Count 19 TH/MM3 12 TH/MM3 Mean Platelet Volume 9.4 FL 10.4 FL Neutrophils (%) (Auto) 43.0 % Lymphocytes (%) (Auto) 54.1 % Monocytes (%) (Auto) 2.1 % Eosinophils (%) (Auto) 0.7 % Basophils (%) (Auto) 0.1 % Neutrophils # (Auto) 0.4 TH/MM3 Lymphocytes # (Auto) 0.5 TH/MM3 Monocytes # (Auto) 0.0 TH/MM3 Eosinophils # (Auto) 0.0 TH/MM3 Basophils # (Auto) 0.0 TH/MM3 CBC Comment AUTO DIFF AUTO DIFF Differential Total Cells Counted 100 100 Neutrophils % (Manual) 6 % 10 % Band Neutrophils % 3 % 7 % Lymphocytes % 66 % 62 % Monocytes % 2 % 8 % Neutrophils # (Manual) 0.1 TH/MM3 0.2 TH/MM3 Nucleated Red Blood Cells 1 /100 WBC 1 /100 WBC Differential Comment FINAL DIFF MANUAL FINAL DIFF MANUAL Blastocytes 13 % 12 % Plasma Cells 10 % 1 % Platelet Estimate RARE RARE Platelet Morphology Comment NORMAL NORMAL Ovalocytes 1+ 1+ Blood Urea Nitrogen 9 MG/DL 9 MG/DL Creatinine 0.84 MG/DL 0.80 MG/DL Random Glucose 99 MG/DL 93 MG/DL Calcium Level 7.5 MG/DL 7.5 MG/DL Sodium Level 145 MEQ/L 144 MEQ/L Potassium Level 2.9 MEQ/L 3.2 MEQ/L Chloride Level 110 MEQ/L 109 MEQ/L Carbon Dioxide Level 26.3 MEQ/L 26.7 MEQ/L Anion Gap 9 MEQ/L 8 MEQ/L Estimat Glomerular Filtration Rate 89 ML/MIN 94 ML/MIN Culture Results Microbiology Date/Time Source Procedure Growth Status 05/07/17 00:15 Blood Peripheral Aerobic Blood Culture - Preliminary NO GROWTH IN 1 DAY Resulted 05/07/17 00:15 Blood Peripheral Anaerobic Blood Culture - Preliminary NO GROWTH IN 1 DAY Resulted 05/07/17 00:10 Blood Peripheral Aerobic Blood Culture - Preliminary NO GROWTH IN 1 DAY Resulted 05/07/17 00:10 Blood Peripheral Anaerobic Blood Culture - Preliminary NO GROWTH IN 1 DAY Resulted 05/07/17 00:20 Urine Clean Catch Urine Culture - Preliminary NO GROWTH IN 24 HOURS. Resulted Administered Medications Medications (Trade) Dose Ordered Sig/Gene Route PRN Reason Start Time Stop Time Status Last Admin Dose Admin Acetaminophen (Tylenol) 650 mg Q4H PRN PO FEVER/ PAIN 1-10 05/01/17 14:45 05/09/17 05:10 Ondansetron HCl (Zofran Inj) 4 mg Q8HR PRN IV PUSH NAUSEA 05/01/17 14:45 05/08/17 20:44 Bupropion HCl (Wellbutrin Sr) 150 mg HS PO 05/01/17 21:00 05/08/17 20:31 Tamsulosin HCl (Flomax) 0.4 mg HS PO 05/01/17 21:00 05/08/17 20:31 Trazodone HCl (Desyrel) 50 mg HS PO 05/01/17 21:00 05/08/17 20:31 Pantoprazole Sodium (Protonix) 40 mg DAILY PO 05/02/17 09:00 05/09/17 08:16 Voriconazole 400 mg/Sodium Chloride 250 ml @ 125 mls/hr Q12H IV 05/02/17 18:00 05/09/17 07:28 Lidocaine HCl (Xylocaine 2% Viscous) 10 ml Q4H PRN PO ORAL PAIN SCALE 1 TO 10 05/02/17 20:15 05/02/17 21:18 Filgrastim (Neupogen Inj) 300 mcg DAILY@14 SQ 05/03/17 14:00 05/08/17 13:00 Vancomycin HCl 1250 mg/Sodium Chloride 262.5 ml @ 250 mls/hr Q12H IV 05/03/17 16:00 05/09/17 05:11 Senna/Docusate Sodium (Flaca-Colace) 1 tab BID PO 05/06/17 09:15 05/09/17 08:16 Shark Liver Oil (Preparation H Oint) 1 applic Q6H PRN RECTAL HEMORRHOIDS 05/06/17 09:15 05/06/17 14:25 Sodium Chloride (NS Flush) 5 ml UNSCH PRN IV FLUSH SEE PROTOCOL TABLE 05/06/17 14:15 05/08/17 04:56 Heparin Sodium (Porcine) (Heparin Central Flush) 250 units UNSCH PRN IV FLUSH SEE PROTOCOL TABLE 05/06/17 14:15 05/08/17 19:45 Meropenem 2000 mg/ Sodium Chloride 100 ml @ 200 mls/hr Q8H IV 05/06/17 15:00 05/09/17 07:28 Alteplase, Recombinant (Cathflo Activase Inj) 2 mg Q2H PRN INTRACATH CLOTTED PORT 05/07/17 08:30 05/07/17 09:18 Objective Remarks GENERAL: Elderly male resting in bed in no acute distress. SKIN: Warm and dry. HEAD: Normocephalic. EYES: No injection or drainage. NECK: Supple, trachea midline. CARDIOVASCULAR: Regular rate and rhythm RESPIRATORY: Breath sounds equal bilaterally. No accessory muscle use. GASTROINTESTINAL: Abdomen protuberant but soft. Nontender to palpation. EXTREMITIES: No cyanosis. Discoloration noted to right lower extremity NEUROLOGICAL: Awake and alert, normal speech. No obvious focal deficit. Assessment/Plan Assessment 72 y/o male with relapsed AML, admitted with sepsis. --started on Dacogen outpatient recently Plan 1. Discussed with patient that we are seeing some increase in neutrophils which is what we were hoping for. Will continue Neupogen at current dosing. 2. Continue to monitor CBC. Will only transfuse for bleeding or platelets less than 10,000. 3. The patient is obviously ecstatic that there is a change for the better with his blood counts. Once he has remained afebrile for a few days he can be discharged home. Newest blood cultures show no growth. 4. Will add on daily potassium replacement as he has been persistently hypokalemic. Attending Statement The exam, history, and the medical decision-making described in the above note were completed with the assistance of the mid-level provider. I reviewed and agree with the findings presented. I attest that I had a [id number] encounter with the patient on the same day, and personally performed and documented my assessment and findings in the medical record. looks well and exam unremarkable. Total neutrophil count 300 and hopefully this is real and will continue to climb. In meantime will continue supportive with blood and platelets as necessary, antibiotics, and Neupogen. Jewels Mina May 09, 2017 09:43 Jarrell Collins MD May 09, 2017 18:57
--- NOTE | 2017-05-09 13:32 | HHI.IDPN ---
Subjective Subjective Remarks Patient is a 72-year-old male presented to the hospital complaining of chills and shortness of breath. He was apparently in the oncology's office and receive a transfusion when he developed the symptoms of chills and shortness of breath. Patient states that he has never had shortness of breath before. He denies any chest pain. 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 He has been on prophylactic fluconazole and Levaquin. Patient apparently has not been feeling well and has had some cough. He has had some nausea for several weeks, and had one episode of vomiting enroute to the ED. any nausea or vomiting. He has had this sore on the left side of his time and his oncologist gave him some prescription to apply topically. He denies having bitten his tongue. He denies any swallowing difficulty. Denies any diarrhea or any urinary complaints. He has not had any back pain. His temperature in the ED was 102.5. On presentation he was neutropenic with a WBC of 0.1. Infectious disease consultation has been requested to evaluate the patient. Notes reviewed One low grade temps (+) BC from 05/04 Repeat BC negative so far WBC higher 0.9 Platelets still low,, no bleeding No new complaint No N/V No swallowing trouble No complaints Tongue lesion feels better Antibiotics Current Medications Meropenem Voriconazole Vancomycin s Medications (Trade) Dose Ordered Sig/Gene Route Start Time Stop Time Status Last Admin (Tylenol) 650 mg Q4H PRN PO 05/01/17 14:45 05/09/17 05:10 (Zofran Inj) 4 mg Q8HR PRN IV PUSH 05/01/17 14:45 05/08/17 20:44 (Wellbutrin Sr) 150 mg HS PO 05/01/17 21:00 05/08/17 20:31 (Flomax) 0.4 mg HS PO 05/01/17 21:00 05/08/17 20:31 (Desyrel) 50 mg HS PO 05/01/17 21:00 05/08/17 20:31 (Protonix) 40 mg DAILY PO 05/02/17 09:00 05/09/17 08:16 Voriconazole 400 mg/Sodium Chloride 250 ml @ 125 mls/hr Q12H IV 05/02/17 18:00 127/17 07:28 Pharmacy Profile Note 0 ml @ 0 mls/hr UNSCH OTHER 05/01/17 18:15 (Xylocaine 2% Viscous) 10 ml Q4H PRN PO 05/02/17 20:15 05/02/17 21:18 (Neupogen Inj) 300 mcg DAILY@14 SQ 05/03/17 14:00 05/08/17 13:00 Vancomycin HCl 1250 mg/Sodium Chloride 262.5 ml @ 250 mls/hr Q12H IV 05/03/17 16:00 05/09/17 05:11 (Flaca-Colace) 1 tab BID PO 05/06/17 09:15 05/09/17 08:16 (Preparation H Oint) 1 applic Q6H PRN RECTAL 05/06/17 09:15 05/06/17 14:25 (NS Flush) 5 ml UNSCH PRN IV FLUSH 05/06/17 14:15 05/08/17 04:56 (Heparin Central Flush) 250 units UNSCH PRN IV FLUSH 05/06/17 14:15 05/08/17 19:45 (Heparin Central Flush) 500 units UNSCH IV FLUSH 05/06/17 14:15 Meropenem 2000 mg/ Sodium Chloride 100 ml @ 200 mls/hr Q8H IV 05/06/17 15:00 05/09/17 07:28 (Cathflo Activase Inj) 2 mg Q2H PRN INTRACATH 05/07/17 08:30 05/07/17 09:18 (KCl) 20 meq DAILY PO 05/10/17 09:00 Lines Port R chest Past Medical History 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 Vital Signs Date Time Temp Pulse Resp B/P (MAP) Pulse Ox O2 Delivery O2 Flow Rate FiO2 05/09/17 12:07 98.5 84 18 156/80 (105) 94 05/09/17 11:46 74 05/09/17 08:21 98.7 70 18 133/67 (89) 94 05/09/17 07:24 16 05/09/17 05:05 100.3 05/09/17 00:08 99.4 80 16 140/73 (95) 96 05/08/17 20:25 99.2 77 16 144/74 (97) 98 05/08/17 16:23 99.3 79 20 147/90 (109) 96 05/09/17 05/09/17 05/10/17 15:00 23:00 07:00 Intake Total 463 ml Balance 463 ml IV Total 463 ml . Laboratory Tests Test 05/08/17 10:20 05/09/17 05:25 White Blood Count 0.8 TH/MM3 0.9 TH/MM3 Red Blood Count 2.76 MIL/MM3 2.71 MIL/MM3 Hemoglobin 8.0 GM/DL 7.9 GM/DL Hematocrit 23.4 % 23.1 % Mean Corpuscular Volume 84.9 FL 85.2 FL Mean Corpuscular Hemoglobin 29.2 PG 29.2 PG Mean Corpuscular Hemoglobin Concent 34.3 % 34.2 % Red Cell Distribution Width 16.8 % 17.2 % Platelet Count 19 TH/MM3 12 TH/MM3 Mean Platelet Volume 9.4 FL 10.4 FL Neutrophils (%) (Auto) 43.0 % Lymphocytes (%) (Auto) 54.1 % Monocytes (%) (Auto) 2.1 % Eosinophils (%) (Auto) 0.7 % Basophils (%) (Auto) 0.1 % Neutrophils # (Auto) 0.4 TH/MM3 Lymphocytes # (Auto) 0.5 TH/MM3 Monocytes # (Auto) 0.0 TH/MM3 Eosinophils # (Auto) 0.0 TH/MM3 Basophils # (Auto) 0.0 TH/MM3 CBC Comment AUTO DIFF AUTO DIFF Differential Total Cells Counted 100 100 Neutrophils % (Manual) 6 % 10 % Band Neutrophils % 3 % 7 % Lymphocytes % 66 % 62 % Monocytes % 2 % 8 % Neutrophils # (Manual) 0.1 TH/MM3 0.2 TH/MM3 Nucleated Red Blood Cells 1 /100 WBC 1 /100 WBC Differential Comment FINAL DIFF MANUAL FINAL DIFF MANUAL Blastocytes 13 % 12 % Plasma Cells 10 % 1 % Platelet Estimate RARE RARE Platelet Morphology Comment NORMAL NORMAL Ovalocytes 1+ 1+ Laboratory Tests Test 05/08/17 10:20 05/09/17 05:25 Blood Urea Nitrogen 9 MG/DL 9 MG/DL Creatinine 0.84 MG/DL 0.80 MG/DL Random Glucose 99 MG/DL 93 MG/DL Calcium Level 7.5 MG/DL 7.5 MG/DL Sodium Level 145 MEQ/L 144 MEQ/L Potassium Level 2.9 MEQ/L 3.2 MEQ/L Chloride Level 110 MEQ/L 109 MEQ/L Carbon Dioxide Level 26.3 MEQ/L 26.7 MEQ/L Anion Gap 9 MEQ/L 8 MEQ/L Estimat Glomerular Filtration Rate 89 ML/MIN 94 ML/MIN Microbiology Date/Time Source Procedure Growth Status 05/07/17 00:15 Blood Peripheral Aerobic Blood Culture - Preliminary NO GROWTH IN 2 DAYS Resulted 05/07/17 00:15 Blood Peripheral Anaerobic Blood Culture - Preliminary NO GROWTH IN 2 DAYS Resulted 05/07/17 00:10 Blood Peripheral Aerobic Blood Culture - Preliminary NO GROWTH IN 2 DAYS Resulted 05/07/17 00:10 Blood Peripheral Anaerobic Blood Culture - Preliminary NO GROWTH IN 2 DAYS Resulted 05/07/17 00:20 Urine Clean Catch Urine Culture - Final NO GROWTH IN 48 HOURS. Complete Imaging Chest X-Ray 05/05/17 0000 Signed Impressions: Service Date/Time: Friday, May 05, 2017 18:01 - CONCLUSION: 1. Stable left lung base atelectasis/scarring. 2. No acute abnormality or significant interval change. Jayson Queen MD Chest X-Ray 05/02/17 0000 Signed Impressions: Service Date/Time: April 06:24 - CONCLUSION: 1. Stable minimal cardiomegaly. 2. Left basilar atelectasis and/or fibrotic scarring. 3. No acute focal pulmonary infiltrate or pulmonary vascular congestion. 4. Degenerative changes throughout the thoracic spine. Luis Whitehead MD Physical Exam GENERAL: awakens easily, NAD. SKIN: Warm and dry. No generalized rash, no ecchymoses HEAD: Atraumatic. Normocephalic. No temporal wasting, or tenderness. EYES: [place] conjunctiva. No petechia or hemorrhage. No scleral icterus. No injection or drainage. EARS, NOSE AND THROAT: Nose without bleeding or purulent nasal discharge. No sinus tenderness. Lesion on lateral tongue much smaller. No oral thrush. NECK: Trachea midline. Supple and not tender, no meningeal signs CARDIOVASCULAR: Regular rate and rhythm. No murmurs, rubs or gallops heard RESPIRATORY: Clear to auscultation. Breath sounds equal bilaterally. No rales , wheezing or rhonchi ABDOMEN: Globular and protuberant, softer and less distended, not tender, bowel sounds present and normoactive. No guarding. No rebound. EXTREMITIES: No clubbing, cyanosis, or edema. No calf tenderness. Well perfused and warm. NEUROLOGICAL: Fully awake, alert Non-focal. PSYCHIATRIC: Normal affect, calm and cooperative. LINE: Port in right upper chest with no evidence of infection Assessment & Plan Remarks IMPRESSION Neutropenic sepsis, has E coli sepsis - patient receiving chemo for relapse AML - has cough, CXR ok - had SOB during transfusion - UA ok, no complaints - has had nausea and one episode of vomiting SOB, etiology? CXR clear, resolved, ?due to fever, ?transfusion reaction Lesion Lateral L tongue, improving Relapse AML RECOMMENDATION Continue Meropenem to cover ESBL+ Continue voriconazole Continue vancomycin Follow new blood clx Monitor temps Monitor progress Await for counts to recover Judy Leal MD May 09, 2017 13:31
--- NOTE | 2017-05-09 14:27 | HHI.PR ---
Subjective Remarks Low-grade fever with a supportive. Otherwise asymptomatic. Objective Vitals Vital Signs Date Time Temp Pulse Resp B/P (MAP) Pulse Ox O2 Delivery O2 Flow Rate FiO2 05/09/17 12:07 98.5 84 18 156/80 (105) 94 05/09/17 11:46 74 05/09/17 08:21 98.7 70 18 133/67 (89) 94 05/09/17 07:24 16 05/09/17 05:05 100.3 05/09/17 00:08 99.4 80 16 140/73 (95) 96 05/08/17 20:25 99.2 77 16 144/74 (97) 98 05/08/17 16:23 99.3 79 20 147/90 (109) 96 I/O 05/08/17 05/08/17 05/08/17 05/09/17 05/09/17 05/09/17 07:00 15:00 23:00 07:00 15:00 23:00 Intake Total 360 ml 100 ml 1525 ml 463 ml Output Total 400 ml 200 ml Balance -40 ml 100 ml 1525 ml -200 ml 463 ml Intake Oral 900 ml IV Total 360 ml 100 ml 625 ml 463 ml Output Urine Total 400 ml 200 ml # Voids 5 # Bowel Movements 1 Result Diagram: 05/09/1752405/09/17524 Objective Remarks GENERAL: Well-nourished, well-developed pleasant elderly male patient. SKIN: Warm and dry. HEAD: Normocephalic. EYES: No scleral icterus. No injection or drainage. NECK: Supple, trachea midline. No JVD or lymphadenopathy. CARDIOVASCULAR: Regular rate and rhythm without murmurs, gallops, or rubs. RESPIRATORY: Breath sounds equal and clear to auscultation bilaterally. No accessory muscle use. GASTROINTESTINAL: Abdomen soft, non-tender, nondistended. EXTREMITIES: No pedal edema. NEUROLOGICAL: Awake, alert, and oriented x 3. Non-focal. 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 Patient presented with neutropenic fever, pancytopenia, and bleeding : Neutropenic sepsis, ESBL E coli bacteremia in the chemotherapy patient: Fever on presentation. Recurrent fevers. - Appreciate infectious disease followingpatient on vancomycin,and voriconazole. Cefepime changed to Meropenem to cover ESBL - Repeat blood cultures from 05/06 and 05/07 are negative. Urine culture 05/07 no growth to date. Urine Legionella and strep negative. AML, undergoing chemotherapy - Status post PRBC and platelet transfusion. - Management per Hematology/Oncology - Trial of Neupogen. Patient has previously been counseled on the risk of stimulating blast cells. - Transfusion parameters per oncology Hypokalemia -Improving. Given more IV potassium today. Repeat BMP in the morning. Hypertension; BP stable- hold BP meds for now and continue to monitor. Elevated troponin- with no chest pain and with normal EKG- Cardiac enzymes essentially flat/trending down DVT prophylaxis with SCD's- no chemical prophylaxis due to anemia/ thrombocytopenia Catarina Dove MD May 09, 2017 14:27
[2017-05-09] MEDS: FILGRASTIM 300 MCG/ML VIAL SQ SCH (14:58)
[2017-05-09] MEDS: buPROPion HCL 150 MG SUSTAINED RELEASE TAB PO SCH (21:21)
[2017-05-09] MEDS: TAMSULOSIN HCL 0.4 MG CAP PO SCH (21:21)
[2017-05-09] MEDS: traZODone HCL 50 MG TAB PO SCH (21:21)
[2017-05-09] MEDS: ONDANSETRON HCL 4 MG/2 ML VIAL IV PUSH PRN (21:21)
[2017-05-10] VITALS (12 sets, daily range): BP systolic 130–158; BP diastolic 69–89; PULSE 73–87; RESP 16–20; TEMP 97.6–98.8; O2SAT 93–98
[2017-05-10] MEDS: VANCOMYCIN INJ 1,250 MG in SODIUM CHLOR 0.9% 250 ML INJ 250 ML IV SCH ×2 (03:55→17:56)
[2017-05-10] MEDS: VORICONAZOLE IV SCH ×2 (06:26→17:57)
[2017-05-10] MEDS: SODIUM CHLOR 0.9% IV SCH ×2 (06:26→17:57)
[2017-05-10 06:54] LABS: AUTOMATED NEUTROPHIL # 0.3 TH/MM3 (1.8-7.7); BASOPHIL % 0.2 % (0.0-2.0); EOSINOPHIL % 0.4 % (0.0-4.0); HEMATOCRIT 21.9 % (39.0-51.0); LYMPH % 55.2 % (9.0-44.0); LYMPHOCYTE # 0.5 TH/MM3 (1.0-4.8); MEAN CELL VOLUME 86.1 FL (80.0-100.0); MEAN CORPUSCULAR HEMOGLOBIN 29.7 PG (27.0-34.0); MEAN CORPUSCULAR HGB CONC 34.5 % (32.0-36.0); MONO % 11.3 % (0.0-8.0); NEUT % 32.9 % (16.0-70.0); RED BLOOD COUNT 2.54 MIL/MM3 (4.50-5.90); RED CELL DISTRIBUTION WIDTH 17.1 % (11.6-17.2); WHITE BLOOD COUNT 0.9 TH/MM3 (4.0-11.0)
[2017-05-10 07:02] LABS: HEMO FLAGS AUTO DIFF
[2017-05-10 07:06] LABS: PLATELET COUNT 10 TH/MM3 (150-450)
[2017-05-10 07:16] LABS: BICARBONATE 26.2 MEQ/L (21.0-32.0); POTASSIUM 3.3 MEQ/L (3.5-5.1)
[2017-05-10 08:53] LABS: BANDS 6 % (0-6); BASOPHILS 2 % (0-2); BLASTS 12 % (0-0); CORRECTED NUCLEATED RBC 2 /100 WBC (0-0); DOHLE BODIES PRESENT (NONE SEEN); NEUTROPHIL # MANUAL DIFF 0.2 TH/MM3 (1.8-7.7); PLATELET ESTIMATE SMEAR RARE (NORMAL); PLATELET MORPHOLOGY NORMAL (NORMAL); POLYS (SEG NEUTROPHILS) 16 % (16-70); WBC DIFF SAMPLE 50
[2017-05-10 08:54] LABS: OVALOCYTES 1+ (NORMAL); SCAN/DIFF FINAL DIFF MANUAL
[2017-05-10] MEDS ORDERED: POTASSIUM CHLORIDE 20 MEQ CONTROLLED RELEASE TAB PO SCH (09:00)
[2017-05-10] MEDS: MEROPENEM INJ 2,000 MG in SODIUM CHLORIDE 0.9% INJ 100 ML IV SCH ×3 (09:35→23:14)
[2017-05-10] MEDS: DOCUSATE SODIUM 50 MG/SENNA 8.6 MG TAB PO SCH ×2 (09:36→20:23)
[2017-05-10] MEDS: PANTOPRAZOLE SOD 40 MG DELAYED RELEASE TAB PO SCH (09:36)
--- NOTE | 2017-05-10 09:56 | HHI.PR ---
Subjective Remarks In bed complaints of sob, wheezing at times, and also nasal congestion. Says she is coughing but not too much, nonproductive cough. Says nose is congested and also had blood clots coming out. No fever or chills. No n/v/d/c. Denies chest pain. Also he complaints of feeling anxious Objective Vitals Vital Signs Date Time Temp Pulse Resp B/P (MAP) Pulse Ox O2 Delivery O2 Flow Rate FiO2 05/10/17 09:37 98.3 87 20 152/73 (99) 98 05/10/17 07:37 77 05/10/17 04:16 98.5 05/10/17 04:14 77 05/10/17 03:50 98.5 81 20 149/81 (103) 93 05/10/17 00:00 98.4 83 16 158/89 (112) 93 05/10/17 00:00 82 05/09/17 20:00 99.9 83 16 125/63 (83) 94 05/09/17 20:00 80 05/09/17 16:16 99.1 76 18 123/56 (78) 95 05/09/17 12:07 98.5 84 18 156/80 (105) 94 05/09/17 11:46 72 I/O 05/09/17 05/09/17 05/09/17 05/10/17 05/10/17 05/10/17 06:59 14:59 22:59 06:59 14:59 22:59 Intake Total 463 ml 2210 ml Output Total 200 ml 500 ml 675 ml Balance -200 ml 463 ml 1710 ml -675 ml Intake Oral 1860 ml IV Total 463 ml 350 ml Output Urine Total 200 ml 500 ml 675 ml # Voids 2 # Bowel Movements 1 Result Diagram: 05/10/17 0630 05/10/17 0630 Imaging Last Impressions Chest X-Ray 05/05/17 0000 Signed Impressions: Service Date/Time: Friday, May 05, 2017 18:01 - CONCLUSION: 1. Stable left lung base atelectasis/scarring. 2. No acute abnormality or significant interval change. Jayson Queen MD Objective Remarks GENERAL: Well-nourished, well-developed pleasant elderly male patient , anxious. SKIN: Warm and dry. HEAD: Normocephalic. EYES: No scleral icterus. No injection or drainage. NECK: Supple, trachea midline. No JVD or lymphadenopathy. CARDIOVASCULAR: Regular rate and rhythm without murmurs, gallops, or rubs. RESPIRATORY: Mild wheezing, no bronchial sounds., decreased breath sounds. No accessory muscle use. GASTROINTESTINAL: Abdomen soft, non-tender, nondistended. EXTREMITIES: No pedal edema. NEUROLOGICAL: Awake, alert, and oriented x 3. Non-focal. 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 Patient presented with neutropenic fever, pancytopenia, and bleeding : Neutropenic sepsis, ESBL E coli bacteremia in the chemotherapy patient: Fever on presentation. Recurrent fevers. - Appreciate infectious disease followingpatient on vancomycin,and voriconazole. Cefepime changed to Meropenem to cover ESBL - Repeat blood cultures from 05/06 and 05/07 are negative. Urine culture 05/07 no growth to date. Urine Legionella and strep negative. 05/10/17 with sob, nasal congestion however satting well on room air at this time. O2 supplement as need. Will do CXR, start duonebs as need, ocean spray for nasal congestion. If dessating will do ABG. AML, undergoing chemotherapy - Status post PRBC and platelet transfusion. - Management per Hematology/Oncology - Trial of Neupogen. Patient has previously been counseled on the risk of stimulating blast cells. - Transfusion parameters per oncology Hypokalemia - Given more IV potassium today. Repeat BMP in the morning. Hypertension; BP stable- hold BP meds for now and continue to monitor. Elevated troponin- with no chest pain and with normal EKG- Cardiac enzymes essentially flat/trending down Anxiety: add prn xanax small dose DVT prophylaxis with SCD's- no chemical prophylaxis due to anemia/ thrombocytopenia DC when improved and cleared by consultants Hilda Marquez MD May 10, 2017 09:56
[2017-05-10] MEDS ORDERED: POTASSIUM CHLORIDE 10 MEQ CONTROLLED RELEASE TAB PO ONE (10:00)
--- NOTE | 2017-05-10 10:28 | PD.ONC.PN ---
Subjective Subjective Remarks Afebrile overnight. Patient resting in bed. Reports abdomen is somewhat distended today, but not painful. Reports he cannot swallow his potassium pills as they make him nauseated. No bleeding. Objective Data Date Time Temp Pulse Resp B/P (MAP) Pulse Ox O2 Delivery O2 Flow Rate FiO2 05/10/17 09:37 98.3 87 20 152/73 (99) 98 05/10/17 07:37 77 05/10/17 04:16 98.5 05/10/17 04:14 77 05/10/17 03:50 98.5 81 20 149/81 (103) 93 05/10/17 00:00 98.4 83 16 158/89 (112) 93 05/10/17 00:00 82 05/09/17 20:00 99.9 83 16 125/63 (83) 94 05/09/17 20:00 80 05/09/17 16:16 99.1 76 18 123/56 (78) 95 05/09/17 12:07 98.5 84 18 156/80 (105) 94 05/09/17 11:46 74 05/10/17 05/10/17 05/10/17 07:00 15:00 23:00 Output Total 675 ml Balance -675 ml Result Diagram: 05/10/1730 05/10/17 0630 Laboratory Results Laboratory Tests Test 05/10/17 06:30 White Blood Count 0.9 TH/MM3 Red Blood Count 2.54 MIL/MM3 Hemoglobin 7.5 GM/DL Hematocrit 21.9 % Mean Corpuscular Volume 86.1 FL Mean Corpuscular Hemoglobin 29.7 PG Mean Corpuscular Hemoglobin Concent 34.5 % Red Cell Distribution Width 17.1 % Platelet Count 10 TH/MM3 Mean Platelet Volume 11.0 FL Neutrophils (%) (Auto) 32.9 % Lymphocytes (%) (Auto) 55.2 % Monocytes (%) (Auto) 11.3 % Eosinophils (%) (Auto) 0.4 % Basophils (%) (Auto) 0.2 % Neutrophils # (Auto) 0.3 TH/MM3 Lymphocytes # (Auto) 0.5 TH/MM3 Monocytes # (Auto) 0.1 TH/MM3 Eosinophils # (Auto) 0.0 TH/MM3 Basophils # (Auto) 0.0 TH/MM3 CBC Comment AUTO DIFF Differential Total Cells Counted 50 Neutrophils % (Manual) 16 % Band Neutrophils % 6 % Lymphocytes % 64 % Basophils % 2 % Neutrophils # (Manual) 0.2 TH/MM3 Nucleated Red Blood Cells 2 /100 WBC Differential Comment FINAL DIFF MANUAL Blastocytes 12 % Dohle Bodies PRESENT Platelet Estimate RARE Platelet Morphology Comment NORMAL Ovalocytes 1+ Blood Urea Nitrogen 11 MG/DL Creatinine 0.72 MG/DL Random Glucose 89 MG/DL Calcium Level 7.6 MG/DL Sodium Level 145 MEQ/L Potassium Level 3.3 MEQ/L Chloride Level 110 MEQ/L Carbon Dioxide Level 26.2 MEQ/L Anion Gap 9 MEQ/L Estimat Glomerular Filtration Rate 107 ML/MIN Administered Medications Medications (Trade) Dose Ordered Sig/Gene Route PRN Reason Start Time Stop Time Status Last Admin Dose Admin Acetaminophen (Tylenol) 650 mg Q4H PRN PO FEVER/ PAIN 1-10 05/01/17 14:45 05/09/17 05:10 Ondansetron HCl (Zofran Inj) 4 mg Q8HR PRN IV PUSH NAUSEA 05/01/17 14:45 05/09/17 21:21 Bupropion HCl (Wellbutrin Sr) 150 mg HS PO 05/01/17 21:00 05/09/17 21:21 Tamsulosin HCl (Flomax) 0.4 mg HS PO 05/01/17 21:00 05/09/17 21:21 Trazodone HCl (Desyrel) 50 mg HS PO 05/01/17 21:00 05/09/17 21:21 Pantoprazole Sodium (Protonix) 40 mg DAILY PO 05/02/17 09:00 05/10/17 09:36 Voriconazole 400 mg/Sodium Chloride 250 ml @ 125 mls/hr Q12H IV 05/02/17 18:00 05/10/17 06:26 Lidocaine HCl (Xylocaine 2% Viscous) 10 ml Q4H PRN PO ORAL PAIN SCALE 1 TO 10 05/02/17 20:15 05/02/17 21:18 Filgrastim (Neupogen Inj) 300 mcg DAILY@14 SQ 05/03/17 14:00 05/09/17 14:58 Vancomycin HCl 1250 mg/Sodium Chloride 262.5 ml @ 250 mls/hr Q12H IV 05/03/17 16:00 05/10/17 03:55 Senna/Docusate Sodium (Flaca-Colace) 1 tab BID PO 05/06/17 09:15 05/10/17 09:36 Shark Liver Oil (Preparation H Oint) 1 applic Q6H PRN RECTAL HEMORRHOIDS 05/06/17 09:15 05/06/17 14:25 Sodium Chloride (NS Flush) 5 ml UNSCH PRN IV FLUSH SEE PROTOCOL TABLE 05/06/17 14:15 05/08/17 04:56 Heparin Sodium (Porcine) (Heparin Central Flush) 250 units UNSCH PRN IV FLUSH SEE PROTOCOL TABLE 05/06/17 14:15 05/08/17 19:45 Meropenem 2000 mg/ Sodium Chloride 100 ml @ 200 mls/hr Q8H IV 05/06/17 15:00 05/10/17 09:35 Alteplase, Recombinant (Cathflo Activase Inj) 2 mg Q2H PRN INTRACATH CLOTTED PORT 05/07/17 08:30 05/07/17 09:18 Objective Remarks GENERAL: Pleasant male sitting up in bed in nad. SKIN: Warm and dry. HEAD: Normocephalic. EYES: No injection or drainage. NECK: Supple, trachea midline. CARDIOVASCULAR: Regular rate and rhythm RESPIRATORY: Breath sounds equal bilaterally. No accessory muscle use. GASTROINTESTINAL: Abdomen soft, non-tender, nondistended. EXTREMITIES: No cyanosis NEUROLOGICAL: awake and alert, normal speech. 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 --on Dacogen outpatient Plan 1. continue Neupogen. once patient's neutrophils reach 500, assuming he remains afebrile, we may be able to discharge him home on antibiotics 2. change PO to IV potassium replacement. 3. transfuse 1 unit platelets. Attending Statement The exam, history, and the medical decision-making described in the above note were completed with the assistance of the mid-level provider. I reviewed and agree with the findings presented. I attest that I had a [id number] encounter with the patient on the same day, and personally performed and documented my assessment and findings in the medical record. clinically stable, tongue better. Will towards discharge once afebrile for 2-3 days and neutrophil count greater then then or equal to 500. I can administer blood and platelets as an outpatient. Haley Aldrich May 10, 2017 10:28 Jarrell Collins MD May 13, 2017 16:44
[2017-05-10] MEDS ORDERED: SODIUM CHLOR 0.9% 250 ML INJ 250 ML IV ONE (10:30)
[2017-05-10] MEDS ORDERED: POTASSIUM CHLORIDE INJ 30 MEQ in SODIUM CHLORIDE 0.9% INJ 100 ML IV ONE (11:30)
[2017-05-10] MEDS ORDERED: RESP: ALBUTEROL 2.5 MG/IPRATROPIUM 0.5 MG NEB (PRN) NEB (11:30)
[2017-05-10] MEDS ORDERED: MAGNESIUM OXIDE 400 MG TAB PO ONE (11:30)
[2017-05-10] MEDS ORDERED: PILL SPLITTER OTHER PRN (11:45)
[2017-05-10] MEDS ORDERED: SODIUM CHLORIDE 0.65% NASAL SPRAY 45 ML BTL EACH NARE PRN (12:00)
--- NOTE | 2017-05-10 12:04 | RADRPT ---
EXAM DATE/TIME: 05/10/2017 11:31 [facility] COMPARISON: CHEST SINGLE AP, May 05, 2017, 18:01. INDICATIONS : Short of breath. MEDICAL HISTORY : Leukemia. Hypertension Gastroesophageal reflux disease. anxiety SURGICAL HISTORY : Cholecystectomy. infusaport ENCOUNTER: Initial ACUITY: 4 - 6 days PAIN SCORE: 0/10 LOCATION: Bilateral chest FINDINGS: A single view of the chest demonstrates minimal left basilar density. Cardiomegaly. Right-sided Infus e-a-Port catheter are unchanged. The cardiomediastinal contours are unremarkable. Osseous structures are intact. CONCLUSION: 1. Stable scarring left lung base. 2. Cardiomegaly. 3. No pneumonia. Jn Packer MD on May 10, 2017 at 12:02 Board Certified Radiologist. This report was verified electronically.
[2017-05-10] MEDS: ALPRAZolam 0.25 MG TAB PO PRN ×2 (12:26→20:23)
[2017-05-10] MEDS: FILGRASTIM 300 MCG/ML VIAL SQ SCH (12:27)
--- NOTE | 2017-05-10 13:46 | HHI.IDPN ---
Subjective Subjective Remarks Patient is a 72-year-old male presented to the hospital complaining of chills and shortness of breath. He was apparently in the oncology's office and receive a transfusion when he developed the symptoms of chills and shortness of breath. Patient states that he has never had shortness of breath before. He denies any chest pain. 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 He has been on prophylactic fluconazole and Levaquin. Patient apparently has not been feeling well and has had some cough. He has had some nausea for several weeks, and had one episode of vomiting enroute to the ED. any nausea or vomiting. He has had this sore on the left side of his time and his oncologist gave him some prescription to apply topically. He denies having bitten his tongue. He denies any swallowing difficulty. Denies any diarrhea or any urinary complaints. He has not had any back pain. His temperature in the ED was 102.5. On presentation he was neutropenic with a WBC of 0.1. Infectious disease consultation has been requested to evaluate the patient. Notes reviewed Temps ok No new (+) BC (+) BC from 05/04 Counts remain low CXR stable scarring L base No N/V No swallowing trouble No complaints Antibiotics Current Medications Meropenem Voriconazole Vancomycin Medications (Trade) Dose Ordered Sig/Gene Route Start Time Stop Time Status Last Admin (Tylenol) 650 mg Q4H PRN PO 05/01/17 14:45 05/09/17 05:10 (Zofran Inj) 4 mg Q8HR PRN IV PUSH 05/01/17 14:45 05/09/17 21:21 (Wellbutrin Sr) 150 mg HS PO 05/01/17 21:00 05/09/17 21:21 (Flomax) 0.4 mg HS PO 05/01/17 21:00 05/09/17 21:21 (Desyrel) 50 mg HS PO 05/01/17 21:00 05/09/17 21:21 (Protonix) 40 mg DAILY PO 05/02/17 09:00 05/10/17 09:36 Voriconazole 400 mg/Sodium Chloride 250 ml @ 125 mls/hr Q12H IV 05/02/17 18:00 05/10/17 06:26 Pharmacy Profile Note 0 ml @ 0 mls/hr UNSCH OTHER 05/01/17 18:15 (Xylocaine 2% Viscous) 10 ml Q4H PRN PO 05/02/17 20:15 05/02/17 21:18 (Neupogen Inj) 300 mcg DAILY@14 SQ 05/03/17 14:00 05/10/17 12:27 Vancomycin HCl 1250 mg/Sodium Chloride 262.5 ml @ 250 mls/hr Q12H IV 05/03/17 16:00 05/10/17 03:55 (Flaca-Colace) 1 tab BID PO 05/06/17 09:15 05/10/17 09:36 (Preparation H Oint) 1 applic Q6H PRN RECTAL 05/06/17 09:15 05/06/17 14:25 (NS Flush) 5 ml UNSCH PRN IV FLUSH 05/06/17 14:15 05/08/17 04:56 (Heparin Central Flush) 250 units UNSCH PRN IV FLUSH 05/06/17 14:15 05/08/17 19:45 (Heparin Central Flush) 500 units UNSCH IV FLUSH 05/06/17 14:15 Meropenem 2000 mg/ Sodium Chloride 100 ml @ 200 mls/hr Q8H IV 05/06/17 15:00 05/10/17 09:35 (Cathflo Activase Inj) 2 mg Q2H PRN INTRACATH 05/07/17 08:30 05/07/17 09:18 Sodium Chloride 250 ml @ 15 mls/hr ONCE ONCE IV 05/10/17 10:30 05/11/17 03:09 Potassium Chloride 30 meq/ Sodium Chloride 115 ml @ 33 mls/hr ONCE ONCE IV 05/10/17 11:30 05/10/17 14:59 05/10/17 12:32 (Duoneb Neb) 1 ampule Q4HR NEB PRN NEB 05/10/17 11:30 ([place]ell Fulda) 2 spray Q4H PRN EACH NARE 05/10/17 12:00 05/10/17 12:26 (Mag-Ox) 400 mg DAILY PO 05/11/17 09:00 (Xanax) 0.125 mg Q8HR PRN PO 05/10/17 11:30 05/10/17 12:26 (Pill Splitter) 1 ea UNSCH PRN OTHER 05/10/17 11:45 Lines Port R chest Past Medical History 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 Vital Signs Date Time Temp Pulse Resp B/P (MAP) Pulse Ox O2 Delivery O2 Flow Rate FiO2 05/10/17 12:37 98.5 76 20 151/84 (106) 94 05/10/17 09:37 98.3 87 20 152/73 (99) 98 05/10/17 07:37 77 05/10/17 04:16 98.5 05/10/17 04:14 77 05/10/17 03:50 98.5 81 20 149/81 (103) 93 05/10/17 00:00 98.4 83 16 158/89 (112) 93 05/10/17 00:00 82 05/09/17 20:00 99.9 83 16 125/63 (83) 94 05/09/17 20:00 80 05/09/17 16:16 99.1 76 18 123/56 (78) 95 05/10/17 05/10/17 05/11/17 15:00 23:00 07:00 Intake Total 619 ml Output Total 600 ml Balance 19 ml Intake Oral 224 ml IV Total 395 ml Output Urine Total 600 ml . Laboratory Tests Test 05/09/17 05:25 05/10/17 06:30 White Blood Count 0.9 TH/MM3 0.9 TH/MM3 Red Blood Count 2.71 MIL/MM3 2.54 MIL/MM3 Hemoglobin 7.9 GM/DL 7.5 GM/DL Hematocrit 23.1 % 21.9 % Mean Corpuscular Volume 85.2 FL 86.1 FL Mean Corpuscular Hemoglobin 29.2 PG 29.7 PG Mean Corpuscular Hemoglobin Concent 34.2 % 34.5 % Red Cell Distribution Width 17.2 % 17.1 % Platelet Count 12 TH/MM3 10 TH/MM3 Mean Platelet Volume 10.4 FL 11.0 FL CBC Comment AUTO DIFF AUTO DIFF Differential Total Cells Counted 100 50 Neutrophils % (Manual) 10 % 16 % Band Neutrophils % 7 % 6 % Lymphocytes % 62 % 64 % Monocytes % 8 % Neutrophils # (Manual) 0.2 TH/MM3 0.2 TH/MM3 Nucleated Red Blood Cells 1 /100 WBC 2 /100 WBC Differential Comment FINAL DIFF MANUAL FINAL DIFF MANUAL Blastocytes 12 % 12 % Plasma Cells 1 % Platelet Estimate RARE RARE Platelet Morphology Comment NORMAL NORMAL Ovalocytes 1+ 1+ Neutrophils (%) (Auto) 32.9 % Lymphocytes (%) (Auto) 55.2 % Monocytes (%) (Auto) 11.3 % Eosinophils (%) (Auto) 0.4 % Basophils (%) (Auto) 0.2 % Neutrophils # (Auto) 0.3 TH/MM3 Lymphocytes # (Auto) 0.5 TH/MM3 Monocytes # (Auto) 0.1 TH/MM3 Eosinophils # (Auto) 0.0 TH/MM3 Basophils # (Auto) 0.0 TH/MM3 Basophils % 2 % Dohle Bodies PRESENT Laboratory Tests Test 05/09/17 05:25 05/10/17 06:30 Blood Urea Nitrogen 9 MG/DL 11 MG/DL Creatinine 0.80 MG/DL 0.72 MG/DL Random Glucose 93 MG/DL 89 MG/DL Calcium Level 7.5 MG/DL 7.6 MG/DL Sodium Level 144 MEQ/L 145 MEQ/L Potassium Level 3.2 MEQ/L 3.3 MEQ/L Chloride Level 109 MEQ/L 110 MEQ/L Carbon Dioxide Level 26.7 MEQ/L 26.2 MEQ/L Anion Gap 8 MEQ/L 9 MEQ/L Estimat Glomerular Filtration Rate 94 ML/MIN 107 ML/MIN Imaging Chest X-Ray 05/10/17 0000 Signed Impressions: Service Date/Time: Wednesday, May 10, 2017 11:31 - CONCLUSION: 1. Stable scarring left lung base. 2. Cardiomegaly. 3. No pneumonia. Jn Packer MD Chest X-Ray 05/05/17 0000 Signed Impressions: Service Date/Time: Friday, May 05, 2017 18:01 - CONCLUSION: 1. Stable left lung base atelectasis/scarring. 2. No acute abnormality or significant interval change. Jayson Queen MD Chest X-Ray 05/02/17 0000 Signed Impressions: Service Date/Time: April 06:24 - CONCLUSION: 1. Stable minimal cardiomegaly. 2. Left basilar atelectasis and/or fibrotic scarring. 3. No acute focal pulmonary infiltrate or pulmonary vascular congestion. 4. Degenerative changes throughout the thoracic spine. Luis Whitehead MD Physical Exam GENERAL: awake, NAD. SKIN: Warm and dry. No generalized rash, no ecchymoses HEAD: Atraumatic. Normocephalic. No temporal wasting, or tenderness. EYES: [place] conjunctiva. No petechia or hemorrhage. No scleral icterus. No injection or drainage. EARS, NOSE AND THROAT: Nose without bleeding or purulent nasal discharge. No sinus tenderness. Lesion on lateral tongue much smaller. No oral thrush. NECK: Trachea midline. Supple and not tender, no meningeal signs CARDIOVASCULAR: Regular rate and rhythm. No murmurs, rubs or gallops heard RESPIRATORY: Clear to auscultation. Breath sounds equal bilaterally. No rales , wheezing or rhonchi ABDOMEN: Globular and protuberant, softer and less distended, not tender, bowel sounds present and normoactive. No guarding. No rebound. EXTREMITIES: No clubbing, cyanosis, or edema. No calf tenderness. Well perfused and warm. NEUROLOGICAL: Fully awake, alert Non-focal. PSYCHIATRIC: Normal affect, calm and cooperative. LINE: Port in right upper chest with no evidence of infection Assessment & Plan Remarks IMPRESSION Neutropenic sepsis, has E coli sepsis - patient receiving chemo for relapse AML - has cough, CXR ok - had SOB during transfusion - UA ok, no complaints - has had nausea and one episode of vomiting SOB, etiology? CXR clear, resolved, ?due to fever, ?transfusion reaction Lesion Lateral L tongue, improving Relapse AML RECOMMENDATION Continue Meropenem to cover ESBL+ Continue voriconazole Continue vancomycin Follow new blood clx Monitor temps Monitor progress Await for counts to recover Judy Leal MD May 10, 2017 13:46
[2017-05-10] MEDS ORDERED: diphenhydrAMINE HCL 25 MG CAP PO SCH (15:15)
[2017-05-10] MEDS ORDERED: ACETAMINOPHEN 325 MG TAB PO SCH (15:15)
[2017-05-10] MEDS: TAMSULOSIN HCL 0.4 MG CAP PO SCH (20:23)
[2017-05-10] MEDS: ONDANSETRON HCL 4 MG/2 ML VIAL IV PUSH PRN (20:23)
[2017-05-10] MEDS: traZODone HCL 50 MG TAB PO SCH (20:23)
[2017-05-10] MEDS: SODIUM CHLORIDE 0.9% FLUSH 10 ML FLUSH IV FLUSH PRN (20:23)
[2017-05-10] MEDS: buPROPion HCL 150 MG SUSTAINED RELEASE TAB PO SCH (20:23)
[2017-05-11] VITALS (11 sets, daily range): BP systolic 152–158; BP diastolic 72–93; PULSE 73–82; RESP 14–20; TEMP 98–99.6; O2SAT 90–94
[2017-05-11] MEDS: VANCOMYCIN INJ 1,250 MG in SODIUM CHLOR 0.9% 250 ML INJ 250 ML IV SCH ×2 (05:08→19:45)
[2017-05-11 05:57] LABS: HEMATOCRIT 21.9 % (39.0-51.0); MEAN CELL VOLUME 86.5 FL (80.0-100.0); MEAN CORPUSCULAR HEMOGLOBIN 29.9 PG (27.0-34.0); MEAN CORPUSCULAR HGB CONC 34.6 % (32.0-36.0); RED BLOOD COUNT 2.53 MIL/MM3 (4.50-5.90); RED CELL DISTRIBUTION WIDTH 17.4 % (11.6-17.2); WHITE BLOOD COUNT 1.6 TH/MM3 (4.0-11.0)
[2017-05-11 06:06] LABS: HEMO FLAGS AUTO DIFF
[2017-05-11 06:09] LABS: PLATELET COUNT 19 TH/MM3 (150-450)
[2017-05-11 06:28] LABS: BICARBONATE 27.8 MEQ/L (21.0-32.0); MAGNESIUM 1.6 MG/DL (1.5-2.5); POTASSIUM 3.7 MEQ/L (3.5-5.1)
[2017-05-11] MEDS: SODIUM CHLOR 0.9% IV SCH ×2 (06:29→21:37)
[2017-05-11] MEDS: VORICONAZOLE IV SCH ×2 (06:29→21:37)
[2017-05-11] MEDS ORDERED: diphenhydrAMINE HCL 25 MG CAP PO PRN (08:00)
[2017-05-11] MEDS ORDERED: SODIUM CHLOR 0.9% 250 ML INJ 250 ML IV ONE (08:00)
[2017-05-11] MEDS ORDERED: ACETAMINOPHEN 325 MG TAB PO PRN (08:00)
[2017-05-11 08:13] LABS: BLASTS 7 % (0-0); CORRECTED NUCLEATED RBC 1 /100 WBC (0-0); MYELOCYTES 1 % (0-0); POLYS (SEG NEUTROPHILS) 16 % (16-70); WBC DIFF SAMPLE 100
[2017-05-11 08:15] LABS: NEUTROPHIL # MANUAL DIFF 0.3 TH/MM3 (1.8-7.7); OVALOCYTES 1+ (NORMAL); PLATELET ESTIMATE SMEAR LOW (NORMAL)
[2017-05-11 08:16] LABS: PLATELET MORPHOLOGY NORMAL (NORMAL); SCAN/DIFF FINAL DIFF MANUAL
[2017-05-11] MEDS: DOCUSATE SODIUM 50 MG/SENNA 8.6 MG TAB PO SCH ×2 (08:50→21:37)
[2017-05-11] MEDS: MEROPENEM INJ 2,000 MG in SODIUM CHLORIDE 0.9% INJ 100 ML IV SCH ×3 (08:51→23:19)
[2017-05-11] MEDS: PANTOPRAZOLE SOD 40 MG DELAYED RELEASE TAB PO SCH (08:51)
[2017-05-11] MEDS: MAGNESIUM OXIDE 400 MG TAB PO SCH (08:51)
--- NOTE | 2017-05-11 09:16 | HHI.PR ---
Subjective Remarks She will somehow improved today. Denies shortness of breath. No chest pain or cough. No fever or chills. Able to eat nausea or vomiting no diarrhea or constipation. No overt bleeding. Platelets improved after platelet transfusion yesterday. Objective Vitals Vital Signs Date Time Temp Pulse Resp B/P (MAP) Pulse Ox O2 Delivery O2 Flow Rate FiO2 05/11/17 08:47 98.0 82 16 153/80 (104) 93 05/11/17 04:35 80 05/11/17 04:33 98.4 75 20 157/93 (114) 92 05/11/17 00:00 78 05/10/17 23:18 97.6 76 18 149/75 (99) 94 05/10/17 20:23 98.8 77 20 143/74 (97) 94 05/10/17 20:06 73 05/10/17 17:41 98.5 74 20 140/74 95 05/10/17 16:30 98.5 78 20 130/69 93 05/10/17 12:37 98.5 76 20 151/84 (106) 94 05/10/17 09:37 98.3 87 20 152/73 (99) 98 I/O 05/10/17 05/10/17 05/10/17 05/11/17 05/11/17 05/11/17 07:00 15:00 23:00 07:00 15:00 23:00 Intake Total 995 ml 1031.5 ml 240 ml Output Total 675 ml 900 ml 150 ml 200 ml 500 ml Balance -675 ml 95 ml 881.5 ml -200 ml -260 ml Intake Oral 600 ml 240 ml IV Total 395 ml 737.5 ml Platelets 294 ml Output Urine Total 675 ml 900 ml 150 ml 200 ml 500 ml Result Diagram: 05/11/17 0505 05/11/17 [address] Angiography 05/11/17 0000 Signed Impressions: Service Date/Time: Thursday, May 11, 2017 10:18 - CONCLUSION: 1. No CT evidence for pulmonary artery embolism. 2. 2 cm focal ground glass opacity abutting the major fissure and this appears segment left lower lobe, likely inflammatory in etiology. Followup examination in 3 months is recommended to document resolution. Differential considerations include PASQUALE and Maltoma. 3. Small bilateral pleural effusions with associated compressive atelectasis at the lung bases. 4. Very small anterior pericardial effusion. Jayson Queen MD Chest X-Ray 05/10/17 0000 Signed Impressions: Service Date/Time: Wednesday, May 10, 2017 11:31 - CONCLUSION: 1. Stable scarring left lung base. 2. Cardiomegaly. 3. No pneumonia. Jn Packer MD Objective Remarks GENERAL: Well-nourished, well-developed pleasant elderly male patient , anxious. SKIN: Warm and dry. HEAD: Normocephalic. EYES: No scleral icterus. No injection or drainage. NECK: Supple, trachea midline. No JVD or lymphadenopathy. CARDIOVASCULAR: Regular rate and rhythm without murmurs, gallops, or rubs. RESPIRATORY: Mild wheezing, no bronchial sounds., decreased breath sounds. No accessory muscle use. GASTROINTESTINAL: Abdomen soft, non-tender, nondistended. EXTREMITIES: No pedal edema. NEUROLOGICAL: Awake, alert, and oriented x 3. Non-focal. 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 Patient presented with neutropenic fever, pancytopenia, and bleeding : Neutropenic sepsis, ESBL E coli bacteremia in the chemotherapy patient: Fever on presentation. Recurrent fevers. - Appreciate infectious disease followingpatient on vancomycin,and voriconazole. Cefepime changed to Meropenem to cover ESBL - Repeat blood cultures from 05/06 and 05/07 are negative. Urine culture 05/07 no growth to date. Urine Legionella and strep negative. Dyspnea: noted with sob, chest pain, nasal congestion however satting well on room air at this time. O2 supplement as need. Will do CXR, start duonebs as need , ocean spray for nasal congestion. If dessating will do ABG. R/o PE, obtain CTA, EKG and troponin Transfuse 1 unit pRBC Per hem/onc once patient's neutrophils reach 500, will plan to d/c home on PO abx. AML, undergoing chemotherapy - Status post PRBC and platelet transfusion. - Management per Hematology/Oncology - Trial of Neupogen. Patient has previously been counseled on the risk of stimulating blast cells. - Transfusion parameters per oncology Hypokalemia - Given more IV potassium. Mnitor and replace as need. Repeat BMP in the morning. Hypertension: BP stable- hold BP meds for now and continue to monitor. Anxiety: add prn xanax small dose DVT prophylaxis with SCD's- no chemical prophylaxis due to anemia/ thrombocytopenia DC plan: DC when improved and cleared by consultants. Per hem/onc once patient' s neutrophils reach 500, will plan to d/c home on PO abx. Discussed with the patient, nurse, Deana PAYNE hem/onc Hilda Marquez MD May 11, 2017 09:16
--- NOTE | 2017-05-11 10:28 | PD.ONC.PN ---
Subjective Subjective Remarks Afebrile overnight. Patient felt short of breath overnight. He feels somewhat better now, but does endorse shortness of breath and some chest tightness with exertion. He states upon reflection, that he feels it has been going on for about four days. No cough. Objective Data Date Time Temp Pulse Resp B/P (MAP) Pulse Ox O2 Delivery O2 Flow Rate FiO2 05/11/17 08:47 98.0 82 16 153/80 (104) 93 05/11/17 04:35 80 05/11/17 04:33 98.4 75 20 157/93 (114) 92 05/11/17 00:00 78 05/10/17 23:18 97.6 76 18 149/75 (99) 94 05/10/17 20:23 98.8 77 20 143/74 (97) 94 05/10/17 20:06 73 05/10/17 17:41 98.5 74 20 140/74 95 05/10/17 16:30 98.5 78 20 130/69 93 05/10/17 12:37 98.5 76 20 151/84 (106) 94 05/11/17 05/11/17 05/11/17 07:00 15:00 23:00 Intake Total 240 ml Output Total 200 ml 500 ml Balance -200 ml -260 ml Result Diagram: 05/11/17 0505 05/11/17 0505 Laboratory Results Laboratory Tests Test 05/11/17 05:05 White Blood Count 1.6 TH/MM3 Red Blood Count 2.53 MIL/MM3 Hemoglobin 7.6 GM/DL Hematocrit 21.9 % Mean Corpuscular Volume 86.5 FL Mean Corpuscular Hemoglobin 29.9 PG Mean Corpuscular Hemoglobin Concent 34.6 % Red Cell Distribution Width 17.4 % Platelet Count 19 TH/MM3 Mean Platelet Volume 9.6 FL CBC Comment AUTO DIFF Differential Total Cells Counted 100 Neutrophils % (Manual) 16 % Lymphocytes % 61 % Monocytes % 15 % Neutrophils # (Manual) 0.3 TH/MM3 Myelocytes 1 % Nucleated Red Blood Cells 1 /100 WBC Differential Comment FINAL DIFF MANUAL Blastocytes 7 % Platelet Estimate LOW Platelet Morphology Comment NORMAL Ovalocytes 1+ Blood Urea Nitrogen 12 MG/DL Creatinine 0.81 MG/DL Random Glucose 88 MG/DL Calcium Level 7.5 MG/DL Magnesium Level 1.6 MG/DL Sodium Level 144 MEQ/L Potassium Level 3.7 MEQ/L Chloride Level 108 MEQ/L Carbon Dioxide Level 27.8 MEQ/L Anion Gap 8 MEQ/L Estimat Glomerular Filtration Rate 93 ML/MIN Administered Medications Medications (Trade) Dose Ordered Sig/Gene Route PRN Reason Start Time Stop Time Status Last Admin Dose Admin Acetaminophen (Tylenol) 650 mg Q4H PRN PO FEVER/ PAIN 1-10 05/01/17 14:45 05/09/17 05:10 Ondansetron HCl (Zofran Inj) 4 mg Q8HR PRN IV PUSH NAUSEA 05/01/17 14:45 05/10/17 20:23 Bupropion HCl (Wellbutrin Sr) 150 mg HS PO 05/01/17 21:00 05/10/17 20:23 Tamsulosin HCl (Flomax) 0.4 mg HS PO 05/01/17 21:00 05/10/17 20:23 Trazodone HCl (Desyrel) 50 mg HS PO 05/01/17 21:00 05/10/17 20:23 Pantoprazole Sodium (Protonix) 40 mg DAILY PO 05/02/17 09:00 05/11/17 08:51 Voriconazole 400 mg/Sodium Chloride 250 ml @ 125 mls/hr Q12H IV 05/02/17 18:00 05/11/17 06:29 Lidocaine HCl (Xylocaine 2% Viscous) 10 ml Q4H PRN PO ORAL PAIN SCALE 1 TO 10 05/02/17 20:15 05/02/17 21:18 Filgrastim (Neupogen Inj) 300 mcg DAILY@14 SQ 05/03/17 14:00 05/10/17 12:27 Vancomycin HCl 1250 mg/Sodium Chloride 262.5 ml @ 250 mls/hr Q12H IV 05/03/17 16:00 05/11/17 05:08 Senna/Docusate Sodium (Flaca-Colace) 1 tab BID PO 05/06/17 09:15 05/11/17 08:50 Shark Liver Oil (Preparation H Oint) 1 applic Q6H PRN RECTAL HEMORRHOIDS 05/06/17 09:15 05/06/17 14:25 Sodium Chloride (NS Flush) 5 ml UNSCH PRN IV FLUSH SEE PROTOCOL TABLE 05/06/17 14:15 05/10/17 20:23 Heparin Sodium (Porcine) (Heparin Central Flush) 250 units UNSCH PRN IV FLUSH SEE PROTOCOL TABLE 05/06/17 14:15 05/08/17 19:45 Meropenem 2000 mg/ Sodium Chloride 100 ml @ 200 mls/hr Q8H IV 05/06/17 15:00 05/11/17 08:51 Alteplase, Recombinant (Cathflo Activase Inj) 2 mg Q2H PRN INTRACATH CLOTTED PORT 05/07/17 08:30 05/07/17 09:18 Sodium Chloride ([place]) 2 spray Q4H PRN EACH NARE NASAL CONGESTION 05/10/17 12:00 05/10/17 12:26 Magnesium Oxide (Mag-Ox) 400 mg DAILY PO 05/11/17 09:00 05/11/17 08:51 Alprazolam (Xanax) 0.125 mg Q8HR PRN PO anxiety 05/10/17 11:30 05/10/17 20:23 Objective Remarks GENERAL: Pleasant male upright in bed in nad. SKIN: Warm and dry. HEAD: Normocephalic. EYES: No injection or drainage. NECK: Supple, trachea midline. CARDIOVASCULAR: Regular rate and rhythm RESPIRATORY: diminished at bases. anterior reyes with occasional rhonchi. GASTROINTESTINAL: Abdomen soft, non-tender, nondistended. EXTREMITIES: No cyanosis NEUROLOGICAL: awake and alert, normal speech. moving all extremities. no obvious focal deficit. 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 --on Dacogen outpatient Plan 1. dyspnea + chest tightness with exertion. this is likely COPD. however, will r/o PE, obtain CTA, EKG and troponin 2. transfuse 1 unit pRBC 3. continue antibiotics. once patient's neutrophils reach 500, will plan to d/ c home on PO abx. Attending Statement The exam, history, and the medical decision-making described in the above note were completed with the assistance of the mid-level provider. I reviewed and agree with the findings presented. I attest that I had a [id number] encounter with the patient on the same day, and personally performed and documented my assessment and findings in the medical record. c/o SOB and chest tightness. CTA chest = No PE EKG looks ok troponin pending. await ANC >500 prior to d/c home. Chest pain may be due to Neupogen. Haley Aldrich May 11, 2017 10:28 Earlene Noguera MD May 11, 2017 17:36
[2017-05-11] MEDS ORDERED: IOHEXOL 350 MG/ML 10 ML VIAL (for RAD DIAG) IVCONTRAST ONE (10:30)
--- NOTE | 2017-05-11 10:52 | RADRPT ---
EXAM DATE/TIME: 05/11/2017 10:18 [facility] COMPARISON: No previous studies available for comparison. INDICATIONS : Shortness of breath. IV CONTRAST: 62 cc Omnipaque 350 (iohexol) IV RADIATION DOSE: 18.64 CTDIvol (mGy) MEDICAL HISTORY : Leukemia. Hypertension. SURGICAL HISTORY : Cholecystectomy. ENCOUNTER: Initial ACUITY: 1 week PAIN SCALE: 0/10 LOCATION: Bilateral chest TECHNIQUE: Volumetric scanning of the chest was performed using a pulmonary embolism protocol MIP images were re constructed. Using automated exposure control and adjustment of the mA and/or kV according to patien t size, radiation dose was kept as low as reasonably achievable to obtain optimal diagnostic quality images. DICOM format image data is available electronically for review and comparison. Follow-up recommendations for detected pulmonary nodules are based at a minimum on nodule size and pa tient risk factors according to Fleischner Society Guidelines. FINDINGS: PULMONARY ARTERIES: No filling defects are seen in the pulmonary arteries through the segmental level. LUNGS: 2 cm region of focal groundglass opacity abutting the major fissure in the superior segment of the le ft lower lobe. Minimal airspace consolidation at the lung bases likely reflecting compressive atelect asis. PLEURAE: Small to moderate bilateral pleural effusions. MEDIASTINUM: Very small anterior pericardial effusion. Heart otherwise is unremarkable. There is good visualizatio n of the great vessels of the middle mediastinum. No evidence of mediastinal or hilar adenopathy/mas s. MUSCULOSKELETAL: Within normal limits for patient age. MISCELLANEOUS: Post surgical features of prior cholecystectomy noted in the upper abdomen. CONCLUSION: 1. No CT evidence for pulmonary artery embolism. 2. 2 cm focal ground glass opacity abutting the major fissure and this appears segment left lower lob e, likely inflammatory in etiology. Followup examination in 3 months is recommended to document resol ution. Differential considerations include PASQUALE and Maltoma. 3. Small bilateral pleural effusions with associated compressive atelectasis at the lung bases. 4. Very small anterior pericardial effusion. Jayson Queen MD on May 11, 2017 at 10:37 Board Certified Radiologist. This report was verified electronically.
[2017-05-11] MEDS: FILGRASTIM 300 MCG/ML VIAL SQ SCH (13:46)
--- NOTE | 2017-05-11 19:07 | RADRPT ---
EXAM DATE/TIME: 05/11/2017 18:12 [facility] COMPARISON: No previous studies available for comparison. INDICATIONS : Right leg swelling. MEDICAL HISTORY : Hypercholesterolemia. Hypertension. Gastroesophageal reflux disease. Kidney stones. Diverticulitis . PTSD. Depression. Leukemia. Chemotherapy. Measles. Blood transfusion. Herniated disc. MDRO. SURGICAL HISTORY : Cholecystectomy. Right elbow fracture repair. Incision and drainage. ENCOUNTER: Initial ACUITY: 1 week PAIN SCORE: 2/10 LOCATION: Right leg. TECHNIQUE: Venous ultrasound of the leg was performed from the inguinal ligament to the proximal calf. Real-diane e, color Doppler and spectral tracing, compression and augmentation techniques were used. FINDINGS: There is normal compressibility of the deep venous system from the inguinal region to the proximal ca lf. No echogenic clot is seen in the lumen of the common femoral, femoral, popliteal, and posterior tibial veins. There is a normal response of the venous system to proximal and distal augmentation an d respiration. CONCLUSION: Normal examination. Tod Riojas MD on May 11, 2017 at 19:05 Board Certified Radiologist. This report was verified electronically.
[2017-05-11] MEDS: TAMSULOSIN HCL 0.4 MG CAP PO SCH (21:36)
[2017-05-11] MEDS: buPROPion HCL 150 MG SUSTAINED RELEASE TAB PO SCH (21:37)
[2017-05-11] MEDS: traZODone HCL 50 MG TAB PO SCH (21:37)
[2017-05-11] MEDS: SODIUM CHLORIDE 0.9% FLUSH 10 ML FLUSH IV FLUSH PRN (21:37)
[2017-05-12] VITALS (7 sets, daily range): BP systolic 144–152; BP diastolic 72–77; PULSE 72–82; RESP 18; TEMP 95–99.5; O2SAT 92–96
[2017-05-12] MEDS: VANCOMYCIN INJ 1,250 MG in SODIUM CHLOR 0.9% 250 ML INJ 250 ML IV SCH ×2 (04:17→17:09)
[2017-05-12] MEDS: VORICONAZOLE IV SCH ×2 (05:37→18:08)
[2017-05-12] MEDS: SODIUM CHLOR 0.9% IV SCH ×2 (05:37→18:08)
[2017-05-12 06:14] LABS: MEAN CORPUSCULAR HEMOGLOBIN 29.9 PG (27.0-34.0); MEAN CORPUSCULAR HGB CONC 34.8 % (32.0-36.0); RED BLOOD COUNT 2.68 MIL/MM3 (4.50-5.90); RED CELL DISTRIBUTION WIDTH 16.8 % (11.6-17.2); WHITE BLOOD COUNT 1.3 TH/MM3 (4.0-11.0)
[2017-05-12 06:20] LABS: HEMO FLAGS AUTO DIFF
[2017-05-12 06:23] LABS: PLATELET COUNT 13 TH/MM3 (150-450)
[2017-05-12] MEDS: MEROPENEM INJ 2,000 MG in SODIUM CHLORIDE 0.9% INJ 100 ML IV SCH ×2 (06:57→14:35)
[2017-05-12] MEDS: PANTOPRAZOLE SOD 40 MG DELAYED RELEASE TAB PO SCH (08:08)
[2017-05-12] MEDS: MAGNESIUM OXIDE 400 MG TAB PO SCH (08:08)
[2017-05-12] MEDS: DOCUSATE SODIUM 50 MG/SENNA 8.6 MG TAB PO SCH ×2 (08:08→20:53)
[2017-05-12 08:46] LABS: BANDS 4 % (0-6); BLASTS 8 % (0-0); NEUTROPHIL # MANUAL DIFF 0.5 TH/MM3 (1.8-7.7); POLYS (SEG NEUTROPHILS) 38 % (16-70); WBC DIFF SAMPLE 50
[2017-05-12 08:47] LABS: OVALOCYTES 1+ (NORMAL)
[2017-05-12 08:48] LABS: PLATELET ESTIMATE SMEAR RARE (NORMAL); PLATELET MORPHOLOGY NORMAL (NORMAL); SCAN/DIFF FINAL DIFF MANUAL
--- NOTE | 2017-05-12 09:17 | PD.ONC.PN ---
Subjective Subjective Remarks Afebrile overnight. Patient resting in bed in nad. Still short of breath with exertion. Objective Data Date Time Temp Pulse Resp B/P (MAP) Pulse Ox O2 Delivery O2 Flow Rate FiO2 05/12/17 08:10 98.6 82 18 144/72 (96) 96 05/12/17 04:00 Nasal Cannula 2.00 05/12/17 04:00 Nasal Cannula 2.00 05/12/17 04:00 98.8 81 18 144/72 (96) 95 05/12/17 04:00 98.8 81 18 144/72 (96) 95 05/12/17 00:00 99.5 78 18 152/77 (102) 94 05/12/17 00:00 Room Air 05/11/17 21:00 Room Air 05/11/17 21:00 99.0 81 18 152/80 (104) 93 05/11/17 20:00 99.0 81 18 152/80 (104) 93 05/11/17 20:00 Room Air 05/11/17 20:00 75 05/11/17 18:47 98.4 76 14 158/83 (108) 94 05/11/17 15:13 99.6 05/11/17 15:01 99.3 73 16 155/72 90 05/11/17 12:28 98.2 80 14 155/72 (99) 93 05/12/17 05/12/17 05/12/17 07:00 15:00 23:00 Intake Total 460 ml Output Total 1150 ml Balance -690 ml Result Diagram: 05/12/17 0530 05/11/17 0505 Laboratory Results Laboratory Tests Test 05/11/17 11:48 05/12/17 05:30 Troponin I 0.02 NG/ML B-Type Natriuretic Peptide 488 PG/ML White Blood Count 1.3 TH/MM3 Red Blood Count 2.68 MIL/MM3 Hemoglobin 8.0 GM/DL Hematocrit 23.0 % Mean Corpuscular Volume 86.0 FL Mean Corpuscular Hemoglobin 29.9 PG Mean Corpuscular Hemoglobin Concent 34.8 % Red Cell Distribution Width 16.8 % Platelet Count 13 TH/MM3 Mean Platelet Volume 10.0 FL CBC Comment AUTO DIFF Differential Total Cells Counted 50 Neutrophils % (Manual) 38 % Band Neutrophils % 4 % Lymphocytes % 48 % Monocytes % 2 % Neutrophils # (Manual) 0.5 TH/MM3 Differential Comment FINAL DIFF MANUAL Blastocytes 8 % Platelet Estimate RARE Platelet Morphology Comment NORMAL Ovalocytes 1+ Administered Medications Medications (Trade) Dose Ordered Sig/Gene Route PRN Reason Start Time Stop Time Status Last Admin Dose Admin Acetaminophen (Tylenol) 650 mg Q4H PRN PO FEVER/ PAIN 1-10 05/01/17 14:45 05/09/17 05:10 Ondansetron HCl (Zofran Inj) 4 mg Q8HR PRN IV PUSH NAUSEA 05/01/17 14:45 05/10/17 20:23 Bupropion HCl (Wellbutrin Sr) 150 mg HS PO 05/01/17 21:00 05/11/17 21:37 Tamsulosin HCl (Flomax) 0.4 mg HS PO 05/01/17 21:00 05/11/17 21:36 Trazodone HCl (Desyrel) 50 mg HS PO 05/01/17 21:00 05/11/17 21:37 Pantoprazole Sodium (Protonix) 40 mg DAILY PO 05/02/17 09:00 05/12/17 08:08 Voriconazole 400 mg/Sodium Chloride 250 ml @ 125 mls/hr Q12H IV 05/02/17 18:00 05/12/17 05:37 Lidocaine HCl (Xylocaine 2% Viscous) 10 ml Q4H PRN PO ORAL PAIN SCALE 1 TO 10 05/02/17 20:15 05/02/17 21:18 Filgrastim (Neupogen Inj) 300 mcg DAILY@14 SQ 05/03/17 14:00 05/11/17 13:46 Vancomycin HCl 1250 mg/Sodium Chloride 262.5 ml @ 250 mls/hr Q12H IV 05/03/17 16:00 05/12/17 04:17 Senna/Docusate Sodium (Flaca-Colace) 1 tab BID PO 05/06/17 09:15 05/12/17 08:08 Shark Liver Oil (Preparation H Oint) 1 applic Q6H PRN RECTAL HEMORRHOIDS 05/06/17 09:15 05/06/17 14:25 Sodium Chloride (NS Flush) 5 ml UNSCH PRN IV FLUSH SEE PROTOCOL TABLE 05/06/17 14:15 05/11/17 21:37 Heparin Sodium (Porcine) (Heparin Central Flush) 250 units UNSCH PRN IV FLUSH SEE PROTOCOL TABLE 05/06/17 14:15 05/08/17 19:45 Meropenem 2000 mg/ Sodium Chloride 100 ml @ 200 mls/hr Q8H IV 05/06/17 15:00 05/12/17 06:57 Alteplase, Recombinant (Cathflo Activase Inj) 2 mg Q2H PRN INTRACATH CLOTTED PORT 05/07/17 08:30 05/07/17 09:18 Sodium Chloride ([place]) 2 spray Q4H PRN EACH NARE NASAL CONGESTION 05/10/17 12:00 05/10/17 12:26 Magnesium Oxide (Mag-Ox) 400 mg DAILY PO 05/11/17 09:00 05/12/17 08:08 Alprazolam (Xanax) 0.125 mg Q8HR PRN PO anxiety 05/10/17 11:30 05/10/17 20:23 Acetaminophen (Tylenol) 650 mg Q4H PRN PO SEE LABEL COMMENTS 05/11/17 08:00 05/11/17 13:46 Diphenhydramine HCl (Benadryl) 25 mg Q4H PRN PO SEE LABEL COMMENTS 05/11/17 08:00 05/11/17 13:46 Objective Remarks GENERAL: Pleasant male standing up in room. dyspneic with exertion, but appears comfortable at rest. SKIN: Warm and dry. HEAD: Normocephalic. EYES: No injection or drainage. NECK: Supple, trachea midline. CARDIOVASCULAR: Regular rate and rhythm RESPIRATORY: fine crackles heard at right base. anterior reyes clear. GASTROINTESTINAL: Abdomen soft, non-tender, nondistended. EXTREMITIES: No cyanosis NEUROLOGICAL: awake and alert, normal speech. moving all extremities. 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 --on Dacogen outpatient Plan 1. continue antibiotics. 2. monitor CBC, no transfusion needed today. Attending Statement The exam, history, and the medical decision-making described in the above note were completed with the assistance of the mid-level provider. I reviewed and agree with the findings presented. I attest that I had a [id number] encounter with the patient on the same day, and personally performed and documented my assessment and findings in the medical record. still c/o SOB no CP w/u for SOB is neg so far. SOB may be due to anemia ( Hg 8) . check tomorrrow. If hg<[address] PR[address] Dr Collins to follow Haley Aldrich May 12, 2017 09:17 Earlene Noguera MD May 12, 2017 17:38
--- NOTE | 2017-05-12 09:37 | HHI.PR ---
Subjective Remarks With shortness of breath, oxygen helps. No chest pain. No fever or chills less cough. Denies abdominal pain, nausea, vomiting diarrhea or constipation. Objective Vitals Vital Signs Date Time Temp Pulse Resp B/P (MAP) Pulse Ox O2 Delivery O2 Flow Rate FiO2 05/12/17 08:10 98.6 82 18 144/72 (96) 96 05/12/17 04:00 Nasal Cannula 2.00 05/12/17 04:00 Nasal Cannula 2.00 05/12/17 04:00 98.8 81 18 144/72 (96) 95 05/12/17 04:00 98.8 81 18 144/72 (96) 95 05/12/17 00:00 99.5 78 18 152/77 (102) 94 05/12/17 00:00 Room Air 05/11/17 21:00 Room Air 05/11/17 21:00 99.0 81 18 152/80 (104) 93 05/11/17 20:00 99.0 81 18 152/80 (104) 93 05/11/17 20:00 Room Air 05/11/17 20:00 75 05/11/17 18:47 98.4 76 14 158/83 (108) 94 05/11/17 15:13 99.6 05/11/17 15:01 99.3 73 16 155/72 90 05/11/17 12:28 98.2 80 14 155/72 (99) 93 I/O 05/11/17 05/11/17 05/11/17 05/12/17 05/12/17 05/12/17 07:00 15:00 23:00 07:00 15:00 23:00 Intake Total 250 ml 932.5 ml 460 ml Output Total 200 ml 500 ml 1150 ml Balance -200 ml -250 ml 932.5 ml -690 ml Intake Oral 240 ml 360 ml IV Total 512.5 ml 100 ml Packed Cells 400 ml Blood Product IV Normal Saline Flush 10 ml 20 ml Output Urine Total 200 ml 500 ml 1150 ml # Bowel Movements 0 Result Diagram: 05/12/17 0530 05/11/17 0505 Imaging Last Impressions Lower Extremity Ultrasound 05/11/17 0000 Signed Impressions: Service Date/Time: Thursday, May 11, 2017 18:12 - CONCLUSION: Normal examination. Tod Riojas MD CT Angiography 05/11/17 0000 Signed Impressions: Service Date/Time: Thursday, May 11, 2017 10:18 - CONCLUSION: 1. No CT evidence for pulmonary artery embolism. 2. 2 cm focal ground glass opacity abutting the major fissure and this appears segment left lower lobe, likely inflammatory in etiology. Followup examination in 3 months is recommended to document resolution. Differential considerations include PASQUALE and Maltoma. 3. Small bilateral pleural effusions with associated compressive atelectasis at the lung bases. 4. Very small anterior pericardial effusion. Jayson Queen MD Chest X-Ray 05/10/17 0000 Signed Impressions: Service Date/Time: Wednesday, May 10, 2017 11:31 - CONCLUSION: 1. Stable scarring left lung base. 2. Cardiomegaly. 3. No pneumonia. Jn Packer MD Objective Remarks GENERAL: Well-nourished, well-developed pleasant elderly male patient , anxious. SKIN: Warm and dry. HEAD: Normocephalic. EYES: No scleral icterus. No injection or drainage. NECK: Supple, trachea midline. No JVD or lymphadenopathy. CARDIOVASCULAR: Regular rate and rhythm without murmurs, gallops, or rubs. RESPIRATORY: Mild wheezing, no bronchial sounds., decreased breath sounds. No accessory muscle use. GASTROINTESTINAL: Abdomen soft, non-tender, nondistended. EXTREMITIES: No pedal edema. NEUROLOGICAL: Awake, alert, and oriented x 3. Non-focal. 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 Patient presented with neutropenic fever, pancytopenia, and bleeding : Neutropenic sepsis, ESBL E coli bacteremia in the chemotherapy patient: Fever on presentation. Recurrent fevers. - Appreciate infectious disease followingpatient on vancomycin,and voriconazole. Cefepime changed to Meropenem to cover ESBL - Repeat blood cultures from 05/06 and 05/07 are negative. Urine culture 05/07 no growth to date. Urine Legionella and strep negative. Dyspnea: noted with sob, chest pain, nasal congestion however satting well on room air at this time. O2 supplement as need. CXR reviewed, start duonebs as need, ocean spray for nasal congestion. Received 1 unit pRBC 05/11/17 R/o PE, CTA NO PE EKG at baseline and troponin negative Per hem/onc once patient's neutrophils reach 500, will plan to d/c home on PO abx. AML, undergoing chemotherapy - Status post PRBC and platelet transfusion. - Management per Hematology/Oncology - Trial of Neupogen. Patient has previously been counseled on the risk of stimulating blast cells. - Transfusion parameters per oncology Hypokalemia - Given more IV potassium. Mnitor and replace as need. Repeat BMP in the morning. Hypertension: BP stable- hold BP meds for now and continue to monitor. Anxiety: add prn xanax small dose DVT prophylaxis with SCD's- no chemical prophylaxis due to anemia/ thrombocytopenia DC plan: DC when improved and cleared by consultants. Per hem/onc once patient' s neutrophils reach 500, will plan to d/c home on PO abx. Discussed with the patient, nurse, Deana PAYNE hem/onc Discharge plan: Discharge were improved and cleared by consultants. Hilda Marquez MD May 12, 2017 09:37
--- NOTE | 2017-05-12 13:13 | EKG ---
Date Performed: 05/11/2017 Time Performed: 12:19:36 PTAGE: 72 years EKG: Sinus rhythm Prolonged QT interval Poor R wave progression - probable normal variant Septal T wave changes are no nspecific Borderline ECG Compared to PREVIOUS TRACING , QT interval is more prolonged, otherwise no significant change. PREVIO US TRACIN05/01/2017 13.49 DOCTOR: Jarrell Hutchinson Interpretating Date/Time 05/12/2017 13:12:17
[2017-05-12] MEDS: FILGRASTIM 300 MCG/ML VIAL SQ SCH (14:36)
[2017-05-12] MEDS: traZODone HCL 50 MG TAB PO SCH (20:53)
[2017-05-12] MEDS: buPROPion HCL 150 MG SUSTAINED RELEASE TAB PO SCH (20:53)
[2017-05-12] MEDS: TAMSULOSIN HCL 0.4 MG CAP PO SCH (20:53)
[2017-05-13] VITALS (11 sets, daily range): BP systolic 125–160; BP diastolic 59–84; PULSE 75–85; RESP 16–20; TEMP 98.1–98.8; O2SAT 93–97
[2017-05-13] MEDS: MEROPENEM INJ 2,000 MG in SODIUM CHLORIDE 0.9% INJ 100 ML IV SCH ×4 (00:16→23:55)
[2017-05-13] MEDS: VANCOMYCIN INJ 1,250 MG in SODIUM CHLOR 0.9% 250 ML INJ 250 ML IV SCH ×2 (04:28→17:27)
[2017-05-13] MEDS: VORICONAZOLE IV SCH ×2 (06:24→19:29)
[2017-05-13] MEDS: SODIUM CHLOR 0.9% IV SCH ×2 (06:24→19:29)
[2017-05-13 07:35] LABS: AUTOMATED NEUTROPHIL # 0.4 TH/MM3 (1.8-7.7); BASOPHIL % 0.2 % (0.0-2.0); EOSINOPHIL % 0.1 % (0.0-4.0); HEMATOCRIT 23.5 % (39.0-51.0); LYMPH % 51.6 % (9.0-44.0); LYMPHOCYTE # 0.6 TH/MM3 (1.0-4.8); MEAN CELL VOLUME 86.2 FL (80.0-100.0); MEAN CORPUSCULAR HEMOGLOBIN 30.4 PG (27.0-34.0); MEAN CORPUSCULAR HGB CONC 35.2 % (32.0-36.0); MONO % 8.6 % (0.0-8.0); NEUT % 39.5 % (16.0-70.0); RED BLOOD COUNT 2.72 MIL/MM3 (4.50-5.90); RED CELL DISTRIBUTION WIDTH 17.1 % (11.6-17.2); WHITE BLOOD COUNT 1.1 TH/MM3 (4.0-11.0)
[2017-05-13 07:38] LABS: HEMO FLAGS AUTO DIFF
[2017-05-13 07:39] LABS: PLATELET COUNT 8 TH/MM3 (150-450)
[2017-05-13 08:06] LABS: BICARBONATE 27.1 MEQ/L (21.0-32.0); POTASSIUM 3.5 MEQ/L (3.5-5.1)
[2017-05-13 08:37] LABS: BANDS 8 % (0-6); BLASTS 3 % (0-0); CORRECTED NUCLEATED RBC 1 /100 WBC (0-0); NEUTROPHIL # MANUAL DIFF 0.5 TH/MM3 (1.8-7.7); PLATELET ESTIMATE SMEAR RARE (NORMAL); POLYS (SEG NEUTROPHILS) 36 % (16-70); SCAN/DIFF FINAL DIFF MANUAL; WBC DIFF SAMPLE 100
[2017-05-13 08:38] LABS: OVALOCYTES 1+ (NORMAL)
[2017-05-13 08:39] LABS: PLATELET MORPHOLOGY ENLARGED (NORMAL)
[2017-05-13] MEDS ORDERED: diphenhydrAMINE HCL 25 MG CAP PO PRN (08:45)
[2017-05-13] MEDS ORDERED: ACETAMINOPHEN 325 MG TAB PO PRN (08:45)
[2017-05-13] MEDS ORDERED: SODIUM CHLOR 0.9% 250 ML INJ 250 ML IV ONE (08:45)
[2017-05-13] MEDS: DOCUSATE SODIUM 50 MG/SENNA 8.6 MG TAB PO SCH ×2 (08:56→20:28)
[2017-05-13] MEDS: MAGNESIUM OXIDE 400 MG TAB PO SCH (08:57)
[2017-05-13] MEDS: PANTOPRAZOLE SOD 40 MG DELAYED RELEASE TAB PO SCH (08:57)
--- NOTE | 2017-05-13 10:27 | PD.ONC.PN ---
Subjective Subjective Remarks Afebrile overnight. Patient resting in bed in nad. No complaints. states dyspnea is improved. hopeful to go home soon. Objective Data Date Time Temp Pulse Resp B/P (MAP) Pulse Ox O2 Delivery O2 Flow Rate FiO2 05/13/17 08:55 Room Air 05/13/17 08:51 98.8 85 20 147/82 (103) 93 05/13/17 07:59 78 05/13/17 04:31 98.1 80 16 160/79 (106) 94 05/13/17 00:15 98.7 83 16 157/76 (103) 94 05/12/17 20:30 75 05/12/17 20:30 Room Air 05/12/17 18:24 76 05/12/17 17:13 98.5 74 18 144/74 (97) 92 05/12/17 14:40 98.4 72 18 05/13/17 05/13/17 05/13/17 07:00 15:00 23:00 Intake Total 480 ml Output Total 900 ml Balance -420 ml Result Diagram: 05/13/17 0632 05/13/17 0632 Laboratory Results Laboratory Tests Test 05/13/17 06:32 White Blood Count 1.1 TH/MM3 Red Blood Count 2.72 MIL/MM3 Hemoglobin 8.3 GM/DL Hematocrit 23.5 % Mean Corpuscular Volume 86.2 FL Mean Corpuscular Hemoglobin 30.4 PG Mean Corpuscular Hemoglobin Concent 35.2 % Red Cell Distribution Width 17.1 % Platelet Count 8 TH/MM3 Mean Platelet Volume 12.8 FL Neutrophils (%) (Auto) 39.5 % Lymphocytes (%) (Auto) 51.6 % Monocytes (%) (Auto) 8.6 % Eosinophils (%) (Auto) 0.1 % Basophils (%) (Auto) 0.2 % Neutrophils # (Auto) 0.4 TH/MM3 Lymphocytes # (Auto) 0.6 TH/MM3 Monocytes # (Auto) 0.1 TH/MM3 Eosinophils # (Auto) 0.0 TH/MM3 Basophils # (Auto) 0.0 TH/MM3 CBC Comment AUTO DIFF Differential Total Cells Counted 100 Neutrophils % (Manual) 36 % Band Neutrophils % 8 % Lymphocytes % 53 % Neutrophils # (Manual) 0.5 TH/MM3 Nucleated Red Blood Cells 1 /100 WBC Differential Comment FINAL DIFF MANUAL Blastocytes 3 % Platelet Estimate RARE Platelet Morphology Comment ENLARGED Ovalocytes 1+ Blood Urea Nitrogen 12 MG/DL Creatinine 0.77 MG/DL Random Glucose 78 MG/DL Calcium Level 7.6 MG/DL Sodium Level 142 MEQ/L Potassium Level 3.5 MEQ/L Chloride Level 107 MEQ/L Carbon Dioxide Level 27.1 MEQ/L Anion Gap 8 MEQ/L Estimat Glomerular Filtration Rate 99 ML/MIN Administered Medications Medications (Trade) Dose Ordered Sig/Gene Route PRN Reason Start Time Stop Time Status Last Admin Dose Admin Acetaminophen (Tylenol) 650 mg Q4H PRN PO FEVER/ PAIN 1-10 05/01/17 14:45 05/09/17 05:10 Ondansetron HCl (Zofran Inj) 4 mg Q8HR PRN IV PUSH NAUSEA 05/01/17 14:45 05/10/17 20:23 Bupropion HCl (Wellbutrin Sr) 150 mg HS PO 05/01/17 21:00 05/12/17 20:53 Tamsulosin HCl (Flomax) 0.4 mg HS PO 05/01/17 21:00 05/12/17 20:53 Trazodone HCl (Desyrel) 50 mg HS PO 05/01/17 21:00 05/12/17 20:53 Pantoprazole Sodium (Protonix) 40 mg DAILY PO 05/02/17 09:00 05/13/17 08:57 Voriconazole 400 mg/Sodium Chloride 250 ml @ 125 mls/hr Q12H IV 05/02/17 18:00 05/13/17 06:24 Lidocaine HCl (Xylocaine 2% Viscous) 10 ml Q4H PRN PO ORAL PAIN SCALE 1 TO 10 05/02/17 20:15 05/02/17 21:18 Filgrastim (Neupogen Inj) 300 mcg DAILY@14 SQ 05/03/17 14:00 05/12/17 14:36 Vancomycin HCl 1250 mg/Sodium Chloride 262.5 ml @ 250 mls/hr Q12H IV 05/03/17 16:00 05/13/17 04:28 Senna/Docusate Sodium (Flaca-Colace) 1 tab BID PO 05/06/17 09:15 05/13/17 08:56 Shark Liver Oil (Preparation H Oint) 1 applic Q6H PRN RECTAL HEMORRHOIDS 05/06/17 09:15 05/06/17 14:25 Sodium Chloride (NS Flush) 5 ml UNSCH PRN IV FLUSH SEE PROTOCOL TABLE 05/06/17 14:15 05/11/17 21:37 Heparin Sodium (Porcine) (Heparin Central Flush) 250 units UNSCH PRN IV FLUSH SEE PROTOCOL TABLE 05/06/17 14:15 05/13/17 05:53 Meropenem 2000 mg/ Sodium Chloride 100 ml @ 200 mls/hr Q8H IV 05/06/17 15:00 05/13/17 08:56 Alteplase, Recombinant (Cathflo Activase Inj) 2 mg Q2H PRN INTRACATH CLOTTED PORT 05/07/17 08:30 05/07/17 09:18 Sodium Chloride ([place]) 2 spray Q4H PRN EACH NARE NASAL CONGESTION 05/10/17 12:00 05/10/17 12:26 Magnesium Oxide (Mag-Ox) 400 mg DAILY PO 05/11/17 09:00 05/13/17 08:57 Alprazolam (Xanax) 0.125 mg Q8HR PRN PO anxiety 05/10/17 11:30 05/10/17 20:23 Objective Remarks GENERAL: Elderly male sitting up in bed [facility]. SKIN: Warm and dry. HEAD: Normocephalic. EYES: No injection or drainage. NECK: Supple, trachea midline. CARDIOVASCULAR: Regular rate and rhythm RESPIRATORY: diminished at right base GASTROINTESTINAL: Abdomen soft, non-tender, nondistended. EXTREMITIES: No cyanosis NEUROLOGICAL: awake and alert, normal speech. 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 --on Dacogen outpatient Plan 1. continue antibiotics. 2. give 1 unit platelets 3. possible d/c tomorrow on PO antibiotics if remains afebrile. Attending Statement agree with above. Haley Aldrich May 13, 2017 10:27 Jarrell Collins MD May 14, 2017 19:29
--- NOTE | 2017-05-13 10:59 | HHI.IDPN ---
Subjective Subjective Remarks Patient is a 72-year-old male presented to the hospital complaining of chills and shortness of breath. He was apparently in the oncology's office and receive a transfusion when he developed the symptoms of chills and shortness of breath. Patient states that he has never had shortness of breath before. He denies any chest pain. 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 He has been on prophylactic fluconazole and Levaquin. Patient apparently has not been feeling well and has had some cough. He has had some nausea for several weeks, and had one episode of vomiting enroute to the ED. any nausea or vomiting. He has had this sore on the left side of his time and his oncologist gave him some prescription to apply topically. He denies having bitten his tongue. He denies any swallowing difficulty. Denies any diarrhea or any urinary complaints. He has not had any back pain. His temperature in the ED was 102.5. On presentation he was neutropenic with a WBC of 0.1. Infectious disease consultation has been requested to evaluate the patient. Notes reviewed Temps ok No new (+) BC (+) BC from 05/04 Counts remain low CXR stable scarring L base No N/V, no diarrhea No resp complaints No rash/itching No swallowing trouble No complaints Feels good Antibiotics Current Medications Meropenem Voriconazole Vancomycin Medications (Trade) Dose Ordered Sig/Gene Route Start Time Stop Time Status Last Admin (Tylenol) 650 mg Q4H PRN PO 05/01/17 14:45 05/09/17 05:10 (Zofran Inj) 4 mg Q8HR PRN IV PUSH 05/01/17 14:45 05/10/17 20:23 (Wellbutrin Sr) 150 mg HS PO 05/01/17 21:00 05/12/17 20:53 (Flomax) 0.4 mg HS PO 05/01/17 21:00 05/12/17 20:53 (Desyrel) 50 mg HS PO 05/01/17 21:00 05/12/17 20:53 (Protonix) 40 mg DAILY PO 05/02/17 09:00 05/13/17 08:57 Voriconazole 400 mg/Sodium Chloride 250 ml @ 125 mls/hr Q12H IV 05/02/17 18:00 12/11/17 06:24 Pharmacy Profile Note 0 ml @ 0 mls/hr UNSCH OTHER 05/01/17 18:15 (Xylocaine 2% Viscous) 10 ml Q4H PRN PO 05/02/17 20:15 05/02/17 21:18 (Neupogen Inj) 300 mcg DAILY@14 SQ 05/03/17 14:00 05/12/17 14:36 Vancomycin HCl 1250 mg/Sodium Chloride 262.5 ml @ 250 mls/hr Q12H IV 05/03/17 16:00 05/13/17 04:28 (Flaca-Colace) 1 tab BID PO 05/06/17 09:15 05/13/17 08:56 (Preparation H Oint) 1 applic Q6H PRN RECTAL 05/06/17 09:15 05/06/17 14:25 (NS Flush) 5 ml UNSCH PRN IV FLUSH 05/06/17 14:15 05/11/17 21:37 (Heparin Central Flush) 250 units UNSCH PRN IV FLUSH 05/06/17 14:15 05/13/17 05:53 (Heparin Central Flush) 500 units UNSCH IV FLUSH 05/06/17 14:15 Meropenem 2000 mg/ Sodium Chloride 100 ml @ 200 mls/hr Q8H IV 05/06/17 15:00 05/13/17 08:56 (Cathflo Activase Inj) 2 mg Q2H PRN INTRACATH 05/07/17 08:30 05/07/17 09:18 (Duoneb Neb) 1 ampule Q4HR NEB PRN NEB 05/10/17 11:30 ([place]) 2 spray Q4H PRN EACH NARE 05/10/17 12:00 05/10/17 12:26 (Mag-Ox) 400 mg DAILY PO 05/11/17 09:00 05/13/17 08:57 (Xanax) 0.125 mg Q8HR PRN PO 05/10/17 11:30 05/10/17 20:23 (Pill Splitter) 1 ea UNSCH PRN OTHER 05/10/17 11:45 Sodium Chloride 250 ml @ 15 mls/hr ONCE ONCE IV 05/13/17 08:45 05/14/17 01:24 (Tylenol) 650 mg Q4H PRN PO 05/13/17 08:45 05/13/17 23:59 (Benadryl) 25 mg Q4H PRN PO 05/13/17 08:45 05/13/17 23:59 Lines Port R chest Past Medical History 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 Vital Signs Date Time Temp Pulse Resp B/P (MAP) Pulse Ox O2 Delivery O2 Flow Rate FiO2 05/13/17 08:55 Room Air 05/13/17 08:51 98.8 85 20 147/82 (103) 93 05/13/17 07:59 78 05/13/17 04:31 98.1 80 16 160/79 (106) 94 05/13/17 00:15 98.7 83 16 157/76 (103) 94 05/12/17 20:30 75 05/12/17 20:30 Room Air 05/12/17 18:24 76 05/12/17 17:13 98.5 74 18 144/74 (97) 92 05/12/17 14:40 98.4 72 18 . Laboratory Tests Test 05/12/17 05:30 05/13/17 06:32 White Blood Count 1.3 TH/MM3 1.1 TH/MM3 Red Blood Count 2.68 MIL/MM3 2.72 MIL/MM3 Hemoglobin 8.0 GM/DL 8.3 GM/DL Hematocrit 23.0 % 23.5 % Mean Corpuscular Volume 86.0 FL 86.2 FL Mean Corpuscular Hemoglobin 29.9 PG 30.4 PG Mean Corpuscular Hemoglobin Concent 34.8 % 35.2 % Red Cell Distribution Width 16.8 % 17.1 % Platelet Count 13 TH/MM3 8 TH/MM3 Mean Platelet Volume 10.0 FL 12.8 FL CBC Comment AUTO DIFF AUTO DIFF Differential Total Cells Counted 50 100 Neutrophils % (Manual) 38 % 36 % Band Neutrophils % 4 % 8 % Lymphocytes % 48 % 53 % Monocytes % 2 % Neutrophils # (Manual) 0.5 TH/MM3 0.5 TH/MM3 Differential Comment FINAL DIFF MANUAL FINAL DIFF MANUAL Blastocytes 8 % 3 % Platelet Estimate RARE RARE Platelet Morphology Comment NORMAL ENLARGED Ovalocytes 1+ 1+ Neutrophils (%) (Auto) 39.5 % Lymphocytes (%) (Auto) 51.6 % Monocytes (%) (Auto) 8.6 % Eosinophils (%) (Auto) 0.1 % Basophils (%) (Auto) 0.2 % Neutrophils # (Auto) 0.4 TH/MM3 Lymphocytes # (Auto) 0.6 TH/MM3 Monocytes # (Auto) 0.1 TH/MM3 Eosinophils # (Auto) 0.0 TH/MM3 Basophils # (Auto) 0.0 TH/MM3 Nucleated Red Blood Cells 1 /100 WBC Laboratory Tests Test 05/11/17 11:48 05/13/17 06:32 Troponin I 0.02 NG/ML B-Type Natriuretic Peptide 488 PG/ML Blood Urea Nitrogen 12 MG/DL Creatinine 0.77 MG/DL Random Glucose 78 MG/DL Calcium Level 7.6 MG/DL Sodium Level 142 MEQ/L Potassium Level 3.5 MEQ/L Chloride Level 107 MEQ/L Carbon Dioxide Level 27.1 MEQ/L Anion Gap 8 MEQ/L Estimat Glomerular Filtration Rate 99 ML/MIN Imaging Chest X-Ray 05/10/17 0000 Signed Impressions: Service Date/Time: Wednesday, May 10, 2017 11:31 - CONCLUSION: 1. Stable scarring left lung base. 2. Cardiomegaly. 3. No pneumonia. Jn Packer MD Chest X-Ray 05/05/17 0000 Signed Impressions: Service Date/Time: Friday, May 05, 2017 18:01 - CONCLUSION: 1. Stable left lung base atelectasis/scarring. 2. No acute abnormality or significant interval change. Jayson Queen MD Chest X-Ray 05/02/17 0000 Signed Impressions: Service Date/Time: April 06:24 - CONCLUSION: 1. Stable minimal cardiomegaly. 2. Left basilar atelectasis and/or fibrotic scarring. 3. No acute focal pulmonary infiltrate or pulmonary vascular congestion. 4. Degenerative changes throughout the thoracic spine. Luis Whitehead MD Physical Exam GENERAL: awake, NAD. SKIN: Warm and dry. No generalized rash, no ecchymoses HEAD: Atraumatic. Normocephalic. No temporal wasting, or tenderness. EYES: [place] conjunctiva. No petechia or hemorrhage. No scleral icterus. No injection or drainage. EARS, NOSE AND THROAT: Nose without bleeding or purulent nasal discharge. No sinus tenderness. Lesion on lateral tongue much smaller. No oral thrush. NECK: Trachea midline. Supple and not tender, no meningeal signs CARDIOVASCULAR: Regular rate and rhythm. No murmurs, rubs or gallops heard RESPIRATORY: Clear to auscultation. Breath sounds equal bilaterally. No rales , wheezing or rhonchi ABDOMEN: Globular and protuberant, softer and less distended, not tender, bowel sounds present and normoactive. No guarding. No rebound. EXTREMITIES: No clubbing, cyanosis, or edema. No calf tenderness. Well perfused and warm. NEUROLOGICAL: Fully awake, alert Non-focal. PSYCHIATRIC: Normal affect, calm and cooperative. LINE: Port in right upper chest with no evidence of infection Assessment & Plan Remarks IMPRESSION Neutropenic sepsis, has E coli sepsis - patient receiving chemo for relapse AML - has cough, CXR ok - had SOB during transfusion - UA ok, no complaints - has had nausea and one episode of vomiting SOB, etiology? CXR clear, resolved, ?due to fever, ?transfusion reaction Lesion Lateral L tongue, improving Relapse AML RECOMMENDATION Continue Meropenem to cover ESBL+ Continue voriconazole Continue vancomycin Monitor temps Monitor progress Await for counts to recover Judy Leal MD May 13, 2017 10:59
[2017-05-13] MEDS ORDERED: POTASSIUM CHLORIDE 20 MEQ CONTROLLED RELEASE TAB PO ONE (11:15)
--- NOTE | 2017-05-13 11:15 | HHI.PR ---
Subjective Remarks Patient in bed feels tired. No n/v/d/c. Denies chest pain, has less sob. No fever or chills. No cough. Bleeding from nose stopped. No overt bleeding. Has LE edema, will give one time lasix. PLT of 8 today transfuse per oncology indictions. Objective Vitals Vital Signs Date Time Temp Pulse Resp B/P (MAP) Pulse Ox O2 Delivery O2 Flow Rate FiO2 05/13/17 08:55 Room Air 05/13/17 08:51 98.8 85 20 147/82 (103) 93 05/13/17 07:59 78 05/13/17 04:31 98.1 80 16 160/79 (106) 94 05/13/17 00:15 98.7 83 16 157/76 (103) 94 05/12/17 20:30 75 05/12/17 20:30 Room Air 05/12/17 18:24 76 05/12/17 17:13 98.5 74 18 144/74 (97) 92 05/12/17 14:40 98.4 72 18 I/O 05/12/17 05/12/17 05/12/17 05/13/17 05/13/17 05/13/17 06:59 14:59 22:59 06:59 14:59 22:59 Intake Total 460 ml 600 ml 480 ml Output Total 1150 ml 900 ml Balance -690 ml 600 ml -420 ml Intake Oral 360 ml 600 ml 480 ml IV Total 100 ml Output Urine Total 1150 ml 900 ml # Voids 2 # Bowel Movements 0 Result Diagram: 05/13/17 0632 05/13/17 0632 Imaging Last Impressions Lower Extremity Ultrasound 05/11/17 0000 Signed Impressions: Service Date/Time: Thursday, May 11, 2017 18:12 - CONCLUSION: Normal examination. Tod Riojas MD CT Angiography 05/11/17 0000 Signed Impressions: Service Date/Time: Thursday, May 11, 2017 10:18 - CONCLUSION: 1. No CT evidence for pulmonary artery embolism. 2. 2 cm focal ground glass opacity abutting the major fissure and this appears segment left lower lobe, likely inflammatory in etiology. Followup examination in 3 months is recommended to document resolution. Differential considerations include PASQUALE and Maltoma. 3. Small bilateral pleural effusions with associated compressive atelectasis at the lung bases. 4. Very small anterior pericardial effusion. Jayson Queen MD Chest X-Ray 05/10/17 0000 Signed Impressions: Service Date/Time: Wednesday, May 10, 2017 11:31 - CONCLUSION: 1. Stable scarring left lung base. 2. Cardiomegaly. 3. No pneumonia. Jn Packer MD Objective Remarks GENERAL: Well-nourished, well-developed pleasant elderly male patient , anxious. SKIN: Warm and dry. HEAD: Normocephalic. EYES: No scleral icterus. No injection or drainage. NECK: Supple, trachea midline. No JVD or lymphadenopathy. CARDIOVASCULAR: Regular rate and rhythm without murmurs, gallops, or rubs. RESPIRATORY: Mild wheezing, no bronchial sounds., decreased breath sounds. No accessory muscle use. GASTROINTESTINAL: Abdomen soft, non-tender, nondistended. EXTREMITIES: No pedal edema. NEUROLOGICAL: Awake, alert, and oriented x 3. Non-focal. 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 Patient presented with neutropenic fever, pancytopenia, and bleeding : Neutropenic sepsis, ESBL E coli bacteremia in the chemotherapy patient: Fever on presentation. Recurrent fevers. - Appreciate infectious disease followingpatient on vancomycin,and voriconazole. Cefepime changed to Meropenem to cover ESBL - Repeat blood cultures from 05/06 and 05/07 are negative. Urine culture 05/07 no growth to date. Urine Legionella and strep negative. Dyspnea: noted with sob, chest pain, nasal congestion however satting well on room air at this time. O2 supplement as need. CXR reviewed, start duonebs as need, ocean spray for nasal congestion. Received 1 unit pRBC 05/11/17 R/o PE, CTA NO PE EKG at baseline and troponin negative Per hem/onc once patient's neutrophils reach 500, will plan to d/c home on PO abx. AML, undergoing chemotherapy - Status post PRBC and platelet transfusion. - Management per Hematology/Oncology - Trial of Neupogen. Patient has previously been counseled on the risk of stimulating blast cells. - Transfusion parameters per oncology - PLT of 8 today transfuse 1U PLT per oncology indications. LE edema give one dose of lasix po today 20 mg . Monitor urine OP. Monitor electrolytes. Hypokalemia - Given more IV potassium. Mnitor and replace as need. Repeat BMP in the morning. Hypertension: BP stable- hold BP meds for now and continue to monitor. Anxiety: add prn xanax small dose DVT prophylaxis with SCD's- no chemical prophylaxis due to anemia/ thrombocytopenia DC plan: DC when improved and cleared by consultants. Per hem/onc once patient' s neutrophils reach 500, will plan to d/c home on PO abx. Discussed with the patient, nurse, Deana PAYNE hem/onc Discharge plan: Discharge were improved and cleared by consultants. Possible d/ c tomorrow on PO antibiotics if remains afebrile. Hilda Marquez MD May 13, 2017 11:15
[2017-05-13] MEDS ORDERED: FUROSEMIDE 20 MG TAB PO ONE (12:00)
[2017-05-13] MEDS: FILGRASTIM 300 MCG/ML VIAL SQ SCH (14:38)
[2017-05-13] MEDS: TAMSULOSIN HCL 0.4 MG CAP PO SCH (20:28)
[2017-05-13] MEDS: buPROPion HCL 150 MG SUSTAINED RELEASE TAB PO SCH (20:28)
[2017-05-13] MEDS: traZODone HCL 50 MG TAB PO SCH (20:28)
[2017-05-14] VITALS (10 sets, daily range): BP systolic 144–179; BP diastolic 70–92; PULSE 71–88; RESP 16–18; TEMP 98.1–98.9; O2SAT 93–96
[2017-05-14] MEDS ORDERED: PHARMACY ORDERED LAB ONE (03:45)
[2017-05-14] MEDS: VANCOMYCIN INJ 1,250 MG in SODIUM CHLOR 0.9% 250 ML INJ 250 ML IV SCH ×2 (04:29→17:18)
[2017-05-14 05:29] LABS: HEMATOCRIT 24.3 % (39.0-51.0); MEAN CELL VOLUME 87.1 FL (80.0-100.0); MEAN CORPUSCULAR HEMOGLOBIN 29.3 PG (27.0-34.0); MEAN CORPUSCULAR HGB CONC 33.7 % (32.0-36.0); PLATELET COUNT 28 TH/MM3 (150-450); RED BLOOD COUNT 2.79 MIL/MM3 (4.50-5.90); RED CELL DISTRIBUTION WIDTH 17.3 % (11.6-17.2); WHITE BLOOD COUNT 1.4 TH/MM3 (4.0-11.0)
[2017-05-14 05:30] LABS: HEMO FLAGS AUTO DIFF
[2017-05-14 05:32] LABS: BICARBONATE 28.5 MEQ/L (21.0-32.0); POTASSIUM 3.3 MEQ/L (3.5-5.1)
[2017-05-14] MEDS: SODIUM CHLOR 0.9% IV SCH ×2 (06:07→20:56)
[2017-05-14] MEDS: VORICONAZOLE IV SCH ×2 (06:07→20:56)
[2017-05-14 07:03] LABS: BANDS 4 % (0-6); BLASTS 2 % (0-0); CORRECTED NUCLEATED RBC 2 /100 WBC (0-0); METAMYELOCYTES 2 % (0-1); NEUTROPHIL # MANUAL DIFF 0.8 TH/MM3 (1.8-7.7); POLYS (SEG NEUTROPHILS) 54 % (16-70); WBC DIFF SAMPLE 50
[2017-05-14 07:05] LABS: PLATELET ESTIMATE SMEAR LOW (NORMAL); PLATELET MORPHOLOGY NORMAL (NORMAL)
[2017-05-14 07:06] LABS: SCAN/DIFF FINAL DIFF MANUAL
[2017-05-14] MEDS ORDERED: ACETAMINOPHEN 325 MG TAB PO PRN (08:15)
[2017-05-14] MEDS ORDERED: diphenhydrAMINE HCL 25 MG CAP PO PRN (08:15)
[2017-05-14] MEDS ORDERED: SODIUM CHLOR 0.9% 250 ML INJ 250 ML IV ONE (08:15)
[2017-05-14] MEDS: PANTOPRAZOLE SOD 40 MG DELAYED RELEASE TAB PO SCH (09:25)
[2017-05-14] MEDS: DOCUSATE SODIUM 50 MG/SENNA 8.6 MG TAB PO SCH ×2 (09:25→20:59)
[2017-05-14] MEDS: MAGNESIUM OXIDE 400 MG TAB PO SCH (09:25)
[2017-05-14] MEDS ORDERED: POTASSIUM CHLORIDE 20 MEQ PWD PACKET PO ONE (09:30)
[2017-05-14] MEDS: MEROPENEM INJ 2,000 MG in SODIUM CHLORIDE 0.9% INJ 100 ML IV SCH ×3 (09:35→23:51)
--- NOTE | 2017-05-14 10:28 | HHI.IDPN ---
Subjective Subjective Remarks Patient is a 72-year-old male presented to the hospital complaining of chills and shortness of breath. He was apparently in the oncology's office and receive a transfusion when he developed the symptoms of chills and shortness of breath. Patient states that he has never had shortness of breath before. He denies any chest pain. 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 He has been on prophylactic fluconazole and Levaquin. Patient apparently has not been feeling well and has had some cough. He has had some nausea for several weeks, and had one episode of vomiting enroute to the ED. any nausea or vomiting. He has had this sore on the left side of his time and his oncologist gave him some prescription to apply topically. He denies having bitten his tongue. He denies any swallowing difficulty. Denies any diarrhea or any urinary complaints. He has not had any back pain. His temperature in the ED was 102.5. On presentation he was neutropenic with a WBC of 0.1. Infectious disease consultation has been requested to evaluate the patient. Notes reviewed Temps ok No complaints Anxious to go home ANC 812 No new (+) BC (+) BC from 05/04 CT chest with ground glass opacity L No N/V, no diarrhea No resp complaints No rash/itching No swallowing trouble No complaints Feels good Antibiotics Current Medications Meropenem Voriconazole Vancomycin Medications (Trade) Dose Ordered Sig/Gene Route Start Time Stop Time Status Last Admin (Tylenol) 650 mg Q4H PRN PO 05/01/17 14:45 05/09/17 05:10 (Zofran Inj) 4 mg Q8HR PRN IV PUSH 05/01/17 14:45 05/10/17 20:23 (Wellbutrin Sr) 150 mg HS PO 05/01/17 21:00 05/13/17 20:28 (Flomax) 0.4 mg HS PO 05/01/17 21:00 05/13/17 20:28 (Desyrel) 50 mg HS PO 05/01/17 21:00 05/13/17 20:28 (Protonix) 40 mg DAILY PO 05/02/17 09:00 05/14/17 09:25 Voriconazole 400 mg/Sodium Chloride 250 ml @ 125 mls/hr Q12H IV 05/02/17 18:00 05/14/17 06:07 Pharmacy Profile Note 0 ml @ 0 mls/hr UNSCH OTHER 05/01/17 18:15 (Xylocaine 2% Viscous) 10 ml Q4H PRN PO 05/02/17 20:15 05/02/17 21:18 (Neupogen Inj) 300 mcg DAILY@14 SQ 05/03/17 14:00 05/13/17 14:38 Vancomycin HCl 1250 mg/Sodium Chloride 262.5 ml @ 250 mls/hr Q12H IV 05/03/17 16:00 05/14/17 04:29 (Flaca-Colace) 1 tab BID PO 05/06/17 09:15 05/14/17 09:25 (Preparation H Oint) 1 applic Q6H PRN RECTAL 05/06/17 09:15 05/06/17 14:25 (NS Flush) 5 ml UNSCH PRN IV FLUSH 05/06/17 14:15 05/11/17 21:37 (Heparin Central Flush) 250 units UNSCH PRN IV FLUSH 05/06/17 14:15 05/14/17 04:14 (Heparin Central Flush) 500 units UNSCH IV FLUSH 05/06/17 14:15 Meropenem 2000 mg/ Sodium Chloride 100 ml @ 200 mls/hr Q8H IV 05/06/17 15:00 05/14/17 09:35 (Cathflo Activase Inj) 2 mg Q2H PRN INTRACATH 05/07/17 08:30 05/07/17 09:18 (Duoneb Neb) 1 ampule Q4HR NEB PRN NEB 05/10/17 11:30 (Bell Randell [place]) 2 spray Q4H PRN EACH NARE 05/10/17 12:00 05/10/17 12:26 (Mag-Ox) 400 mg DAILY PO 05/11/17 09:00 05/14/17 09:25 (Xanax) 0.125 mg Q8HR PRN PO 05/10/17 11:30 05/10/17 20:23 (Pill Splitter) 1 ea UNSCH PRN OTHER 05/10/17 11:45 Sodium Chloride 250 ml @ 15 mls/hr ONCE ONCE IV 05/14/17 08:15 05/15/17 00:54 (Tylenol) 650 mg Q4H PRN PO 05/14/17 08:15 05/14/17 23:59 (Benadryl) 25 mg Q4H PRN PO 05/14/17 08:15 05/14/17 23:59 Potassium Chloride 100 ml @ 50 mls/hr Q2H IV 05/14/17 10:00 05/14/17 13:59 Lines Port R chest Past Medical History 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 Vital Signs Date Time Temp Pulse Resp B/P (MAP) Pulse Ox O2 Delivery O2 Flow Rate FiO2 05/14/17 09:39 98.9 83 18 179/80 (113) 93 05/14/17 04:04 98.9 80 18 164/80 (108) 93 05/14/17 00:15 79 05/13/17 23:59 98.5 81 18 132/59 (83) 94 05/13/17 20:25 98.3 77 18 160/73 (102) 96 05/13/17 20:00 79 05/13/17 20:00 Room Air 05/13/17 16:10 98.1 79 20 149/84 95 05/13/17 14:41 98.1 80 20 138/75 97 05/13/17 14:30 98.5 80 20 139/79 94 05/13/17 12:59 98.4 75 20 125/67 (86) 94 . Laboratory Tests Test 05/13/17 06:32 05/14/17 04:33 White Blood Count 1.1 TH/MM3 1.4 TH/MM3 Red Blood Count 2.72 MIL/MM3 2.79 MIL/MM3 Hemoglobin 8.3 GM/DL 8.2 GM/DL Hematocrit 23.5 % 24.3 % Mean Corpuscular Volume 86.2 FL 87.1 FL Mean Corpuscular Hemoglobin 30.4 PG 29.3 PG Mean Corpuscular Hemoglobin Concent 35.2 % 33.7 % Red Cell Distribution Width 17.1 % 17.3 % Platelet Count 8 TH/MM3 28 TH/MM3 Mean Platelet Volume 12.8 FL 10.3 FL Neutrophils (%) (Auto) 39.5 % Lymphocytes (%) (Auto) 51.6 % Monocytes (%) (Auto) 8.6 % Eosinophils (%) (Auto) 0.1 % Basophils (%) (Auto) 0.2 % Neutrophils # (Auto) 0.4 TH/MM3 Lymphocytes # (Auto) 0.6 TH/MM3 Monocytes # (Auto) 0.1 TH/MM3 Eosinophils # (Auto) 0.0 TH/MM3 Basophils # (Auto) 0.0 TH/MM3 CBC Comment AUTO DIFF AUTO DIFF Differential Total Cells Counted 100 50 Neutrophils % (Manual) 36 % 54 % Band Neutrophils % 8 % 4 % Lymphocytes % 53 % 36 % Neutrophils # (Manual) 0.5 TH/MM3 0.8 TH/MM3 Nucleated Red Blood Cells 1 /100 WBC 2 /100 WBC Differential Comment FINAL DIFF MANUAL FINAL DIFF MANUAL Blastocytes 3 % 2 % Platelet Estimate RARE LOW Platelet Morphology Comment ENLARGED NORMAL Ovalocytes 1+ Monocytes % 2 % Metamyelocytes 2 % Laboratory Tests Test 05/13/17 06:32 05/14/17 04:33 Blood Urea Nitrogen 12 MG/DL 11 MG/DL Creatinine 0.77 MG/DL 0.75 MG/DL Random Glucose 78 MG/DL 88 MG/DL Calcium Level 7.6 MG/DL 7.6 MG/DL Sodium Level 142 MEQ/L 145 MEQ/L Potassium Level 3.5 MEQ/L 3.3 MEQ/L Chloride Level 107 MEQ/L 110 MEQ/L Carbon Dioxide Level 27.1 MEQ/L 28.5 MEQ/L Anion Gap 8 MEQ/L 7 MEQ/L Estimat Glomerular Filtration Rate 99 ML/MIN 102 ML/MIN Imaging Chest X-Ray 05/10/17 0000 Signed Impressions: Service Date/Time: Wednesday, May 10, 2017 11:31 - CONCLUSION: 1. Stable scarring left lung base. 2. Cardiomegaly. 3. No pneumonia. Jn Packer MD Chest X-Ray 05/05/17 0000 Signed Impressions: Service Date/Time: Friday, May 05, 2017 18:01 - CONCLUSION: 1. Stable left lung base atelectasis/scarring. 2. No acute abnormality or significant interval change. Jayson Queen MD Chest X-Ray 05/02/17 0000 Signed Impressions: Service Date/Time: April 06:24 - CONCLUSION: 1. Stable minimal cardiomegaly. 2. Left basilar atelectasis and/or fibrotic scarring. 3. No acute focal pulmonary infiltrate or pulmonary vascular congestion. 4. Degenerative changes throughout the thoracic spine. Luis Whitehead MD Physical Exam GENERAL: awake, NAD. SKIN: Warm and dry. No generalized rash, no ecchymoses HEAD: Atraumatic. Normocephalic. No temporal wasting, or tenderness. EYES: Rudyard conjunctiva. No petechia or hemorrhage. No scleral icterus. No injection or drainage. EARS, NOSE AND THROAT: Nose without bleeding or purulent nasal discharge. No sinus tenderness. Lesion on lateral tongue much smaller. No oral thrush. NECK: Trachea midline. Supple and not tender, no meningeal signs CARDIOVASCULAR: Regular rate and rhythm. No murmurs, rubs or gallops heard RESPIRATORY: Clear to auscultation. Breath sounds equal bilaterally. No rales , wheezing or rhonchi ABDOMEN: Globular and protuberant, softer and less distended, not tender, bowel sounds present and normoactive. No guarding. No rebound. EXTREMITIES: No clubbing, cyanosis, or edema. No calf tenderness. Well perfused and warm. NEUROLOGICAL: Fully awake, alert Non-focal. PSYCHIATRIC: Normal affect, calm and cooperative. LINE: Port in right upper chest with no evidence of infection Assessment & Plan Remarks IMPRESSION Neutropenic sepsis, has E coli sepsis - patient receiving chemo for relapse AML - has cough, CXR ok - had SOB during transfusion - UA ok, no complaints - has had nausea and one episode of vomiting SOB, etiology? CXR clear, resolved, ?due to fever, ?transfusion reaction Lesion Lateral L tongue, improving Relapse AML RECOMMENDATION Continue Meropenem to cover ESBL+ Continue voriconazole Continue vancomycin No oral option for his E coli ESBL+ bacteremia - he has been on Abx for 9 days - his ANC still less than 10o0, but improving Will D/W Dr Collins Explained plan to patient Judy Leal MD May 14, 2017 10:28
--- NOTE | 2017-05-14 10:30 | PD.ONC.PN ---
Subjective Subjective Remarks Afebrile overnight. Patient eager to go home. Slept well overnight. No complaints. Objective Data Date Time Temp Pulse Resp B/P (MAP) Pulse Ox O2 Delivery O2 Flow Rate FiO2 05/14/17 09:39 98.9 83 18 179/80 (113) 93 05/14/17 04:04 98.9 80 18 164/80 (108) 93 05/14/17 00:15 79 05/13/17 23:59 98.5 81 18 132/59 (83) 94 05/13/17 20:25 98.3 77 18 160/73 (102) 96 05/13/17 20:00 79 05/13/17 20:00 Room Air 05/13/17 16:10 98.1 79 20 149/84 95 05/13/17 14:41 98.1 80 20 138/75 97 05/13/17 14:30 98.5 80 20 139/79 94 05/13/17 12:59 98.4 75 20 125/67 (86) 94 05/14/17 05/14/17 05/14/17 07:00 15:00 23:00 Intake Total 240 ml Output Total 950 ml Balance -710 ml Result Diagram: 05/14/17 0433 05/14/17 0433 Laboratory Results Laboratory Tests Test 05/14/17 04:30 05/14/17 04:33 Vancomycin Level Trough 18.5 MCG/ML White Blood Count 1.4 TH/MM3 Red Blood Count 2.79 MIL/MM3 Hemoglobin 8.2 GM/DL Hematocrit 24.3 % Mean Corpuscular Volume 87.1 FL Mean Corpuscular Hemoglobin 29.3 PG Mean Corpuscular Hemoglobin Concent 33.7 % Red Cell Distribution Width 17.3 % Platelet Count 28 TH/MM3 Mean Platelet Volume 10.3 FL CBC Comment AUTO DIFF Differential Total Cells Counted 50 Neutrophils % (Manual) 54 % Band Neutrophils % 4 % Lymphocytes % 36 % Monocytes % 2 % Neutrophils # (Manual) 0.8 TH/MM3 Metamyelocytes 2 % Nucleated Red Blood Cells 2 /100 WBC Differential Comment FINAL DIFF MANUAL Blastocytes 2 % Platelet Estimate LOW Platelet Morphology Comment NORMAL Blood Urea Nitrogen 11 MG/DL Creatinine 0.75 MG/DL Random Glucose 88 MG/DL Calcium Level 7.6 MG/DL Sodium Level 145 MEQ/L Potassium Level 3.3 MEQ/L Chloride Level 110 MEQ/L Carbon Dioxide Level 28.5 MEQ/L Anion Gap 7 MEQ/L Estimat Glomerular Filtration Rate 102 ML/MIN Administered Medications Medications (Trade) Dose Ordered Sig/Gene Route PRN Reason Start Time Stop Time Status Last Admin Dose Admin Acetaminophen (Tylenol) 650 mg Q4H PRN PO FEVER/ PAIN 1-10 05/01/17 14:45 05/09/17 05:10 Ondansetron HCl (Zofran Inj) 4 mg Q8HR PRN IV PUSH NAUSEA 05/01/17 14:45 05/10/17 20:23 Bupropion HCl (Wellbutrin Sr) 150 mg HS PO 05/01/17 21:00 05/13/17 20:28 Tamsulosin HCl (Flomax) 0.4 mg HS PO 05/01/17 21:00 05/13/17 20:28 Trazodone HCl (Desyrel) 50 mg HS PO 05/01/17 21:00 05/13/17 20:28 Pantoprazole Sodium (Protonix) 40 mg DAILY PO 05/02/17 09:00 05/14/17 09:25 Voriconazole 400 mg/Sodium Chloride 250 ml @ 125 mls/hr Q12H IV 05/02/17 18:00 05/14/17 06:07 Lidocaine HCl (Xylocaine 2% Viscous) 10 ml Q4H PRN PO ORAL PAIN SCALE 1 TO 10 05/02/17 20:15 05/02/17 21:18 Filgrastim (Neupogen Inj) 300 mcg DAILY@14 SQ 05/03/17 14:00 05/13/17 14:38 Vancomycin HCl 1250 mg/Sodium Chloride 262.5 ml @ 250 mls/hr Q12H IV 05/03/17 16:00 05/14/17 04:29 Senna/Docusate Sodium (Flaca-Colace) 1 tab BID PO 05/06/17 09:15 05/14/17 09:25 Shark Liver Oil (Preparation H Oint) 1 applic Q6H PRN RECTAL HEMORRHOIDS 05/06/17 09:15 05/06/17 14:25 Sodium Chloride (NS Flush) 5 ml UNSCH PRN IV FLUSH SEE PROTOCOL TABLE 05/06/17 14:15 05/11/17 21:37 Heparin Sodium (Porcine) (Heparin Central Flush) 250 units UNSCH PRN IV FLUSH SEE PROTOCOL TABLE 05/06/17 14:15 05/14/17 04:14 Meropenem 2000 mg/ Sodium Chloride 100 ml @ 200 mls/hr Q8H IV 05/06/17 15:00 05/14/17 09:35 Alteplase, Recombinant (Cathflo Activase Inj) 2 mg Q2H PRN INTRACATH CLOTTED PORT 05/07/17 08:30 05/07/17 09:18 Sodium Chloride (Mono Randell [place]) 2 spray Q4H PRN EACH NARE NASAL CONGESTION 05/10/17 12:00 05/10/17 12:26 Magnesium Oxide (Mag-Ox) 400 mg DAILY PO 05/11/17 09:00 05/14/17 09:25 Alprazolam (Xanax) 0.125 mg Q8HR PRN PO anxiety 05/10/17 11:30 05/10/17 20:23 Objective Remarks GENERAL: Elderly male sitting up in bed in nad. SKIN: Warm and dry. HEAD: Normocephalic. EYES: No injection or drainage. NECK: Supple, trachea midline. CARDIOVASCULAR: Regular rate and rhythm RESPIRATORY: Breath sounds equal bilaterally. No accessory muscle use. GASTROINTESTINAL: Abdomen soft, non-tender, nondistended. EXTREMITIES: No cyanosis NEUROLOGICAL: awake and alert, normal speech. moving all extremities. 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 --on Dacogen outpatient Plan 1. clear for discharge--please hold d/c until after Dr. Collins sees this evening. 2. give 1 unit pRBC 3. give IV potassium--patient cannot tolerate PO Attending Statement The exam, history, and the medical decision-making described in the above note were completed with the assistance of the mid-level provider. I reviewed and agree with the findings presented. I attest that I had a [id number] encounter with the patient on the same day, and personally performed and documented my assessment and findings in the medical record. It is 7:30 pm and patient has just started his blood transfusion. He now has a neutrophil count >500 and has been afebrile for a number of days. I gave him the option of leaving late tonight when the transfusion is done or leaving in am after receiving antibiotics this evening and tomorrow am. He will leave in am and I will follow as outpatient with three days of Anita and a md visit this Saturday. If he his stable over the next week may try cycle 2 of decitabine if he desires. I will not interfere with his Sathish. check cbc plat in am. Haley Aldrich May 14, 2017 10:30 Jarrell Collins MD May 14, 2017 19:35
[2017-05-14] MEDS: POTASSIUM CHLOR 20 MEQ PREMIX 100 ML IV SCH ×2 (10:58→14:29)
[2017-05-14] MEDS: FILGRASTIM 300 MCG/ML VIAL SQ SCH (16:30)
--- NOTE | 2017-05-14 20:26 | HHI.FF ---
Face to Face Verification Diagnosis: (1) Neutropenic fever Home Health Nursing Order: Signs/symptoms of disease process Nursing assessment with vital signs I have seen patient Jarrell Suh on 05/14/17. My clinical findings support the need for the requested home health care services because: Ltd mobility - disease progression I certify that my clinical findings support that this patient is homebound because: Unsafe to leave home unassisted Unable to use public transportation Ronni Del Toro MD May 14, 2017 20:26
--- NOTE | 2017-05-14 20:30 | HHI.DS ---
Discharge Summary Admission Date May 01, 2017 at 14:38 Discharge Date: May 14, 2017 Admitting Diagnosis sepsis, neutropenic fever, AML, thrombocytopenia (1) Neutropenic fever ICD Code: D70.9 - Neutropenia, unspecified; R50.81 - Fever presenting with conditions classified elsewhere Diagnosis: Principal Status: Acute Procedures None Brief History - From Admission patient is a 72 y/o male with history of AML,under ' care, on chemotherapy who was sent from the clinic. he says that he was receiving blood transfusion earlier today when he started to feel shaky, with some sob and noticed that he had ' some blood in his mouth'. he says that he had some on and off low grade fever over the past couple of days. he was started on diflucan and levaquin by . he has some occasional cough. he denies any abdominal pain, nausea, vomiting, abdominal pain or urinary complaints.he wasn't in acute distress at the time of my evaluation. CBC/BMP: 05/14/17 0433 05/14/17 0433 Significant Findings Laboratory Tests Test 05/12/17 05:30 05/13/17 06:32 05/14/17 04:30 05/14/17 04:33 White Blood Count 1.3 TH/MM3 (4.0-11.0) 1.1 TH/MM3 (4.0-11.0) 1.4 TH/MM3 (4.0-11.0) Red Blood Count 2.68 MIL/MM3 (4.50-5.90) 2.72 MIL/MM3 (4.50-5.90) 2.79 MIL/MM3 (4.50-5.90) Hemoglobin 8.0 GM/DL (13.0-17.0) 8.3 GM/DL (13.0-17.0) 8.2 GM/DL (13.0-17.0) Hematocrit 23.0 % (39.0-51.0) 23.5 % (39.0-51.0) 24.3 % (39.0-51.0) Platelet Count 13 TH/MM3 (150-450) 8 TH/MM3 (150-450) 28 TH/MM3 (150-450) Lymphocytes % 48 % (9-44) 53 % (9-44) Neutrophils # (Manual) 0.5 TH/MM3 (1.8-7.7) 0.5 TH/MM3 (1.8-7.7) 0.8 TH/MM3 (1.8-7.7) Blastocytes 8 % (0-0) 3 % (0-0) 2 % (0-0) Platelet Estimate RARE (NORMAL) RARE (NORMAL) LOW (NORMAL) Ovalocytes 1+ (NORMAL) 1+ (NORMAL) Mean Platelet Volume 12.8 FL (7.0-11.0) Lymphocytes (%) (Auto) 51.6 % (9.0-44.0) Monocytes (%) (Auto) 8.6 % (0.0-8.0) Neutrophils # (Auto) 0.4 TH/MM3 (1.8-7.7) Lymphocytes # (Auto) 0.6 TH/MM3 (1.0-4.8) Band Neutrophils % 8 % (0-6) Nucleated Red Blood Cells 1 /100 WBC (0-0) 2 /100 WBC (0-0) Platelet Morphology Comment ENLARGED (NORMAL) Calcium Level 7.6 MG/DL (8.5-10.1) 7.6 MG/DL (8.5-10.1) Vancomycin Level Trough 18.5 MCG/ML (5.0-10.0) Red Cell Distribution Width 17.3 % (11.6-17.2) Metamyelocytes 2 % (0-1) Potassium Level 3.3 MEQ/L (3.5-5.1) Chloride Level 110 MEQ/L (98-107) PE at Discharge GENERAL: Well-nourished, well-developed pleasant elderly male patient , anxious. SKIN: Warm and dry. HEAD: Normocephalic. EYES: No scleral icterus. No injection or drainage. NECK: Supple, trachea midline. No JVD or lymphadenopathy. CARDIOVASCULAR: Regular rate and rhythm without murmurs, gallops, or rubs. RESPIRATORY: Mild wheezing, no bronchial sounds., decreased breath sounds. No accessory muscle use. GASTROINTESTINAL: Abdomen soft, non-tender, nondistended. EXTREMITIES: No pedal edema. NEUROLOGICAL: Awake, alert, and oriented x 3. Non-focal. Hospital Course Mr. Suh is a 72 year old male. He was admitted due to neutropenic fever. He is on chemotherapy with Dr. Collins due to AML. Pancytopenia was also present. Of note he was receiving a transfusion when the onset of fever/ tremors occurred. He was monitored and treated here. Pancytopenia has stabilized. No further fevers. He was covered with antibiotics here, no specific findings of a source are found. It is thought per oncology that infection may not be present. He is cleared for discharge to home today. He will have close follow up in the setting of cessation of antibiotic treatments. Medically cleared for discharge today. Pt Condition on Discharge: Stable Discharge Disposition: Disch w/ Home Health Serv Discharge Time: <= 30 minutes Discharge Instructions DIET: Follow Instructions for: As Tolerated, No Restrictions Activities you can perform: Regular-No Restrictions Follow up Referrals: Oncology/Hematology - 2 Weeks PCP Follow-up - 2 Weeks Continued Medications: Bupropion HCl ER 24 HR (Wellbutrin Xl 24 HR) 150 Mg Tab 150 MG PO HS for Control Depression, TAB 0 Refills Losartan (Losartan) 50 Mg Tab 50 MG PO HS for Blood Pressure Management, #30 TAB 0 Refills Omeprazole (Omeprazole) 40 Mg Cap 40 MG PO DAILY, #30 CAP 0 Refills Tamsulosin (Tamsulosin) 0.4 Mg Cap 0.4 MG PO HS for Manage Prostate Problems, #30 CAP 0 Refills Trazodone (Trazodone) 50 Mg Tab 50 MG PO HS for Control Depression, #30 TAB 0 Refills Ronni Del Toro MD May 14, 2017 20:30
[2017-05-14] MEDS: traZODone HCL 50 MG TAB PO SCH (20:59)
[2017-05-14] MEDS: TAMSULOSIN HCL 0.4 MG CAP PO SCH (20:59)
[2017-05-14] MEDS: buPROPion HCL 150 MG SUSTAINED RELEASE TAB PO SCH (20:59)
[2017-05-15 03:53] VITALS: BP 152/79; PULSE 80; RESP 16; TEMP 98.5; O2SAT 96
[2017-05-15] MEDS: VANCOMYCIN INJ 1,250 MG in SODIUM CHLOR 0.9% 250 ML INJ 250 ML IV SCH (03:57)
[2017-05-15 04:21] LABS: HEMATOCRIT 25.4 % (39.0-51.0); MEAN CELL VOLUME 86.2 FL (80.0-100.0); MEAN CORPUSCULAR HGB CONC 34.8 % (32.0-36.0); RED BLOOD COUNT 2.94 MIL/MM3 (4.50-5.90); RED CELL DISTRIBUTION WIDTH 17.2 % (11.6-17.2); WHITE BLOOD COUNT 2.4 TH/MM3 (4.0-11.0)
[2017-05-15 04:29] LABS: HEMO FLAGS AUTO DIFF
[2017-05-15 04:36] LABS: PLATELET COUNT 19 TH/MM3 (150-450)
[2017-05-15 04:53] LABS: ANION GAP 7 MEQ/L (5-15); AST (GOT) 51 U/L (15-37); BICARBONATE 26.1 MEQ/L (21.0-32.0); BLOOD UREA NITROGEN 8 MG/DL (7-18); CHLORIDE 111 MEQ/L (98-107); GLOMERULAR FILTRATION RATE 108 ML/MIN (>89); POTASSIUM 3.7 MEQ/L (3.5-5.1); SODIUM (NA) 144 MEQ/L (136-145)
[2017-05-15 04:57] LABS: ALKALINE PHOSPHATASE 125 U/L (45-117); ALT (GPT) 53 U/L (12-78); TOTAL BILIRUBIN ADULT 0.8 MG/DL (0.2-1.0)
[2017-05-15] MEDS: VORICONAZOLE IV SCH (05:03)
[2017-05-15] MEDS: SODIUM CHLOR 0.9% IV SCH (05:03)
[2017-05-15] MEDS: MEROPENEM INJ 2,000 MG in SODIUM CHLORIDE 0.9% INJ 100 ML IV SCH (06:26)
[2017-05-15 07:54] LABS: METAMYELOCYTES 1 % (0-1); NEUTROPHIL # MANUAL DIFF 1.8 TH/MM3 (1.8-7.7); OVALOCYTES 1+ (NORMAL); PLATELET ESTIMATE SMEAR RARE (NORMAL); PLATELET MORPHOLOGY NORMAL (NORMAL); POLYS (SEG NEUTROPHILS) 72 % (16-70); SCAN/DIFF FINAL DIFF MANUAL; WBC DIFF SAMPLE 100
[2017-05-15 08:00] VITALS: BP 149/76; PULSE 78; PULSE 96; RESP 16; TEMP 98.6; O2SAT 94
[2017-05-15] MEDS: MAGNESIUM OXIDE 400 MG TAB PO SCH (08:10)
[2017-05-15] MEDS: PANTOPRAZOLE SOD 40 MG DELAYED RELEASE TAB PO SCH (08:10)
[2017-05-15] MEDS: DOCUSATE SODIUM 50 MG/SENNA 8.6 MG TAB PO SCH (08:10)
--- NOTE | 2017-05-15 20:18 | PD.ONC.PN ---
Subjective Subjective Remarks patient seen this am and note written after discharge. He is feeling well and much stronger Objective Data Date Time Temp Pulse Resp B/P (MAP) Pulse Ox O2 Delivery O2 Flow Rate FiO2 05/15/17 08:00 96 05/15/17 08:00 98.6 78 16 149/76 (100) 94 05/15/17 07:00 Room Air 05/15/17 03:53 98.5 80 16 152/79 (103) 96 05/14/17 23:49 98.1 88 16 164/92 (116) 94 05/14/17 21:04 98.5 74 16 151/88 95 05/14/17 20:45 71 05/14/17 20:45 Room Air 05/15/17 05/15/17 05/15/17 07:00 15:00 23:00 Intake Total 480 ml Output Total 850 ml Balance -370 ml Result Diagram: 05/15/17 0356 05/15/17 0356 Laboratory Results Laboratory Tests Test 05/15/17 03:56 White Blood Count 2.4 TH/MM3 Red Blood Count 2.94 MIL/MM3 Hemoglobin 8.8 GM/DL Hematocrit 25.4 % Mean Corpuscular Volume 86.2 FL Mean Corpuscular Hemoglobin 30.0 PG Mean Corpuscular Hemoglobin Concent 34.8 % Red Cell Distribution Width 17.2 % Platelet Count 19 TH/MM3 Mean Platelet Volume 9.2 FL CBC Comment AUTO DIFF Differential Total Cells Counted 100 Neutrophils % (Manual) 72 % Lymphocytes % 26 % Monocytes % 1 % Neutrophils # (Manual) 1.8 TH/MM3 Metamyelocytes 1 % Differential Comment FINAL DIFF MANUAL Platelet Estimate RARE Platelet Morphology Comment NORMAL Ovalocytes 1+ Blood Urea Nitrogen 8 MG/DL Creatinine 0.71 MG/DL Random Glucose 80 MG/DL Total Protein 5.7 GM/DL Albumin 2.3 GM/DL Calcium Level 7.9 MG/DL Alkaline Phosphatase 125 U/L Aspartate Amino Transf (AST/SGOT) 51 U/L Alanine Aminotransferase (ALT/SGPT) 53 U/L Total Bilirubin 0.8 MG/DL Sodium Level 144 MEQ/L Potassium Level 3.7 MEQ/L Chloride Level 111 MEQ/L Carbon Dioxide Level 26.1 MEQ/L Anion Gap 7 MEQ/L Estimat Glomerular Filtration Rate 108 ML/MIN Objective Remarks GENERAL: Well-nourished, well-developed patient. SKIN: Warm and dry. HEAD: Normocephalic. EYES: No scleral icterus. No injection or drainage. NECK: Supple, trachea midline. No JVD or lymphadenopathy. LYMPHATIC: No adenopathy. CARDIOVASCULAR: Regular rate and rhythm without murmurs. RESPIRATORY: Breath sounds equal bilaterally. No accessory muscle use. GASTROINTESTINAL: Abdomen soft, non-tender, nondistended. EXTREMITIES: +1 edema MUSCULOSKELETAL: Adequate muscle tone. NEUROLOGICAL: No obvious focal deficit. Awake, alert, and oriented x3. PSYCHIATRIC: Appropriate mood and affect; insight and judgment normal. Assessment/Plan Assessment 1: patient afebrile, neutrophil count has responded unusually well to Neupogen and decitabine combination. He is ready for a safe discharge. I spoke with Mr. Suh about follow up and he will have a cbc plat Saturday am at the clinic as if he requires a transfusion we will have the time to do it before entering the weekend when the clinic is closed. Will proceed with cycle II of decitbine in near future and use neupogen for support. Plan Jarrell Collins MD May 15, 2017 20:18
== END 2017-05-15 10:45 | disposition home health service (06) | DRG 872 ==
LOC: NEPE 12:34 → NEDA 14:38 → N05A 16:46 → HCIN 05-02 19:03
PROVIDERS: ADMIT Hospitalist; ATTEND Hospitalist
PROC: 30233N1 Transfusion of Nonautologous Red Blood Cells into Peripheral Vein, Percutaneous Approach (ICD-10-PCS; principal; 2017-05-01)
PROC: 30233R1 Transfusion of Nonautologous Platelets into Peripheral Vein, Percutaneous Approach (ICD-10-PCS; 2017-05-03)
DX: A41.51 Sepsis due to Escherichia coli [E. coli] (principal); C92.02 Acute myeloblastic leukemia, in relapse; D61.818 Other pancytopenia; R50.81 Fever presenting with conditions classified elsewhere; F32.9 Major depressive disorder, single episode, unspecified; K21.9 Gastro-esophageal reflux disease without esophagitis; I10 Essential (primary) hypertension; F43.10 Post-traumatic stress disorder, unspecified; R65.20 Severe sepsis without septic shock; T80.92XA Unspecified transfusion reaction, initial encounter; N40.0 Benign prostatic hyperplasia without lower urinary tract symptoms; Y84.8 Other medical procedures as the cause of abnormal reaction of the patient, or of later complication, without mention of misadventure at the time of the procedure; Z16.12 Extended spectrum beta lactamase (ESBL) resistance; K57.90 Diverticulosis of intestine, part unspecified, without perforation or abscess without bleeding; E87.6 Hypokalemia; E78.00 Pure hypercholesterolemia, unspecified; K59.00 Constipation, unspecified; K64.9 Unspecified hemorrhoids; R04.0 Epistaxis; K14.9 Disease of tongue, unspecified; Z66 Do not resuscitate; G62.9 Polyneuropathy, unspecified; R09.81 Nasal congestion; R53.1 Weakness; R60.0 Localized edema; R74.8 Abnormal levels of other serum enzymes; Z86.14 Personal history of Methicillin resistant Staphylococcus aureus infection; Z92.21 Personal history of antineoplastic chemotherapy
CPT/HCPCS: 36415; 36430; 36591; 71010; 71275; 80048; 80053; 80076; 80202; 81001; 82565; 83010; 83605; 83615; 83735; 83880; 84484; 85007; 85027; 86078; 86850; 86880; 86900; 86901; 86920; 87040; 87077; 87086; 87186; 87205; 87449; 93005; 93971; 96365; 96375; 96523; 99212; 99214; G0463; J0692; J1442; J1642; J1940; J2175; J2185; J2405; J2997; J3370; J3465; J3480; J7030; J7040; J7050; J7613; P9016; P9035; Q9967